=== PATIENT | male | born 1965 | race Caucasian/White ===

== ENCOUNTER 2016-08-22 11:28 | Inpatient (IN) | payer MEDICAID, OTHER ==
[~2016-08-22] VITALS: Ht 188 cm; Wt 151.6 kg
[~2016-08-22 11:28] MED LIST: ACHD5005 PO; ALBU8.5H2; ALBU8.5H4 IH; ALPR.5T PO; ALPR0.5T7; ALPR0.5T7 PO; ASP325TEC PO; ATOR10TA66; ATOR10TA66 PO; ATOR40TA PO; ATRV10T PO; CARI350T PO; CARV12.53 PO; CARV20CP; CARV20CP PO; CARV25TA PO; CARV40CP PO; CARV6.252; CEFU250T PO; CLIN300C3 PO; CYCL10TA9 PO; DIAZ10TA3; DIAZ10TA3 PO; DIGO125T PO; DIGO250T15; DIGO250T15 PO; FENO134C PO; FLT05NA16 NSEACH; FURO40TA4 PO; FURO80TA3 PO; GABA-488; GABA300C; GABA600T2 PO; GBPN300C PO; GUAI600T43 PO; HYDR-3156 PO; HYDR-3490; HYDR-3720 PO; HYDR-3923 PO; INSU100I10; INSU100I10 SQ; INSU100I13 SQ; INSU100I14 SQ; INSU100V6 SQ; LISI10TA; LISI10TA PO; LISI10TA2; LISI10TA2 PO; MED FOR ARTHRITIS; METF-380 PO; METF1000; MORP100T; MORP100T37 PO; MORP60CA18 PO; MORPHINE ER; MTF500T; MTL5T PO; MULT-963 PO; NAPR-243 PO; OXYC30TA76 PO; OXYC30TA80; OXYC30TA80 PO; PENI500T PO; PIRO20CA2 PO; RANI-10; RANI150T11 PO; RT-ALBUINH IH; SULF1TAB38 PO; TRIA16.5 NS; VITA-198 PO; WARF10TA4; WARF10TA44 PO; WRF10T PO; WRF5T PO; ZOLP10TA5 PO; [UNRECOGNIZED DRUG - OTHER]
[2016-08-22] MEDS ORDERED: LACTULOSE SYRUP 10GM/15ML (ENULOSE) 30ML UDC PO PRN (13:15)
[2016-08-22] MEDS ORDERED: VANCOMYCIN INJECTION 1,000 MG in NS (IVPB) 250 ML IV SCH (13:15)
[2016-08-22] MEDS ORDERED: ONDANSETRON 4 MG/2 ML (SDV) Z0FRAN IVP PRN (13:15)
[2016-08-22] MEDS ORDERED: ALPRAZolam 0.25 MG (XANAX) TAB PO PRN (13:15)
[2016-08-22 19:00] VITALS: BP 138/83
[2016-08-22 20:00] VITALS: BP 124/61
[2016-08-22] MEDS ORDERED: PIPERACILLIN SODIUM/TAZOBACTAM 4.5 GM in NS (IVPB) 100 ML IV NR (20:00)
[2016-08-22 20:10] LABS: BASOPHILS % (AUTO) 0 % (0-10); EOSINOPHILS # (AUTO) 0.1 10^3/uL (0.0-0.3); EOSINOPHILS % (AUTO) 1 % (0-10); LYMPHOCYTES # (AUTO) 1.4 X 10^3 (1.0-4.0); LYMPHOCYTES % (AUTO) 10 % (12-44); MEAN CORPUSCULAR HEMOGLOBIN 30 PG (25-34); MEAN CORPUSCULAR HGB CONC 35 G/DL (32-36); MEAN CORPUSCULAR VOLUME 86 FL (80-99); MEAN PLATELET VOLUME 9.1 FL (7.4-10.4); MONOCYTES # (AUTO) 1.1 X 10^3 (0.0-1.0); MONOCYTES % (AUTO) 8 % (0-12); NEUTROPHILS % (AUTO) 81 % (42-75); PLATELET COUNT 328 10^3/uL (130-400); RED BLOOD COUNT 4.23 10^6/uL (4.35-5.85); RED CELL DISTRIBUTION WIDTH 12.9 % (10.0-14.5); WHITE BLOOD COUNT 13.7 10^3/uL (4.3-11.0)
[2016-08-22 20:30] LABS: ALANINE AMINOTRANSFERASE 12 U/L (0-55); ALBUMIN 2.9 GM/DL (3.2-4.5); ANION GAP 9 MMOL/L (5-14); ASPARTATE AMINO TRANSFERASE 14 U/L (5-34); BILIRUBIN,TOTAL 0.5 MG/DL (0.1-1.0); BLOOD UREA NITROGEN 8 MG/DL (7-18); BUN/CREATININE RATIO 8; CALCIUM 8.7 MG/DL (8.5-10.1); CARBON DIOXIDE 23 MMOL/L (21-32); CHLORIDE 102 MMOL/L (98-107); CREATININE SERUM 0.97 MG/DL (0.60-1.30); GFR ESTIMATED > 60; GLUCOSE 177 MG/DL (70-105); POTASSIUM 3.7 MMOL/L (3.6-5.0); SODIUM 134 MMOL/L (135-145); TOTAL PROTEIN 7.2 GM/DL (6.4-8.2)
--- NOTE | 2016-08-22 20:31 | Diagnostic Imaging Report ---
INDICATION: Right foot and ankle swelling. COMPARISON: Right foot radiographs performed concurrently. TECHNIQUE: Three nonweightbearing views of the right ankle. FINDINGS: There are no foci of osseous erosions or cortical destruction about the ankle. No fracture. No osteochondral lesion of the talar dome. Mild degenerative changes in the midfoot. Small dorsal calcaneal spur. Nonaggressive soft tissue calcifications are present in the distal lower leg. IMPRESSION: No radiographic evidence of osteomyelitis about the ankle. Dictated by: Dictated on workstation # [id number]
--- NOTE | 2016-08-22 20:34 | Diagnostic Imaging Report ---
INDICATION: Foot swelling with abscess. COMPARISON: Ankle radiograph performed concurrently. TECHNIQUE: 3 nonweightbearing views of right foot. FINDINGS: There is extensive soft tissue swelling of the forefoot. There are numerous foci of soft tissue gas in the forefoot as well. No discrete osseous erosions or cortical destruction to confirm osteomyelitis by radiographs. No fracture. Mild degenerative changes within the interphalangeal joints. IMPRESSION: 1. Soft tissue swelling with multiple foci of soft tissue gas in the forefoot should relate to patient's reported abscess. 2. No radiographic confirmation of osteomyelitis. Please note that radiographs are insensitive for early osteomyelitis, and MRI of the foot with and without contrast would provide more sensitive evaluation, if deemed clinically indicated. Dictated by: Dictated on workstation # [id number]
[2016-08-22 20:36] LABS: TROPONIN I < 0.30 NG/ML (<0.30)
[2016-08-22] MEDS: NS IV 1000 ML 1,000 ML IV SCH (20:41)
[2016-08-22] MEDS: HYDROmorphone (DILAUDID) 2 MG/ML VIAL IVP PRN (20:41)
[2016-08-22 21:00] VITALS: BP 113/65
[2016-08-22] MEDS ORDERED: VANCOMYCIN 2000 MG/NS 500 ML IVPB IV SCH ×2 (21:00)
[2016-08-22] MEDS ORDERED: LACTATED RINGERS 1,000 ML IV PRN (21:06)
[2016-08-22] MEDS ORDERED: fentaNYL INJECTION 100 MCG/2 ML AMP ONE (21:19)
[2016-08-22] MEDS ORDERED: proPOfol 200 MG/20 ML (DIPRIVAN) VIAL IV ONE (21:19)
[2016-08-22] MEDS ORDERED: MIDAZOLAM 2 MG/2 ML (VERSED) VIAL ONE (21:19)
[2016-08-22] MEDS ORDERED: VANCOMYCIN 1000 MG/VIAL ONE (21:31)
[2016-08-22] MEDS ORDERED: NS IV 500 ML 500 ML ONE (21:31)
[2016-08-22] MEDS ORDERED: morphine INJ 10 MG/ML 1ML (SYR OR VIAL) ONE (21:48)
[2016-08-22] MEDS ORDERED: LIDOCAINE PF 2% 5 ML (XYLOCAINE) VIAL ONE (22:11)
[2016-08-22] MEDS ORDERED: LABETALOL HCL 20 MG/4 ML VIAL ONE (22:11)
[2016-08-22] MEDS ORDERED: SEVOFLURANE (ULTANE) 15 ML INHAL SOLN ONE ×3 (22:11→22:55)
[2016-08-22] MEDS ORDERED: ROCURONIUM 50 MG/5 ML (ZEMURON) VIAL IV ONE (22:11)
[2016-08-22] MEDS ORDERED: LACTATED RINGERS 1,000 ML IV ONE (22:11)
[2016-08-22 23:00] VITALS: BP 113/65
[2016-08-22] MEDS ORDERED: ONDANSETRON 4 MG/2 ML (SDV) Z0FRAN ONE (23:11)
[2016-08-22] MEDS: morphine INJ 10 MG/ML 1ML (SYR OR VIAL) IVP PRN ×2 (23:24→23:33)
[2016-08-23] VITALS (11 sets, daily range): BP systolic 117–164; BP diastolic 76–98
[2016-08-23] MEDS: HYDROmorphone (DILAUDID) 2 MG/ML VIAL IVP PRN ×3 (00:31→20:04)
[2016-08-23] MEDS: NS IV 1000 ML 1,000 ML IV SCH ×4 (00:31→18:38)
[2016-08-23] MEDS: oxyCODONE/APAP 10/325MG (PERCOCET 10) TABLET PO PRN ×2 (00:32→10:31)
[2016-08-23] MEDS ORDERED: RT-ALBUTEROL SULF 2.5 MG/3 ML PRE-MIX VIAL IH PRN (02:45)
[2016-08-23] MEDS: PIPERACILLIN SODIUM/TAZOBACTAM 4.5 GM in NS (IVPB) 100 ML IV SCH ×3 (04:04→17:46)
[2016-08-23 04:44] LABS: BASOPHILS % (AUTO) 0 % (0-10); EOSINOPHILS # (AUTO) 0.1 10^3/uL (0.0-0.3); EOSINOPHILS % (AUTO) 0 % (0-10); LYMPHOCYTES # (AUTO) 1.2 X 10^3 (1.0-4.0); LYMPHOCYTES % (AUTO) 7 % (12-44); MEAN CORPUSCULAR HEMOGLOBIN 30 PG (25-34); MEAN CORPUSCULAR HGB CONC 34 G/DL (32-36); MEAN CORPUSCULAR VOLUME 86 FL (80-99); MEAN PLATELET VOLUME 9.4 FL (7.4-10.4); MONOCYTES # (AUTO) 1.7 X 10^3 (0.0-1.0); MONOCYTES % (AUTO) 10 % (0-12); NEUTROPHILS # (AUTO) 13.8 X 10^3 (1.8-7.8); NEUTROPHILS % (AUTO) 83 % (42-75); PLATELET COUNT 343 10^3/uL (130-400); RED BLOOD COUNT 4.21 10^6/uL (4.35-5.85); RED CELL DISTRIBUTION WIDTH 12.8 % (10.0-14.5); WHITE BLOOD COUNT 16.7 10^3/uL (4.3-11.0)
[2016-08-23 05:08] LABS: CALCIUM 8.4 MG/DL (8.5-10.1); CREATININE SERUM 1.46 MG/DL (0.60-1.30); MAGNESIUM 1.8 MG/DL (1.8-2.4); PHOSPHORUS 3.8 MG/DL (2.3-4.7); POTASSIUM 4.2 MMOL/L (3.6-5.0)
[2016-08-23 05:26] LABS: BAND NEUTROPHILS 7 %; EOSINOPHILS % (MANUAL) 1 %; LYMPHOCYTES % (MANUAL) 12 %; NEUTROPHILS % (MANUAL) 71 %
[2016-08-23] MEDS ORDERED: POTASSIUM CL 10MEQ/50ML IVPB 50 ML IV SCH (06:00)
[2016-08-23] MEDS ORDERED: KCL 20 MEQ TAB (K-DUR) PO SCH (06:00)
[2016-08-23] MEDS ORDERED: MAGNESIUM 1 GM/100 ML IVPB 100 ML IV SCH (06:00)
--- NOTE | 2016-08-23 06:31 | Pulmonary Consultation ---
History of Present Illness History of Present Illness Date of Consultation 08/23/16 06:24 Time Seen by Provider: 06:25 Date of Admission Allergies and Home Medications Allergies Coded Allergies: cortisone (Verified Allergy, Unknown, HIVES, 11/11/14) shellfish derived (Verified Allergy, Unknown, 11/11/14) Uncoded Allergies: THYLAID (Allergy, Unknown, 11/11/14) Home Medications Clindamycin HCl 300 Mg Capsule, 300 MG PO Q8H, (Reported) 10 DAY THERAPY FILLED 08-13-16 Ibuprofen 800 Mg Tablet, 800 MG PO Q8H PRN for PAIN-MILD, (Reported) Oxycodone HCl/Acetaminophen 1 Each Tablet, 1 TAB PO Q6H PRN for PAIN-MODERATE, ( Reported) Rivaroxaban 15 Mg Tablet, 15 MG PO BID, (Reported) Past Wgncpyy-Kayjyb-Xwhega Hx Patient Social History Alcohol Use: Occasionally Uses Recreational Drug Use: Yes (ETOH 20 YRS AG0) Smoking Status: Unknown if Ever Smoked Former Smoker/When Quit: Feb 25, 2014 Recent Foreign Travel: No Contact w/Someone Who Travel: No Physical Abuse Screen: No Sexual Abuse: No Immunizations Up To Date Tetanus Booster (TDap): Less than 5yrs Date of Pneumonia Vaccine: Jun 13, 2007 Seasonal Allergies Seasonal Allergies: Yes Surgeries HX Surgeries: Yes (L KNEE) Surgeries: Adenoidectomy, Cardiac, Ear Surgery, Orthopedic, Tonsillectomy Respiratory Hx Respiratory Disorders: Yes Respiratory Disorders: COPD Cardiovascular Hx Cardiac Disorders: Yes (reported history of CHF) Cardiac Disorders: Deep Vein Thrombosis, High Cholesterol, Hypertension Neurological Hx Neurological Disorders: No (pt unresponsive) Reproductive System Hx Reproductive Disorders: No Sexually Transmitted Disease: No HIV/AIDS: No Genitourinary Hx Genitourinary Disorders: Yes (pt unresponsive) Genitourinary Disorders: Renal Failure Gastrointestinal Hx Gastrointestinal Disorders: No (pt unresponsive) Musculoskeletal Hx Musculoskeletal Disorders: Yes Musculoskeletal Disorders: Arthritis, Chronic Back Pain, Fractures Endocrine Hx Endocrine Disorders: Yes (pt unresponsive) Endocrine Disorders: Diabetes, Insulin dep HEENT HX ENT Disorders: No (pt unresponsive) Cancer Hx Cancer: No (pt unresponsive) Psychosocial Hx Psychiatric Problems: Yes Behavioral Health Disorders: Anxiety Integumentary HX Skin/Integumentary Disorder: No Blood Transfusions Hx Blood Disorders: No Adverse Reaction to a Blood Tr: No Family Medical History Significant Family History: No Pertinent Family Hx Review of Systems Time Seen by Provider: 08:28 Exam Exam Vital Signs Date Time Temp Pulse Resp B/P (MAP) Pulse Ox O2 Delivery O2 Flow Rate FiO2 08/23/16 06:00 94 10 117/85 96 Nasal Cannula 2.00 08/23/16 05:00 98 20 150/82 96 Nasal Cannula 2.00 08/23/16 04:00 91 Nasal Cannula 2.00 08/23/16 04:00 101 23 134/77 96 Nasal Cannula 2.00 08/23/16 03:00 101 18 154/81 96 Nasal Cannula 2.00 08/23/16 02:40 96 Nasal Cannula 2.00 08/23/16 02:00 102 19 135/76 97 Nasal Cannula 2.00 08/23/16 01:00 101 20 137/88 96 Nasal Cannula 2.00 08/23/16 01:00 106 08/23/16 00:30 96.6 Nasal Cannula 2.00 08/23/16 00:00 91 Nasal Cannula 2.00 08/23/16 00:00 98 9 134/90 91 Room Air 08/22/16 23:00 113/65 08/22/16 21:46 96 Room Air 08/22/16 21:00 100 9 113/65 95 Room Air 08/22/16 20:00 98 20 124/61 96 Room Air 08/22/16 19:00 138/83 I & O 08/23/16 07:00 Intake Total 3750 ml Output Total 0 ml Balance 3750 ml General Appearance: No Apparent Distress, WD/WN HEENT: PERRL/EOMI Neck: Full Range of Motion, Normal Inspection Respiratory: Chest Non Tender, Lungs Clear Cardiovascular: Regular Rate, Rhythm, No Edema, No Gallop Gastrointestinal: normal bowel sounds, non tender, soft Neurologic/Psychiatric: Alert, Oriented x3 Skin: Normal Color, Warm/Dry Results Lab Laboratory Tests 08/22/16 19:45 08/23/16 04:12 Assessment/Plan Assessment/Plan s-S/P trauma to R leg including foot and toe s/p Amputation of 3rd toe -ortho following -Acute renal failure -IVF -sepsis -Continue Abx with zosyn, vanco Pt is well will send to floor. 254 Clinical Quality Measures DVT/VTE Risk/Contraindication: Risk Factor Score Per Nursin RFS Level Per Nursing on Admit: 4+=Very High Contraindications-Pharm: Other *list below* Contraindications-Mechi: Other *list below* Other: operation planned today lower leg cellulitis MERCEDES RODRIGUEZ DO Aug 23, 2016 06:31
[2016-08-23] MEDS ORDERED: TROUGH ORDER-PHARMACY XX NR ×4 (08:00→23:00)
--- OUTSIDE RECORDS SUMMARY | 2016-08-23 09:10 | XMS REPORT | Continuity of Care Document ---
Author Author [facility] Organization [facility] Address Unknown Phone Unavailable Care Team Providers Care Potato Loader Name Role Phone Jonathan Carvalho PCP [phone] Source Comments Some departments are not documenting in the electronic medical record. If you do not see the information that you expected, contact Release of Information in the Health Information Management department at [phone] for further assistance in locating additional records.[facility] Active Allergies and Adverse Reactions Allergen Noted Date Severity Reactions Comments Adhesive Tape (Rosins) 02/16/2016 Medium RASH Cortisone 02/16/2016 Low SEE COMMENTS Burning sensation Lyrica 02/16/2016 Low SEE COMMENTS Causes more pain Mobic 02/16/2016 Low SEE COMMENTS Causes more pain Current Medications No known medications Active Problems Not on file Social History Tobacco Use Types Packs/Day Years Used Date Never Smoker Last Filed Vital Signs Vital Sign Reading Time Taken Blood Pressure 189/115 02/16/2016 1:16 PM HOIST MECHANIC Pulse 107 02/16/2016 1:16 PM HOIST MECHANIC Temperature 37.1 C (98.8 F) 02/16/2016 1:16 PM HOIST MECHANIC Respiratory Rate - - Height 1.93 m (6' 4") 02/16/2016 1:16 PM HOIST MECHANIC Weight 145.151 kg (320 lb) 02/16/2016 1:16 PM HOIST MECHANIC Body Mass Index 38.97 02/16/2016 1:16 PM HOIST MECHANIC Oxygen Saturation 95% 02/16/2016 1:16 PM HOIST MECHANIC Plan of Care Health Maintenance Due Date Last Done Comments Physical (Comprehensive) 1972 Exam Pertussis Vaccine 1976 Tetanus Vaccine 1982 Colorectal Cancer 12/29/2015 Screening Influenza Vaccine 10/26/2016 Results from Last 3 Months Not on file
--- OUTSIDE RECORDS SUMMARY | 2016-08-23 09:10 | XMS REPORT | Continuity of Care Document ---
Author Author [facility] Organization [facility] Address [facility] [address] [place] [id number] Phone Unavailable Support Name Relationship Address Phone OG SALEEM MD Caregiver [address] [place] [phone] Unavailable MICHELLE MTZ MD Caregiver [address] [address] Unavailable RIK CRONIN MD Caregiver [address] [place] [id number] MIGUEL KULKARNI Next Of Kin [address] [place] [address] Insurance Providers Payer Name Policy Number Subscriber Name Relationship Wc Other [id number] Nathanael Irving 18 Self / Same As Patient Advance Directives Directive Response Recorded Date/Time Do you have an Advanced Directive? No 10/02/08 10:25am Advance Directives No 08/21/16 11:55pm Living Will No 08/21/16 11:55pm Health Care Proxy No 08/21/16 11:55pm Power of Block And Case Maker for Health Care No 08/21/16 11:55pm Organ, Tissue, or Eye Donor No 08/21/16 11:55pm Do you have a signed organ donor card? No 10/02/08 10:25am Chief Complaint and Reason for Visit Chief Complaint DIABETIC FOOT CELLULITIS, HYPERGLYCEMIA Reason for Visit Hyperglycemia Hypokalemia Nausea and vomiting Problems Active Problems Medical Problem Onset Date Status DVT of popliteal vein Unknown Acute Diabetic foot infection Unknown Acute Hyperglycemia Unknown Acute Hypokalemia Unknown Acute Nausea and vomiting Unknown Acute Medications Current Home Medications Medication Dose Units Route Directions Days/Qty Instructions Start Date Metformin Hcl 1 000 1,000 Mg Oral Twice A Day 05/03/16 Gabapentin 300 Mg 300 Mg Oral Three Times A Day 05/03/16 Lisinopril (Zestril 10 Mg Tab*) 10 Mg 10 Mg Oral Daily 05/03/16 Ranitidine Hcl 150 Mg 150 Mg Oral Twice A Day 05/03/16 Warfarin Sodium 10 Mg 10 Mg Oral Daily 05/03/16 Digoxin (Digitek 250 Mcg Tab*) 250 Mcg 0.25 Mg Oral Daily 05/03/16 Insulin Aspart Prota 70%/Aspart 30% 10 Ml 40 Unit Subcutaneously Daily 05/03/16 Insulin Glargine,Hum.rec.anlog 300 Unit/1 Ml 30 Unit Sub-Q Daily 11/11 Ondansetron* 4 Mg/Tab 4 Mg Oral Three Times Daily As Needed 20 [Uppssabnb701 Mg] (Motrin*) 800 Mg Mg 08/16/16 [Clindamycin 300MG Capsules] 08/16/16 Rivaroxaban 1 Each 15 Mg Oral Twice A Day 08/22/16 Past Home Medications Medication Directions Ordered Status Cyclobenzaprine Hcl 10 Mg Tab, 10 Mg Oral Three Times A Day 10/02/08 Discontinued Acetaminophen/ Codeine #3 Tab* 1 Tab Tablet, 1 - 2 Tab Oral Every 4-6 Hours 10/02/08 Discontinued [Flexeril] , 10 Mg Oral Three Times Daily As Needed 10/02/08 Discontinued [Neurontin] , 300 Mg Oral Daily 10/02/08 Discontinued [[id number]] , 1 Tab Oral Every 6 Hours As Needed 10/02/08 Discontinued [Prinivil] , 10 Mg Oral Daily 10/02/08 Discontinued [Glucophage] , 500 Mg Oral Three Times A Day 10/02/08 Discontinued [Feldene] , 20 Mg Oral Twice A Day 10/02/08 Discontinued [Ranitidine] , 150 Mg Oral Twice A Day 10/02/08 Discontinued Social History Social History Problem Response Recorded Date/Time Smoking Status Never smoker 08/21/2016 11:55pm Tobacco Use Denies Use 05/03/2016 1:50pm Query Response Start Date Stop Date Smoking Status Never smoker Hospital Discharge Instructions Discharge Instructions Provider Instructions Make Appointment with: Other: PCP in [place] after the hospitalization Smoking Cessation If you are a smoker, the following is recommended: Stop all tobacco use; for help quitting, please call [phone]. Notify Physician If: Fever Greater 100.5 F, Pain Not Relieved by Med. Additional Instructions: You are being transferred to [facility] Plan of Care Discharge Date 08/22/16 6:12pm Disposition 70 XFER OTHER Prescriptions See Medication Section Care Plan and Goals See Discharge Instructions Section Functional Status Query Response Date Recorded Gordon Coma Scale Total 15 August 21, 2016 6:17pm Patient Behavior Cooperative August 21, 2016 8:18pm Allergies, Adverse Reactions, Alerts Allergen Type Severity Reaction Status Last Updated Iodine Allergy Unknown Active 08/21/16 Cortisone Allergy Unknown Active 08/21/16 Meloxicam Allergy Unknown Active 08/21/16 Pregabalin Allergy Unknown Active 08/21/16 SHELLFISH Allergy Unknown Active 08/21/16 Immunizations Name Given Type Hx Diphtheria, Pertussis, Tetanus Vaccination Up To Date Historical Hx Influenza Vaccination No Historical Hx Pneumococcal Vaccination No Historical Hx Tetanus, Diphtheria Vaccination Y 7 YEARS AGO Historical Vital Signs Acute Vital Signs Vital Response Date/Time Temperature (Fahrenheit) 99.0 degrees F (97.6 - 99.5) 08/22/2016 2:31pm Temperature Source Temporal Artery 08/22/2016 2:31pm Pulse Rate (adult) 97 bpm (60 - 90) 08/22/2016 2:31pm Respiratory Rate 16 bpm (12 - 24) 08/22/2016 2:31pm Blood Pressure 121/69 mm Hg 08/22/2016 2:31pm O2 Sat by Pulse Oximetry 96 % (90 - 100) 08/22/2016 2:31pm Oxygen Delivery Method 08/21/2016 10:53pm Pain Intensity 8 08/22/2016 8:30am Pain Location Body Site Modifier Lower 08/22/2016 5:18pm Pain Description 08/22/2016 5:18pm Height 6 ft 4 in Weight 294 lb Body Mass Index 35.0 kg/m^2 Results Pending Laboratory Results Test Name Collection Date/Time Procedures Procedure Status Date Provider(s) Computed tomography of right lower extremity without contrast Completed 08/16 LACY GARNER Venous Doppler Ext.rt. Completed 08/16/16 LACY GRANER Foot Rt.4 Views(3OR More) Completed 08/21/16 OG SALEEM MD Encounters Encounter Location Arrival/Admit Date Discharge/Depart Date Attending Provider Discharged Inpatient [facility] 08/21/16 11:10pm 08/22/16 6:12pm RIK CRONIN MD Departed Emergency [facility] 08/16/16 2:23pm 08/16/16 4:45pm AGUILA BUCK MD Registered [facility] 08/16/16 1:09pm LACY GARNER Recent Diagnosis Hyperglycemia Hypokalemia Nausea and vomiting
--- OUTSIDE RECORDS SUMMARY | 2016-08-23 09:11 | XMS REPORT ---
Author TAMI Foy [facility] [employer] Address Unknown Phone Unavailable Care Team Providers Care Graduate Studies Dean Name Role Phone TAMI AMATO CP Unavailable Allergies, Adverse Reactions, Alerts Substance Reaction Event Type Lyrica Info Not Available Drug Allergy Betadine Swabsticks Info Not Available Drug Allergy Problems Problem Type Condition ICD-9 Code Onset Dates Condition Status Problem Depressive disorder, not elsewhere classified 311 Active Problem Edema 782.3 Active Problem Insomnia 780.52 Active Problem Chronic pain 338.29 Active Problem Hypertension 401.9 Active Problem Diabetes 250.00 Active Problem CAD (coronary artery disease) 414.00 Active Problem Anxiety 300.00 Active Problem Hypercholesterolemia 272.0 Active Problem LVF (left ventricular failure) 428.1 Active Assessment Edema 782.3 Active Assessment Anxiety 300.00 Active Assessment Insomnia 780.52 Active Assessment Hypercholesterolemia 272.0 Active Assessment Hypertension 401.9 Active Assessment CAD (coronary artery disease) 414.00 Active Assessment Chronic pain 338.29 Active Assessment LVF (left ventricular failure) 428.1 Active Assessment Diabetes 250.00 Active Medications Medication Code System Code Instructions Start Date End Date Status Dosage NovoLog Flexpen [facility] [address]-44 100 UNIT/ML Subcutaneous 3 times a day 15-20 Piroxicam [facility] [address]-99 20 MG Orally 2 times a day 1 capsule with food Lisinopril [facility] [address]-98 10 MG Orally Once a day 1 tablet Atorvastatin Calcium [facility] [address]-49 10 MG Orally Once a day 1 tablet Lasix [facility] [address]-96 80 MG Orally Once a day Nov 09, 2014 1 tablet Warfarin Sodium [facility] [address]-14 10 MG Orally Once a day 1 tablet NovoLog Mix 70/30 Flexpen [facility] [address]-16 (70-30) 100 UNIT/ML Subcutaneous 3 times a day Nov 09, 2014 30 units Metformin HCl [facility] [address]-91 1000 MG Orally Twice a day 1 tablet with meals Combivent Respimat [facility] [address]-51 20-100 MCG/ACT Inhalation Four times a day 1 puff Ambien [facility] [address]-43 10 MG Orally Once a day Nov 09, 2014 1 tablet at bedtime as needed Lantus SoloStar [facility] [address]-81 100 UNIT/ML Subcutaneous Once a day at bedtime 60 units ProAir HFA [facility] [address]-60 108 (90 Base) MCG/ACT Inhalation 4 times a day prn 2 puffs as needed Lantus [facility] [address]-11 100 UNIT/ML Subcutaneous 2 times a day Nov 09, 2014 40 units Alprazolam [facility] [address]-60 0.5 MG Orally Three times a day 1 tablet Oxycodone HCl [facility] [address]-81 30 MG Orally 3 times a day Dec 09, 2014 1 tablet as needed Gabapentin [facility] [address]-85 600 MG Orally Three times a day 1 tablet Digoxin [facility] [address]-22 250 MCG Orally Once a day 1 tablet Ranitidine HCl [facility] [address]-32 150 MG Orally Twice a day 1 capsule Morphine Sulfate [facility] [address]-89 100 MG Orally 2 times a day Dec 09, 2014 one tablet Coreg CR [facility] [address]-96 40 MG Orally Once a day 1 capsule with food Procedures Procedure Coding System Code Date PROTHROMBIN TIME CPT-4 47259 Nov 09, 2014 COMPLETE CBC W/AUTO DIFF WBC CPT-4 95020 Nov 09, 2014 GLYCATED HEMOGLOBIN TEST CPT-4 11051 Nov 09, 2014 VENIPUNCT, ROUTINE* CPT-4 63708 Nov 09, 2014 Office Visit, New Pt., Level 5 CPT-4 52891 Nov 09, 2014 MICROALBUMIN, SEMIQUANT CPT-4 29927 Nov 09, 2014 LIPID PANEL CPT-4 96762 Nov 09, 2014 COMPREHEN METABOLIC PANEL CPT-4 76087 Nov 09, 2014 No Charge CPT-4 99450 Nov 09, 2014 ELECTROCARDIOGRAM, TRACING CPT-4 34786 Nov 09, 2014 Vital Signs Date/Time: Nov 09, 2014 Temperature 97.4 F Weight 366.9 lbs Height 71.0 in BMI 51.17 Index Blood Pressure Diastolic 80 mmHg Blood Pressure Systolic 122 mmHg Cardiac Monitoring Heart Rate 78 bpm Results No Known Results Summary Purpose eClinicalWorks Submission
--- OUTSIDE RECORDS SUMMARY | 2016-08-23 09:11 | XMS REPORT ---
Author Author TAMI AMATO Organization [employer] Address Unknown Phone Unavailable Care Team Providers Care Rd Mechanical Engineer Name Role Phone TAMI AMATO Unavailable Allergies No Known Allergies Problems Problem Type Condition ICD-9 Code Onset Dates Condition Status Problem Depressive disorder, not elsewhere classified 311 Active Problem Edema 782.3 Active Problem Insomnia 780.52 Active Problem Chronic pain 338.29 Active Problem Hypertension 401.9 Active Problem Diabetes 250.00 Active Problem CAD (coronary artery disease) 414.00 Active Problem Anxiety 300.00 Active Problem Hypercholesterolemia 272.0 Active Problem LVF (left ventricular failure) 428.1 Active Medications No Known Medications Results No Known Results Summary Purpose eClinicalWorks Submission
--- OUTSIDE RECORDS SUMMARY | 2016-08-23 09:12 | XMS REPORT | Continuity of Care Document ---
Author Author [facility] Organization [facility] Address [facility] [address] [place] [phone] Phone Unavailable Support Name Relationship Address Phone OG SALEEM MD Caregiver [address] [place] [address] Unavailable TEODORAJESSY Next Of Kin Unknown Insurance Providers Payer Name Policy Number Subscriber Name Relationship [employer] [facility] [id number] Nathanael Irving 18 Self / Same As Patient Advance Directives Directive Response Recorded Date/Time Do you have an Advanced Directive? No 10/02/08 10:25am Advance Directives No 11/03/15 10:05am Living Will No 11/03/15 10:05am Health Care Proxy No 05/03/16 1:13pm Power of Real Estate Rep for Health Care No 11/03/15 10:05am Organ, Tissue, or Eye Donor No 11/03/15 10:05am Do you have a signed organ donor card? No 10/02/08 10:25am Chief Complaint and Reason for Visit Chief Complaint NAUSEA VOMITING DIARRHEA Reason for Visit Nausea and vomiting work note Problems Active Problems Medical Problem Onset Date Status Nausea and vomiting Unknown Acute Medications Current [...] Oral Three Times Daily As Needed 20 Past Home Medications Medication Directions Ordered Status Cyclobenzaprine Hcl 10 Mg Tab, 10 Mg Oral Three Times A Day 10/02/08 Discontinued Acetaminophen/ Codeine #3 Tab* 1 Tab Tablet, 1 - 2 Tab Oral Every 4-6 Hours 10/02/08 Discontinued [Flexeril] , 10 Mg Oral Three Times Daily As Needed 10/02/08 Discontinued [Neurontin] , 300 Mg Oral Daily 10/02/08 Discontinued [[id number]] , 1 Tab Oral Every 6 Hours As Needed 10/02/08 Discontinued [Prinivil] , 10 Mg Oral Daily 10/02/08 Discontinued [Glucophage] , 500 Mg Oral Three Times A Day 10/02/08 Discontinued [Feldene] , 20 Mg Oral Twice A Day 10/02/08 Discontinued [Ranitidine] , 150 Mg Oral Twice A Day 10/02/08 Discontinued Social History Social History Problem Response Recorded Date/Time Tobacco Use Denies Use 05/03/2016 1:50pm Alcohol Use none 05/03/2016 1:50pm Drug Use none 05/03/2016 1:50pm Hospital Discharge Instructions No hospital discharge instructions. Plan of Care Discharge Date 05/03/16 1:51pm Disposition 01 HOME, SNF,ASSISTED LIVING Condition at Discharge Stable Instructions/Education Provided Acute Nausea and Vomiting (ED) Forms Provided WORK RELEASE Prescriptions See Medication Section Functional Status Query Response Date Recorded Patient Behavior Appropriate May 03, 2016 1:15pm Allergies, Adverse Reactions, Alerts Allergen Type Severity Reaction Status Last Updated Cortisone Allergy Unknown Active 05/03/16 Meloxicam Allergy Unknown Active 05/03/16 Pregabalin Allergy Unknown Active 05/03/16 Immunizations Name Given Type Hx Diphtheria, Pertussis, Tetanus Vaccination Unknown Historical Hx Influenza Vaccination No Historical Hx Pneumococcal Vaccination No Historical Hx Tetanus, Diphtheria Vaccination Y 7 YEARS AGO Historical Vital Signs Acute Vital Signs Vital Response Date/Time Temperature (Fahrenheit) 98.9 degrees F (97.6 - 99.5) 05/03/2016 1:51pm Temperature Source Temporal Artery 05/03/2016 1:51pm Pulse Rate (adult) 118 bpm (60 - 90) 05/03/2016 1:51pm Respiratory Rate 24 bpm (12 - 24) 05/03/2016 1:51pm Blood Pressure 157/99 mm Hg 05/03/2016 1:51pm O2 Sat by Pulse Oximetry 93 % (90 - 100) 05/03/2016 1:51pm Oxygen Delivery Method 05/03/2016 1:51pm Pain Intensity 8 04/05/2016 2:10pm Height 6 ft 4 in Weight 297 lb Body Mass Index 36.0 kg/m^2 Results Laboratory Results Test Name Result Units Flags Reference Collection Date/Time Result Date/ Time Comments White Blood Count 5.3 K/uL 4.8-10.8 03/26/2016 2:55pm 03/26/2016 6: 22pm Red Blood Count 4.96 M/uL 4.70-6.10 03/26/2016 2:55pm 03/26/2016 6: 22pm Hemoglobin 15.3 gm/dL 14.0-18.0 03/26/2016 2:55pm 03/26/2016 6:22pm Hematocrit 44.0 % 42.0-52.0 03/26/2016 2:55pm 03/26/2016 6:22pm Mean Corpuscular Volume 88.6 fL 80.0-96.1 03/26/2016 2:55pm 03/26/2016 6:22pm Mean Corpuscular Hemoglobin 30.8 pg 27.0-31.0 03/26/2016 2:55pm 2016 6:22pm Mean Corpuscular Hemoglobin Concent 34.7 g/dL 30.0-37.0 03/26/2016 2: 55pm 03/26/2016 6:22pm Red Cell Distribution Width 14.1 % 11.5-14.5 03/26/2016 2:2016 6:22pm Platelet Count 244 K/uL 130-400 03/26/2016 2:pm 03/26/2016 6:22pm Mean Platelet Volume 9.2 fL 7.4-10.4 03/26/2016 2:55pm 03/26/2016 6: 22pm Neutrophils (%) (Auto) 56.6 % 42.2-75.2 03/26/2016 2:55pm 03/26/2016 6: 22pm Lymphocytes (%) (Auto) 35.3 % 20.5-51.1 03/26/2016 2:5503/26/2016 6: 22pm Monocytes (%) (Auto) 6.0 % 1.7-9.3 03/26/2016 2:55pm 03/26/2016 6:22pm Eosinophils (%) (Auto) 1.6 % 0-3 03/26/2016 2:55pm 03/26/2016 6:22pm Basophils (%) (Auto) 0.5 % 0.0-1.0 03/26/2016 2:03/26/2016 6:22pm Neutrophils # (Auto) 3.0 K/uL 2.0-6.9 03/26/2016 2:pm 03/26/2016 6: 22pm Lymphocytes # (Auto) 1.9 K/uL 1.2-3.4 03/26/2016 2:pm 03/26/2016 6: 22pm Monocytes # (Auto) 0.3 K/uL 0.1-0.6 03/26/2016 2:pm 03/26/2016 6: 22pm Eosinophils # (Auto) 0.1 K/uL 0.0-0.7 03/26/2016 2:03/26/2016 6: 22pm Basophils # (Auto) 0.0 K/uL 0.0-0.2 03/26/2016 2:03/26/2016 6: 22pm Prostate Specific Antigen Screen 0.23 ng/ML 0-4.0 03/26/2016 2: 6:40pm Random Glucose 220 mg/dL H 70-110 03/26/2016 2:03/26/2016 6:40pm Blood Urea Nitrogen 8 mg/dL 7-18 03/26/2016 2:03/26/2016 6:40pm Creatinine 0.9 mg/dL 0.70-1.30 03/26/2016 2:03/26/2016 6:40pm Sodium Level 136 mEq/L 136-145 03/26/2016 2:03/26/2016 6:40pm Potassium Level 4.1 mEq/L 3.5-5.0 03/26/2016 2:03/26/2016 6:40pm Chloride Level 104 mEq/L 98-107 03/26/2016 2:03/26/2016 6:40pm Carbon Dioxide Level 24.2 mEq/L 21-32 03/26/2016 2:55pm 03/26/2016 6: 40pm Calcium Level 8.8 mg/dL 8.8-10.5 03/26/2016 2:55pm 03/26/2016 6:40pm Cholesterol Level 285 mg/dL H 120-200 03/26/2016 2:55pm 03/26/2016 6: 40pm Triglycerides Level 272 mg/dL H 30-200 03/26/2016 2:55pm 03/26/2016 6: 40pm HDL Cholesterol 50 mg/dL 35-60 03/26/2016 2:55pm 03/26/2016 6:40pm LDL Cholesterol 181 mg/dL H 0-130 03/26/2016 2:55pm 03/26/2016 6:40pm Total Protein 7.2 gm/dL 6.4-8.2 03/26/2016 2:55pm 03/26/2016 6:40pm Albumin 3.5 gm/dL 3.4-5.0 03/26/2016 2:55pm 03/26/2016 6:40pm Total Bilirubin 0.31 mg/dL 0.00-1.00 03/26/2016 2:55pm 03/26/2016 6: 40pm Aspartate Amino Transf (AST/SGOT) 14 U/L L 15-37 03/26/2016 2:55pm 03/26 6:40pm Alanine Aminotransferase (ALT/SGPT) 22 U/L 12-78 03/26/2016 2:55pm 6:40pm Total Alkaline Phosphatase 71 U/L 46-116 03/26/2016 2:55pm 03/26/2016 6 :40pm Thyroid Stimulating Hormone (TSH) 1.39 uIU/ml 0.36-3.74 03/26/2016 2: 55pm 03/26/2016 6:40pm Glomerular Filtration Rate Calc 94.9 mL/min 03/26/2016 2:55pm 2016 6:40pm Procedures No known history of procedures. Encounters Encounter Location Arrival/Admit Date Discharge/Depart Date Attending Provider Departed Emergency Room [place] 05/03/16 1:12pm 05/03/16 1:51pm OG SALEEM MD Discharged Recurring [place] 04/05/16 1:36pm 04/05/16 2:36pm BECKIE MEZA APRN Registered Referred [place] 03/26/16 4:30pm WENDY DUNN APRN Recent Diagnosis
--- OUTSIDE RECORDS SUMMARY | 2016-08-23 09:12 | XMS REPORT | Continuity of Care Document ---
Author Author [facility] Organization [facility] Address [facility] [address] [place] [address] Phone Unavailable Support Name Relationship Address Phone AGUILA BUCK MD Caregiver [address] [place] [address] Unavailable MIGUEL KULKARNI Next Of Kin [address] [place] [address] Insurance Providers Payer Name Policy Number Subscriber Name Relationship [place] Other [id number] Nathanael Irving 18 Self / Same As Patient Advance Directives Directive Response Recorded Date/Time Do you have an Advanced Directive? No 10/02/08 10:25am Advance Directives No 11/03/15 10:05am Living Will No 11/03/15 10:05am Health Care Proxy No 08/16/16 2:40pm Power of Quality Control Lab Technician for Health Care No 11/03/15 10:05am Organ, Tissue, or Eye Donor No 11/03/15 10:05am Do you have a signed organ donor card? No 10/02/08 10:25am Chief Complaint and Reason for Visit Chief Complaint DEEP VEIN THROMBOSIS Reason for Visit [id number] Problems Active Problems Medical Problem Onset Date Status DVT of popliteal vein Unknown Acute Nausea and vomiting Unknown Acute [...] Oral Three Times Daily As Needed 20 [[id number] Mg] (Motrin*) 800 Mg Mg 08/16/16 [Clindamycin 300MG Capsules] 08/16/16 Past Home Medications Medication Directions Ordered Status Cyclobenzaprine Hcl 10 Mg Tab, 10 Mg Oral Three Times A Day 10/02/08 Discontinued Acetaminophen/ Codeine #3 Tab* 1 Tab Tablet, 1 - 2 Tab Oral Every 4-6 Hours 10/02/08 Discontinued [Flexeril] , 10 Mg Oral Three Times Daily As Needed 10/02/08 Discontinued [Neurontin] , 300 Mg Oral Daily 10/02/08 Discontinued [[id number]] , 1 Tab Oral Every 6 Hours [...] Date/Time Tobacco Use Denies Use 05/03/2016 1:50pm Hospital Discharge Instructions No hospital discharge instructions. Plan of Care Discharge Date 08/16/16 4:45pm Disposition 01 HOME, RETIREMENT,ASSISTED LIVING Condition at Discharge Stable Instructions/Education Provided Rivaroxaban (By mouth) Deep Venous Thrombosis (ED) Prescriptions See Medication Section Referrals WENDY DUNN ELECTRICAL PROSPECTOR - 1 Week Additional Instructions/Education You have received samples of Xarelto ( rivaroxaban). Take one pill twice a day. You have been given 2 week supply of medications. It is important that you are seen by your workers comp doctor or Dr. Dunn to get refills within the next 2 weeks. call for appointment. Functional Status Query Response Date Recorded [place] Coma Scale Total 15 August 16, 2016 2:25pm Patient Behavior Appropriate August 16, 2016 2:25pm Allergies, Adverse Reactions, Alerts Allergen Type Severity Reaction Status Last Updated Cortisone Allergy Unknown Active 08/16/16 Meloxicam Allergy Unknown Active 08/16/16 Pregabalin Allergy Unknown Active 08/16/16 Immunizations Name Given Type Hx Diphtheria, Pertussis, Tetanus Vaccination Unknown Historical Hx Influenza Vaccination No Historical Hx Pneumococcal Vaccination No Historical Hx Tetanus, Diphtheria Vaccination Y 7 YEARS AGO Historical Vital Signs Acute Vital Signs Vital Response Date/Time Temperature (Fahrenheit) 98.1 degrees F (97.6 - 99.5) 08/16/2016 2:25pm Temperature Source Temporal Artery 08/16/2016 2:25pm Pulse Rate (adult) 101 bpm (60 - 90) 08/16/2016 4:45pm Respiratory Rate 15 bpm (12 - 24) 08/16/2016 4:45pm Blood Pressure 149/90 mm Hg 08/16/2016 4:45pm O2 Sat by Pulse Oximetry 99 % (90 - 100) 08/16/2016 4:45pm Oxygen Delivery Method 08/16/2016 4:45pm Pain Location Body Site Modifier Posterior 08/16/2016 4:45pm Height 6 ft 4 in Weight 294 lb Body Mass Index 35.0 kg/m^2 Results No known relevant diagnostic tests, laboratory data and/or discharge summary. Procedures Procedure Status Date Provider(s) Computed tomography of right lower extremity without contrast Completed 08/16 LACY GARNER Venous Doppler Ext.rt. Completed 08/16/16 LACY GARNER Encounters Encounter Location Arrival/Admit Date Discharge/Depart Date Attending Provider Departed Emergency Room [place] 08/16/16 2:23pm 08/16/16 4:45pm AGUILA BUCK MD Registered Clinic [place] 08/16/16 1:09pm LACY GARNER Recent Diagnosis
--- OUTSIDE RECORDS SUMMARY | 2016-08-23 09:12 | XMS REPORT ---
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 Problem LVF (left ventricular failure) I50.1 Active Problem CAD (coronary artery disease) I25.10 Active Problem HTN (hypertension) I10 Active Problem Hypercholesteremia E78.0 Active Problem Edema 782.3 Active Problem Anxiety 300.00 Active Problem Depressive disorder, not elsewhere classified 311 Active Problem Insomnia 780.52 Active Problem Hypercholesterolemia 272.0 Active Problem Hypertension 401.9 Active Problem CAD (coronary artery disease) 414.00 Active Problem Chronic pain 338.29 Active Problem LVF (left ventricular failure) 428.1 Active Problem Diabetes 250.00 Active Medications No Known Medications Results No Known Results Summary Purpose eClinicalWorks Submission
--- OUTSIDE RECORDS SUMMARY | 2016-08-23 09:12 | XMS REPORT ---
Author Author TAMI AMATO [facility] e[employer] Address Unknown Phone Unavailable Care Team Providers Care Lead Manufacturing Engineering Tech Name Role Phone TAMI AMATO CP Unavailable [...]
--- OUTSIDE RECORDS SUMMARY | 2016-08-23 09:12 | XMS REPORT | Continuity of Care Document ---
Demographics Preferred Language Unknown Marital Status Unknown Islam Affiliation Unknown Race Unknown Ethnic Group Unknown Author Author [facility] Address Unknown Phone Unavailable Allergies Active Description Code Type Severity Reaction Onset Reported/Identified Relationship to Patient Clinical Status Yes cortisone Drug Allergy 10/18/2008 Yes cortisone Drug Allergy N/A N/A 10/18/2008 Yes cortisone [id number] Drug Allergy Unknown HIVES 11/11/2014 Yes shellfish derived [id number] Drug Allergy Unknown N/A 11/11/2014 Yes THYLAID THYLAID Unknown N/A 11/11/2014 Medications Problems Date Dx Coded Attending Type Code Diagnosis Diagnosed By 10/18/2008 250.00 DIABETES MELLITUS TYPE II - UNCOMPLICATED, CONTROLLED 10/18/2008 401.1 ESSENTIAL HYPERTENSION BENIGN 10/18/2008 716.90 ARTHRITIS 10/18/2008 724.2 lower back pain 10/18/2008 250.00 DIABETES MELLITUS TYPE II - UNCOMPLICATED, CONTROLLED 10/18/2008 401.1 ESSENTIAL HYPERTENSION BENIGN 10/18/2008 716.90 ARTHRITIS 10/18/2008 724.2 lower back pain 10/18/2008 250.00 DIABETES MELLITUS TYPE II - UNCOMPLICATED, CONTROLLED 10/18/2008 401.1 ESSENTIAL HYPERTENSION BENIGN 10/18/2008 716.90 ARTHRITIS 10/18/2008 724.2 lower back pain 10/18/2008 250.00 DIABETES MELLITUS TYPE II - UNCOMPLICATED, CONTROLLED 10/18/2008 401.1 ESSENTIAL HYPERTENSION BENIGN 10/18/2008 716.90 ARTHRITIS 10/18/2008 724.2 lower back pain 11/04/2008 786.50 UNSPECIFIED CHEST PAIN 11/04/2008 786.50 UNSPECIFIED CHEST PAIN 11/04/2008 786.50 UNSPECIFIED CHEST PAIN 11/04/2008 786.50 UNSPECIFIED CHEST PAIN 08/20/2010 Ot 250.00 08/20/2010 Ot 305.1 08/20/2010 Ot 401.9 08/20/2010 Ot 786.50 08/20/2010 Ot V58.69 08/31/2010 Ot 786.50 01/23/2011 Ot 846.0 01/23/2011 Ot 847.0 01/23/2011 Ot 847.1 01/23/2011 Ot 923.00 01/23/2011 Ot 924.11 01/23/2011 Ot 959.09 01/23/2011 Ot E000.8 01/23/2011 Ot E812.1 05/05/2011 Ot 682.2 05/07/2011 Ot 682.2 05/07/2011 Ot V58.30 11/20/2011 311 DEPRESSIVE DISORDER NOS 11/20/2011 311 DEPRESSIVE DISORDER NOS 11/20/2011 311 DEPRESSIVE DISORDER NOS 11/20/2011 311 DEPRESSIVE DISORDER NOS 03/05/2012 Ot 305.1 03/05/2012 Ot 465.9 03/05/2012 Ot 786.2 06/12/2012 Ot 250.00 06/12/2012 Ot 272.1 06/12/2012 Ot 272.4 06/12/2012 Ot 276.9 06/12/2012 Ot 278.00 06/12/2012 Ot 300.00 06/12/2012 Ot 338.4 06/12/2012 Ot 401.9 06/12/2012 Ot 427.31 06/12/2012 Ot 428.0 06/12/2012 Ot 443.9 06/12/2012 Ot 496 06/12/2012 Ot 593.9 06/12/2012 Ot 724.5 06/12/2012 Ot 786.59 06/12/2012 Ot E944.4 06/12/2012 Ot V15.82 06/12/2012 Ot V58.67 06/12/2012 Ot V85.41 08/15/2012 FLAQUITA CHENG FACC, ALI FACP CCDS Ot 250.00 08/15/2012 FLAQUITA CHENG FACC, ALI FACP CCDS Ot 275.2 08/15/2012 FLAQUITA CHENG FACC, ALI FACP CCDS Ot 276.8 08/15/2012 FLAQUITA CHENG FACC, ALI FACP CCDS Ot 278.00 08/15/2012 FLAQUITA CHENG FACC, ALI FACP CCDS Ot 338.4 08/15/2012 FLAQUITA CHENG FACC, ALI FACP CCDS Ot 403.90 08/15/2012 FLAQUITA CHENG FACC, ALI FACP CCDS Ot 496 08/15/2012 FLAQUITA CHENG FACC, ALI FACP CCDS Ot 585.9 08/15/2012 FLAQUITA CHENG FACC, ALI FACP CCDS Ot 780.4 08/15/2012 FLAQUITA CHENG FAC, ALI FACP CCDS Ot 786.59 08/15/2012 FLAQUITA CHENG FACC, ALI FACP CCDS Ot V15.82 08/15/2012 FLAQUITA CHENG FAC, ALI FACP CCDS Ot V17.49 08/15/2012 FLAQUITA CHENG FAC, ALI FACP CCDS Ot V58.61 08/15/2012 FLAQUITA CHENG FAC, ALI FACP CCDS Ot V58.67 08/15/2012 FLAQUITA CHENG FAC, ALI FACP CCDS Ot V58.69 08/15/2012 FLAQUITA CHENG FAC, ALI FACP CCDS Ot V85.41 08/31/2012 WILFREDO DO, ZAY K Ot 250.00 08/31/2012 WILFREDO DO, ZAY K Ot 401.9 08/31/2012 WILFREDO DO, ZAY K Ot 784.0 08/31/2012 WILFREDO DO, ZAY K Ot V15.81 10/25/2012 WILFREDO DO, ZAY K Ot 300.00 10/25/2012 WILFREDO DO, ZAY K Ot 786.50 10/28/2012 JUAN CHENG, CHELO Hall Ot 250.00 10/28/2012 JUAN CHENG, CHELO Hall Ot 272.0 10/28/2012 JUAN CHENG, CHELO K Ot 300.00 10/28/2012 JUAN CHENG, CHELO K Ot 303.90 10/28/2012 JUAN CHENG, CHELO Hall Ot 305.1 10/28/2012 JUAN CHENG, CHELO Hall Ot 305.92 10/28/2012 JUAN CHENG, CHELO K Ot 338.29 10/28/2012 JUAN CHENG, CHELO K Ot 401.9 10/28/2012 JUAN CHENG, CHELO Hall Ot 427.31 10/28/2012 JUAN CHENG, CHELO Hall Ot 428.0 10/28/2012 JUAN CHENG, CHELO Hall Ot 443.9 10/28/2012 JUAN CHENG, CHELO Hall Ot 496 10/28/2012 JUAN CHENG, CHELO Hall Ot 586 10/28/2012 JUAN CHENG, CHELO Hall Ot 716.90 10/28/2012 JUAN CHENG, CHELO Hall Ot 724.5 10/28/2012 CHELO MARTINEZ MD Ot 968.0 10/28/2012 JUAN CHENG, CHELO Hall Ot E980.4 11/09/2012 WILFREDOZAY Bowie DO Ot 959.7 11/09/2012 WILFREDO DO, ZAY Hall Ot E000.8 11/09/2012 WILFREDOZAY Bowie DO Ot E849.0 11/09/2012 ZAY VILLALOBOS DO Ot E916 10/02/2013 RANDEE RAY DO Ot 892.0 10/02/2013 RANDEE RAY DO Ot E920.3 08/25/2014 JUDY AMES COSMETICIAN APPRENTICE Ot 703.0 08/25/2014 JUDY AMES COSMETICIAN APPRENTICE Ot 729.5 09/28/2014 ROLANDO CHENG, RIK T Ot 250.00 09/28/2014 ROLANDO CHENG, RIK T Ot 272.0 09/28/2014 ROLANDO CHENG, RIK T Ot 401.9 09/28/2014 ROLANDO CHENG, RIK T Ot 496 09/28/2014 ROLANDO CHENG, RIK T Ot 593.9 09/28/2014 ROLANDO CHENG, RIK T Ot 780.4 09/28/2014 ROLANDO CHENG, RIK T Ot 786.59 09/28/2014 ROLANDO CHENG, RIK T Ot V12.51 09/28/2014 ROLANDO CHENG, RIK T Ot V58.61 09/28/2014 ROLANDO CHENG, RIK T Ot V58.67 09/28/2014 ROLANDO CHENG, RIK T Ot V58.69 11/10/2014 HAMZAH BOWENS MD (DDU) Ot V68.01 11/10/2014 HAMZAH BOWENS MD (DDU) Ot V82.89 11/11/2014 JUDY AMES COSMETICIAN APPRENTICE Ot 250.00 DIAB ANUJ WO COMPL, TYPE II OR UNSPEC TY 11/11/2014 JUDY AMES COSMETICIAN APPRENTICE Ot 491.22 OBSTRUCTIVE CHRONIC BRONCHITIS WITH ACUT 11/11/2014 JUDY AMES COSMETICIAN APPRENTICE Ot 519.19 OTHER DISEASES OF TRACHEA AND BRONCHUS 11/11/2014 JUDY AMES COSMETICIAN APPRENTICE Ot 786.09 RESPIRATORY ABNORM NEC 11/11/2014 JUDY AMES APRN Ot V15.82 HISTORY OF TOBACCO USE 11/11/2014 JUDY AMES APRN Ot V58.67 LONG-TERM (CURRENT) USE OF INSULIN 11/11/2014 JUDY AMES APRN Ot V58.69 OTH MED,LT,CURRENT USE 12/29/2014 CONNIE CHENG, JEAN N Ot E11.9 12/29/2014 GIOVANNI ROSALES MDY N Ot E66.9 12/29/2014 CONNIE CHENG, JEAN N Ot E78.5 12/29/2014 CONNIE CHENG JEAN N Ot F17.220 12/29/2014 GIOVANNI ROSALES MDY N Ot F32.9 12/29/2014 GIOVANNI ROSALES MDY N Ot F41.9 12/29/2014 CONNIE CHENG JEAN N Ot I10 12/29/2014 CONNIE CHENG JEAN N Ot J44.9 12/29/2014 CONNIE CHENG JEAN N Ot K76.0 12/29/2014 CONNIE CHENG JEAN N Ot M51.36 12/29/2014 CONNIE CHENG JEAN N Ot R45.1 12/29/2014 GIOVANNI ROSALES MDY N Ot T42.4X2A 12/29/2014 GIOVANNI ROSALES MDY N Ot Z68.41 12/29/2014 GIOVANNI ROSALES MDY N Ot Z86.711 12/29/2014 CONNIE CHENG JEAN N Ot Z86.718 12/29/2014 CONNIE CHENG JEAN N Ot Z91.14 06/26/2015 JUDY AMES COSMETICIAN APPRENTICE Ot 250.00 DIAB ANUJ WO COMPL, TYPE II OR UNSPEC TY 06/26/2015 JUDY AMES COSMETICIAN APPRENTICE Ot 491.22 OBSTRUCTIVE CHRONIC BRONCHITIS WITH ACUT 06/26/2015 JUDY AMES APRN Ot 519.19 OTHER DISEASES OF TRACHEA AND BRONCHUS 06/26/2015 JUDY AMES COSMETICIAN APPRENTICE Ot 786.09 RESPIRATORY ABNORM NEC 06/26/2015 JUDY AMES APRN Ot V15.82 HISTORY OF TOBACCO USE 06/26/2015 JUDY AMES APRN Ot V58.67 LONG-TERM (CURRENT) USE OF INSULIN 06/26/2015 JUDY AMES COSMETICIAN APPRENTICE Ot V58.69 OTH MED,LT,CURRENT USE Procedures Code Description [place] [address] PSYTX PT&/FAMILY 30 MINUTES 07/11/2012 57514 PSYTX PT&/FAMILY 30 MINUTES 07/17/2012 Results Encounters ACCT No. Visit Date/Time Discharge Status Pt. Type Provider Facility Loc./Unit Complaint [id number] 12/20/2011 09:38:00 12/20/2011 23:59 :59 CLS Outpatient [id number] 12/20/2011 09:38:00 12/20/2011 23: 59:59 CLS Outpatient [id number] 07/17/2012 13:53:00 Document Registration [id number] 07/09/2012 07:53:00 Document Registration
--- OUTSIDE RECORDS SUMMARY | 2016-08-23 09:12 | XMS REPORT ---
Author TAMI Foy [facility] eClinicalWorks Address Unknown Phone Unavailable Care Team Providers Care Violin Teacher Name Role Phone TAMI AMATO CP Unavailable Allergies, Adverse Reactions, Alerts Substance Reaction Event Type Lyrica Info Not Available Drug Allergy Betadine Swabsticks Info Not Available Drug Allergy Problems Problem Type Condition Code Onset Dates Condition Status Assessment GERD (gastroesophageal reflux disease) K21.9 Active Assessment Insomnia G47.00 Active Assessment Edema R60.9 Active Assessment Anxiety F41.9 Active Assessment CAD (coronary artery disease) I25.10 Active Assessment LVF (left ventricular failure) I50.1 Active Problem Chronic pain 338.29 Active Assessment Hypercholesteremia E78.0 Active Problem Diabetes 250.00 Active Assessment HTN (hypertension) I10 Active Problem Insomnia G47.00 Active Problem Anxiety F41.9 Active Problem Edema R60.9 Active Problem Depression F32.9 Active Problem Chronic pain G89.29 Active Assessment Diabetes 1.5, 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 Assessment Depression F32.9 Active Problem Diabetes 1.5, 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 Assessment Chronic pain G89.29 Active Problem LVF (left ventricular failure) I50.1 Active Problem CAD (coronary artery disease) I25.10 Active Problem HTN (hypertension) I10 Active Problem Hypercholesteremia E78.0 Active Problem Edema 782.3 Active Problem Anxiety 300.00 Active Problem Depressive disorder, not elsewhere classified 311 Active Problem Insomnia 780.52 Active Problem Hypercholesterolemia 272.0 Active Problem Hypertension 401.9 Active Problem CAD (coronary artery disease) 414.00 Active Problem LVF (left ventricular failure) 428.1 Active Medications Medication Code System Code Instructions Start Date End Date Status Dosage Gabapentin [facility] [address]-82 600 MG Orally Three times a day 1 tablet Oxycodone HCl [facility] [address]-97 30 MG Orally 3 times a day Dec 09, 2014 1 tablet as needed Warfarin Sodium [facility] [address]-37 10 MG Orally Once a day 1 tablet Combivent Respimat [facility] [address]-89 20-100 MCG/ACT Inhalation Four times a day 1 puff Lasix [facility] [address]-26 80 MG Orally Once a day Nov 09, 2014 1 tablet Lantus [facility] [address]-72 100 UNIT/ML Subcutaneous 2 times a day Nov 09, 2014 50 units Piroxicam [facility] [address]-43 20 MG Orally 2 times a day 1 capsule with food ProAir HFA [facility] [address]-79 108 (90 Base) MCG/ACT Inhalation 4 times a day prn 2 puffs as needed HydrOXYzine HCl [facility] [address]-14 50 MG Orally every 6 hrs 1 tablet as needed Lisinopril [facility] [address]-33 10 MG Orally Once a day 1 tablet Digoxin [facility] [address]-39 250 MCG Orally Once a day 1 tablet Alprazolam [facility] [address]-60 0.5 MG Orally Three times a day 1 tablet Coreg CR [facility] [address]-17 40 MG Orally Once a day 1 capsule with food Atorvastatin Calcium [facility] [address]-68 10 MG Orally Once a day 1 tablet Morphine Sulfate [facility] [address]-08 100 MG Orally 2 times a day Dec 09, 2014 one tablet Metformin HCl [facility] [address]-06 1000 MG Orally Twice a day 1 tablet with meals NovoLog Mix 70/30 Flexpen [facility] [address]-98 (70-30) 100 UNIT/ML Subcutaneous 3 times a day Nov 09, 2014 40 units Ranitidine HCl [facility] [address]-25 150 MG Orally Twice a day 1 capsule Procedures Procedure Coding System Code Date Office Visit, Est Pt., Level 4 CPT-4 10219 Dec 09, 2014 PROTHROMBIN TIME CPT-4 42204 Dec 09, 2014 Vital Signs Date/Time: Dec 09, 2014 Temperature 97.8 F Weight 366.7 lbs Height 71.0 in BMI 51.14 Index Blood Pressure Diastolic 82 mmHg Blood Pressure Systolic 124 mmHg Cardiac Monitoring Heart Rate 78 bpm Results No Known Results Summary Purpose eClinicalWorks Submission
--- OUTSIDE RECORDS SUMMARY | 2016-08-23 09:13 | XMS REPORT ---
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 Problem Depressive disorder, not elsewhere classified 311 Active Problem Depression F32.9 Active Problem Major depressive disorder, recurrent episode, moderate F33.1 Active Problem Hypercholesteremia E78.0 Active Problem LVF (left ventricular failure) I50.1 Active Problem Chronic pain G89.29 Active Problem HTN (hypertension) I10 Active Problem Anxiety 300.00 Active Problem CAD (coronary artery disease) 414.00 Active Problem Insomnia 780.52 Active Problem Edema 782.3 Active Problem Hypertension 401.9 Active Problem Chronic pain 338.29 Active Problem LVF (left ventricular failure) 428.1 Active Problem Diabetes 250.00 Active Problem Hypercholesterolemia 272.0 Active Problem Insomnia G47.00 Active Medications No Known Medications Results No Known Results Summary Purpose eClinicalWorks Submission
--- OUTSIDE RECORDS SUMMARY | 2016-08-23 09:13 | XMS REPORT ---
Author Author TAMI AMATO [facility] eClinicalWorks Address Unknown Phone Unavailable Care Team Providers Care Portal Administrator Name Role Phone TAMI AMATO CP Unavailable [...] 428.1 Active Problem Diabetes 250.00 Active Medications Medication Code System Code Instructions Start Date End Date Status Dosage Ranitidine HCl [facility] [address]-11 150 MG Orally Twice a day Dec 15, 2014 1 capsule ProAir HFA [facility] [address]-40 108 (90 Base) MCG/ACT Inhalation 4times per day Dec 15, 2014 2 puffs as needed Results No Known Results Summary Purpose eClinicalWorks Submission
--- OUTSIDE RECORDS SUMMARY | 2016-08-23 09:13 | XMS REPORT ---
Author Author TAMI AMATO [facility] eClinicalWorks Address Unknown Phone Unavailable Care Team Providers Care Special Education Instructor Name Role Phone TAMI AMATO CP Unavailable Allergies No Known Allergies Problems Problem Type Condition Code Onset Dates Condition Status Problem Insomnia G47.00 Active Problem Major depressive disorder, recurrent episode, moderate F33.1 Active Problem Depression F32.9 Active Problem Type 2 diabetes mellitus with other specified complication E11.69 Active Problem Hypercholesteremia E78.0 Active Problem Anxiety F41.9 Active Problem Chronic pain G89.29 Active Problem HTN (hypertension) I10 Active Medications No Known Medications Results No Known Results Summary Purpose eClinicalWorks Submission
--- OUTSIDE RECORDS SUMMARY | 2016-08-23 09:13 | XMS REPORT ---
Author Author TAMI AMATO [facility] eClinicalWorks Address Unknown Phone Unavailable Care Team Providers Care It Architecture Analyst Name Role Phone TAMI AMATO Unavailable Allergies No Known Allergies Problems Problem Type Condition Code Onset Dates Condition Status Problem Depressive [...]
--- OUTSIDE RECORDS SUMMARY | 2016-08-23 09:13 | XMS REPORT | Continuity of Care Document ---
Author Author [facility] Organization [facility] Address [facility] [address] [place] [id number] Phone Unavailable Support Name Relationship Address Phone OG SALEEM MD Caregiver [address] [place] [address] Unavailable TEODORAJESSY Next Of Kin Unknown Insurance Providers Payer Name Policy Number Subscriber Name Relationship [employer] [facility] [id number] Nathanael Irving 18 Self / Same As Patient Advance Directives Directive Response Recorded Date/Time Do you have an Advanced Directive? No 10/02/08 10:25am Advance Directives No 11/03/15 10:05am Living Will No 11/03/15 10:05am Health Care Proxy No 05/03/16 1:13pm Power of Journalism Teacher for Health Care No 11/03/15 10:05am Organ, [...] , 300 Mg Oral Daily 10/02/08 Discontinued [[id number]] , 1 Tab Oral Every 6 Hours [...] Plan of Care Discharge Date 05/03/16 1:51pm Condition at Discharge Stable Instructions/Education Provided Acute [...] Mean Corpuscular Volume 88.6 fL 80.0-96.1 03/26/2016 2:pm 03/26/2016 6:22pm Mean Corpuscular Hemoglobin 30.8 pg 27.0-31.0 03/26/2016 2:55pm 2016 6:22pm Mean Corpuscular Hemoglobin Concent 34.7 g/dL 30.0-37.0 03/26/2016 2: 55pm 03/26/2016 6:22pm Red Cell Distribution Width 14.1 % 11.5-14.5 03/26/2016 2:2016 6:22pm Platelet Count 244 K/uL 130-400 03/26/2016 2:03/26/2016 6:22pm Mean Platelet Volume 9.2 fL 7.4-10.4 03/26/2016 2:55pm 03/26/2016 6: 22pm Neutrophils (%) (Auto) 56.6 % 42.2-75.2 03/26/2016 2:55pm 03/26/2016 6: 22pm Lymphocytes (%) (Auto) 35.3 % 20.5-51.1 03/26/2016 2:55pm 03/26/2016 6: 22pm Monocytes (%) (Auto) 6.0 % 1.7-9.3 03/26/2016 2:55pm 03/26/2016 6:22pm Eosinophils (%) (Auto) 1.6 % 0-3 03/26/2016 2:55pm 03/26/2016 6:22pm Basophils (%) (Auto) 0.5 % 0.0-1.0 03/26/2016 2:pm 03/26/2016 6:22pm Neutrophils # (Auto) 3.0 K/uL 2.0-6.9 03/26/2016 2:pm 03/26/2016 6: 22pm Lymphocytes # (Auto) 1.9 K/uL 1.2-3.4 03/26/2016 2:55pm 03/26/2016 6: 22pm Monocytes # (Auto) 0.3 K/uL 0.1-0.6 03/26/2016 2:pm 03/26/2016 6: 22pm Eosinophils # (Auto) 0.1 K/uL 0.0-0.7 03/26/2016 2:pm 03/26/2016 6: 22pm Basophils # (Auto) 0.0 K/uL 0.0-0.2 03/26/2016 2:pm 03/26/2016 6: 22pm Prostate Specific Antigen Screen 0.23 [...] Discharge/Depart Date Attending Provider Departed Emergency Room [facility] 05/03/16 1:12pm 05/03/16 1:51pm OG SALEEM MD Registered Recurring [facility] 04/05/16 1:36pm BECKIE MEZA APRN Registered Referred [facility] 03/26/16 4:30pm WENDY DUNN APRN Recent Diagnosis
--- OUTSIDE RECORDS SUMMARY | 2016-08-23 09:13 | XMS REPORT ---
Author TAMI Foy [facility] eClinicalWorks Address Unknown Phone Unavailable Care Team Providers Care Jigsawyer Name Role Phone TAMI AMATO Unavailable Allergies [...] Instructions Start Date End Date Status Dosage Lisinopril [facility] [address]-08 10 MG Orally Once a day 1 tablet Results No Known Results Summary Purpose eClinicalWorks Submission
--- OUTSIDE RECORDS SUMMARY | 2016-08-23 09:13 | XMS REPORT ---
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 [address]-11 0.5 MG Orally Three times a day 1 tablet Gabapentin [facility] [address]-60 600 MG Orally Three times a day 1 tablet Warfarin Sodium [facility] [address]-40 10 MG Orally Once a day 1 tablet ProAir HFA [facility] [address]-91 108 (90 Base) MCG/ACT Inhalation 4times per day Dec 15, 2014 2 puffs as needed NovoLog Mix 70/30 Flexpen [facility] [address]-71 (70-30) 100 UNIT/ML Subcutaneous 3 times a day Nov 09, 2014 40 units Combivent Respimat [facility] [address]-00 20-100 MCG/ACT Inhalation Four times a day 1 puff Digoxin [facility] [address]-23 250 MCG Orally Once a day 1 tablet Ranitidine HCl [facility] [address]-23 150 MG Orally Twice a day Dec 15, 2014 1 capsule Metformin HCl [facility] [address]-21 1000 MG Orally Twice a day 1 tablet with meals Piroxicam [facility] [address]-36 20 MG Orally 2 times a day 1 capsule with food Lasix [facility] [address]-69 80 MG Orally Once a day Nov 09, 2014 1 tablet Atorvastatin Calcium [facility] [address]-60 10 MG Orally Once a day 1 tablet Coreg CR [facility] [address]-17 40 MG Orally Once a day 1 capsule with food HydrOXYzine HCl [facility] [address]-23 50 MG Orally every 6 hrs 1 tablet as needed Lisinopril [facility] [address]-12 10 MG Orally Once a day 1 tablet Lantus [facility] [address]-74 100 UNIT/ML Subcutaneous 2 times a day Nov 09, 2014 50 units Procedures Procedure Coding System Code Date Psych diagnostic evaluation, established patient CPT-4 00926 Dec 23, 2014 Results No Known Results Summary Purpose eClinicalWorks Submission
--- OUTSIDE RECORDS SUMMARY | 2016-08-23 09:14 | XMS REPORT ---
Author TAMI Foy [facility] eClinicalWorks Address Unknown Phone Unavailable Care Team Providers Care County Attorney Name Role Phone TAMI AMATO CP Unavailable Allergies, Adverse Reactions, Alerts Substance Reaction Event Type Lyrica Info Not Available Drug Allergy Betadine Swabsticks Info Not Available Drug Allergy Problems Problem Type Condition Code Onset Dates Condition Status Assessment Chronic pain G89.29 Active Problem Insomnia G47.00 Active Assessment Depression F32.9 Active Problem Major depressive disorder, recurrent episode, moderate F33.1 Active Problem Depression F32.9 Active Problem Type 2 diabetes mellitus with other specified complication E11.69 Active Problem Hypercholesteremia E78.0 Active Problem Anxiety F41.9 Active Problem Chronic pain G89.29 Active Problem HTN (hypertension) I10 Active Assessment GERD (gastroesophageal reflux disease) K21.9 Active Assessment Insomnia G47.00 Active Assessment Anxiety F41.9 Active Assessment Type 2 diabetes mellitus with other specified complication E11.69 Active Assessment Hypercholesteremia E78.0 Active Assessment Major depressive disorder, recurrent episode, moderate F33.1 Active Assessment HTN (hypertension) I10 Active Medications Medication Code System Code Instructions Start Date End Date Status Dosage Omeprazole [facility] [address]-90 20 MG Orally 2 times a day Jan 10, 2015 1 capsule NovoLog [facility] [address]-02 40 Subcutaneous 3 times a day not defined Lantus [facility] [address]-82 100 UNIT/ML Subcutaneous 2 times a day Nov 09, 2014 50 units Ranitidine HCl [facility] [address]-78 150 MG Orally Twice a day Dec 15, 2014 1 capsule Lisinopril [facility] [address]-87 10 MG Orally Once a day 1 tablet ProAir HFA [facility] [address]-17 108 (90 Base) MCG/ACT Inhalation 4times per day Dec 15, 2014 2 puffs as needed Remeron [facility] [address]-97 30 MG Orally Once a day t hs Jan 10, 2015 1 tablet before bedtime in the evening Gabapentin [facility] [address]-27 600 MG Orally Three times a day 1 tablet Naprosyn [facility] [address]-19 500 MG Orally every 12 hrs Jan 10, 2015 1 tablet as needed NovoLog Flexpen [facility] [address]-56 100 UNIT/ML Subcutaneous 3 times a day 15-20 Metformin HCl [facility] [address]-80 1000 MG Orally Twice a day 1 tablet with meals Atorvastatin Calcium [facility] [address]-20 10 MG Orally Once a day 1 tablet Wellbutrin [facility] [address]-99 75 MG Orally Twice a day not defined Procedures Procedure Coding System Code Date Office Visit, Est Pt., Level 4 CPT-4 28545 Jan 10, 2015 DRUG SCREEN NON TLC DEVICES CPT-4 50924 Jan 10, 2015 Vital Signs Date/Time: Jan 10, 2015 Temperature 96.9 F Weight 357.6 lbs Height 71.0 in BMI 49.87 Index Blood Pressure Diastolic 84 mmHg Blood Pressure Systolic 122 mmHg Cardiac Monitoring Heart Rate 76 bpm Results Name Result Date Reference Range Unit Abnormality Flag URINE DRUG SCREEN (IN HOUSE) Summary Purpose eClinicalWorks Submission
--- NOTE | 2016-08-23 09:20 | Physical Therapy Evaluation ---
PT Evaluation-General Medical Diagnosis Admission Date Aug 22, 2016 at 19:35 Medical Diagnosis: sepsis Onset Date: Aug 22, 2016 Therapy Diagnosis Therapy Diagnosis: weakness; abn gait Height/Weight Height (Feet): 6 Height (Inches): 2.00 Weight (Pounds): 284 Weight (Ounces): 0.0 Precautions Precautions/Isolations: Fall Prevention, Standard Precautions Weight Bear Status Weight Bearing Restriction: Non Weight Bearing Location Restriction: RT FOOT Referral Physician: Umer Reason for Referral: Evaluation/Treatment Medical History Pertinent Medical History: COPD, DM, HTN, Renal Insufficiency Current History Admitted with sepsis and cellulitis and post 3rd toe amputation with a wound vac in place. Pt is CANDI RAMOS Reviewed History: Yes Social History Home: Single Level Current Living Status: Spouse Entry Into Home: Stairs With Railing Prior/Core FIM Prior Level of Function Functional O'Brien Measure 0=Not Assessed/NA 4=Minimal Assistance 1=Total Assistance 5=Supervision or Setup 2=Maximal Assistance 6=Modified O'Brien 3=Moderate Assistance 7=Complete O'Brien Bed Mobility: 7 Transfers (B,C,W/C) (FIM): 7 Gait: 6 (cane occas) Pt was working in [place] prior to this. Indep. Driving. PT Evaluation-Current Subjective Agrees to PT. Reports he is unsteady on his feet. Pain Numeric Pain Scale: 6 Location: Right Location Body Site: Foot Pain Description: Ache (throbbing with leg in dep position) Objective Patient Orientation: Person, Place, Time, Situation Problem Solving: Good ROM/Strength ROM Lower Extremities WFL Strenght Lower Extremities Grossly 4-/5 Integumentary/Posture Integumentary Refer to nursing notes. Bowel Incontinence: No Bladder Incontinence: No Posture normal and symmetrical Sensory Vision: Functional Hand Dominance: Right Sensation Right Lower Extremit: Intact Sensation Left Lower Extremity: Intact Transfers Functional O'Brien Measure 0=Not Assessed/NA 4=Minimal Assistance 1=Total Assistance 5=Supervision or Setup 2=Maximal Assistance 6=Modified O'Brien 3=Moderate Assistance 7=Complete O'Brien Transfers (B, C, W/C) (FIM): 4 Supine to/from Sit: 5 Sit to/from Stand: 4 bed t/f WC(FIM only if WC use): 4 Min asssit with FWW to hop a few steps and turn to sit in the chair. Pt was unsteady but no LOB and only needed steadying assist to maintain balance. Gait Mode of Locomotion: Walk Anticipated Mode of Locomotion: Walk Balance Sitting Static: Good Sitting Dynamic: Good Standing Static: Fair Standing Dynamic: Fair Assessment/Needs Rehab Potential: Good PT Svp [employer] Goals Penitentiary Goals PT Penitentiary Goals Time Frame: Aug 30, 2016 Transfers (B,C,W/C) (FIM): 7 Gait (FIM): 6 Gait distance (FIM): 3=150 ft Gait Assistive Device: FWW PT Plan Problem List Problem List: Activity Tolerance, Functional Strength, Safety, Balance, Gait, Transfer, Bed Mobility Treatment/Plan Treatment Plan: Continue Plan of Care Treatment Plan: Bed Mobility, Education, Functional Activity Annabel, Functional Strength, Gait, Safety, Therapeutic Exercise, Transfers Treatment Duration: Aug 30, 2016 Visits Per Week: 6 Pt/Family Agrees w/Plan: Yes Safety Risks/Education Patient Education: Transfer Techniques, Safety Issues Teaching Recipient: Patient Teaching Methods: Demonstration, Discussion Response to Teaching: Reinforcement Needed Time/GCodes Time In: 835 Time Out: 850 Total Billed Treatment Time: 15 Total Billed Treatment visit MAINE 15 EMMANUEL SCOTT PT Aug 23, 2016 09:20
--- NOTE | 2016-08-23 11:00 | History & Physical-Hospitalist ---
DEVIN REYES MEDICAL STUDENT 08/23/16 1100: HPI History of Present Illness: HPI/Chief Complaint CC: Cellulitis HPI: Patient is a 50 yo M that was transferred from [place] to [facility] ICU for an admitting diagnosis of cellulitis. Patient claimed that on August 01 heavy equipment fell on his right leg. He went to see a nurse practitioner to be treated. Patient claimed that the wound had gotten worse and finally ruptured on the 16 of August, called 911 and was taken to [place]. Once at [facility], Dr. Hemphill examined wound and performed amputation of right third toe with incision and drainage of hematoma. Patient has been recovering in ICU and was recently moved to Room 424. Patient claims to have mild pain today with no other complaints. Patient ambulates with a walker. Patient is eating well, has had a bowel movement and has no issues urinating. Source: patient, family Exam Limitations: no limitations Date Seen 08/23/16 Time Seen by Provider: 10:30 Attending Physician Marilee Osorio DO [place]CP [facility] Referring Physician Date of Admission Aug 22, 2016 at 19:35 Home Medications & Allergies Home Medications Reviewed patient Home Medication Reconciliation Form Allergies Allergies Coded Allergies cortisone (Verified Allergy, Unknown, HIVES, 11/11/14) shellfish derived (Verified Allergy, Unknown, 11/11/14) Uncoded Allergies THYLAID ( Allergy, Unknown, 11/11/14) Past Zreicfy-Chflyv-Czuyjm Hx Patient Social History Alcohol Use: Occasionally Uses Recreational Drug Use: Yes (ETOH 20 YRS AG0) Smoking Status: Unknown if Ever Smoked Former smoker/When Quit: Feb 25, 2014 Physical Abuse Screen: No Sexual Abuse: No Recent Foreign Travel: No Contact w/other who traveled: No Immunizations Up To Date Tetanus Booster (TDap): Less than 5yrs Date of Pneumonia Vaccine: Jun 13, 2007 Seasonal Allergies Seasonal Allergies: Yes Surgeries HX Surgeries: Yes (L KNEE) Surgeries: Adenoidectomy, Cardiac, Ear Surgery, Orthopedic, Tonsillectomy Respiratory Hx Respiratory Disorders: Yes Cardiovascular Hx Cardiovascular Disorders: Yes (reported history of CHF) Cardiac Disorders: Deep Vein Thrombosis, High Cholesterol, Hypertension Neurological Hx Neurological Disorders: No (pt unresponsive) Reproductive System Hx Reproductive Disorders: No Sexually Transmitted Disease: No HIV/AIDS: No Genitourinary Hx Genitourinary Disorders: Yes (pt unresponsive) Genitourinary Disorders: Renal Failure Gastrointestinal Hx Gastrointestinal Disorders: No (pt unresponsive) Musculoskeletal Hx Musculoskeletal Disorders: Yes Musculoskeletal Disorders: Arthritis, Chronic Back Pain, Fractures Endocrine Hx Endocrine Disorders: Yes (pt unresponsive) Endocrine Disorders: Diabetes, Insulin dep HEENT HX ENT Disorders: No (pt unresponsive) Cancer Hx Cancer: No (pt unresponsive) Psychosocial Hx Psychiatric Problems: Yes Behavioral Health Disorders: Anxiety Integumentary HX Skin/Integumentary Disorder: No Blood Transfusions Hx Blood Disorders: No Adverse Reaction to a Blood Tr: No Family Medical History Significant Family History: No Pertinent Family Hx Physical Exam Physical Exam Vital Signs Vital Sign - Last 12Hours 08/22/16 08/22/16 08/23/16 08/23/16 19:00 20:00 00:00 00:30 Temp 96.6 Pulse 98 Resp 20 B/P (MAP) 138/83 Pulse Ox 96 O2 Delivery Room Air O2 Flow Rate 2.00 Capillary Refill : Results Results/Procedures Lab Laboratory Tests 08/22/16 19:45 08/23/16 04:12 Clinical Quality Measures DVT/VTE Risk/Contraindication: Risk Factor Score Per Nursin RFS Level Per Nursing on Admit: 4+=Very High Contraindications-Pharm: Other *list below* Contraindications-Mechi: Other *list below* Other: operation planned today lower leg cellulitis DINH OSORIOCici ORNELAS 08/23/16 1139: HPI History of Present Illness: HPI/Chief Complaint Patient seen with medical student and the only complaint he has is the pain and he is aware that he might have to have a below the knee amputation and he will have surgery tomorrow per Dr. Hemphill. I reviewed the labs and home medications that we are trying to reconcile for accuracy and we'll maintain insulin per sliding scale in the meantime. Source: patient, family Exam Limitations: no limitations Time Seen by Provider: 11:00 Home Medications & Allergies Allergies Allergies Coded Allergies cortisone (Verified Allergy, Unknown, HIVES, 11/11/14) shellfish derived (Verified Allergy, Unknown, 11/11/14) Uncoded Allergies THYLAID ( Allergy, Unknown, 11/11/14) Past Usacfyb-Efuovi-Yklqkm Hx Patient Social History Marrital Status: Employed/Student: unemployed Smoking Status: Current Everyday Smoker Surgeries HX Surgeries: Yes Surgeries: Orthopedic Respiratory Hx Respiratory Disorders: Yes Respiratory Disorders: COPD Cardiovascular Hx Cardiovascular Disorders: Yes Cardiac Disorders: High Cholesterol, Hypertension Neurological Hx Neurological Disorders: Yes Neurological Disorders: Neuropathy Genitourinary Hx Genitourinary Disorders: Yes Genitourinary Disorders: Renal Failure Gastrointestinal Hx Gastrointestinal Disorders: Yes Gastrointestinal Disorders: Chronic Constipation Musculoskeletal Hx Musculoskeletal Disorders: Yes Musculoskeletal Disorders: Arthritis Endocrine Hx Endocrine Disorders: Yes Endocrine Disorders: Diabetes, Insulin dep HEENT HX ENT Disorders: No Cancer Hx Cancer: No Psychosocial Hx Psychiatric Problems: Yes Behavioral Health Disorders: Depression Integumentary HX Skin/Integumentary Disorder: Yes Review of Systems Date Seen by Provider: Aug 23, 2016 Time Seen by Provider: 11:00 Constitutional: chills, dizziness, fever, weakness EENTM: no symptoms reported Respiratory: no symptoms reported Cardiovascular: no symptoms reported Gastrointestinal: no symptoms reported Genitourinary: no symptoms reported Musculoskeletal: joint pain Skin: no symptoms reported Psychiatric/Neurological: No Symptoms Reported All Other Systems Reviewed Negative Unless Noted: Yes Physical Exam Physical Exam Vital Signs Vital Sign - Last 12Hours 08/22/16 08/22/16 08/23/16 08/23/16 19:00 20:00 00:00 00:30 Temp 96.6 Pulse 98 Resp 20 B/P (MAP) 138/83 Pulse Ox 96 O2 Delivery Room Air O2 Flow Rate 2.00 General Appearance: No Apparent Distress, WD/WN, Chronically ill, Obese Eyes: Bilateral Eye Normal Inspection, Bilateral Eye PERRL HEENT: PERRL/EOMI, Normal ENT Inspection, Pharynx Normal Neck: Full Range of Motion, Normal Inspection, Non Tender, Supple, Carotid Bruit Respiratory: Chest Non Tender, Lungs Clear, Normal Breath Sounds, No Accessory Muscle Use, No Respiratory Distress Cardiovascular: Regular Rate, Rhythm, No Edema, No Gallop, No JVD, No Murmur, Normal Peripheral Pulses Gastrointestinal: Normal Bowel Sounds, No Organomegaly, No Pulsatile Mass, Non Tender, Soft Back: Normal Inspection, No CVA Tenderness, No Vertebral Tenderness Extremity: Normal Capillary Refill, Normal Inspection (right foot in dressing) , Normal Range of Motion, Non Tender, No Calf Tenderness, No Pedal Edema Neurologic/Psychiatric: Alert, Oriented x3, No Motor/Sensory Deficits, Normal Mood/Affect Skin: Normal Color, Warm/Dry Lymphatic: No Adenopathy Results Results/Procedures Lab Laboratory Tests 08/22/16 19:45 08/23/16 04:12 Assessment/Plan Admission Diagnosis Assessment: Sepsis due to right foot gangrene and cellulitis with abscess formation status post debridement per Dr. Hemphill yesterday POD # 1 Diabetes mellitus out of control insulin-dependent hemoglobin A1c of 11.2 at [facility] Hypertension Hyperlipidemia Smoker CHF GERD Depression Arthritis Anxiety Insomnia CAD Assessment and Plan Plan: Reconcile home meds once accuracy obtained Sliding-scale insulin regimen the meantime Pain control Bowel regimen to prevent narcotic bowel Needs another surgery tomorrow Ambulate May need [id number] amputation DEVIN REYES MEDICAL STUDENT Aug 23, 2016 11:00 MARILEE OSORIO DO Aug 23, 2016 11:39
--- NOTE | 2016-08-23 11:30 | Diagnostic Imaging Report ---
PROCEDURE: MRI right lower extremity without contrast. TECHNIQUE: A multiplanar/multisequence noncontrast enhanced MRI of the right lower extremity was accomplished. INDICATION: Foot infection, status post amputation of the third toe. The patient is diabetic. FINDINGS: There is amputation of the third toe along the metatarsal/phalangeal joint level. There is circumferential subcutaneous and deep soft tissue edema around the midfoot level. This is probably related to post operative changes and pre-existing edema or infection. The osseous structures in the other toes and metatarsal bones demonstrate no significant edema, focal lesion, fracture, or evidence of osteomyelitis. The visualized tendons at the dorsal and plantar aspect and the visualized portions of the midfoot and forefoot appear unremarkable. There is a nonspecific mild effusion at the first MTP joint and minimal subchondral edema along the dorsal aspect of this joint at the base of the proximal phalanx of the great toe, suggestive of mild degenerative change. IMPRESSION: There is significant soft tissue swelling and edema in the midfoot and remaining toes as well as in the subcutaneous and deep soft tissues which could be related to soft tissue infection or other cause of edema. There is no significant bone marrow edema seen to suggest osteomyelitis. No fluid collection to suggest an abscess. Dictated by: Dictated on workstation # [id number]
[2016-08-23] MEDS: inSUlin ASPART (NovoLOG) 1 UNIT/0.01 ML (CHARGE PER UNIT) SC SCH ×3 (11:31→21:09)
[2016-08-23] MEDS ORDERED: RIVA15TA PO (11:34)
[2016-08-23] MEDS ORDERED: IBUP-1780 PO (11:34)
[2016-08-23] MEDS ORDERED: CLIN300C11 PO (11:34)
[2016-08-23] MEDS ORDERED: OXYC-471 PO (11:42)
--- NOTE | 2016-08-23 11:53 | Consultation ---
History of Present Illness History of Present Illness Patient Consulted On(rosetta/time) 08/23/16 11:45 Date Seen by Provider: Aug 22, 2016 Time Seen by Provider: 20:30 Reason for Visit: Gangrene Right Foot History of Present Illness Pt has a history of an injury to his right leg/foot 3 weeks ago at work in [place]. He states that he dropped a box on his leg the slid down the front of his guerrier and caused swelling and pain. He has then since developed severe swelling to his foot and leg. He was admitted to [facility] on 08/21/16. He was diagnosed with an abscess to his right foot and a DVT to his RLE. He has chills and sweats at this time. He denies chest pain denies SOB. He has been transferred to [facility] and is planned for emergent I&D. Allergies and Home Medications Allergies Coded Allergies: cortisone (Verified Allergy, Unknown, HIVES, 11/11/14) shellfish derived (Verified Allergy, Unknown, 11/11/14) Uncoded Allergies: THYLAID (Allergy, Unknown, 11/11/14) Home Medications Clindamycin HCl 300 Mg Capsule, 300 MG PO Q8H, (Reported) 10 DAY THERAPY FILLED 08-13-16 Ibuprofen 800 Mg Tablet, 800 MG PO Q8H PRN for PAIN-MILD, (Reported) Oxycodone HCl/Acetaminophen 1 Each Tablet, 1 TAB PO Q6H PRN for PAIN-MODERATE, ( Reported) Rivaroxaban 15 Mg Tablet, 15 MG PO BID, (Reported) Past Nqoygbc-Ptejmb-Iybywr Hx Patient Social History Alcohol Use: Occasionally Uses Recreational Drug Use: Yes (ETOH 20 YRS AG0) Smoking Status: Current Everyday Smoker Former Smoker/When Quit: Feb 25, 2014 Recent Foreign Travel: No Contact w/Someone Who Travel: No Physical Abuse Screen: No Sexual Abuse: No Immunizations Up To Date Tetanus Booster (TDap): Less than 5yrs Date of Pneumonia Vaccine: Jun 13, 2007 Seasonal Allergies Seasonal Allergies: Yes Surgeries HX Surgeries: Yes Surgeries: Orthopedic Respiratory Hx Respiratory Disorders: Yes Respiratory Disorders: COPD Cardiovascular Hx Cardiac Disorders: Yes Cardiac Disorders: High Cholesterol, Hypertension Neurological Hx Neurological Disorders: Yes Neurological Disorders: Neuropathy Reproductive System Hx Reproductive Disorders: No Sexually Transmitted Disease: No HIV/AIDS: No Genitourinary Hx Genitourinary Disorders: Yes Genitourinary Disorders: Renal Failure Gastrointestinal Hx Gastrointestinal Disorders: Yes Gastrointestinal Disorders: Chronic Constipation Musculoskeletal Hx Musculoskeletal Disorders: Yes Musculoskeletal Disorders: Arthritis Endocrine Hx Endocrine Disorders: Yes Endocrine Disorders: Diabetes, Insulin dep HEENT HX ENT Disorders: No Cancer Hx Cancer: No Psychosocial Hx Psychiatric Problems: Yes Behavioral Health Disorders: Depression Integumentary HX Skin/Integumentary Disorder: Yes Blood Transfusions Hx Blood Disorders: No Adverse Reaction to a Blood Tr: No Family Medical History Significant Family History: No Pertinent Family Hx Review of Systems-General Constitutional: chills, diaphoresis, weakness Respiratory: No no symptoms reported, No see HPI, No cough, No dyspnea on exertion, No hemoptysis, No orthopnea, No phlegm, No short of breath, No stridor , No wheezing, No other Cardiovascular: No no symptoms reported, No see HPI, No chest pain, No edema, No Hx of Intervention, No palpitations, No syncope, No vascular heart diseas, No other Physical Exam-General Problems Physical Exam Vital Signs Vital Sign - Last 12Hours 08/22/16 08/22/16 08/23/16 08/23/16 19:00 20:00 00:00 00:30 Temp 96.6 Pulse 98 Resp 20 B/P (MAP) 138/83 Pulse Ox 96 O2 Delivery Room Air O2 Flow Rate 2.00 Capillary Refill : Extremities: other (Right Leg- +swelling, + tenderness to the anterior tibia, + calf pain, Fluctuant hematoma to the anterior tibia no erythema to the tibia, RIGHT FOOT- +purulence and malodor to the foot fluctuance to the forefoot over the 3rd toe extending to the midfoot, cynotic 3rd toe with epidermolysis, extensive forefoot gangrene) Assessment/Plan Assessment/Plan Admission Diagnosis/Plan Gas Gangrene Right Foot Hematoma Right Leg DVT RLE -Plan for emergent OR. For I&D right leg hematoma and right foot abscess -Cont Anticoags for DVT -NWB RLE -I have had a very extensive discussion with the patient and his family that he will likely need multiple surgeries and require and amputation at the TMA or BKA level depending on how he responds to the treatment. Clinical Quality Measures DVT/VTE Risk/Contraindication: Risk Factor Score Per Nursin RFS Level Per Nursing on Admit: 4+=Very High Contraindications-Pharm: Other *list below* Contraindications-Mechi: Other *list below* Other: operation planned today lower leg cellulitis JOCELIN RHODES DPM Aug 23, 2016 11:53
--- NOTE | 2016-08-23 11:54 | Diagnostic Imaging Report ---
INDICATION: Dyspnea. TECHNIQUE: Single view chest at 4:55 AM. CORRELATION STUDY: 12/28/2014. FINDINGS: Overall fairly limited and suboptimal depth of inspiration. Given this, there does appear to be some atelectasis or perhaps a small patchy infiltrate at the right lung base. The remaining lung alba are clear. The heart size and mediastinum are stable. The stomach is significantly distended with gas. IMPRESSION: Suboptimal depth of inspiration with crowding at the lung bases. Superimposed atelectasis or infiltrate at the right lung base is present. Dictated by: Dictated on workstation # [id number]
--- NOTE | 2016-08-23 11:57 | Progress Note-Post Operative ---
Post-Operative Progess Note Surgeon (s)/Traffic Personnel Supervisor (s) Surgeon JOCELIN RHODES DPM Traffic Personnel Supervisor: None Pre-Operative Diagnosis 1. Gas Gangrene Right Foot. 2. Hematoma Right Leg Post-Operative Diagnosis same Procedure & Operative Findings Date of Procedure 08/22/16 Procedure Performed/Findings 1. I&D Right Foot with Amputation of the 3rd toe and Wound VAC Application 2. I&D Hematoma RIght Leg Anesthesia Type GA Estimated Blood Loss Estimated blood loss (mL): 50cc Specimens/Packing Specimens Removed 3rd toe Packing: Wound VAC JOCELIN RHODES DPM Aug 23, 2016 11:57
[2016-08-23] MEDS ORDERED: oxyCODONE/APAP 10/325MG (PERCOCET 10) TABLET PO PRN (12:00)
--- NOTE | 2016-08-23 12:02 | Podiatry Progress Note ---
Standard Progress Note Progress Notes/Assess & Plan Date Seen by Provider: Aug 23, 2016 Time Seen by Provider: 07:00 Progress/Assessment & Plan POD #1 I&D Right foot with Amputation and Wound VAC application, I&D Right Leg Pt states he is feeling much better. Pt states pain is controlled with current meds. RLE-Wound VAC intact, minimal drainage, vascular status intact to remaining digits, + calf swelling and ecchymosis Final Diagnosis Gas Gangrene Right foot , Hematoma Right Leg, DVT -Okay to restart anticoags per hospitalist -Plan for repeat washout tomorrow with wound VAC application -Continue IV abx -Awaiting surgical cultures -JOCELIN GLYNN DPM Aug 23, 2016 12:02
[2016-08-23 12:13] LABS: BILIRUBIN,URINE NEGATIVE (NEGATIVE); KETONES,URINE 1+ (NEGATIVE); LEUKOCYTE ESTERASE ,URINE 1+ (NEGATIVE); NITRITE,URINE NEGATIVE (NEGATIVE); PH,URINE 5 (5-9); PROTEIN,URINE 2+ (NEGATIVE); UROBILINOGEN,URINE NORMAL (NORMAL)
[2016-08-23] MEDS: VANCOMYCIN 1,750 MG/NS 500 ML IVPB IV SCH ×2 (12:19)
--- NOTE | 2016-08-23 14:09 | Anesthesia-General Post-Op ---
General Patient Condition Mental Status/LOC: Same as Preop Cardiovascular: Satisfactory Nausea/Vomiting: Absent Respiratory: Satisfactory Pain: Controlled Complications: Absent Post Op Complications Complications None Follow Up Care/Instructions Patient Instructions None needed. Anesthesia/Patient Condition Patient Condition Patient is doing well, no complaints, stable vital signs, no apparent adverse anesthesia problems. No complications reported per nursing. ANNA TRACY CRNA Aug 23, 2016 14:09
[2016-08-23] MEDS: oxyCODONE/APAP 5/325MG (PERCOCET 5) TABLET PO PRN ×2 (17:44→23:56)
[2016-08-23] MEDS ORDERED: RIVAROXABAN 15 MG TABLET (XARELTO) PO SCH (21:00)
[2016-08-24] MEDS: VANCOMYCIN 1,750 MG/NS 500 ML IVPB IV SCH ×2 (02:02)
[2016-08-24] MEDS: NS IV 1000 ML 1,000 ML IV SCH ×3 (02:03→17:10)
[2016-08-24] MEDS: PIPERACILLIN SODIUM/TAZOBACTAM 4.5 GM in NS (IVPB) 100 ML IV SCH ×3 (02:03→17:10)
[2016-08-24 05:35] LABS: BASOPHILS % (AUTO) 0 % (0-10); EOSINOPHILS # (AUTO) 0.1 10^3/uL (0.0-0.3); EOSINOPHILS % (AUTO) 1 % (0-10); LYMPHOCYTES # (AUTO) 1.2 X 10^3 (1.0-4.0); LYMPHOCYTES % (AUTO) 11 % (12-44); MEAN CORPUSCULAR HEMOGLOBIN 30 PG (25-34); MEAN CORPUSCULAR HGB CONC 34 G/DL (32-36); MEAN CORPUSCULAR VOLUME 86 FL (80-99); MEAN PLATELET VOLUME 9.3 FL (7.4-10.4); MONOCYTES # (AUTO) 1.1 X 10^3 (0.0-1.0); MONOCYTES % (AUTO) 10 % (0-12); NEUTROPHILS # (AUTO) 8.8 X 10^3 (1.8-7.8); NEUTROPHILS % (AUTO) 78 % (42-75); PLATELET COUNT 304 10^3/uL (130-400); RED BLOOD COUNT 3.59 10^6/uL (4.35-5.85); RED CELL DISTRIBUTION WIDTH 12.5 % (10.0-14.5); WHITE BLOOD COUNT 11.2 10^3/uL (4.3-11.0)
[2016-08-24 05:52] LABS: ALBUMIN 2.4 GM/DL (3.2-4.5); BILIRUBIN,TOTAL 0.4 MG/DL (0.1-1.0); CALCIUM 8.2 MG/DL (8.5-10.1); CREATININE SERUM 4.03 MG/DL (0.60-1.30); POTASSIUM 4.5 MMOL/L (3.6-5.0); TOTAL PROTEIN 6.3 GM/DL (6.4-8.2)
[2016-08-24] MEDS: inSUlin ASPART (NovoLOG) 1 UNIT/0.01 ML (CHARGE PER UNIT) SC SCH ×4 (06:09→21:02)
[2016-08-24 07:51] VITALS: BP 137/87
[2016-08-24] MEDS: HYDROmorphone (DILAUDID) 2 MG/ML VIAL IVP PRN ×3 (07:59→19:58)
[2016-08-24] MEDS ORDERED: TROUGH ORDER-PHARMACY XX NR ×2 (08:00→11:00)
--- NOTE | 2016-08-24 09:46 | Physical Therapy Progress Note ---
Therapy Progress Note Pt declined to participate with PT. "Not today! I just got a bath and I'm tired. " Pt to go for wound vac change/surgery at 1300 this date. PT with follow as appropriate. SARBJIT LAW DPT Aug 24, 2016 09:46
--- NOTE | 2016-08-24 10:47 | Progress Note-Hospitalist ---
Progress Note HPI/CC on Admission Patient seen with medical student and the only complaint he has is the pain and he is aware that he might have to have a below the knee amputation and he will have surgery tomorrow per Dr. Hemphill. I reviewed the labs and home medications that we are trying to reconcile for accuracy and we'll maintain insulin per sliding scale in the meantime. Progress Notes/Assess & Plan Date Seen 08/24/16 Time Seen by Provider: 10:00 Admission Dx/Process Assessment: Sepsis due to right foot gangrene and cellulitis with abscess formation status post debridement per Dr. Hemphill yesterday POD # 1 Diabetes mellitus out of control insulin-dependent hemoglobin A1c of 11.2 at [facility] Hypertension Hyperlipidemia Smoker CHF GERD Depression Arthritis Anxiety Insomnia CAD Diagonsis/Assessment & Plan Patient doing well overall denies any pain and having good urinary output with normal saline at 125 mL an hour Creatinine did increase to 4.0 but that is from diabetic nephropathy and vancomycin so vancomycin has been discontinued and will monitor closely and I did update Dr. Lindsay who is on-call for this weekend He is ready for surgery today at 1 o'clock Chart Review: Creat elevated 4 due to abx so DC Vanc, maintain Zosyn Reviewed wound Cx Medical Student Review: Pt surgery is set for 1300 Pt has not eaten since midnight Pt states that he has had no BMs and has been urinating a small amount Patient Interview: Labs were discussed with pt. Pt's Creat is elevated so I discussed that his meds were adjusted. I expect that this level will drop Pt confirms urinating Physical exam stable. Lungs sound perfect. Pt would like to eat and was joking about how long it will take until he does I informed him that Dr. Lindsay will be taking over care this evening No fever, vital signs stable, pleasant, improved Regular rate and rhythm, clear to all station bilaterally No edema Right foot with dressing intact Laboratory Tests 08/24/16 05:15 Assessment: Sepsis due to right foot gangrene and cellulitis with abscess formation status post debridement per Dr. Hemphill POD # 2 and repeat today at 1300 ARF due to DM Nephropathy and Vanc administration w/h/o CRI mild at 1.5 at [facility] Diabetes mellitus out of control insulin-dependent hemoglobin A1c of 11.2 at [facility] Hypertension Hyperlipidemia Smoker CHF GERD Depression Arthritis Anxiety Insomnia CAD Plan: Reconciled home meds Sliding-scale insulin regimen the meantime needs long acting after surgery Pain control Bowel regimen to prevent narcotic bowel Needs another surgery today Ambulate May need [id number] amputation Advance diet after surgery Scribed by Manuela Beavers under the direct supervision of Dr. Osorio. TRACI OSORIO DO Aug 24, 2016 10:47
[2016-08-24] MEDS ORDERED: MIDAZOLAM 2 MG/2 ML (VERSED) VIAL ONE (11:56)
[2016-08-24] MEDS ORDERED: DEXAMETHASONE PF 10 MG/ML (DECADRON) VIAL ONE (11:56)
[2016-08-24] MEDS ORDERED: ONDANSETRON 4 MG/2 ML (SDV) Z0FRAN ONE (11:56)
[2016-08-24] MEDS ORDERED: SEVOFLURANE (ULTANE) 15 ML INHAL SOLN ONE ×4 (11:56→14:46)
[2016-08-24] MEDS ORDERED: ROCURONIUM 50 MG/5 ML (ZEMURON) VIAL IV ONE (11:56)
[2016-08-24] MEDS ORDERED: proPOfol 200 MG/20 ML (DIPRIVAN) VIAL IV ONE (11:56)
[2016-08-24] MEDS ORDERED: LACTATED RINGERS 1,000 ML IV ONE (11:56)
[2016-08-24] MEDS ORDERED: fentaNYL INJECTION 100 MCG/2 ML AMP ONE (11:56)
[2016-08-24] MEDS ORDERED: BUPIVACAINE 0.5% 30 ML (SENSORCAINE) VIAL ONE (13:21)
[2016-08-24] MEDS: LACTATED RINGERS 1,000 ML IV SCH (13:30)
[2016-08-24] MEDS ORDERED: NEOSTIGMINE (BLOXIVERZ ) 1 MG/1ML 10 ML VIAL ONE (14:41)
[2016-08-24] MEDS ORDERED: GLYCOPYRROLATE 0.2 MG/ML (ROBINUL) 2 ML VIAL ONE (14:41)
[2016-08-24] MEDS ORDERED: morphine INJ 10 MG/ML 1ML (SYR OR VIAL) ONE (15:01)
--- NOTE | 2016-08-24 15:04 | Progress Note-Post Operative ---
Post-Operative Progess Note Surgeon (s)/Configurator (s) Surgeon JOCELIN RHODES DPM Configurator: None Pre-Operative Diagnosis Necrotic Wound Right Foot Post-Operative Diagnosis same Procedure & Operative Findings Date of Procedure 08/24/16 Procedure Performed/Findings Debridement of wound right foot with amputation of digits 2, 4, and 5 Anesthesia Type GA Estimated Blood Loss Estimated blood loss (mL): 50cc Specimens/Packing Specimens Removed 2nd 4th and 5th toes Packing: Wound VAC JOCELIN RHODES DPM Aug 24, 2016 15:04
[2016-08-24] MEDS ORDERED: MEPERIDINE (DEMEROL) INJ 50 MG/ML IVP PRN (15:15)
[2016-08-24] MEDS ORDERED: ONDANSETRON 4 MG/2 ML (SDV) Z0FRAN IVP PRN (15:15)
[2016-08-24] MEDS ORDERED: morphine INJ 10 MG/ML 1ML (SYR OR VIAL) IVP PRN (15:15)
[2016-08-24] MEDS ORDERED: HYDROmorphone (DILAUDID) 2 MG/ML VIAL IVP PRN (15:15)
[2016-08-24 16:00] VITALS: BP 147/88
[2016-08-24] MEDS: oxyCODONE/APAP 5/325MG (PERCOCET 5) TABLET PO PRN ×2 (17:09→21:47)
[2016-08-24 23:50] VITALS: BP 149/89
[2016-08-25] MEDS: HYDROmorphone (DILAUDID) 2 MG/ML VIAL IVP PRN ×3 (00:16→15:33)
[2016-08-25] MEDS: NS IV 1000 ML 1,000 ML IV SCH ×3 (00:17→16:16)
[2016-08-25] MEDS: LACTATED RINGERS 1,000 ML IV SCH ×2 (00:49→10:16)
[2016-08-25] MEDS: PIPERACILLIN SODIUM/TAZOBACTAM 4.5 GM in NS (IVPB) 100 ML IV SCH ×2 (01:02→10:44)
[2016-08-25 04:00] VITALS: BP 145/88
[2016-08-25] MEDS: oxyCODONE/APAP 5/325MG (PERCOCET 5) TABLET PO PRN ×3 (04:16→15:34)
[2016-08-25] MEDS: inSUlin ASPART (NovoLOG) 1 UNIT/0.01 ML (CHARGE PER UNIT) SC SCH ×3 (06:11→16:16)
[2016-08-25 07:27] VITALS: BP 155/98
[2016-08-25] MEDS ORDERED: ENOXAPARIN 300 MG/3 ML (LOVENOX) MULTI-DOSE VIAL SQ SCH (09:00)
[2016-08-25] MEDS ORDERED: TROUGH ORDER-PHARMACY XX NR (09:00)
--- NOTE | 2016-08-25 09:59 | Progress Note (SOAP) ---
Objective Exam Last Set of Vital Signs Vital Signs Date Time Temp Pulse Resp B/P (MAP) Pulse Ox O2 Delivery O2 Flow Rate FiO2 08/25/16 07:30 Nasal Cannula 1.00 08/25/16 07:27 98.4 88 20 155/98 98 Capillary Refill : I&O Intake and Output 08/25/16 00:00 Intake Total 3940 ml Output Total 1000 ml Balance 2940 ml Intake Oral 640 ml IV Total 3300 ml Output Urine Total 1000 ml Results/Procedures Lab Laboratory Tests 08/24/16 10:44: Glucometer 264H 08/24/16 12:30: Glucometer 246H 08/24/16 16:07: Glucometer 235H 08/24/16 20:49: Glucometer 294H 08/25/16 05:12: Glucometer 282H Microbiology 08/22/16 Blood Culture - Preliminary, Resulted No growth 08/23/16 Urine Culture - Preliminary, Resulted Yeast Species 08/22/16 Gram Stain - Final, Resulted 08/22/16 Anaerobic Culture, Resulted Pending 08/22/16 Surgical Culture - Preliminary, Resulted Enterobacter Aerogenes Escherichia Coli Enterococcus Faecalis Clinical Quality Measures DVT/VTE Risk/Contraindication: Risk Factor Score Per Nursin RFS Level Per Nursing on Admit: 4+=Very High Contraindications-Pharm: Other *list below* Contraindications-Mechi: Other *list below* Other: operation planned today lower leg cellulitis AFSHAN BLACK MD Aug 25, 2016 09:58
--- NOTE | 2016-08-25 10:23 | Physical Therapy Progress Note ---
Therapy Progress Note Attempted to see patient and he was sleeping. Patient refused therapy today. BATOOL DIAMOND PT Aug 25, 2016 10:23
[2016-08-25 10:51] LABS: MEAN PLATELET VOLUME 9.8 FL (7.4-10.4); RED BLOOD COUNT 3.29 10^6/uL (4.35-5.85); RED CELL DISTRIBUTION WIDTH 13.3 % (10.0-14.5); WHITE BLOOD COUNT 8.9 10^3/uL (4.3-11.0)
[2016-08-25 11:25] LABS: CALCIUM 7.8 MG/DL (8.5-10.1); CREATININE SERUM 6.14 MG/DL (0.60-1.30); POTASSIUM 4.4 MMOL/L (3.6-5.0)
[2016-08-25 11:43] VITALS: BP 151/73
--- NOTE | 2016-08-25 12:43 | Discharge Summary ---
Diagnosis/Chief Complaint Date of Admission Aug 22, 2016 at 19:35 Date of Discharge AUGUST 25 2016 Admission Diagnosis Admission Diagnosis Sepsis due to right foot gangrene and cellulitis with abscess formation status post debridement per Dr. Hemphill POD # 2 and repeat today at 1300 ARF due to DM Nephropathy and Vanc administration w/h/o CRI mild at 1.5 at [facility] Diabetes mellitus out of control insulin-dependent hemoglobin A1c of 11.2 at [facility] Hypertension Hyperlipidemia Smoker CHF GERD Depression Arthritis Anxiety Insomnia CAD Discharge Diagnosis Sepsis due to right foot gangrene and cellulitis with abscess formation status post debridement per Dr. Hemphill POD # 2 and repeat today at 1300 ARF due to DM Nephropathy and Vanc administration w/h/o CRI mild at 1.5 at [facility] Diabetes mellitus out of control insulin-dependent hemoglobin A1c of 11.2 at [facility] Hypertension Hyperlipidemia Smoker CHF GERD Depression Arthritis Anxiety Insomnia CAD Chief Complaint/HPI Chief Complaint/HPI 50yo male presented to hospital with necrosis of toes on right foot after sustaining a work-related injury Discharge Summary-Simple/Stand Consultations Discharge Physical Examination Allergies: Coded Allergies: cortisone (Verified Allergy, Unknown, HIVES, 11/11/14) shellfish derived (Verified Allergy, Unknown, 11/11/14) Uncoded Allergies: THYLAID (Allergy, Unknown, 11/11/14) Vitals & I&Os Vital Sign - Last 12Hours Date Time Temp Pulse Resp B/P (MAP) Pulse Ox O2 Delivery O2 Flow Rate FiO2 08/25/16 11:43 97.6 87 20 151/73 94 Room Air 08/25/16 07:30 1.00 Intake and Output 08/25/16 00:00 Intake Total 2840 ml Output Total 1000 ml Balance 1840 ml General Appearance: Alert, Oriented X3, Cooperative, No Acute Distress Respiratory: Clear to Auscultation, Normal Air Movement Cardiovascular: Regular Rate, Normal S1, Normal S2, No Murmurs, Gallops, Rubs Abdominal: Normal Bowel Sounds, Soft, No Tenderness Extremities: No Clubbing, No Cyanosis, No Edema, Other (dressing clean dry and intact) Hospital Course Sepsis due to right foot gangrene and cellulitis with abscess formation status post debridement per Dr. Hemphill -Sepsis had improved at time of transfer to [facility] ARF due to DM Nephropathy and Vanc administration w/h/o CRI mild at 1.5 at [facility] -Patient's creatinine had increased to 6 on jorge luis day of transfer. I made the decision to transfer due to decreasing creatinine clearance. He will likely need inpatient dialysis. He was accepted to [facility] hospitalist service. Diabetes mellitus out of control insulin-dependent hemoglobin A1c of 11.2 at [facility] -Long history of diabetes. I have seen him in clinic, and he is quite reluctant to take charge of his health with respect to this. will continue to try to manage as an outpatient. undoubtedly contributing to poor wound healing at present. Hypertension Hyperlipidemia Smoker CHF GERD Depression Arthritis Anxiety Insomnia CAD Discharge Instructions to patient/family Please see electonic discharge instructions given to patient. Discharge Medications Reviewed and agree with Discharge Medication list on patient's Discharge Instruction sheet Clinical Quality Measures DVT/VTE Risk/Contraindication: Risk Factor Score Per Nursin RFS Level Per Nursing on Admit: 4+=Very High Contraindications-Pharm: Other *list below* Contraindications-Mechi: Other *list below* Other: operation planned today lower leg cellulitis Copy Copies To 1: AFSHAN BLACK MD, JULIE A MD Aug 25, 2016 12:42
--- NOTE | 2016-08-25 13:00 | Progress Note-Standard ---
Standard Progress Note Progress Notes/Assess & Plan Time Seen by Provider: 13:00 Progress/Assessment & Plan Doing ok Being transferred to [facility] for Nephrology Will defer to them. Discussed with Patient. FABI READ MD Aug 25, 2016 13:00
--- NOTE | 2016-08-25 13:18 | Anesthesia-General Post-Op ---
General Patient Condition Mental Status/LOC: Same as Preop Cardiovascular: Satisfactory Nausea/Vomiting: Absent Respiratory: Satisfactory Pain: Controlled Complications: Absent Post Op Complications Complications None Follow Up Care/Instructions Patient Instructions None needed. Anesthesia/Patient Condition Patient Condition Patient is doing well, no complaints, stable vital signs, no apparent adverse anesthesia problems. No complications reported per nursing. DARCY NIÑO CRNA Aug 25, 2016 13:18
[2016-08-25 15:25] VITALS: BP 155/95
[2016-08-25 18:00] VITALS: BP 155/95
--- NOTE | 2016-10-01 09:53 | OPERATIVE REPORT ---
DATE OF SERVICE: 08/22/2016 PREOPERATIVE DIAGNOSIS: 1. Gas gangrene right foot. 2. Necrotic 3rd toe right foot. 3. Hematoma right leg. POSTOPERATIVE DIAGNOSIS: 1. Gas gangrene right foot. 2. Necrotic 3rd toe right foot. 3. Hematoma right leg. PROCEDURE PERFORMED: 1. Incision and drainage of abscess, right foot. 2. Amputation, right 3rd toe. 3. I and D of hematoma, right leg. 4. Wound VAC application, right foot. ANESTHESIA: General. HEMOSTASIS: Mostly controlled. BLOOD LOSS: 100 mL. MATERIALS USED: KCI wound VAC materials. INTRAOPERATIVE INJECTABLES: None. COMPLICATIONS: None. INDICATIONS FOR PROCEDURE: The patient has an extensive history that is noted in the chart of dropping a piece of equipment on his right leg. He was admitted at [facility] and had an abscess to his right foot and gas gangrene there. He then demanded to be transferred to another hospital. He was received at [facility] and is requiring emergent surgery. He has been made aware of the risks and benefits of surgery as well as the alternatives to undergoing it and signed consent prior to be taken back to the OR. DESCRIPTION OF PROCEDURE: Under mild sedation, the patient was brought into the OR and placed on the operating table in supine position. Following administration of general anesthesia, the right lower extremity was scrubbed, prepped and draped in the aseptic manner. Appropriate timeout was performed. The right lower extremity was identified, surgical site. Incision was made to the dorsal aspect of the foot where it was noted there was gas gangrene. There was a large abscess and extensive malodorous pus that poured out approximately 20 mL of purulence. The incision was then encompassed around the third toe and the third toe was disarticulated at the metatarsophalangeal joint. The toe was passed from the surgical field. The plantar aspect of the foot was then filleted down to the mid level of the foot. There was gas that was tracking into the plantar vault and up the arch of the foot. This was expressed in its entirety. The wound was then flushed with copious amounts of sterile saline under pulse lavage and all necrotic tissue was resected and passed from the surgical field. The metatarsal head appeared slightly necrotic and this will be resected on a further surgical date. It was very likely that the patient will need transmetatarsal amputation at this time or even possible BKA due to the extensive infection to the right foot. Once the right foot was debrided of all necrotic tissue, a KCI wound VAC was applied as described by the technique guide and set to 125 mmHg. Next, all operating room staff changed their gloves and attention was then directed to the hematoma to the right leg at the mid distance of the tibia. There was a hematoma noted in the anterior compartment. An approximately 3 cm incision was made over the area of the hematoma and sharp and blunt dissection was used to dissect down to the level of the hematoma and there was a large hematoma in the subcutaneous tissues with approximately 20 mL of sanguineous, gelatinous fluid that was expressed from the area of the hematoma. There was no purulence seen within the hematoma and the wound was flushed with copious amounts of sterile saline under pulse lavage. The skin was then reapproximated and closed with 3-0 nylon. The foot was then dressed with dry sterile dressing consisting of 4 x 4's, Webril, and an XIN wrap. Cultures were also taken of the right foot purulence prior to dressing with the wound VAC. At the end of the procedure, the patient was then transferred from OR to recovery with vital signs stable and neurovascular status intact to the right lower extremity. The patient's family was made aware of the extensive damage and extensive infection of the right foot and there was a high concern of the patient losing his foot and/or leg, especially with his severe history of diabetes that is extremely uncontrolled and significant neuropathy. Job ID: [id number] DocumentID: [id number] Dictated Date: 09/27/2016 17:30:24 Veterans' Counselor Date: 09/28/2016 00:01:26 Dictated By: JOCELIN RHODES DPM
--- NOTE | 2016-10-01 09:54 | OPERATIVE REPORT ---
DATE OF SERVICE: SURGEON: Federico Rhodes DPM DIRECTOR OF MEDICAL REVIEW: None. PREOPERATIVE DIAGNOSIS: 1. Necrotic wound, right foot. 2. Gangrene of toes 2, 4 and 5, right foot. POSTOPERATIVE DIAGNOSIS: 1. Necrotic wound, right foot. 2. Gangrene of toes 2, 4 and 5, right foot. PROCEDURE PERFORMED: 1. Debridement of necrotic wound, right foot. 2. Amputation of toes 2, 4 and 5, right foot. ANESTHESIA: General. HEMOSTASIS: Locally controlled. BLOOD LOSS: 100 mL. MATERIALS USED: KCI wound VAC. INTRAOPERATIVE INJECTABLES: None. COMPLICATIONS: None. INDICATIONS FOR PROCEDURE: The patient is a 50-year-old male with an extensive history of a right foot infection from a work injury where he dropped a large piece of equipment on his leg, developed a hematoma to his leg and then subsequent infection to his foot. He underwent I and D with amputation of the 3rd toe 2 days prior and at this time is requiring further debridement and washout of the area of abscess. DESCRIPTION OF PROCEDURE: Under mild sedation, the patient was brought to the OR and placed on the operating table in supine position. Upon administration of general administration of general anesthesia, the right lower extremity was scrubbed, prepped and draped in the aseptic manner. A proper timeout was performed and the right lower extremity was identified as the surgical site. There was an extensive wound to the dorsal aspect of the foot at the area of the midfoot and extending down into the plantar arch in the plantar vault of the foot. There was extensive necrotic tissue. There was also more purulence that was noted to the area of the plantar foot. An incision was taken approximately 3 cm further proximal into the arch of the foot to express all purulence. It was also noted there was purulence tracking into the plantar aspect of the 4th and 5th toes and also into the plantar aspect of the 2nd toe. At this time, it was deemed necessary to amputate digits 2, 4 and 5 due to extensive necrosis and gangrene of the digits. These toes were all amputated and disarticulated at the metatarsophalangeal joint. They were passed from the surgical field. All necrotic tendinous tissue and soft tissue was resected and passed from the surgical field. The wound was again flushed with copious amounts of sterile saline using pulse lavage. Once all purulent and necrotic tissue was resected, a KCI wound VAC was then applied to the foot and the foot was dressed with a dry sterile dressing consisting of 4 x 4s, Webril and Santana wrap. We will plan for a repeat washout on 08/26 and possible transmetatarsal amputation at that time if the soft tissues allow and there is no sign of infection at that time. Job ID: [id number] DocumentID: [id number] Dictated Date: 09/27/2016 17:37:06 Marine Cargo Surveyor Date: 09/28/2016 09:18:28 Dictated By: FEDERICO RHODES DPM
== END 2016-08-25 18:15 | disposition short-term general hospital (02) | DRG 853 ==
LOC: ICU 19:35 → 4TH 08-23 10:44
PROVIDERS: ADMIT Internal Medicine; ATTEND Internal Medicine
PROC: 0J9Q3ZZ Drainage of Right Foot Subcutaneous Tissue and Fascia, Percutaneous Approach (ICD-10-PCS; 2016-08-22)
PROC: 0J9N0ZZ Drainage of Right Lower Leg Subcutaneous Tissue and Fascia, Open Approach (ICD-10-PCS; 2016-08-22)
PROC: 0Y6T0Z0 Detachment at Right 3rd Toe, Complete, Open Approach (ICD-10-PCS; principal; 2016-08-22 19:00)
PROC: 0Y6R0Z0 Detachment at Right 2nd Toe, Complete, Open Approach (ICD-10-PCS; 2016-08-24)
PROC: 0Y6V0Z0 Detachment at Right 4th Toe, Complete, Open Approach (ICD-10-PCS; 2016-08-24)
PROC: 0Y6X0Z0 Detachment at Right 5th Toe, Complete, Open Approach (ICD-10-PCS; 2016-08-24)
PROC: 0JBQ0ZZ Excision of Right Foot Subcutaneous Tissue and Fascia, Open Approach (ICD-10-PCS; 2016-08-24)
DX: A41.9 Sepsis, unspecified organism (principal); A48.0 Gas gangrene; L03.115 Cellulitis of right lower limb; N17.9 Acute kidney failure, unspecified; I82.4Z1 Acute embolism and thrombosis of unspecified deep veins of right distal lower extremity; E11.65 Type 2 diabetes mellitus with hyperglycemia; J44.9 Chronic obstructive pulmonary disease, unspecified; I11.0 Hypertensive heart disease with heart failure; E78.00 Pure hypercholesterolemia, unspecified; I50.9 Heart failure, unspecified; F41.9 Anxiety disorder, unspecified; S80.11XA Contusion of right lower leg, initial encounter; E11.21 Type 2 diabetes mellitus with diabetic nephropathy; K21.9 Gastro-esophageal reflux disease without esophagitis; F32.9 Major depressive disorder, single episode, unspecified; G47.00 Insomnia, unspecified; I25.10 Atherosclerotic heart disease of native coronary artery without angina pectoris; W20.8XXA Other cause of strike by thrown, projected or falling object, initial encounter; Y99.0 Civilian activity done for income or pay; Z79.4 Long term (current) use of insulin
CPT/HCPCS: 36415; 36569; 71010; 73610; 73630; 76937; 80048; 80053; 80202; 81000; 82962; 83605; 83735; 83880; 84100; 84484; 85007; 85025; 85027; 87040; 87070; 87075; 87077; 87088; 87106; 87186; 87205; 88305; 88311; 94760

== ENCOUNTER → 2016-10-10 | Outpatient (CLI) | payer OTHER ==
[~2016-10-10] MED LIST changes: +CLIN300C11 PO; +IBUP-1780 PO; +OXYC-471 PO; +RIVA15TA PO
[2016-10-10 11:09] LABS: ALBUMIN 3.8 GM/DL (3.2-4.5); ANION GAP 11 MMOL/L (5-14); BLOOD UREA NITROGEN 9 MG/DL (7-18); BUN/CREATININE RATIO 8; CALCIUM 9.2 MG/DL (8.5-10.1); CARBON DIOXIDE 21 MMOL/L (21-32); CHLORIDE 107 MMOL/L (98-107); CREATININE SERUM 1.16 MG/DL (0.60-1.30); GFR ESTIMATED > 60; GLUCOSE 194 MG/DL (70-105); PHOSPHORUS 3.8 MG/DL (2.3-4.7); POTASSIUM 3.5 MMOL/L (3.6-5.0); SODIUM 139 MMOL/L (135-145)
== END ==
LOC: LAB 10:41
PROVIDERS: ATTEND Internal Medicine Nephrology
DX: N17.0 Acute kidney failure with tubular necrosis (principal)
CPT/HCPCS: 36415; 80069

== ENCOUNTER → 2016-10-12 | Outpatient (CLI) | payer MEDICAID, OTHER ==
--- NOTE | 2016-10-12 17:46 | Diagnostic Imaging Report ---
INDICATION: Foot injury. FINDINGS: Three views of the right foot show amputation of the second through fifth toes. There is no acute fracture or dislocation. There is no osteolytic change to suggest osteomyelitis. IMPRESSION: Postop changes from amputation of the second through fifth toes. Dictated by: Dictated on workstation # [id number]
== END ==
LOC: RAD 11:40
PROVIDERS: ATTEND Surgery
DX: Z89.421 Acquired absence of other right toe(s) (principal); L97.413 Non-pressure chronic ulcer of right heel and midfoot with necrosis of muscle; I70.234 Atherosclerosis of native arteries of right leg with ulceration of heel and midfoot; E10.42 Type 1 diabetes mellitus with diabetic polyneuropathy; E10.621 Type 1 diabetes mellitus with foot ulcer
CPT/HCPCS: 36415; 73630; 83036

== ENCOUNTER → 2016-10-12 | Outpatient (CLI) | payer OTHER | LOC: WOUNDCARE 09:45 | PROVIDERS: ATTEND Surgery | DX: E10.621 Type 1 diabetes mellitus with foot ulcer (principal); E10.42 Type 1 diabetes mellitus with diabetic polyneuropathy; L97.413 Non-pressure chronic ulcer of right heel and midfoot with necrosis of muscle; I70.234 Atherosclerosis of native arteries of right leg with ulceration of heel and midfoot | CPT/HCPCS: 11043; 11046; 87070; 87075; 87077; 87186; 87205 ==

== ENCOUNTER → 2016-10-19 | Outpatient (CLI) | payer OTHER | LOC: WOUNDCARE 10:54 | PROVIDERS: ATTEND Surgery | DX: E10.621 Type 1 diabetes mellitus with foot ulcer (principal); E10.42 Type 1 diabetes mellitus with diabetic polyneuropathy; L97.413 Non-pressure chronic ulcer of right heel and midfoot with necrosis of muscle | CPT/HCPCS: 11042; 11045 ==

== ENCOUNTER 2016-11-02 11:34 | Outpatient (RCR) | payer MEDICAID, OTHER ==
[2016-10-19 12:23] LABS: PROTHROMBIN TIME PATIENT 13.7 SEC (12.2-14.7)
[2016-11-02 11:58] LABS: PROTHROMBIN TIME PATIENT 13.7 SEC (12.2-14.7)
== END 2016-11-24 | disposition home or self-care (01) ==
LOC: LAB 11:34
PROVIDERS: ATTEND Surgery
DX: E10.621 Type 1 diabetes mellitus with foot ulcer (principal); E10.42 Type 1 diabetes mellitus with diabetic polyneuropathy; L97.413 Non-pressure chronic ulcer of right heel and midfoot with necrosis of muscle; I70.234 Atherosclerosis of native arteries of right leg with ulceration of heel and midfoot
CPT/HCPCS: 36415; 85610

== ENCOUNTER → 2016-11-02 | Outpatient (CLI) | payer MEDICAID, OTHER | LOC: WOUNDCARE 10:54 | PROVIDERS: ATTEND Surgery | DX: E10.621 Type 1 diabetes mellitus with foot ulcer (principal); E10.42 Type 1 diabetes mellitus with diabetic polyneuropathy; L97.513 Non-pressure chronic ulcer of other part of right foot with necrosis of muscle | CPT/HCPCS: 11042; 11045 ==

== ENCOUNTER → 2016-11-09 | Outpatient (CLI) | payer OTHER | LOC: WOUNDCARE 11:07 | PROVIDERS: ATTEND Surgery | DX: E10.621 Type 1 diabetes mellitus with foot ulcer (principal); E10.42 Type 1 diabetes mellitus with diabetic polyneuropathy; L97.513 Non-pressure chronic ulcer of other part of right foot with necrosis of muscle | CPT/HCPCS: 11042; 11045 ==

== ENCOUNTER → 2016-11-23 | Outpatient (CLI) | payer SELFPAY | LOC: WOUNDCARE 11:04 | PROVIDERS: ATTEND Surgery | DX: E10.621 Type 1 diabetes mellitus with foot ulcer (principal); E10.42 Type 1 diabetes mellitus with diabetic polyneuropathy; L97.413 Non-pressure chronic ulcer of right heel and midfoot with necrosis of muscle | CPT/HCPCS: 11042; 87070; 87075; 87205 ==

== ENCOUNTER → 2016-11-30 | Outpatient (CLI) | payer MEDICAID | LOC: WOUNDCARE 11:05 | PROVIDERS: ATTEND Surgery | DX: E10.621 Type 1 diabetes mellitus with foot ulcer (principal); E10.42 Type 1 diabetes mellitus with diabetic polyneuropathy; L97.413 Non-pressure chronic ulcer of right heel and midfoot with necrosis of muscle | CPT/HCPCS: 11042 ==

== ENCOUNTER → 2016-12-14 | Outpatient (CLI) | payer MEDICAID | LOC: WOUNDCARE 13:53 | PROVIDERS: ATTEND Surgery | DX: E10.621 Type 1 diabetes mellitus with foot ulcer (principal); E10.42 Type 1 diabetes mellitus with diabetic polyneuropathy; L97.413 Non-pressure chronic ulcer of right heel and midfoot with necrosis of muscle | CPT/HCPCS: 11042 ==

== ENCOUNTER → 2016-12-21 | Outpatient (CLI) | payer MEDICAID | LOC: WOUNDCARE 10:47 | PROVIDERS: ATTEND Surgery | DX: E10.621 Type 1 diabetes mellitus with foot ulcer (principal); E10.42 Type 1 diabetes mellitus with diabetic polyneuropathy; L97.413 Non-pressure chronic ulcer of right heel and midfoot with necrosis of muscle | CPT/HCPCS: 11042 ==

== ENCOUNTER → 2017-01-04 | Outpatient (CLI) | payer MEDICAID | LOC: WOUNDCARE 10:50 | PROVIDERS: ATTEND Surgery | DX: E10.42 Type 1 diabetes mellitus with diabetic polyneuropathy (principal); E10.621 Type 1 diabetes mellitus with foot ulcer; M86.471 Chronic osteomyelitis with draining sinus, right ankle and foot; L97.414 Non-pressure chronic ulcer of right heel and midfoot with necrosis of bone | CPT/HCPCS: 11044; 87070; 87075; 87077; 87186; 87205 ==

== ENCOUNTER → 2017-01-11 | Outpatient (CLI) | payer MEDICAID | LOC: WOUNDCARE 10:41 | PROVIDERS: ATTEND Surgery | DX: L97.414 Non-pressure chronic ulcer of right heel and midfoot with necrosis of bone (principal); M86.471 Chronic osteomyelitis with draining sinus, right ankle and foot; E10.621 Type 1 diabetes mellitus with foot ulcer; E10.42 Type 1 diabetes mellitus with diabetic polyneuropathy | CPT/HCPCS: 11044 ==

== ENCOUNTER → 2017-01-15 | Outpatient (CLI) | payer MEDICAID | LOC: WOUNDCARE 13:15 | PROVIDERS: ATTEND Surgery | DX: L97.414 Non-pressure chronic ulcer of right heel and midfoot with necrosis of bone (principal); M86.471 Chronic osteomyelitis with draining sinus, right ankle and foot; E10.621 Type 1 diabetes mellitus with foot ulcer; E10.42 Type 1 diabetes mellitus with diabetic polyneuropathy | CPT/HCPCS: 11042 ==

== ENCOUNTER → 2017-02-01 | Outpatient (CLI) | payer MEDICAID ==
[2017-02-01 12:11] LABS: BASOPHILS % (AUTO) 0 % (0-10); EOSINOPHILS # (AUTO) 0.1 10^3/uL (0.0-0.3); EOSINOPHILS % (AUTO) 2 % (0-10); LYMPHOCYTES # (AUTO) 1.5 X 10^3 (1.0-4.0); LYMPHOCYTES % (AUTO) 26 % (12-44); MEAN CORPUSCULAR HEMOGLOBIN 29 PG (25-34); MEAN CORPUSCULAR HGB CONC 34 G/DL (32-36); MEAN CORPUSCULAR VOLUME 85 FL (80-99); MEAN PLATELET VOLUME 9.2 FL (7.4-10.4); MONOCYTES # (AUTO) 0.5 X 10^3 (0.0-1.0); MONOCYTES % (AUTO) 9 % (0-12); NEUTROPHILS # (AUTO) 3.5 X 10^3 (1.8-7.8); NEUTROPHILS % (AUTO) 63 % (42-75); PLATELET COUNT 287 10^3/uL (130-400); RED CELL DISTRIBUTION WIDTH 14.1 % (10.0-14.5); WHITE BLOOD COUNT 5.5 10^3/uL (4.3-11.0)
[2017-02-01 12:13] LABS: BILIRUBIN,URINE NEGATIVE (NEGATIVE); KETONES,URINE NEGATIVE (NEGATIVE); LEUKOCYTE ESTERASE ,URINE NEGATIVE (NEGATIVE); NITRITE,URINE NEGATIVE (NEGATIVE); PH,URINE 6 (5-9); PROTEIN,URINE NEGATIVE (NEGATIVE); UROBILINOGEN,URINE NORMAL (NORMAL)
[2017-02-01 12:31] LABS: ALBUMIN 3.8 GM/DL (3.2-4.5); ANION GAP 10 MMOL/L (5-14); BLOOD UREA NITROGEN 12 MG/DL (7-18); BUN/CREATININE RATIO 12; CARBON DIOXIDE 24 MMOL/L (21-32); CHLORIDE 107 MMOL/L (98-107); GFR ESTIMATED > 60; GLUCOSE 160 MG/DL (70-105); PHOSPHORUS 4.2 MG/DL (2.3-4.7); SODIUM 141 MMOL/L (135-145)
[2017-02-01 12:31] LABS: PROTEIN/CREATININE RATIO 0.07
== END ==
LOC: LAB 11:51
PROVIDERS: ATTEND Internal Medicine Nephrology
DX: N17.0 Acute kidney failure with tubular necrosis (principal); I10 Essential (primary) hypertension
CPT/HCPCS: 36415; 80069; 81000; 82570; 84156; 85025

== ENCOUNTER → 2017-02-01 | Outpatient (CLI) | payer MEDICAID ==
[2017-02-01 12:11] LABS: BASOPHILS % (AUTO) 1 % (0-10); EOSINOPHILS # (AUTO) 0.1 10^3/uL (0.0-0.3); EOSINOPHILS % (AUTO) 2 % (0-10); LYMPHOCYTES # (AUTO) 1.4 X 10^3 (1.0-4.0); LYMPHOCYTES % (AUTO) 26 % (12-44); MEAN CORPUSCULAR HEMOGLOBIN 29 PG (25-34); MEAN CORPUSCULAR HGB CONC 34 G/DL (32-36); MEAN CORPUSCULAR VOLUME 85 FL (80-99); MEAN PLATELET VOLUME 9.3 FL (7.4-10.4); MONOCYTES # (AUTO) 0.6 X 10^3 (0.0-1.0); MONOCYTES % (AUTO) 10 % (0-12); NEUTROPHILS # (AUTO) 3.4 X 10^3 (1.8-7.8); NEUTROPHILS % (AUTO) 61 % (42-75); PLATELET COUNT 287 10^3/uL (130-400); RED BLOOD COUNT 4.57 10^6/uL (4.35-5.85); RED CELL DISTRIBUTION WIDTH 14.1 % (10.0-14.5); WHITE BLOOD COUNT 5.5 10^3/uL (4.3-11.0)
[2017-02-01 12:39] LABS: ALANINE AMINOTRANSFERASE 13 U/L (0-55); ALBUMIN 3.9 GM/DL (3.2-4.5); ANION GAP 10 MMOL/L (5-14); ASPARTATE AMINO TRANSFERASE 12 U/L (5-34); BILIRUBIN,TOTAL 0.3 MG/DL (0.1-1.0); BLOOD UREA NITROGEN 12 MG/DL (7-18); BUN/CREATININE RATIO 12; CALCIUM 8.8 MG/DL (8.5-10.1); CARBON DIOXIDE 25 MMOL/L (21-32); CHLORIDE 106 MMOL/L (98-107); CREATININE SERUM 1.02 MG/DL (0.60-1.30); GFR ESTIMATED > 60; GLUCOSE 159 MG/DL (70-105); POTASSIUM 4.1 MMOL/L (3.6-5.0); SODIUM 141 MMOL/L (135-145); TOTAL PROTEIN 7.1 GM/DL (6.4-8.2)
== END ==
LOC: WOUNDCARE 11:06
PROVIDERS: ATTEND Surgery
DX: E10.621 Type 1 diabetes mellitus with foot ulcer (principal); L97.512 Non-pressure chronic ulcer of other part of right foot with fat layer exposed; M86.471 Chronic osteomyelitis with draining sinus, right ankle and foot; E10.42 Type 1 diabetes mellitus with diabetic polyneuropathy
CPT/HCPCS: 11042; 36415; 80053; 83036; 84134; 85025; 87070; 87075; 87077; 87186; 87205

== ENCOUNTER → 2017-02-08 | Outpatient (CLI) | payer MEDICAID | LOC: WOUNDCARE 10:43 | PROVIDERS: ATTEND Surgery | DX: L97.512 Non-pressure chronic ulcer of other part of right foot with fat layer exposed (principal); M86.471 Chronic osteomyelitis with draining sinus, right ankle and foot; E10.621 Type 1 diabetes mellitus with foot ulcer; E10.42 Type 1 diabetes mellitus with diabetic polyneuropathy | CPT/HCPCS: 11042 ==

== ENCOUNTER → 2017-02-15 | Outpatient (CLI) | payer MEDICAID | LOC: WOUNDCARE 10:36 | PROVIDERS: ATTEND Surgery | DX: L97.512 Non-pressure chronic ulcer of other part of right foot with fat layer exposed (principal); E10.621 Type 1 diabetes mellitus with foot ulcer; E10.42 Type 1 diabetes mellitus with diabetic polyneuropathy | CPT/HCPCS: 11042 ==

== ENCOUNTER → 2017-02-21 | Outpatient (CLI) | payer MEDICAID | LOC: WOUNDCARE 13:27 | PROVIDERS: ATTEND Surgery | DX: E10.621 Type 1 diabetes mellitus with foot ulcer (principal); E10.42 Type 1 diabetes mellitus with diabetic polyneuropathy; L97.512 Non-pressure chronic ulcer of other part of right foot with fat layer exposed | CPT/HCPCS: 11042 ==

== ENCOUNTER 2017-02-22 10:53 | Outpatient (RCR) | payer MEDICAID | END 2017-05-23 | disposition home or self-care (01) | LOC: LAB 10:53 | PROVIDERS: ATTEND Family Medicine | DX: E11.9 Type 2 diabetes mellitus without complications (principal) ==

== ENCOUNTER → 2017-02-22 | Outpatient (CLI) | payer MEDICAID ==
[2017-02-22 11:25] LABS: BASOPHILS % (AUTO) 1 % (0-10); EOSINOPHILS # (AUTO) 0.1 10^3/uL (0.0-0.3); EOSINOPHILS % (AUTO) 2 % (0-10); HEMATOCRIT 40 % (40-54); HEMOGLOBIN 13.9 G/DL (13.3-17.7); LYMPHOCYTES # (AUTO) 1.9 X 10^3 (1.0-4.0); LYMPHOCYTES % (AUTO) 32 % (12-44); MEAN CORPUSCULAR HEMOGLOBIN 29 PG (25-34); MEAN CORPUSCULAR HGB CONC 35 G/DL (32-36); MEAN CORPUSCULAR VOLUME 84 FL (80-99); MEAN PLATELET VOLUME 9.6 FL (7.4-10.4); MONOCYTES # (AUTO) 0.6 X 10^3 (0.0-1.0); MONOCYTES % (AUTO) 10 % (0-12); NEUTROPHILS # (AUTO) 3.4 X 10^3 (1.8-7.8); NEUTROPHILS % (AUTO) 56 % (42-75); PLATELET COUNT 263 10^3/uL (130-400); RED BLOOD COUNT 4.78 10^6/uL (4.35-5.85); RED CELL DISTRIBUTION WIDTH 14.3 % (10.0-14.5)
[2017-02-22 11:30] LABS: BILIRUBIN,URINE NEGATIVE (NEGATIVE); CLARITY,URINE SLIGHTLY CLOUDY; COLOR,URINE YELLOW; GLUCOSE, URINE (UA) NEGATIVE (NEGATIVE); KETONES,URINE NEGATIVE (NEGATIVE); LEUKOCYTE ESTERASE ,URINE NEGATIVE (NEGATIVE); NITRITE,URINE NEGATIVE (NEGATIVE); PH,URINE 6 (5-9); PROTEIN,URINE NEGATIVE (NEGATIVE); UROBILINOGEN,URINE NORMAL (NORMAL)
[2017-02-22 11:45] LABS: ALANINE AMINOTRANSFERASE 14 U/L (0-55); ALBUMIN 3.9 GM/DL (3.2-4.5); ALKALINE PHOSPHATASE 87 U/L (40-136); BILIRUBIN,TOTAL 0.6 MG/DL (0.1-1.0); BUN/CREATININE RATIO 11; CALCIUM 9.1 MG/DL (8.5-10.1); CARBON DIOXIDE 24 MMOL/L (21-32); CHLORIDE 104 MMOL/L (98-107); CREATININE SERUM 1.18 MG/DL (0.60-1.30); GFR ESTIMATED > 60; GLUCOSE 217 MG/DL (70-105); POTASSIUM 4.2 MMOL/L (3.6-5.0); SODIUM 138 MMOL/L (135-145); TOTAL PROTEIN 7.5 GM/DL (6.4-8.2)
[2017-02-22 11:50] LABS: BACTERIA,URINE NEGATIVE /HPF
== END ==
LOC: LAB 10:51
PROVIDERS: ATTEND Family Medicine
DX: E11.9 Type 2 diabetes mellitus without complications (principal)
CPT/HCPCS: 36415; 80053; 81000; 85025

== ENCOUNTER → 2017-03-01 | Outpatient (CLI) | payer SELFPAY | LOC: WOUNDCARE 09:16 | PROVIDERS: ATTEND Surgery | DX: E10.621 Type 1 diabetes mellitus with foot ulcer (principal); E10.42 Type 1 diabetes mellitus with diabetic polyneuropathy; L97.512 Non-pressure chronic ulcer of other part of right foot with fat layer exposed | CPT/HCPCS: 11042; 87070; 87075; 87077; 87186; 87205 ==

== ENCOUNTER → 2017-03-08 | Outpatient (CLI) | payer SELFPAY | LOC: WOUNDCARE 09:22 | PROVIDERS: ATTEND Surgery | DX: E10.621 Type 1 diabetes mellitus with foot ulcer (principal); E10.42 Type 1 diabetes mellitus with diabetic polyneuropathy; L97.512 Non-pressure chronic ulcer of other part of right foot with fat layer exposed | CPT/HCPCS: 11042 ==

== ENCOUNTER → 2017-03-22 | Outpatient (CLI) | payer SELFPAY | LOC: WOUNDCARE 10:02 | PROVIDERS: ATTEND Surgery | DX: E10.621 Type 1 diabetes mellitus with foot ulcer (principal); E10.42 Type 1 diabetes mellitus with diabetic polyneuropathy; L97.512 Non-pressure chronic ulcer of other part of right foot with fat layer exposed | CPT/HCPCS: 11042 ==

== ENCOUNTER → 2017-03-29 | Outpatient (CLI) | payer SELFPAY | LOC: WOUNDCARE 09:54 | PROVIDERS: ATTEND Surgery | DX: L97.512 Non-pressure chronic ulcer of other part of right foot with fat layer exposed (principal); E10.621 Type 1 diabetes mellitus with foot ulcer; E10.42 Type 1 diabetes mellitus with diabetic polyneuropathy | CPT/HCPCS: 11042 ==

== ENCOUNTER → 2017-04-05 | Outpatient (CLI) | payer SELFPAY | LOC: WOUNDCARE 09:37 | PROVIDERS: ATTEND Surgery | DX: E10.621 Type 1 diabetes mellitus with foot ulcer (principal); L97.512 Non-pressure chronic ulcer of other part of right foot with fat layer exposed; E10.42 Type 1 diabetes mellitus with diabetic polyneuropathy | CPT/HCPCS: 11042; 87070; 87075; 87077; 87186; 87205 ==

== ENCOUNTER → 2017-04-12 | Outpatient (CLI) | payer SELFPAY | LOC: WOUNDCARE 09:55 | PROVIDERS: ATTEND Surgery | DX: L97.512 Non-pressure chronic ulcer of other part of right foot with fat layer exposed (principal); E10.621 Type 1 diabetes mellitus with foot ulcer; E10.42 Type 1 diabetes mellitus with diabetic polyneuropathy | CPT/HCPCS: 11042 ==

== ENCOUNTER → 2017-04-19 | Outpatient (CLI) | payer SELFPAY | LOC: WOUNDCARE 09:40 | PROVIDERS: ATTEND Surgery | DX: E10.42 Type 1 diabetes mellitus with diabetic polyneuropathy (principal); L97.512 Non-pressure chronic ulcer of other part of right foot with fat layer exposed; E10.621 Type 1 diabetes mellitus with foot ulcer | CPT/HCPCS: 11042 ==

== ENCOUNTER → 2017-04-26 | Outpatient (CLI) | payer SELFPAY | LOC: WOUNDCARE 09:55 | PROVIDERS: ATTEND Surgery | DX: E10.42 Type 1 diabetes mellitus with diabetic polyneuropathy (principal); L97.512 Non-pressure chronic ulcer of other part of right foot with fat layer exposed; E10.621 Type 1 diabetes mellitus with foot ulcer ==

== ENCOUNTER → 2017-05-01 | Outpatient (CLI) | payer SELFPAY | LOC: WOUNDCARE 10:41 | PROVIDERS: ATTEND Surgery | DX: E10.621 Type 1 diabetes mellitus with foot ulcer (principal); E10.42 Type 1 diabetes mellitus with diabetic polyneuropathy; L97.512 Non-pressure chronic ulcer of other part of right foot with fat layer exposed | CPT/HCPCS: 99212 ==

== ENCOUNTER 2017-05-28 17:24 | Emergency (ER) | payer MEDICAID, OTHER ==
[~2017-05-28] VITALS: Ht 200.7 cm; Wt 140.6 kg
--- OUTSIDE RECORDS SUMMARY | 2017-05-28 17:28 | XMS REPORT | Clinical Summary ---
Author Author [facility] Organization [facility] Address Unknown Phone Unavailable Care Team Providers Care Assurance Associate Name Role Phone Jonathan Carvalho DO PCP Source Comments Some departments are not documenting in the electronic medical record. If you do not see the information that you expected, contact Release of Information in the Health Information Management department at [phone] for further assistance in locating additional records.[facility] Allergies Active Allergy Reactions Severity Noted Date Comments Adhesive Tape (Rosins) RASH Medium 02/16/2016 Cortisone SEE COMMENTS Low 02/16/2016 Burning sensation Pregabalin SEE COMMENTS Low 02/16/2016 Causes more pain Meloxicam SEE COMMENTS Low 02/16/2016 Causes more pain Current Medications No known medications Active Problems Not on file Social History Tobacco Use Types Packs/Day Years Used Date Never Smoker Sex Assigned at Date Recorded Not on file Last Filed Vital Signs Vital Sign Reading Time Taken Blood Pressure 189/115 02/16/2016 1:16 PM [employer] Pulse 107 02/16/2016 1:16 PM [employer] Temperature 37.1 C (98.8 F) 02/16/2016 1:16 PM [employer] Respiratory Rate - - Oxygen Saturation 95% 02/16/2016 1:16 PM [employer] Inhaled Oxygen - - Concentration Weight 145.2 kg (320 lb) 02/16/2016 1:16 PM [employer] Height 193 cm (6' 4") 02/16/2016 1:16 PM [employer] Body Mass Index 38.95 02/16/2016 1:16 PM [employer] Plan of Treatment Health Maintenance Due Date Last Done Comments PHYSICAL (COMPREHENSIVE) 1972 EXAM PERTUSSIS VACCINE 1976 HIV SCREENING 1980 TETANUS VACCINE 1982 COLORECTAL CANCER 12/29/2015 SCREENING INFLUENZA VACCINE 11/25/2017 Results Not on filefrom Last 3 Months
--- OUTSIDE RECORDS SUMMARY | 2017-05-28 17:29 | XMS REPORT ---
Author Author JIMENA HERNÁNDEZ Organization [facility] Address [address] [place] [address] Care Team Providers Care Tilting Head Band Sawyer Name Role Phone JIMENA HERNÁNDEZ Unavailable PROBLEMS Type Condition ICD9-CM Code RWB83-MM Code Onset Dates Condition Status SNOMED Code Problem Anxiety F41.9 Active 89308282 Problem Chronic pain G89.29 Active 51093464 Problem Insomnia G47.00 Active 266373653 Problem Hypercholesteremia E78.0 Active 70313382 Problem CAD (coronary artery disease) I25.10 Active 76511373 Problem Essential hypertension I10 Active 98250175 Problem Type 2 diabetes mellitus with other specified complication E11.69 Active 139641052 Problem Major depressive disorder, recurrent episode, moderate F33.1 Active 196067769 Problem Type 2 diabetes mellitus with hyperglycemia E11.65 Active 908685713 Problem penitentiary current use of insulin Z79.4 Active 831721627 ALLERGIES Substance Reaction Event Type Date Status Mobic joint stiffness Drug Allergy Feb, Active Lyrica joint stiffness Drug Allergy Feb, Active Betadine hives Drug Allergy Feb, Active SOCIAL HISTORY No smoking Hx information available PLAN OF CARE Activity Details Follow Up 4 Weeks Reason:DM 2 VITAL SIGNS Height 71.0 in 2016-03-22 Weight 300 lbs 2016-03-22 Temperature 97.8 degrees Fahrenheit 2016-03-22 Heart Rate 104 bpm 2016-03-22 Respiratory Rate 18 2016-03-22 BMI 41.84 kg/m2 2016-03-22 Blood pressure systolic 148 mmHg 2016-03-22 Blood pressure diastolic 88 mmHg 2016-03-22 MEDICATIONS Medication Instructions Dosage Frequency Start Date End Date Duration Status Metformin HCl 1000 MG Orally Twice a day 1 tablet with meals 12h Feb, 90 days Active Lisinopril 10 MG Orally Once a day 1 tablet 24h Feb, 90 days Active Toujeo SoloStar 300 UNIT/ML Subcutaneous Once a day 27 units 24h Feb, 30 days Active NovoLog Flexpen 100 UNIT/ML Subcutaneous TID 14 units with meals 8h Feb 30 days Active RESULTS Name Result Date Reference Range A1C (IN HOUSE) 2016-03-22 A1C IN HOUSE >14.0 4.3 - 5.6 % Previous A1c >14.0 Lot [id number] Exp date 11/2017 PROCEDURES Procedure Date Ordered Related Diagnosis Body Site Office Visit, Est Pt., Level 4 Mar 22, 2016 GLYCATED HEMOGLOBIN TEST Mar 22, 2016 IMMUNIZATIONS No Known Immunizations
--- OUTSIDE RECORDS SUMMARY | 2017-05-28 17:29 | XMS REPORT ---
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 Active 443320225 Problem Type 2 diabetes mellitus with other specified complication E11.69 Active 633662616 Problem Hypercholesteremia E78.0 Active 58517327 Problem Anxiety F41.9 Active 10378266 Problem Insomnia G47.00 Active 363517525 Problem Chronic pain G89.29 Active 90357276 Problem History of pulmonary embolus (PE) Z86.711 Active 414656635 Problem Stage 2 chronic kidney disease N18.2 Active 911855609 Problem Essential hypertension I10 Active 80518397 Problem Type 2 diabetes mellitus with hyperglycemia E11.65 Active 671714058 Problem Chronic pain disorder G89.4 Active 699434074 Problem CAD (coronary artery disease) I25.10 Active 21580346 ALLERGIES No Information ENCOUNTERS Encounter Location Date Diagnosis [place] [id number] [place] [address] 06654- 5966 15 Apr, 2017 [place] [address] [place] [address] 08472- 1917 14 Apr, 2017 BMI 40.0-44.9, adult Z68.41 ; Type 2 diabetes mellitus with hyperglycemia E11.65 ; long-term current use of insulin Z79.4 ; Stage 2 chronic kidney disease N18.2 and History of pulmonary embolus (PE) Z86.711 [place] [address] [address] 07 Apr, 2017 [place] [address] [place] [id number] [place] [address] 08948- 6838 Apr, Type 2 diabetes mellitus with hyperglycemia E11.65 [facility] [id number] [place] [address] 81353- 5094 Feb, Type 2 diabetes mellitus with hyperglycemia E11.65 [facility] [id number] [place] [address] 57868- 0019 Jan, [facility] [id number] [place] [address] 22412- 8580 Dec, Type 2 diabetes mellitus with hyperglycemia E11.65 [facility] [id number] [place] [address] 92746- 4683 Nov, [place] [id number] [place] [address] 71132- 5850 Nov, Body aches R52 ; Influenza A J10.1 and Chronic pain disorder G89.4 [place] [id number] [place] [address] 14491- 8062 Nov, [place] [id number] [place] [address] 93059- 2682 Nov, [place] [id number] [place] [address] 21553- 4724 Oct, [place] [id number] [place] [address] 52545- 3409 Sep, [facility] [id number] [place] [address] 72764- 0444 Sep, 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 ; CAD (coronary artery disease) I25.10 and Type 2 diabetes mellitus with hyperglycemia E11.65 [facility] [id number] [place] [address] 78930- 9354 Sep, [place] [address] [id number] [place] [address] 82846- 4270 Sep, [facility] [id number] [place] [address] 86648- 9802 Sep, [facility] [id number] [address] 3025 Aug, [facility] [address] [address] 1256 Jul, [facility] [address] [address]- 8856 Jul, [facility] [address] [address]- 0876 Jul, Hematoma T14.8 [facility] [id number] [id number] Feb, Type 2 diabetes mellitus with hyperglycemia E11.65 ; 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 and Essential hypertension I10 [facility] [id number] [id number] Feb, [facility] [address] [address]- 5952 June, [facility] [address] [address]- 4938 June, [facility] [address] [address]- 0969 June, [facility] [id number] [address]- 1838 June, Acute frontal sinusitis, recurrence not specified J01.10 ; Type 2 diabetes mellitus with hyperglycemia E11.65 and long-term current use of insulin Z79.4 [facility] [id number] [address]- 3011 Dec, [facility] [address] [address]- 4032 Dec, Depression F32.9 ; Chronic pain G89.29 ; HTN (hypertension) I10 ; Hypercholesteremia E78.0 ; Anxiety F41.9 ; Insomnia G47.00 ; Major depressive disorder, recurrent episode, moderate F33.1 ; Type 2 diabetes mellitus with other specified complication E11.69 and GERD (gastroesophageal reflux disease) K21.9 [facility] [address] [place] [address] 79549- 8629 Dec, [facility] [id number] [place] [address] 43763- 0945 Nov, Major depressive disorder, recurrent episode, moderate F33.1 [facility] [id number] [place] [address] 83989- 8091 Nov, [facility] [id number] [place] [address] 18454- 5179 Nov, [facility] [id number] [place] [address] 16510- 2294 Nov, [place] [address] [address] [id number] [place] [address] 58615- 3977 Nov, [place] [address] [place] [address] [id number] [place] [address] 38999- 3014 Nov, Diabetes 1.5, managed as type 1 E13.9 ; Depression F32.9 ; Chronic pain G89.29 ; HTN (hypertension) I10 ; Hypercholesteremia E78.0 ; LVF ( left ventricular failure) I50.1 ; CAD (coronary artery disease) I25.10 ; Anxiety F41.9 ; Edema R60.9 ; Insomnia G47.00 and GERD (gastroesophageal reflux disease) K21.9 [place] [address] [place] [address] 94207- 8156 Nov, [facility] [id number] [place] [address] 57082- 3583 Oct, [place] [id number] [place] [address] 53501- 3500 Oct, [place] [id number] [place] [address] 70460- 5936 Oct, Diabetes 250.00 ; Chronic pain 338.29 ; Hypertension 401.9 ; Hypercholesterolemia 272.0 ; LVF (left ventricular failure) 428.1 ; CAD ( coronary artery disease) 414.00 ; Anxiety 300.00 ; Edema 782.3 and Insomnia 780.52 [facility] [id number] [place] [address] 60809- 8516 Jul, [facility] [address] [address]- 1656 June, [facility] [id number] [place] [address] 34375- 3294 June, [facility] [id number] [place] [address] 78161- 0862 Mar, [facility] [id number] [place] [address] 77980- 4336 Jan, [facility] [id number] [place] [address] 24658- 3253 Jan, [facility] [id number] [place] [address] 20428- 6433 Nov, [facility] [id number] [place] [address] 14231- 9041 Nov, [facility] [address] [place] [address] 26042- 4707 Oct, [facility] [address] [address]- 2628 Oct, IMMUNIZATIONS No Known Immunizations SOCIAL HISTORY Never Assessed REASON FOR VISIT work release PLAN OF CARE VITAL SIGNS MEDICATIONS Unknown Medications RESULTS No Results PROCEDURES No Known procedures INSTRUCTIONS MEDICATIONS ADMINISTERED No Known Medications MEDICAL (GENERAL) HISTORY Type Description Date Medical History COPD Medical History Arthritis Medical History Hypertension Medical History Cartilage in ankles, knees is gone Medical History Spur in lower spine Medical History fibromyalgia Medical History type 2 diabetes Medical History peripheral neuropathy Medical History pulmonary embolism Medical History congestive heart failure Medical History Gangrene - right toes removed after a work accident in 2017 complicated by gangrene Medical History Acute kidney failure - required dialysis after vanc toxicity in 2017 Surgical History laprosopy on left knee Surgical History tonsillectomy Surgical History tubes in ears Surgical History 4 toes on right foot amputated 08/2016 Hospitalization History surgeries Hospitalization History Pnuemonia for 10 days Hospitalization History Gangrene in toes on right foot due to work injury 2016
--- OUTSIDE RECORDS SUMMARY | 2017-05-28 17:30 | XMS REPORT ---
Author Author JIMENA HERNÁNDEZ Organization [facility] Address [address] [place] [address] Care Team Providers Care Risk Management Internship Name Role Phone JIMENA HERNÁNDEZ Unavailable PROBLEMS Type Condition ICD9-CM Code ISJ50-AC Code Onset Dates Condition Status SNOMED Code Problem Anxiety F41.9 Active 55112042 Problem Chronic pain G89.29 Active 50170437 Problem Insomnia G47.00 Active 383986863 Problem Hypercholesteremia E78.0 Active 63895841 Problem CAD (coronary artery disease) I25.10 Active 28656958 Problem Essential hypertension I10 Active 56272543 Problem Type 2 diabetes mellitus with other specified complication E11.69 Active 269084923 Problem Major depressive disorder, recurrent episode, moderate F33.1 Active 806597733 Problem Type 2 diabetes mellitus with hyperglycemia E11.65 Active 321231951 Problem 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
--- OUTSIDE RECORDS SUMMARY | 2017-05-28 17:31 | XMS REPORT ---
Author Author AFSHAN BLACK Organization [facility] Address [address] [place] [address] Care Team Providers Care Manager Of Clinical Name Role Phone AFSHAN BLACK Unavailable PROBLEMS Type Condition ICD9-CM Code HVS83-BI Code Onset Dates Condition Status SNOMED Code Problem Major depressive disorder, recurrent episode, moderate F33.1 Active 886875829 Problem senior living current use of insulin Z79.4 Active 159708473 Problem Type 2 diabetes mellitus with other specified complication E11.69 Active 946592643 Problem Hypercholesteremia E78.0 Active 78253710 Problem Anxiety F41.9 Active 48286028 Problem Insomnia G47.00 Active 259202734 Problem Chronic pain G89.29 Active 91880595 Problem History of pulmonary embolus (PE) Z86.711 Active 520742362 Problem Stage 2 chronic kidney disease N18.2 Active 612148797 Problem Essential hypertension I10 Active 51967569 Problem Type 2 diabetes mellitus with hyperglycemia E11.65 Active 475457366 Problem Chronic pain disorder G89.4 Active 398504350 Problem CAD (coronary artery disease) I25.10 Active 03679773 ALLERGIES No Information ENCOUNTERS Encounter Location Date Diagnosis [place] [address] [id number] [address] 15 Apr, 2017 [facility] [id number] [place] [address] 11852- 2532 14 Apr, 2017 BMI 40.0-44.9, adult Z68.41 ; Type 2 diabetes mellitus with hyperglycemia E11.65 ; 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.4 ; Stage 2 chronic kidney disease N18.2 and History of pulmonary embolus (PE) Z86.711 [place] [address] [id number] [address]- 7264 07 Apr, 2017 [place] [address] [place] [id number] [place] [address] 55771- 1698 Apr, Type 2 diabetes mellitus with hyperglycemia E11.65 [facility] [id number] [place] [address] 95611- 2377 Feb, Type 2 diabetes mellitus with hyperglycemia E11.65 [facility] [address] [id number] [place] [address] 16204- 4619 Jan, [facility] [address] 65249- 2241 Dec, Type 2 diabetes mellitus with hyperglycemia E11.65 [facility] [address] [place] [id number] [place] [address] 82887- 5295 Nov, [facility] [address] [place] [id number] [place] [address] 95184- 2111 Nov, Body aches R52 ; Influenza A J10.1 and Chronic pain disorder G89.4 [place] [address] [place] [id number] [place] [address] 70940- 9275 Nov, [facility] [address] [place] [id number] [place] [address] 65522- 9866 Nov, [facility] [address] [place] [id number] [place] [address] 23185- 2681 Oct, [facility] [id number] [place] [address] 03267- 7385 Sep, [facility] [address] [id number] [place] [address] 02324- 1405 Sep, 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.4 ; CAD (coronary artery disease) I25.10 and Type 2 diabetes mellitus with hyperglycemia E11.65 [facility] [address] [id number] [place] [address] 15080- 8409 Sep, [facility] [id number] [place] [address] 72543- 4120 Sep, [facility] [id number] [place] [address] 74026- 4516 Sep, [facility] [id number] [address]- 6596 Aug, [facility] [address] [address]- 7546 Jul, [facility] [address] [address]- 8626 Jul, [facility] [address] [address]- 2160 Jul, Hematoma T14.8 [facility] [id number] [place] [address] [id number] Feb, Type 2 diabetes mellitus with hyperglycemia E11.65 ; 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.4 and Essential hypertension I10 [facility] [id number] [id number] Feb, [facility] [address] [address]- 1326 June, [facility] [address] [address]- 7212 June, [facility] [address] 0676 June, [facility] [id number] [address]- 0206 June, Acute frontal sinusitis, recurrence not specified J01.10 ; Type 2 diabetes mellitus with hyperglycemia E11.65 and senior living current use of insulin Z79.4 [facility] [id number] [address]- 9158 Dec, [facility] [address] [address]- 6096 Dec, Depression F32.9 ; Chronic pain G89.29 ; HTN (hypertension) I10 ; Hypercholesteremia E78.0 ; Anxiety F41.9 ; Insomnia G47.00 ; Major depressive disorder, recurrent episode, moderate F33.1 ; Type 2 diabetes mellitus with other specified complication E11.69 and GERD (gastroesophageal reflux disease) K21.9 [facility] [id number] [place] [address] 32037- 9745 Dec, [facility] [id number] [place] [address] 07435- 4227 Nov, Major depressive disorder, recurrent episode, moderate F33.1 [facility] [address] 79947- 2837 Nov, [facility] [address] 27703- 5933 Nov, [place] [address] 89875- 7952 Nov, [place] [address] 86567- 4062 Nov, [place] [address] 21461- 6913 Nov, Diabetes 1.5, managed as type 1 E13.9 ; Depression F32.9 ; Chronic pain G89.29 ; HTN (hypertension) I10 ; Hypercholesteremia E78.0 ; LVF ( left ventricular failure) I50.1 ; CAD (coronary artery disease) I25.10 ; Anxiety F41.9 ; Edema R60.9 ; Insomnia G47.00 and GERD (gastroesophageal reflux disease) K21.9 [place] [id number] [place] [address] 55558- 6451 Nov, [facility] [id number] [place] [address] 37168- 9001 Oct, [place] [id number] [place] [address] 97382- 6104 Oct, [facility] [id number] [place] [address] 23728- 9813 Oct, Diabetes 250.00 ; Chronic pain 338.29 ; Hypertension 401.9 ; Hypercholesterolemia 272.0 ; LVF (left ventricular failure) 428.1 ; CAD ( coronary artery disease) 414.00 ; Anxiety 300.00 ; Edema 782.3 and Insomnia 780.52 [facility] [id number] [place] [address] 22265- 3046 Jul, [facility] [id number] [place] [address] 30534- 0029 June, [facility] [id number] [place] [address] 003077- 2787 June, [facility] [id number] [place] [address] 279123- 3223 Mar, [facility] [id number] [place] [address] 92940- 9501 Jan, [facility] [id number] [place] [address] 082807- 3458 Jan, [facility] [id number] [place] [address] 604956- 9362 Nov, [facility] [id number] [place] [address] 03896- 4604 Nov, [facility] [id number] [place] [address] 694841- 5692 Oct, [facility] [id number] [place] [address] 23528- 6663 Oct, IMMUNIZATIONS No Known Immunizations SOCIAL HISTORY Never Assessed REASON FOR VISIT Other PLAN OF CARE VITAL SIGNS MEDICATIONS Unknown [...]
--- OUTSIDE RECORDS SUMMARY | 2017-05-28 17:34 | XMS REPORT | Continuity of Care Document ---
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 BRAYAN SINGH MD Ot E10.621 TYPE 1 DIABETES MELLITUS WITH FOOT ULCER 11/30/2016 BRAYAN SINGH MD Ot L97.513 NON-PRS CHRONIC ULCER OTH PRT RIGHT FOOT 11/30/2016 BRAYAN SINGH MD Ot E10.42 TYPE 1 DIABETES MELLITUS WITH DIABETIC P 11/30/2016 BRAYAN SINGH MD Ot E10.621 TYPE 1 DIABETES MELLITUS WITH FOOT ULCER 11/30/2016 BRAYAN SINGH MD Ot L97.413 NON-PRS CHR ULCER OF RIGHT HEEL AND MIDF 11/30/2016 BRAYAN SINGH MD Ot E10.42 TYPE 1 DIABETES MELLITUS WITH DIABETIC P 11/30/2016 BRAYAN SINGH MD, Ot E10.621 TYPE 1 DIABETES MELLITUS WITH FOOT ULCER 11/30/2016 BRAYAN SINGH MD, Ot 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 11/30/2016 BRAYAN SINGH MD, Ot L97.413 NON-PRS CHR ULCER OF RIGHT HEEL AND MIDF 11/30/2016 BRAYAN SINGH MD Ot E10.42 TYPE 1 DIABETES MELLITUS WITH DIABETIC P 11/30/2016 BRAYAN SINGH MD, Ot E10.621 TYPE 1 DIABETES MELLITUS WITH FOOT ULCER 11/30/2016 BRAYAN SINGH MD, Ot 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 11/30/2016 BRAYAN SINGH MD, Ot L97.413 NON-PRS CHR ULCER OF RIGHT HEEL AND MIDF 11/30/2016 JONAS CHENG, [facility] Trini Ot N17.0 ACUTE KIDNEY FAILURE WITH TUBULAR NECROS 11/30/2016 BRAYAN SINGH MD, Ot E10.42 TYPE 1 DIABETES MELLITUS WITH DIABETIC P 11/30/2016 BRAYAN SINGH MD, Ot E10.621 TYPE 1 DIABETES MELLITUS WITH FOOT ULCER 11/30/2016 BRAYAN SINGH MD, Ot 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 11/30/2016 BRAYAN SINGH MD, Ot L97.413 NON-PRS CHR ULCER OF RIGHT HEEL AND MIDF 11/30/2016 BRAYAN SINGH MD Ot 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) 11/30/2016 BRAYAN SINGH MD Ot E10.42 TYPE 1 DIABETES MELLITUS WITH DIABETIC P 11/30/2016 BRAYAN SINGH MD Ot E10.621 TYPE 1 DIABETES MELLITUS WITH FOOT ULCER 11/30/2016 BRAYAN SINGH MD, Ot L97.413 NON-PRS CHR ULCER OF RIGHT HEEL AND MIDF 11/30/2016 BRAYAN SINGH MD Ot E10.42 TYPE 1 DIABETES MELLITUS WITH DIABETIC P 11/30/2016 BRAYAN SINGH MD Ot E10.621 TYPE 1 DIABETES MELLITUS WITH FOOT ULCER 11/30/2016 BRAYAN SINGH MD, Ot L97.513 NON-PRS CHRONIC ULCER OTH PRT RIGHT FOOT 11/30/2016 BRAYAN SINGH MD Ot E10.42 TYPE 1 DIABETES MELLITUS WITH DIABETIC P 11/30/2016 BRAYAN SINGH MD, Ot E10.621 TYPE 1 DIABETES MELLITUS WITH FOOT ULCER 11/30/2016 BRAYAN SINGH MD Ot L97.513 NON-PRS CHRONIC ULCER OTH PRT RIGHT FOOT 11/30/2016 BRAYAN SINGH MD Ot E10.42 TYPE 1 DIABETES MELLITUS WITH DIABETIC P 11/30/2016 BRAYAN SINGH MD Ot E10.621 TYPE 1 DIABETES MELLITUS WITH FOOT ULCER 11/30/2016 BRAYAN SINGH MD, Ot L97.413 NON-PRS CHR ULCER OF RIGHT HEEL AND MIDF 12/01/2016 BRAYAN SINGH MD Ot E10.42 TYPE 1 DIABETES MELLITUS WITH DIABETIC P 12/01/2016 BRAYAN SINGH MD Ot E10.621 TYPE 1 DIABETES MELLITUS WITH FOOT ULCER 12/01/2016 BRAYAN SINGH MD, Ot L97.413 NON-PRS CHR ULCER OF RIGHT HEEL AND MIDF 12/01/2016 BRAYAN SINGH MD, Ot E10.42 TYPE 1 DIABETES MELLITUS WITH DIABETIC P 12/01/2016 BRAYAN SINGH MD, Ot E10.621 TYPE 1 DIABETES MELLITUS WITH FOOT ULCER 12/01/2016 BRAYAN SINGH MD, Ot L97.513 NON-PRS CHRONIC ULCER OTH PRT RIGHT FOOT 12/01/2016 BRAYAN SINGH MD Ot E10.42 TYPE 1 DIABETES MELLITUS WITH DIABETIC P 12/01/2016 BRAYAN SINGH MD, Ot E10.621 TYPE 1 DIABETES MELLITUS WITH FOOT ULCER 12/01/2016 BRAYAN SINGH MD Ot 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 12/01/2016 BRAYAN SINGH MD Ot L97.413 NON-PRS CHR ULCER OF RIGHT HEEL AND MIDF 12/14/2016 BRAYAN SINGH MD Ot E10.42 TYPE 1 DIABETES MELLITUS WITH DIABETIC P 12/14/2016 BRAYAN SINGH MD Ot E10.621 TYPE 1 DIABETES MELLITUS WITH FOOT ULCER 12/14/2016 BRAYAN SINGH MD Ot L97.413 NON-PRS CHR ULCER OF RIGHT HEEL AND MIDF 12/17/2016 BRAYAN SINGH MD Ot E10.42 TYPE 1 DIABETES MELLITUS WITH DIABETIC P 12/17/2016 BRAYAN SINGH MD Ot E10.621 TYPE 1 DIABETES MELLITUS WITH FOOT ULCER 12/17/2016 BRAYAN SINGH MD Ot 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 12/17/2016 BRAYAN SINGH MD Ot L97.413 NON-PRS CHR ULCER OF RIGHT HEEL AND MIDF 12/17/2016 JONAS CHENG, MEGHNA R Ot N17.0 ACUTE KIDNEY FAILURE WITH TUBULAR NECROS 12/17/2016 BRAYAN SINGH MD Ot E10.42 TYPE 1 DIABETES MELLITUS WITH DIABETIC P 12/17/2016 BRAYAN SINGH MD Ot E10.621 TYPE 1 DIABETES MELLITUS WITH FOOT ULCER 12/17/2016 BRAYAN SINGH MD Ot 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 12/17/2016 BRAYAN SINGH MD Ot L97.413 NON-PRS CHR ULCER OF RIGHT HEEL AND MIDF 12/17/2016 BRAYAN SINGH MD Ot 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) 12/17/2016 BRAYAN SINGH MD Ot E10.42 TYPE 1 DIABETES MELLITUS WITH DIABETIC P 12/17/2016 BRAYAN SINGH MD Ot E10.621 TYPE 1 DIABETES MELLITUS WITH FOOT ULCER 12/17/2016 BRAYAN SINGH MD, Ot L97.413 NON-PRS CHR ULCER OF RIGHT HEEL AND MIDF 12/17/2016 BRAYAN SINGH MD Ot E10.42 TYPE 1 DIABETES MELLITUS WITH DIABETIC P 12/17/2016 BRAYAN SINGH MD Ot E10.621 TYPE 1 DIABETES MELLITUS WITH FOOT ULCER 12/17/2016 BRAYAN SINGH MD Ot L97.513 NON-PRS CHRONIC ULCER OTH PRT RIGHT FOOT 12/17/2016 BRAYAN SINGH MD Ot E10.42 TYPE 1 DIABETES MELLITUS WITH DIABETIC P 12/17/2016 BRAYAN SINGH MD Ot E10.621 TYPE 1 DIABETES MELLITUS WITH FOOT ULCER 12/17/2016 BRAYAN SINGH MD Ot L97.513 NON-PRS CHRONIC ULCER OTH PRT RIGHT FOOT 12/17/2016 BRAYAN SINGH MD Ot E10.42 TYPE 1 DIABETES MELLITUS WITH DIABETIC P 12/17/2016 BRAYAN SINGH MD Ot E10.621 TYPE 1 DIABETES MELLITUS WITH FOOT ULCER 12/17/2016 BRAYAN SINGH MD Ot L97.413 NON-PRS CHR ULCER OF RIGHT HEEL AND MIDF 01/03/2017 BRAYAN SINGH MD Ot E10.42 TYPE 1 DIABETES MELLITUS WITH DIABETIC P 01/03/2017 BRAYAN SINGH MD Ot E10.621 TYPE 1 DIABETES MELLITUS WITH FOOT ULCER 01/03/2017 BRAYAN SINGH MD Ot L97.413 NON-PRS CHR ULCER OF RIGHT HEEL AND MIDF 01/04/2017 HAMZAH BOWENS MD (U) Ot V68.01 DISABILITY EXAMINATION 01/04/2017 HAMZAH BOWENS MD (U) Ot V82.89 SCREEN FOR OTH SPECIF CONDITIONS 01/04/2017 ARIANNA STEPHENS MD (DDU) Ot V68.01 DISABILITY EXAMINATION 01/04/2017 ARIANNA STEPHENS MD (U) Ot V82.89 SCREEN FOR OTH SPECIF CONDITIONS 01/04/2017 BRAYAN SINGH MD Ot E10.42 TYPE 1 DIABETES MELLITUS WITH DIABETIC P 01/04/2017 BRAYAN SINGH MD, Ot E10.621 TYPE 1 DIABETES MELLITUS WITH FOOT ULCER 01/04/2017 BRAYAN SINGH MD Ot 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 01/04/2017 BRAYAN SINGH MD Ot L97.413 NON-PRS CHR ULCER OF RIGHT HEEL AND MIDF 01/04/2017 JONAS CHENG, [facility] R Ot N17.0 ACUTE KIDNEY FAILURE WITH TUBULAR NECROS 01/04/2017 BRAYAN SINGH MD Ot E10.42 TYPE 1 DIABETES MELLITUS WITH DIABETIC P 01/04/2017 BRAYAN SINGH MD, Ot E10.621 TYPE 1 DIABETES MELLITUS WITH FOOT ULCER 01/04/2017 BRAYAN SINGH MD Ot 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 01/04/2017 BRAYAN SINGH MD Ot L97.413 NON-PRS CHR ULCER OF RIGHT HEEL AND MIDF 01/04/2017 BRAYAN SINGH MD Ot 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) 01/04/2017 BRAYAN SINGH MD Ot E10.42 TYPE 1 DIABETES MELLITUS WITH DIABETIC P 01/04/2017 BRAYAN SINGH MD Ot E10.621 TYPE 1 DIABETES MELLITUS WITH FOOT ULCER 01/04/2017 BRAYAN SINGH MD Ot L97.413 NON-PRS CHR ULCER OF RIGHT HEEL AND MIDF 01/04/2017 BRAYAN SINGH MD Ot E10.42 TYPE 1 DIABETES MELLITUS WITH DIABETIC P 01/04/2017 BRAYAN SINGH MD Ot E10.621 TYPE 1 DIABETES MELLITUS WITH FOOT ULCER 01/04/2017 BRAYAN SINGH MD Ot L97.513 NON-PRS CHRONIC ULCER OTH PRT RIGHT FOOT 01/04/2017 BRAYAN SINGH MD Ot E10.42 TYPE 1 DIABETES MELLITUS WITH DIABETIC P 01/04/2017 BRAYAN SINGH MD Ot E10.621 TYPE 1 DIABETES MELLITUS WITH FOOT ULCER 01/04/2017 BRAYAN SINGH MD Ot L97.513 NON-PRS CHRONIC ULCER OTH PRT RIGHT FOOT 01/04/2017 BRAYAN SINGH MD Ot E10.42 TYPE 1 DIABETES MELLITUS WITH DIABETIC P 01/04/2017 BRAYAN SINGH MD Ot E10.621 TYPE 1 DIABETES MELLITUS WITH FOOT ULCER 01/04/2017 BRAYAN SINGH MD Ot L97.413 NON-PRS CHR ULCER OF RIGHT HEEL AND MIDF 01/04/2017 BRAYAN SINGH MD Ot E10.42 TYPE 1 DIABETES MELLITUS WITH DIABETIC P 01/04/2017 BRAYAN SINGH MD Ot E10.621 TYPE 1 DIABETES MELLITUS WITH FOOT ULCER 01/04/2017 BRAYAN SINGH MD Ot 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 01/04/2017 BRAYAN SINGH MD Ot L97.413 NON-PRS CHR ULCER OF RIGHT HEEL AND MIDF 01/04/2017 BRAYAN SINGH MD Ot E10.42 TYPE 1 DIABETES MELLITUS WITH DIABETIC P 01/04/2017 BRAYAN SINGH MD Ot E10.621 TYPE 1 DIABETES MELLITUS WITH FOOT ULCER 01/04/2017 BRAYAN SINGH MD Ot L97.413 NON-PRS CHR ULCER OF RIGHT HEEL AND MIDF 01/04/2017 BRAYAN SINGH MD Ot E10.42 TYPE 1 DIABETES MELLITUS WITH DIABETIC P 01/04/2017 BRAYAN SINGH MD Ot E10.621 TYPE 1 DIABETES MELLITUS WITH FOOT ULCER 01/04/2017 BRAYAN SINGH MD Ot L97.413 NON-PRS CHR ULCER OF RIGHT HEEL AND MIDF 01/04/2017 BRAYAN SINGH MD Ot E10.42 TYPE 1 DIABETES MELLITUS WITH DIABETIC P 01/04/2017 BRAYAN SINGH MD Ot E10.621 TYPE 1 DIABETES MELLITUS WITH FOOT ULCER 01/04/2017 BRAYAN SINGH MD Ot L97.413 NON-PRS CHR ULCER OF RIGHT HEEL AND MIDF 01/04/2017 BRAYAN SINGH MD Ot E10.42 TYPE 1 DIABETES MELLITUS WITH DIABETIC P 01/04/2017 BRAYAN SINGH MD Ot E10.621 TYPE 1 DIABETES MELLITUS WITH FOOT ULCER 01/04/2017 BRAYAN SINGH MD, Ot L97.413 NON-PRS CHR ULCER OF RIGHT HEEL AND MIDF 01/04/2017 BRAYAN SINGH MD Ot E10.42 TYPE 1 DIABETES MELLITUS WITH DIABETIC P 01/04/2017 BRAYAN SINGH MD Ot E10.621 TYPE 1 DIABETES MELLITUS WITH FOOT ULCER 01/04/2017 BRAYAN SINGH MD, Ot L97.413 NON-PRS CHR ULCER OF RIGHT HEEL AND MIDF 01/07/2017 BRAYAN SINGH MD, Ot M86.471 CHRONIC OSTEOMYELITIS W DRAINING SINUS, 01/08/2017 BRAYAN SINGH MD Ot E10.42 TYPE 1 DIABETES MELLITUS WITH DIABETIC P 01/08/2017 BRAYAN SINGH MD Ot E10.621 TYPE 1 DIABETES MELLITUS WITH FOOT ULCER 01/08/2017 BRAYAN SINGH MD Ot L97.414 NON-PRS CHR ULCER OF RIGHT HEEL AND MIDF 01/08/2017 BRAYAN SINGH MD, Ot M86.471 CHRONIC OSTEOMYELITIS W DRAINING SINUS, 01/10/2017 BRAYAN SINGH MD Ot E10.42 TYPE 1 DIABETES MELLITUS WITH DIABETIC P 01/10/2017 BRAYAN SINGH MD Ot E10.621 TYPE 1 DIABETES MELLITUS WITH FOOT ULCER 01/10/2017 BRAYAN SINGH MD Ot L97.413 NON-PRS CHR ULCER OF RIGHT HEEL AND MIDF 01/15/2017 BRAYAN SINGH MD, Ot E10.42 TYPE 1 DIABETES MELLITUS WITH DIABETIC P 01/15/2017 BRAYAN SINGH MD Ot E10.621 TYPE 1 DIABETES MELLITUS WITH FOOT ULCER 01/15/2017 BRAYAN SINGH MD Ot L97.414 NON-PRS CHR ULCER OF RIGHT HEEL AND MIDF 01/15/2017 BRAYAN SINGH MD Ot M86.471 CHRONIC OSTEOMYELITIS W DRAINING SINUS, 01/21/2017 BRAYAN SINGH MD Ot E10.42 TYPE 1 DIABETES MELLITUS WITH DIABETIC P 01/21/2017 BRAYAN SINGH MD Ot E10.621 TYPE 1 DIABETES MELLITUS WITH FOOT ULCER 01/21/2017 BRAYAN SINGH MD Ot L97.414 NON-PRS CHR ULCER OF RIGHT HEEL AND MIDF 01/21/2017 BRAYAN SINGH MD, Ot M86.471 CHRONIC OSTEOMYELITIS W DRAINING SINUS, 01/22/2017 BRAYAN SINGH MD Ot E10.42 TYPE 1 DIABETES MELLITUS WITH DIABETIC P 01/22/2017 BRAYAN SINGH MD, Ot E10.621 TYPE 1 DIABETES MELLITUS WITH FOOT ULCER 01/22/2017 BRAYAN SINGH MD, Ot L97.414 NON-PRS CHR ULCER OF RIGHT HEEL AND MIDF 01/22/2017 BRAYAN SINGH MD, Ot M86.471 CHRONIC OSTEOMYELITIS W DRAINING SINUS, 01/22/2017 BRAYAN SINGH MD, Ot M86.471 CHRONIC OSTEOMYELITIS W DRAINING SINUS, 01/25/2017 BRAYAN SINGH MD, Ot E10.42 TYPE 1 DIABETES MELLITUS WITH DIABETIC P 01/25/2017 BRAYAN SINGH MD, Ot E10.621 TYPE 1 DIABETES MELLITUS WITH FOOT ULCER 01/25/2017 BRAYAN SINGH MD, Ot L97.414 NON-PRS CHR ULCER OF RIGHT HEEL AND MIDF 01/25/2017 BRAYAN SINGH MD, Ot M86.471 CHRONIC OSTEOMYELITIS W DRAINING SINUS, 01/31/2017 BRAYAN SINGH MD Ot E10.42 TYPE 1 DIABETES MELLITUS WITH DIABETIC P 01/31/2017 BRAYAN SINGH MD, Ot E10.621 TYPE 1 DIABETES MELLITUS WITH FOOT ULCER 01/31/2017 BRAYAN SINGH MD, Ot L97.414 NON-PRS CHR ULCER OF RIGHT HEEL AND MIDF 01/31/2017 BRAYAN SINGH MD, Ot M86.471 CHRONIC OSTEOMYELITIS W DRAINING SINUS, 02/07/2017 MEGHNA MCDANIEL MD R Ot I10 ESSENTIAL (PRIMARY) HYPERTENSION 02/07/2017 MEGHNA MCDANIEL MD R Ot N17.0 ACUTE KIDNEY FAILURE WITH TUBULAR NECROS 02/19/2017 MEGHNA MCDANIEL MD R Ot I10 ESSENTIAL (PRIMARY) HYPERTENSION 02/19/2017 MEGHNA MCDANIEL MD R Ot N17.0 ACUTE KIDNEY FAILURE WITH TUBULAR NECROS 02/22/2017 BRAYAN SINGH MD, Ot E10.42 TYPE 1 DIABETES MELLITUS WITH DIABETIC P 02/22/2017 BRAYAN SINGH MD, Ot E10.621 TYPE 1 DIABETES MELLITUS WITH FOOT ULCER 02/22/2017 BRAYAN SINGH MD, Ot L97.512 NON-PRS CHRONIC ULCER OTH PRT RIGHT FOOT 02/22/2017 BRAYAN SINGH MD, Ot M86.471 CHRONIC OSTEOMYELITIS W DRAINING SINUS, 02/26/2017 BRAYAN SINGH MD Ot E10.42 TYPE 1 DIABETES MELLITUS WITH DIABETIC P 02/26/2017 BRAYAN SINGH MD Ot E10.621 TYPE 1 DIABETES MELLITUS WITH FOOT ULCER 02/26/2017 BRAYAN SINGH MD Ot L97.512 NON-PRS CHRONIC ULCER OTH PRT RIGHT FOOT 02/26/2017 BRAYAN SINGH MD Ot M86.471 CHRONIC OSTEOMYELITIS W DRAINING SINUS, 02/26/2017 MARTHA ORNELAS RENÉE A Ot E11.9 TYPE 2 DIABETES MELLITUS WITHOUT COMPLIC 02/27/2017 BRAYAN SINGH MD Ot E10.42 TYPE 1 DIABETES MELLITUS WITH DIABETIC P 02/27/2017 BRAYAN SINGH MD Ot E10.621 TYPE 1 DIABETES MELLITUS WITH FOOT ULCER 02/27/2017 BRAYAN SINGH MD Ot L97.512 NON-PRS CHRONIC ULCER OTH PRT RIGHT FOOT 02/27/2017 MARTHA ORNELAS, RENÉE A Ot E11.9 TYPE 2 DIABETES MELLITUS WITHOUT COMPLIC 03/04/2017 BRAYAN SINGH MD Ot E10.42 TYPE 1 DIABETES MELLITUS WITH DIABETIC P 03/04/2017 BRAYAN SINGH MD Ot E10.621 TYPE 1 DIABETES MELLITUS WITH FOOT ULCER 03/04/2017 BRAYAN SINGH MD Ot L97.512 NON-PRS CHRONIC ULCER OTH PRT RIGHT FOOT 03/12/2017 BRAYAN SINGH MD Ot E10.42 TYPE 1 DIABETES MELLITUS WITH DIABETIC P 03/12/2017 BRAYAN SINGH MD Ot E10.621 TYPE 1 DIABETES MELLITUS WITH FOOT ULCER 03/12/2017 BRAYAN SINGH MD Ot L97.512 NON-PRS CHRONIC ULCER OTH PRT RIGHT FOOT 03/12/2017 RENÉE THOMAS DO A Ot E11.9 TYPE 2 DIABETES MELLITUS WITHOUT COMPLIC 03/25/2017 BRAYAN SINGH MD Ot E10.42 TYPE 1 DIABETES MELLITUS WITH DIABETIC P 03/25/2017 BRAYAN SNIGH MD Ot E10.621 TYPE 1 DIABETES MELLITUS WITH FOOT ULCER 03/25/2017 BRAYAN SINGH MD Ot L97.512 NON-PRS CHRONIC ULCER OTH PRT RIGHT FOOT 04/01/2017 BRAYAN SINGH MD Ot E10.42 TYPE 1 DIABETES MELLITUS WITH DIABETIC P 04/01/2017 BRAYAN SINGH MD Ot E10.621 TYPE 1 DIABETES MELLITUS WITH FOOT ULCER 04/01/2017 BRAYAN SINGH MD Ot L97.512 NON-PRS CHRONIC ULCER OTH PRT RIGHT FOOT 04/15/2017 BRAYAN SINGH MD Ot E10.42 TYPE 1 DIABETES MELLITUS WITH DIABETIC P 04/15/2017 BRAYAN SINGH MD Ot E10.621 TYPE 1 DIABETES MELLITUS WITH FOOT ULCER 04/15/2017 BRAYAN SINGH MD Ot L97.512 NON-PRS CHRONIC ULCER OTH PRT RIGHT FOOT 04/23/2017 BRAYAN SINGH MD Ot E10.42 TYPE 1 DIABETES MELLITUS WITH DIABETIC P 04/23/2017 BRAYAN SINGH MD Ot E10.621 TYPE 1 DIABETES MELLITUS WITH FOOT ULCER 04/23/2017 BRAYAN SINGH MD Ot L97.512 NON-PRS CHRONIC ULCER OTH PRT RIGHT FOOT 04/29/2017 BRAYAN SINGH MD Ot E10.42 TYPE 1 DIABETES MELLITUS WITH DIABETIC P 04/29/2017 BRAYAN SNIGH MD Ot E10.621 TYPE 1 DIABETES MELLITUS WITH FOOT ULCER 04/29/2017 BRAYAN SINGH MD Ot L97.512 NON-PRS CHRONIC ULCER OTH PRT RIGHT FOOT 05/02/2017 BRAYAN SINGH MD Ot E10.42 TYPE 1 DIABETES MELLITUS WITH DIABETIC P 05/02/2017 BRAYAN SINGH MD Ot E10.621 TYPE 1 DIABETES MELLITUS WITH FOOT ULCER 05/02/2017 BRAYAN SINGH MD Ot L97.512 NON-PRS CHRONIC ULCER OTH PRT RIGHT FOOT Procedures Code Description [place] [address] PSYTX PT&/FAMILY 30 MINUTES 07/11/2012 07854 PSYTX PT&/FAMILY 30 MINUTES 07/17/2012 [id number] DRAINAGE OF R LOW LEG SUBCU/FASCIA, OPEN 08/22/2016 [id number] DRAINAGE OF R FOOT SUBCU/ FASCIA, PERC AP 08/22/2016 [id number] DETACHMENT AT RIGHT 3RD TOE, COMPLETE, O 08/22/2016 [id number] EXCISION OF R FOOT SUBCU/ FASCIA, OPEN AP 08/24/2016 [id number] DETACHMENT AT RIGHT 2ND TOE, COMPLETE, O 08/24/2016 [id number] DETACHMENT AT RIGHT 4TH TOE, COMPLETE, O 08/24/2016 [id number] DETACHMENT AT RIGHT 5TH TOE, COMPLETE, O 08/24/2016 Results Test Result Range Complete blood count (CBC) with automated white blood cell (WBC) differential - 08/22/16 19:45 Blood leukocytes automated count (number/volume) 13.7 10*3/uL 4.3-11.0 Blood erythrocytes automated count (number/volume) 4.23 10*6/uL 4.35-5.85 Venous blood hemoglobin measurement (mass/volume) 12.6 g/dL 13.3-17.7 Blood hematocrit (volume fraction) 36 % 40-54 Automated erythrocyte mean corpuscular volume 86 [foz_us] 80-99 Automated erythrocyte mean corpuscular hemoglobin (mass per erythrocyte) 30 pg 25-34 Automated erythrocyte mean corpuscular hemoglobin concentration measurement ( mass/volume) 35 g/dL 32-36 Automated erythrocyte distribution width ratio 12.9 % 10.0-14.5 Automated blood platelet count (count/volume) 328 10*3/uL 130-400 Automated blood platelet mean volume measurement 9.1 [foz_us] 7.4-10.4 Automated blood neutrophils/100 leukocytes 81 % 42-75 Automated blood lymphocytes/100 leukocytes 10 % 12-44 Blood monocytes/100 leukocytes 8 % 0-12 Automated blood eosinophils/100 leukocytes 1 % 0-10 Automated blood basophils/100 leukocytes 0 % 0-10 Blood neutrophils automated count (number/volume) 11.0 10*3 1.8-7.8 Blood lymphocytes automated count (number/volume) 1.4 10*3 1.0-4.0 Blood monocytes automated count (number/volume) 1.1 10*3 0.0-1.0 Automated eosinophil count 0.1 10*3/uL 0.0-0.3 Automated blood basophil count (count/volume) 0.0 10*3/uL 0.0-0.1 Comprehensive metabolic panel - 08/22/16 19:45 Serum or plasma sodium measurement (moles/volume) 134 mmol/L 135-145 Serum or plasma potassium measurement (moles/volume) 3.7 mmol/L 3.6-5.0 Serum or plasma chloride measurement (moles/volume) 102 mmol/L 98-107 Carbon dioxide 23 mmol/L 21-32 Serum or plasma anion gap determination (moles/volume) 9 mmol/L 5-14 Serum or plasma urea nitrogen measurement (mass/volume) 8 mg/dL 7-18 Serum or plasma creatinine measurement (mass/volume) 0.97 mg/dL 0.60-1.30 Serum or plasma urea nitrogen/creatinine mass ratio 8 NRG Serum or plasma creatinine measurement with calculation of estimated glomerular filtration rate > NRG Serum or plasma glucose measurement (mass/volume) 177 mg/dL 70-105 Serum or plasma calcium measurement (mass/volume) 8.7 mg/dL 8.5-10.1 Serum or plasma total bilirubin measurement (mass/volume) 0.5 mg/dL 0.1-1.0 Serum or plasma alkaline phosphatase measurement (enzymatic activity/volume) 71 U/L 40-136 Serum or plasma aspartate aminotransferase measurement (enzymatic activity/ volume) 14 U/L 5-34 Serum or plasma alanine aminotransferase measurement (enzymatic activity/volume ) 12 U/L 0-55 Serum or plasma protein measurement (mass/volume) 7.2 g/dL 6.4-8.2 Serum or plasma albumin measurement (mass/volume) 2.9 g/dL 3.2-4.5 Serum or plasma lithium measurement (moles/volume) - 08/22/16 19:45 BNP level 35.0 pg/mL <100.0 Serum or plasma troponin i.cardiac measurement (mass/volume) - 08/22/16 19:45 Serum or plasma troponin i.cardiac measurement (mass/volume) < ng/ mL <0.30 Bacterial blood culture - 08/22/16 19:45 Bacterial blood culture NG NRG Blood lactic acid measurement (moles/volume) - 08/22/16 19:50 Blood lactic acid measurement (moles/volume) 0.96 mmol/L 0.50-2.00 Bacterial blood culture - 08/22/16 19:50 Bacterial blood culture NG NRG Bacteria identification in isolate by anaerobe culture - 08/22/16 22:03 Bacteria identification in isolate by anaerobe culture NOANA NRG Gram stain microscopy - 08/22/16 22:03 GRAM STAIN RESULT FEW GRAM POSITIVE COCCI NRG Bacteria identification in wound by culture - 08/22/16 22:03 Bacteria identification in wound by culture [id number] NR FREE TEXT EXTERNAL SENSITIVITY REPORTED 08/25/16 06:45 NRG QUANTITY OF GROWTH Moderate Growth NRG Bacterial susceptibility panel - 08/22/16 22:03 Gentamicin susceptibility test by minimum inhibitory concentration < = NRG Trimethoprim/sulfamethoxazole susceptibility test by minimum inhibitoryconcentration <= NRG Tobramycin susceptibility test by minimum inhibitory concentration < = NRG Cefazolin susceptibility test by minimum inhibitory concentration > = NRG Piperacillin/tazobactam susceptibility test by minimum inhibitory concentration <= NRG Ciprofloxacin susceptibility test by minimum inhibitory concentration <= NRG Meropenem susceptibility test by minimum inhibitory concentration < = NRG Aztreonam susceptibility test by minimum inhibitory concentration < = NRG Bacterial susceptibility panel - 08/22/16 22:03 Gentamicin susceptibility test by minimum inhibitory concentration < = NRG Trimethoprim/sulfamethoxazole susceptibility test by minimum inhibitoryconcentration <= NRG Ampicillin susceptibility test by minimum inhibitory concentration < = NRG Tobramycin susceptibility test by minimum inhibitory concentration < = NRG Cefazolin susceptibility test by minimum inhibitory concentration < = NRG Ceftriaxone susceptibility test by minimum inhibitory concentration <= NRG Ampicillin/sulbactam susceptibility test by minimum inhibitory concentration <= NRG Piperacillin/tazobactam susceptibility test by minimum inhibitory concentration <= NRG Ciprofloxacin susceptibility test by minimum inhibitory concentration <= NRG Meropenem susceptibility test by minimum inhibitory concentration < = NRG Aztreonam susceptibility test by minimum inhibitory concentration < = NRG Extended spectrum beta lactamase (ESBL) producing bacteria susceptibility test by minimum inhibitory concentration - [facility] Bacterial susceptibility panel - 08/22/16 22:03 Gentamicin susceptibility test by minimum inhibitory concentration S NRG Erythromycin susceptibility test by minimum inhibitory concentration 2 NRG Vancomycin susceptibility test by minimum inhibitory concentration 1 NRG Ampicillin susceptibility test by minimum inhibitory concentration < = NRG Complete blood count (CBC) with automated white blood cell (WBC) differential - 08/23/16 04:12 Blood leukocytes automated count (number/volume) 16.7 10*3/uL 4.3-11.0 Blood erythrocytes automated count (number/volume) 4.21 10*6/uL 4.35-5.85 Venous blood hemoglobin measurement (mass/volume) 12.4 g/dL 13.3-17.7 Blood hematocrit (volume fraction) 36 % 40-54 Automated erythrocyte mean corpuscular volume 86 [foz_us] 80-99 Automated erythrocyte mean corpuscular hemoglobin (mass per erythrocyte) 30 pg 25-34 Automated erythrocyte mean corpuscular hemoglobin concentration measurement ( mass/volume) 34 g/dL 32-36 Automated erythrocyte distribution width ratio 12.8 % 10.0-14.5 Automated blood platelet count (count/volume) 343 10*3/uL 130-400 Automated blood platelet mean volume measurement 9.4 [foz_us] 7.4-10.4 Automated blood neutrophils/100 leukocytes 83 % 42-75 Automated blood lymphocytes/100 leukocytes 7 % 12-44 Blood monocytes/100 leukocytes 10 % 0-12 Automated blood eosinophils/100 leukocytes 0 % 0-10 Automated blood basophils/100 leukocytes 0 % 0-10 Blood neutrophils automated count (number/volume) 13.8 10*3 1.8-7.8 Blood lymphocytes automated count (number/volume) 1.2 10*3 1.0-4.0 Blood monocytes automated count (number/volume) 1.7 10*3 0.0-1.0 Automated eosinophil count 0.1 10*3/uL 0.0-0.3 Automated blood basophil count (count/volume) 0.0 10*3/uL 0.0-0.1 Whole blood basic metabolic panel - 08/23/16 04:12 Serum or plasma sodium measurement (moles/volume) 131 mmol/L 135-145 Serum or plasma potassium measurement (moles/volume) 4.2 mmol/L 3.6-5.0 Serum or plasma chloride measurement (moles/volume) 100 mmol/L 98-107 Carbon dioxide 18 mmol/L 21-32 Serum or plasma anion gap determination (moles/volume) 13 mmol/L 5-14 Serum or plasma urea nitrogen measurement (mass/volume) 12 mg/dL 7-18 Serum or plasma creatinine measurement (mass/volume) 1.46 mg/dL 0.60-1.30 Serum or plasma urea nitrogen/creatinine mass ratio 8 NRG Serum or plasma creatinine measurement with calculation of estimated glomerular filtration rate 51 NRG Serum or plasma glucose measurement (mass/volume) 286 mg/dL 70-105 Serum or plasma calcium measurement (mass/volume) 8.4 mg/dL 8.5-10.1 Serum or plasma phosphate measurement (mass/volume) - 08/23/16 04:12 Serum or plasma phosphate measurement (mass/volume) 3.8 mg/dL 2.3-4.7 Magnesium - 08/23/16 04:12 Magnesium 1.8 mg/dL 1.8-2.4 Blood manual differential performed detection - 08/23/16 04:12 Blood monocytes/100 leukocytes 9 % NRG Manual blood segmented neutrophils/100 leukocytes 71 % NRG Blood band neutrophils/100 leukocytes 7 % NRG Manual blood lymphocytes/100 leukocytes 12 % NRG Manual eosinophils/100 leukocytes in nose 1 % NRG Blood erythrocyte morphology finding identification NORMAL NRG Vancomycin trough - 08/23/16 08:27 Vancomycin trough 18.6 ug/mL 10.0-20.0 Capillary blood glucose measurement by glucometer (mass/volume) - 08/23/16 11: 11 Capillary blood glucose measurement by glucometer (mass/volume) 399 mg/dL 70-110 Complete urinalysis with reflex to culture - 08/23/16 11:30 Urine color determination YELLOW NRG Urine clarity determination SLIGHTLY CLOUDY NRG Urine pH measurement by test strip 5 5-9 Specific gravity of urine by test strip 1.015 1.016- 1.022 Urine protein assay by test strip, semi-quantitative 2+ NEGATIVE Urine glucose detection by automated test strip 3+ NEGATIVE Erythrocytes detection in urine sediment by light microscopy NEGATIVE NEGATIVE Urine ketones detection by automated test strip 1+ NEGATIVE Urine nitrite detection by test strip NEGATIVE NEGATIVE Urine total bilirubin detection by test strip NEGATIVE NEGATIVE Urine urobilinogen measurement by automated test strip (mass/volume) NORMAL NORMAL Urine leukocyte esterase detection by dipstick 1+ NEGATIVE Automated urine sediment erythrocyte count by microscopy (number/high power field) NONE NRG Automated urine sediment leukocyte count by microscopy (number/high power field ) [HPF] NRG Bacteria detection in urine sediment by light microscopy FEW NRG Squamous epithelial cells detection in urine sediment by light microscopy 2-5 NRG Crystals detection in urine sediment by light microscopy NONE NRG Casts detection in urine sediment by light microscopy NONE NRG Mucus detection in urine sediment by light microscopy NEGATIVE NRG Complete urinalysis with reflex to culture YES NRG Bacterial urine culture - 08/23/16 11:30 Bacterial urine culture [id number] NRG COLONY COUNT <10,000 NRG Capillary blood glucose measurement by glucometer (mass/volume) - 08/23/16 16: 03 Capillary blood glucose measurement by glucometer (mass/volume) 454 mg/dL 70-110 Capillary blood glucose measurement by glucometer (mass/volume) - 08/23/16 20: 54 Capillary blood glucose measurement by glucometer (mass/volume) 372 mg/dL 70-110 Vancomycin trough - 08/23/16 23:55 Vancomycin trough 31.8 ug/mL 10.0-20.0 Complete blood count (CBC) with automated white blood cell (WBC) differential - 08/24/16 05:15 Blood leukocytes automated count (number/volume) 11.2 10*3/uL 4.3-11.0 Blood erythrocytes automated count (number/volume) 3.59 10*6/uL 4.35-5.85 Venous blood hemoglobin measurement (mass/volume) 10.6 g/dL 13.3-17.7 Blood hematocrit (volume fraction) 31 % 40-54 Automated erythrocyte mean corpuscular volume 86 [foz_us] 80-99 Automated erythrocyte mean corpuscular hemoglobin (mass per erythrocyte) 30 pg 25-34 Automated erythrocyte mean corpuscular hemoglobin concentration measurement ( mass/volume) 34 g/dL 32-36 Automated erythrocyte distribution width ratio 12.5 % 10.0-14.5 Automated blood platelet count (count/volume) 304 10*3/uL 130-400 Automated blood platelet mean volume measurement 9.3 [foz_us] 7.4-10.4 Automated blood neutrophils/100 leukocytes 78 % 42-75 Automated blood lymphocytes/100 leukocytes 11 % 12-44 Blood monocytes/100 leukocytes 10 % 0-12 Automated blood eosinophils/100 leukocytes 1 % 0-10 Automated blood basophils/100 leukocytes 0 % 0-10 Blood neutrophils automated count (number/volume) 8.8 10*3 1.8-7.8 Blood lymphocytes automated count (number/volume) 1.2 10*3 1.0-4.0 Blood monocytes automated count (number/volume) 1.1 10*3 0.0-1.0 Automated eosinophil count 0.1 10*3/uL 0.0-0.3 Automated blood basophil count (count/volume) 0.0 10*3/uL 0.0-0.1 Comprehensive metabolic panel - 08/24/16 05:15 Serum or plasma sodium measurement (moles/volume) 129 mmol/L 135-145 Serum or plasma potassium measurement (moles/volume) 4.5 mmol/L 3.6-5.0 Serum or plasma chloride measurement (moles/volume) 99 mmol/L 98-107 Carbon dioxide 21 mmol/L 21-32 Serum or plasma anion gap determination (moles/volume) 9 mmol/L 5-14 Serum or plasma urea nitrogen measurement (mass/volume) 24 mg/dL 7-18 Serum or plasma creatinine measurement (mass/volume) 4.03 mg/dL 0.60-1.30 Serum or plasma urea nitrogen/creatinine mass ratio 6 NRG Serum or plasma creatinine measurement with calculation of estimated glomerular filtration rate 16 NRG Serum or plasma glucose measurement (mass/volume) 269 mg/dL 70-105 Serum or plasma calcium measurement (mass/volume) 8.2 mg/dL 8.5-10.1 Serum or plasma total bilirubin measurement (mass/volume) 0.4 mg/dL 0.1-1.0 Serum or plasma alkaline phosphatase measurement (enzymatic activity/volume) 71 U/L 40-136 Serum or plasma aspartate aminotransferase measurement (enzymatic activity/ volume) 19 U/L 5-34 Serum or plasma alanine aminotransferase measurement (enzymatic activity/volume ) 14 U/L 0-55 Serum or plasma protein measurement (mass/volume) 6.3 g/dL 6.4-8.2 Serum or plasma albumin measurement (mass/volume) 2.4 g/dL 3.2-4.5 Capillary blood glucose measurement by glucometer (mass/volume) - 08/24/16 10: 44 Capillary blood glucose measurement by glucometer (mass/volume) 264 mg/dL 70-110 Capillary blood glucose measurement by glucometer (mass/volume) - 08/24/16 12: 30 Capillary blood glucose measurement by glucometer (mass/volume) 246 mg/dL 70-110 Capillary blood glucose measurement by glucometer (mass/volume) - 08/24/16 16: 07 Capillary blood glucose measurement by glucometer (mass/volume) 235 mg/dL 70-110 Capillary blood glucose measurement by glucometer (mass/volume) - 08/24/16 20: 49 Capillary blood glucose measurement by glucometer (mass/volume) 294 mg/dL 70-110 Capillary blood glucose measurement by glucometer (mass/volume) - 08/25/16 05: 12 Capillary blood glucose measurement by glucometer (mass/volume) 282 mg/dL 70-110 Automated blood complete blood count (hemogram) panel - 08/25/16 10:35 Blood leukocytes automated count (number/volume) 8.9 10*3/uL 4.3-11.0 Blood erythrocytes automated count (number/volume) 3.29 10*6/uL 4.35-5.85 Venous blood hemoglobin measurement (mass/volume) 9.9 g/dL 13.3-17.7 Blood hematocrit (volume fraction) 29 % 40-54 Automated erythrocyte mean corpuscular volume 87 [foz_us] 80-99 Automated erythrocyte mean corpuscular hemoglobin (mass per erythrocyte) 30 pg 25-34 Automated erythrocyte mean corpuscular hemoglobin concentration measurement ( mass/volume) 35 g/dL 32-36 Automated erythrocyte distribution width ratio 13.3 % 10.0-14.5 Automated blood platelet count (count/volume) 360 10*3/uL 130-400 Automated blood platelet mean volume measurement 9.8 [foz_us] 7.4-10.4 Capillary blood glucose measurement by glucometer (mass/volume) - 08/25/16 10: 59 Capillary blood glucose measurement by glucometer (mass/volume) 245 mg/dL 70-110 Whole blood basic metabolic panel - 08/25/16 11:03 Serum or plasma sodium measurement (moles/volume) 130 mmol/L 135-145 Serum or plasma potassium measurement (moles/volume) 4.4 mmol/L 3.6-5.0 Serum or plasma chloride measurement (moles/volume) 101 mmol/L 98-107 Carbon dioxide 16 mmol/L 21-32 Serum or plasma anion gap determination (moles/volume) 13 mmol/L 5-14 Serum or plasma urea nitrogen measurement (mass/volume) 29 mg/dL 7-18 Serum or plasma creatinine measurement (mass/volume) 6.14 mg/dL 0.60-1.30 Serum or plasma urea nitrogen/creatinine mass ratio 5 NRG Serum or plasma creatinine measurement with calculation of estimated glomerular filtration rate 10 NRG Serum or plasma glucose measurement (mass/volume) 208 mg/dL 70-105 Serum or plasma calcium measurement (mass/volume) 7.8 mg/dL 8.5-10.1 Capillary blood glucose measurement by glucometer (mass/volume) - 08/25/16 16: 13 Capillary blood glucose measurement by glucometer (mass/volume) 321 mg/dL 70-110 Serum or plasma renal function panel (Na, K, Cl, CO2, BUN, Cr, glucose,Ca, phos , alb) - 10/10/16 10:50 Serum or plasma sodium measurement (moles/volume) 139 mmol/L 135-145 Serum or plasma potassium measurement (moles/volume) 3.5 mmol/L 3.6-5.0 Serum or plasma chloride measurement (moles/volume) 107 mmol/L 98-107 Carbon dioxide 21 mmol/L 21-32 Serum or plasma anion gap determination (moles/volume) 11 mmol/L 5-14 Serum or plasma urea nitrogen measurement (mass/volume) 9 mg/dL 7-18 Serum or plasma creatinine measurement (mass/volume) 1.16 mg/dL 0.60-1.30 Serum or plasma urea nitrogen/creatinine mass ratio 8 NRG Serum or plasma creatinine measurement with calculation of estimated glomerular filtration rate > NRG Serum or plasma glucose measurement (mass/volume) 194 mg/dL 70-105 Serum or plasma calcium measurement (mass/volume) 9.2 mg/dL 8.5-10.1 Serum or plasma albumin measurement (mass/volume) 3.8 g/dL 3.2-4.5 Serum or plasma phosphate measurement (mass/volume) 3.8 mg/dL 2.3-4.7 Bacteria identification in isolate by anaerobe culture - 10/12/16 11:00 QUANTITY OF GROWTH . NRG Bacteria identification in isolate by anaerobe culture SEE [facility] Gram stain microscopy - 10/12/16 11:00 GRAM STAIN RESULT FEW WBC'S, NO BACTERIA OBSERVED NRG Bacteria identification in wound by culture - 10/12/16 11:00 Bacteria identification in wound by culture [id number] NR FREE TEXT EXTERNAL [place]ITIVITY [place]ED [place] 0738, 8-17 NRG QUANTITY OF GROWTH Scant Growth NR FREE TEXT ENTRY 3 LAB FOR SENSITIVITY. NRG Bacterial susceptibility panel - 10/12/16 11:00 Oxacillin susceptibility test by minimum inhibitory concentration > = NRG Gentamicin susceptibility test by minimum inhibitory concentration < = NRG Clindamycin susceptibility test by minimum inhibitory concentration >= NRG Erythromycin susceptibility test by minimum inhibitory concentration >= NRG Trimethoprim/sulfamethoxazole susceptibility test by minimum inhibitoryconcentration 80 NRG Vancomycin susceptibility test by minimum inhibitory concentration 2 NRG Levofloxacin susceptibility test by minimum inhibitory concentration >= NRG Rifampin susceptibility test by minimum inhibitory concentration <= NRG Tetracycline susceptibility test by minimum inhibitory concentration 2 NRG Ciprofloxacin susceptibility test by minimum inhibitory concentration R NRG Hemoglobin A1c - 10/12/16 12:03 Hemoglobin A1c 8.4 % 4.5-6.2 PT panel in platelet poor plasma by coagulation assay - 10/19/16 12:10 Prothrombin time (PT) in platelet poor plasma by coagulation assay 13.7 s 12.2-14.7 INR in platelet poor plasma or blood by coagulation assay 1.0 0.8-1.4 PT panel in platelet poor plasma by coagulation assay - 11/02/16 11:42 Prothrombin time (PT) in platelet poor plasma by coagulation assay 13.7 s 12.2-14.7 INR in platelet poor plasma or blood by coagulation assay 1.0 0.8-1.4 Bacteria identification in isolate by anaerobe culture - 11/23/16 11:46 Bacteria identification in isolate by anaerobe culture NG NRG Gram stain microscopy - 11/23/16 11:46 GRAM STAIN RESULT NO BACTERIA OBSERVED NRG Bacteria identification in wound by culture - 11/23/16 11:46 Bacteria identification in wound by culture NG NRG Bacteria identification in isolate by anaerobe culture - 01/04/17 11:30 Bacteria identification in isolate by anaerobe culture NOANA NRG Gram stain microscopy - 01/04/17 11:30 GRAM STAIN RESULT FEW GRAM POSITIVE COCCI NRG Bacteria identification in wound by culture - 01/04/17 11:30 Bacteria identification in wound by culture [id number] NR FREE TEXT EXTERNAL [place] SENSITIVITY REPORTED 01/14/17 NRG QUANTITY OF GROWTH Moderate Growth NRG MRSA AGAR Screening test for MRSA is NEGATIVE (Final to follow) NR FREE TEXT ENTRY 2 (MAY BE MORE RESISTANT THAN USUAL) NR Bacterial susceptibility panel - 01/04/17 11:30 Oxacillin susceptibility test by minimum inhibitory concentration 0.5 NRG Gentamicin susceptibility test by minimum inhibitory concentration < = NRG Clindamycin susceptibility test by minimum inhibitory concentration <= NRG Erythromycin susceptibility test by minimum inhibitory concentration <= NRG Trimethoprim/sulfamethoxazole susceptibility test by minimum inhibitoryconcentration <= NRG Vancomycin susceptibility test by minimum inhibitory concentration 1 NRG Levofloxacin susceptibility test by minimum inhibitory concentration <= NRG Rifampin susceptibility test by minimum inhibitory concentration <= NRG Tetracycline susceptibility test by minimum inhibitory concentration <= NRG Bacterial susceptibility panel - 01/04/17 11:30 Gentamicin susceptibility test by minimum inhibitory concentration < = NRG Trimethoprim/sulfamethoxazole susceptibility test by minimum inhibitoryconcentration <= NRG Tobramycin susceptibility test by minimum inhibitory concentration < = NRG Cefazolin susceptibility test by minimum inhibitory concentration > = NRG Ceftriaxone susceptibility test by minimum inhibitory concentration >= NRG Piperacillin/tazobactam susceptibility test by minimum inhibitory concentration >= NRG Ciprofloxacin susceptibility test by minimum inhibitory concentration 1 NRG Meropenem susceptibility test by minimum inhibitory concentration < = NRG Aztreonam susceptibility test by minimum inhibitory concentration > = NRG Cefepime susceptibility test by minimum inhibitory concentration <= NRG Bacterial susceptibility panel - 01/04/17 11:30 Gentamicin susceptibility test by minimum inhibitory concentration < = NRG Trimethoprim/sulfamethoxazole susceptibility test by minimum inhibitoryconcentration <= NRG Ampicillin susceptibility test by minimum inhibitory concentration < = NRG Tobramycin susceptibility test by minimum inhibitory concentration < = NRG Cefazolin susceptibility test by minimum inhibitory concentration < = NRG Ceftriaxone susceptibility test by minimum inhibitory concentration <= NRG Ampicillin/sulbactam susceptibility test by minimum inhibitory concentration <= NRG Piperacillin/tazobactam susceptibility test by minimum inhibitory concentration <= NRG Ciprofloxacin susceptibility test by minimum inhibitory concentration <= NRG Meropenem susceptibility test by minimum inhibitory concentration < = NRG Aztreonam susceptibility test by minimum inhibitory concentration < = NRG Bacteria identification in isolate by anaerobe culture - 02/01/17 11:35 Bacteria identification in isolate by anaerobe culture NOANA NRG Gram stain microscopy - 02/01/17 11:35 GRAM STAIN RESULT NO WBC'S OR BACTERIA OBSERVED NRG Bacteria identification in wound by culture - 02/01/17 11:35 Bacteria identification in wound by culture [id number] NRG FREE TEXT EXTERNAL SENT TO REF.LAB FOR SENSITIVITY 02-04 NRG QUANTITY OF GROWTH Scant Growth NRG FREE TEXT ENTRY 2 LINEZOLID RESULT REPORTED 02/05 12:05 NRG Bacterial susceptibility panel - 02/01/17 11:35 Oxacillin susceptibility test by minimum inhibitory concentration > = NRG Gentamicin susceptibility test by minimum inhibitory concentration 8 NRG Clindamycin susceptibility test by minimum inhibitory concentration <= NRG Erythromycin susceptibility test by minimum inhibitory concentration >= NRG Trimethoprim/sulfamethoxazole susceptibility test by minimum inhibitoryconcentration >= NRG Vancomycin susceptibility test by minimum inhibitory concentration 1 NRG Levofloxacin susceptibility test by minimum inhibitory concentration <= NRG Rifampin susceptibility test by minimum inhibitory concentration <= NRG Tetracycline susceptibility test by minimum inhibitory concentration >= NRG Linezolid susceptibility test by minimum inhibitory concentration 1 NRG Complete blood count (CBC) with automated white blood cell (WBC) differential - 02/01/17 12:06 Blood leukocytes automated count (number/volume) 5.5 10*3/uL 4.3-11.0 Blood erythrocytes automated count (number/volume) 4.57 10*6/uL 4.35-5.85 Venous blood hemoglobin measurement (mass/volume) 13.2 g/dL 13.3-17.7 Blood hematocrit (volume fraction) 39 % 40-54 Automated erythrocyte mean corpuscular volume 85 [foz_us] 80-99 Automated erythrocyte mean corpuscular hemoglobin (mass per erythrocyte) 29 pg 25-34 Automated erythrocyte mean corpuscular hemoglobin concentration measurement ( mass/volume) 34 g/dL 32-36 Automated erythrocyte distribution width ratio 14.1 % 10.0-14.5 Automated blood platelet count (count/volume) 287 10*3/uL 130-400 Automated blood platelet mean volume measurement 9.3 [foz_us] 7.4-10.4 Automated blood neutrophils/100 leukocytes 61 % 42-75 Automated blood lymphocytes/100 leukocytes 26 % 12-44 Blood monocytes/100 leukocytes 10 % 0-12 Automated blood eosinophils/100 leukocytes 2 % 0-10 Automated blood basophils/100 leukocytes 1 % 0-10 Blood neutrophils automated count (number/volume) 3.4 10*3 1.8-7.8 Blood lymphocytes automated count (number/volume) 1.4 10*3 1.0-4.0 Blood monocytes automated count (number/volume) 0.6 10*3 0.0-1.0 Automated eosinophil count 0.1 10*3/uL 0.0-0.3 Automated blood basophil count (count/volume) 0.0 10*3/uL 0.0-0.1 Comprehensive metabolic panel - 02/01/17 12:06 Serum or plasma sodium measurement (moles/volume) 141 mmol/L 135-145 Serum or plasma potassium measurement (moles/volume) 4.1 mmol/L 3.6-5.0 Serum or plasma chloride measurement (moles/volume) 106 mmol/L 98-107 Carbon dioxide 25 mmol/L 21-32 Serum or plasma anion gap determination (moles/volume) 10 mmol/L 5-14 Serum or plasma urea nitrogen measurement (mass/volume) 12 mg/dL 7-18 Serum or plasma creatinine measurement (mass/volume) 1.02 mg/dL 0.60-1.30 Serum or plasma urea nitrogen/creatinine mass ratio 12 NRG Serum or plasma creatinine measurement with calculation of estimated glomerular filtration rate > NRG Serum or plasma glucose measurement (mass/volume) 159 mg/dL 70-105 Serum or plasma calcium measurement (mass/volume) 8.8 mg/dL 8.5-10.1 Serum or plasma total bilirubin measurement (mass/volume) 0.3 mg/dL 0.1-1.0 Serum or plasma alkaline phosphatase measurement (enzymatic activity/volume) 93 U/L 40-136 Serum or plasma aspartate aminotransferase measurement (enzymatic activity/ volume) 12 U/L 5-34 Serum or plasma alanine aminotransferase measurement (enzymatic activity/volume ) 13 U/L 0-55 Serum or plasma protein measurement (mass/volume) 7.1 g/dL 6.4-8.2 Serum or plasma albumin measurement (mass/volume) 3.9 g/dL 3.2-4.5 Serum or plasma lithium measurement (moles/volume) - 02/01/17 12:06 Serum or plasma prealbumin measurement (mass/volume) 25.8 mg/dL 18.0-35.7 Hemoglobin A1c - 02/01/17 12:06 Hemoglobin A1c 8.2 % 4.5-6.2 Complete blood count (CBC) with automated white blood cell (WBC) differential - 02/22/17 11:10 Blood leukocytes automated count (number/volume) 6.0 10*3/uL 4.3-11.0 Blood erythrocytes automated count (number/volume) 4.78 10*6/uL 4.35-5.85 Venous blood hemoglobin measurement (mass/volume) 13.9 g/dL 13.3-17.7 Blood hematocrit (volume fraction) 40 % 40-54 Automated erythrocyte mean corpuscular volume 84 [foz_us] 80-99 Automated erythrocyte mean corpuscular hemoglobin (mass per erythrocyte) 29 pg 25-34 Automated erythrocyte mean corpuscular hemoglobin concentration measurement ( mass/volume) 35 g/dL 32-36 Automated erythrocyte distribution width ratio 14.3 % 10.0-14.5 Automated blood platelet count (count/volume) 263 10*3/uL 130-400 Automated blood platelet mean volume measurement 9.6 [foz_us] 7.4-10.4 Automated blood neutrophils/100 leukocytes 56 % 42-75 Automated blood lymphocytes/100 leukocytes 32 % 12-44 Blood monocytes/100 leukocytes 10 % 0-12 Automated blood eosinophils/100 leukocytes 2 % 0-10 Automated blood basophils/100 leukocytes 1 % 0-10 Blood neutrophils automated count (number/volume) 3.4 10*3 1.8-7.8 Blood lymphocytes automated count (number/volume) 1.9 10*3 1.0-4.0 Blood monocytes automated count (number/volume) 0.6 10*3 0.0-1.0 Automated eosinophil count 0.1 10*3/uL 0.0-0.3 Automated blood basophil count (count/volume) 0.0 10*3/uL 0.0-0.1 Comprehensive metabolic panel - 02/22/17 11:10 Serum or plasma sodium measurement (moles/volume) 138 mmol/L 135-145 Serum or plasma potassium measurement (moles/volume) 4.2 mmol/L 3.6-5.0 Serum or plasma chloride measurement (moles/volume) 104 mmol/L 98-107 Carbon dioxide 24 mmol/L 21-32 Serum or plasma anion gap determination (moles/volume) 10 mmol/L 5-14 Serum or plasma urea nitrogen measurement (mass/volume) 13 mg/dL 7-18 Serum or plasma creatinine measurement (mass/volume) 1.18 mg/dL 0.60-1.30 Serum or plasma urea nitrogen/creatinine mass ratio 11 NRG Serum or plasma creatinine measurement with calculation of estimated glomerular filtration rate > NRG Serum or plasma glucose measurement (mass/volume) 217 mg/dL 70-105 Serum or plasma calcium measurement (mass/volume) 9.1 mg/dL 8.5-10.1 Serum or plasma total bilirubin measurement (mass/volume) 0.6 mg/dL 0.1-1.0 Serum or plasma alkaline phosphatase measurement (enzymatic activity/volume) 87 U/L 40-136 Serum or plasma aspartate aminotransferase measurement (enzymatic activity/ volume) 13 U/L 5-34 Serum or plasma alanine aminotransferase measurement (enzymatic activity/volume ) 14 U/L 0-55 Serum or plasma protein measurement (mass/volume) 7.5 g/dL 6.4-8.2 Serum or plasma albumin measurement (mass/volume) 3.9 g/dL 3.2-4.5 Complete urinalysis with reflex to culture - 02/22/17 11:10 Urine color determination YELLOW NRG Urine clarity determination SLIGHTLY CLOUDY NRG Urine pH measurement by test strip 6 5-9 Specific gravity of urine by test strip 1.010 1.016- 1.022 Urine protein assay by test strip, semi-quantitative NEGATIVE NEGATIVE Urine glucose detection by automated test strip NEGATIVE NEGATIVE Erythrocytes detection in urine sediment by light microscopy 2+ NEGATIVE Urine ketones detection by automated test strip NEGATIVE NEGATIVE Urine nitrite detection by test strip NEGATIVE NEGATIVE Urine total bilirubin detection by test strip NEGATIVE NEGATIVE Urine urobilinogen measurement by automated test strip (mass/volume) NORMAL NORMAL Urine leukocyte esterase detection by dipstick NEGATIVE NEGATIVE Automated urine sediment erythrocyte count by microscopy (number/high power field) [HPF] NRG Automated urine sediment leukocyte count by microscopy (number/high power field ) NONE NRG Bacteria detection in urine sediment by light microscopy NEGATIVE NRG Squamous epithelial cells detection in urine sediment by light microscopy NONE NRG Crystals detection in urine sediment by light microscopy NONE NRG Casts detection in urine sediment by light microscopy NONE NRG Mucus detection in urine sediment by light microscopy NEGATIVE NRG Complete urinalysis with reflex to culture NO NRG Bacteria identification in isolate by anaerobe culture - 03/01/17 09:36 Bacteria identification in isolate by anaerobe culture NOANA NRG Gram stain microscopy - 03/01/17 09:36 Gram stain microscopy Few coryneform gram positive rods NRG Bacteria identification in wound by culture - 03/01/17 09:36 Bacteria identification in wound by culture [id number] NRG FREE TEXT EXTERNAL SENT TO REF.LAB FOR SENSITIVIY 03-03-17 NRG QUANTITY OF GROWTH Moderate Growth NRG FREE TEXT ENTRY 2 SEE COMMENT FOR REPORT FROM REF.LAB NRG Bacterial susceptibility panel - 03/01/17 09:36 Oxacillin susceptibility test by minimum inhibitory concentration > = NRG Gentamicin susceptibility test by minimum inhibitory concentration < = NRG Clindamycin susceptibility test by minimum inhibitory concentration >= NRG Erythromycin susceptibility test by minimum inhibitory concentration >= NRG Trimethoprim/sulfamethoxazole susceptibility test by minimum inhibitoryconcentration R NRG Vancomycin susceptibility test by minimum inhibitory concentration 1 NRG Levofloxacin susceptibility test by minimum inhibitory concentration >= NRG Rifampin susceptibility test by minimum inhibitory concentration <= NRG Tetracycline susceptibility test by minimum inhibitory concentration 2 NRG Ciprofloxacin susceptibility test by minimum inhibitory concentration R NRG Linezolid susceptibility test by minimum inhibitory concentration 2 NRG Bacteria identification in isolate by anaerobe culture - 04/05/17 10:08 Bacteria identification in isolate by anaerobe culture NOANA NRG Gram stain microscopy - 04/05/17 10:08 GRAM STAIN RESULT NO BACTERIA OBSERVED NRG Bacteria identification in wound by culture - 04/05/17 10:08 Bacteria identification in wound by culture [id number] NRG FREE TEXT EXTERNAL SENT TO REFERENCE LAB 04/08/17 FOR NRG QUANTITY OF GROWTH Scant Growth NRG FREE TEXT ENTRY 2 SENSITIVITY TESTING. NRG Bacterial susceptibility panel - 04/05/17 10:08 Oxacillin susceptibility test by minimum inhibitory concentration > = NRG Gentamicin susceptibility test by minimum inhibitory concentration < = NRG Clindamycin susceptibility test by minimum inhibitory concentration >= NRG Erythromycin susceptibility test by minimum inhibitory concentration >= NRG Trimethoprim/sulfamethoxazole susceptibility test by minimum inhibitoryconcentration R NRG Vancomycin susceptibility test by minimum inhibitory concentration 1 NRG Levofloxacin susceptibility test by minimum inhibitory concentration >= NRG Rifampin susceptibility test by minimum inhibitory concentration <= NRG Tetracycline susceptibility test by minimum inhibitory concentration 2 NRG Ciprofloxacin susceptibility test by minimum inhibitory concentration R NRG Linezolid susceptibility test by minimum inhibitory concentration 2 NRG Encounters ACCT No. Visit Date/Time Discharge Status Pt. Type Provider Facility Loc./Unit Complaint [id number] 12/20/2011 09:38:00 12/20/2011 23:59:59 CLS Outpatient [id number] 12/20/2011 09:38:00 12/20/2011 23:59:59 CLS Outpatient [id number] 07/17/2012 13:53:00 Document Registration [id number] 07/09/2012 07:53:00 Document Registration [id number] 10/25/2014 11:17:06 10/25/2014 11:17:06 DIS Outpatient [id number] 05/08/2017 10:00:00 05/08/2017 23:59:59 CLS Outpatient NADINE CHENG, AFSHAN GIORDANO [facility] 11/11/2014 15:52:44 ACT Document Registration [id number] 02/17/2017 12:26:09 02/17/2017 12:26:09 Outpatient [facility] [id number] 05/01/2017 10:41:00 05/01/2017 23:59:59 CLS Outpatient BRAYAN SINGH MD Via [facility] [id number] 04/26/2017 09:55:00 04/26/2017 23:59:59 CLS Outpatient BRAYAN SINGH MD Via [facility] [id number] 04/19/2017 09:40:00 04/19/2017 23:59:59 CLS Outpatient BRAYAN SINGH MD Via [facility] [id number] 04/12/2017 09:55:00 04/12/2017 23:59:59 CLS Outpatient BRAYAN SINGH MD [facility] [id number] 04/05/2017 09:37:00 04/05/2017 23:59:59 CLS Outpatient BRAYNA SINGH MD [facility] [id number] 03/29/2017 09:54:00 03/29/2017 23:59:59 CLS Outpatient BRAYAN SINGH MD [facility] [id number] 03/22/2017 10:02:00 03/22/2017 23:59:59 CLS Outpatient BRAYAN SINGH MD [facility] [id number] 03/08/2017 09:22:00 03/08/2017 23:59:59 CLS Outpatient BRAYAN SINGH MD [facility] [id number] 03/01/2017 09:16:00 03/01/2017 23:59:59 CLS Outpatient BRAYAN SINGH MD Via [facility] [id number] 02/26/2017 14:57:00 02/26/2017 23:59:59 CLS Preadmit BRAYAN SINGH MD Via [facility] [id number] 02/22/2017 10:53:00 02/22/2017 23:59:59 CLS Outpatient RENÉE THOMAS DO Via [facility] LAB DIABETIC [id number] 02/22/2017 10:51:00 02/22/2017 23:59:59 CLS Outpatient RENÉE THOMAS DO Via [facility] LAB DIABETIC [id number] 02/21/2017 13:27:00 02/21/2017 23:59:59 CLS Outpatient BRAYAN SINGH MD Via [facility] [id number] 02/15/2017 10:36:00 02/15/2017 23:59:59 CLS Outpatient BRAYAN SINGH MD [facility] [id number] 02/08/2017 10:43:00 02/08/2017 23:59:59 CLS Outpatient BRAYAN SINGH MD [facility] [id number] 02/01/2017 11:51:00 02/01/2017 23:59:59 CLS Outpatient MEGHNA MCDANIEL MD Via [facility] LAB N17.0 [id number] 02/01/2017 11:06:00 02/01/2017 23:59:59 CLS Outpatient BRAYAN SINGH MD Via [facility] [id number] 01/15/2017 13:15:00 01/15/2017 23:59:59 CLS Outpatient BRAYAN SINGH MD Via [facility] [id number] 01/11/2017 10:41:00 01/11/2017 23:59:59 CLS Outpatient BRAYAN SINGH MD [facility] [id number] 01/04/2017 12:18:00 01/04/2017 23:59:59 CLS Outpatient BRAYAN SINGH MD Via [facility] RAD L97.414, M86.474, E10.621 , E10.42 [id number] 01/04/2017 10:50:00 01/04/2017 23:59:59 CLS Outpatient BRAYAN SINGH MD [facility] [id number] 2016 10:52:00 2016 23:59:59 CLS Outpatient BRAYAN SINGH MD Via [facility] [id number] 12/21/2016 10:47:00 12/21/2016 23:59:59 CLS Outpatient BRAYAN SINGH MD [facility] [id number] 12/14/2016 13:53:00 12/14/2016 23:59:59 CLS Outpatient BRAYAN SINGH MD [facility] [id number] 11/30/2016 11:05:00 11/30/2016 23:59:59 CLS Outpatient BRAYAN SINGH MD [facility] [id number] 11/25/2016 02:30:00 11/25/2016 23:59:59 CLS Preadmit BRAYAN SINGH MD Via [facility] LAB E10.621,E10.42,L97.413, I70.234 [id number] 11/02/2016 11:34:00 11/24/2016 00:01:00 DIS Outpatient BRAYAN SINGH MD Via [facility] LAB E10.621,E10.42,L97.413, I70.234 [id number] 11/23/2016 11:04:00 11/23/2016 23:59:59 CLS Outpatient BRAYAN SINGH MD [facility] [id number] 11/09/2016 11:07:00 11/09/2016 23:59:59 CLS Outpatient BRAYAN SINGH MD [facility] [id number] 11/02/2016 10:54:00 11/02/2016 23:59:59 CLS Outpatient BRAYAN SINGH MD [facility] [id number] 10/19/2016 10:54:00 10/19/2016 23:59:59 CLS Outpatient BRAYAN SINGH MD [facility] [id number] 10/12/2016 11:40:00 10/12/2016 23:59:59 CLS Outpatient BRAYAN SINGH MD Via [facility] RAD L97.413 E10.621 [id number] 10/12/2016 09:45:00 10/12/2016 23:59:59 CLS Outpatient BRAYAN SINGH MD [facility] [id number] 10/10/2016 10:41:00 10/10/2016 23:59:59 CLS Outpatient MEGHNA MCDANIEL MD Via [facility] LAB N17.0 [id number] 08/22/2016 19:35:00 08/25/2016 18:15:00 DIS Inpatient TRACI OSORIO DO Via [facility] 4TH SEPSIS [id number] 2014 15:13:00 12/29/2014 18:30:00 DIS Inpatient JEAN ROSALES MD Via [facility] ICU BENZODIAZEPINE OD, SI [id number] 11/11/2014 15:52:00 11/11/2014 18:11:00 DIS Emergency JUDY AMES APRN Via [facility] ER DIFFICULTY BREATHING, VOMITING [id number] 11/10/2014 15:03:00 11/10/2014 23:59:59 CLS Outpatient ARIANNA STEPHENS MD (DDU) Via [facility] RT COPD [id number] 10/15/2014 11:48:00 10/15/2014 23:59:59 CLS Outpatient HAMZAH BOWENS MD (DDU) Via [facility] RAD DDU [id number] 09/28/2014 21:01:00 09/28/2014 22:32:00 DIS Emergency ROLANDO CHENG, RIK Urban Via [facility] ER BLOOD SUGARS ELEVATED , DIZZY [id number] 08/25/2014 22:32:00 08/25/2014 22:56:00 DIS Emergency JUDY AMES APRN Via [facility] ER TOE PAIN [id number] 10/02/2013 02:38:00 10/02/2013 02:59:00 DIS Emergency RANDEE RAY DO Via [facility] ER LAC ON TOE [id number] 11/09/2012 18:02:00 11/09/2012 20:48:00 DIS Emergency ZAY VILLALOBOS DO Via [facility] ER R FOOT INJ [id number] 10/28/2012 01:30:00 10/28/2012 18:25:00 DIS Inpatient CHELO MARTINEZ MD Via [facility] ICU ACUTE ALCOHOL INTOXICATION,DRUG OVERDOSE [id number] 10/25/2012 18:00:00 10/25/2012 19:25:00 DIS Emergency ZAY VILLALOBOS DO Via [facility] ER CHEST PAINS [id number] 08/30/2012 22:29:00 08/31/2012 00:41:00 DIS Emergency ZAY VILLALOBOS DO Via [facility] ER H/A [id number] 08/15/2012 03:30:00 08/15/2012 17:15:00 DIS Outpatient FLAQUITA CHENG FACC, PERRI CALLEJAS CCDS Via [facility] CATH CHEST PAIN [id number] 07/15/2012 17:56:00 07/15/2012 23:59:59 CLS Outpatient [id number] 08/25/2014 22:32:00 Document Registration [id number] 08/25/2014 22:32:00 Document Registration [id number] 08/25/2014 22:32:00 Document Registration [id number] 03/04/2012 22:53:00 Document Registration [id number] 05/07/2011 09:07:00 Document Registration [id number] 05/05/2011 09:06:00 Document Registration [id number] 08/31/2010 07:43:00 Document Registration [id number] 08/20/2010 19:56:00 Document Registration
[2017-05-28] MEDS ORDERED: INSU100I29 (18:01)
--- NOTE | 2017-05-28 18:10 | ED Upper Extremity ---
General Chief Complaint: Upper Extremity Stated Complaint: R SHOULDER INJ Nursing Triage Note: pt presents to ed with r shoudler pain after fall 2-3 days ago. pt denies any other injury. Nursing Sepsis Screen: No Definite Risk Source: patient, old records Exam Limitations: no limitations History of Present Illness Date Seen by Provider: May 28, 2017 Time Seen by Provider: 18:00 Initial Comments The patient presents to the ER by private conveyance with a chief complaint that about 4 days ago Saturday he had a fall in his backyard landing on his right shoulder. He's never dislocated or fractured his shoulder or clavicle before. He is afraid he might of torn rotator cuff muscle because is very painful to move his arm and he cannot abducted away from his side. 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 He is followed by [facility] for [facility]. Because of that he is told he cannot take NSAIDs cause of his poor kidney function and he had a bad liver injury and was warned not to take Tylenol either. For the last 4 days she's been just using heating pads of the pain is been quite significant. He is not having any nausea or fevers/chills. No shortness of breath or chest pain. Allergies and Home Medications Allergies Coded Allergies: cortisone (Verified Allergy, Unknown, HIVES, 11/11/14) meloxicam (Verified Allergy, Unknown, 05/28/17) pregabalin (Verified Allergy, Unknown, 05/28/17) shellfish derived (Verified Allergy, Unknown, 11/11/14) Uncoded Allergies: THYLAID (Allergy, Unknown, 11/11/14) Home Medications Clindamycin HCl 300 Mg Capsule, 300 MG PO Q8H, (Reported) 10 DAY THERAPY FILLED 08-13-16 Ibuprofen 800 Mg Tablet, 800 MG PO Q8H PRN for PAIN-MILD, (Reported) Oxycodone HCl/Acetaminophen 1 Each Tablet, 1 TAB PO Q6H PRN for PAIN-MODERATE, ( Reported) Rivaroxaban 15 Mg Tablet, 15 MG PO BID, (Reported) Patient Home Medication List Home Medication List Reviewed: Yes Constitutional: No chills, No diaphoresis EENTM: no symptoms reported Respiratory: No cough, No short of breath Cardiovascular: No chest pain, No palpitations Gastrointestinal: No abdominal pain, No constipation Genitourinary: No decreased output, No dysuria, No frequency Musculoskeletal: see HPI, No back pain, joint pain Skin: No lumps, No rash Past Opwlukx-Bmclfj-Kobhlo Hx Patient Social History Alcohol Use: Past History Alcohol Beverage of Choice: Other (Quit drinking 20 years ago) Recreational Drug Use: No Smoking Status: Former Smoker Type Used: Cigarettes Former Smoker, Quit: Jun 14, 1986 Recent Foreign Travel: No Contact w/Someone Who Travel: No Recent Infectious Disease Expo: No Physical Abuse: No Sexual Abuse: No Mistreated: No Fear: No Immunizations Up To Date Tetanus Booster (TDap): Less than 5yrs Date of Pneumonia Vaccine: Jun 13, 2007 Seasonal Allergies Seasonal Allergies: Yes Surgeries History of Surgeries: Yes (L KNEE-orthoscopic, r three toe amputations.) Surgeries: Amputation, Dialysis, Orthopedic, Tonsillectomy Respiratory History of Respiratory Disorde: Yes Respiratory Disorders: COPD Currently Using CPAP: No Cardiovascular History of Cardiac Disorders: Yes (reported history of CHF) Cardiac Disorders: High Cholesterol, Hypertension Neurological History of Neurological Disord: Yes Neurological Disorders: Neuropathy Reproductive System Hx Reproductive Disorders: No Sexually Transmitted Disease: No HIV/AIDS: No Genitourinary Genitourinary Disorders: Renal Failure Gastrointestinal History of Gastrointestinal Di: Yes (pt unresponsive) Gastrointestinal Disorders: Chronic Constipation Musculoskeletal History of Musculoskeletal Dis: Yes Musculoskeletal Disorders: Arthritis Endocrine History of Endocrine Disorders: Yes Endocrine Disorders: Diabetes, Insulin dep Cancer History of Cancer: No Psychosocial History of Psychiatric Problem: Yes Behavioral Health Disorders: Depression Suicide Risk Score: 0 Integumentary History of Skin or Integumenta: Yes Blood Transfusions History of Blood Disorders: No Adverse Reaction to a Blood Tr: No Family Medical History Significant Family History: No Pertinent Family Hx Physical Exam Vital Signs Vital Signs - First Documented 05/28/17 17:49 Temp 98.1 Pulse 109 Resp 20 B/P (MAP) 160/110 (127) Pulse Ox 97 Capillary Refill : Less Than 3 Seconds General Appearance: WD/WN, no apparent distress HEENT: PERRL/EOMI, pharynx normal Neck: non-tender, full range of motion, normal inspection Cardiovascular: normal peripheral pulses, regular rate, rhythm Respiratory: chest non-tender, lungs clear, normal breath sounds, no respiratory distress, no accessory muscle use Back: normal inspection, no vertebral tenderness Shoulder: No ecchymosis, limited ROM, pain (Right shoulder, scapula and clavicle are all tender. Trapezius muscle is in spasm. No ecchymoses) Elbow/Forearm: normal inspection, non-tender, no evidence of injury, normal ROM , Bilateral Wrist: Yes normal inspection, Yes non-tender, Yes no evidence of injury, Yes normal ROM Progress/Results/Core Measures Results/Orders My Orders Orders - ALEX GARCIA Shoulder, Right, 3 Views (05/28/17 18:04) Fentanyl Injection (Sublimaze Injection (05/28/17 18:15) Medications Given in ED Current Medications Medications Dose Ordered Sig/Haven Route Start Time Stop Time Status Last Admin Dose Admin Fentanyl Citrate 50 mcg ONCE ONCE IM 05/28/17 18:15 05/28/17 18:16 DC 05/28/17 18:31 50 MCG Vital Signs/I&O Vital Sign - Last 12Hours 05/28/17 17:49 Temp 98.1 Pulse 109 Resp 20 B/P (MAP) 160/110 (127) Pulse Ox 97 Blood Pressure Mean: 127 Progress Note : Time: 18:10 Progress Note We'll start with some pain medicine and then get some x-rays before restarting some more range of motion maneuver to see if there is any soft tissue ligamentous or other injury. Diagnostic Imaging Diagonstic Imaging: Xray Plain Films/CT/US/NM/MRI: other (Right shoulder 3 views) Comments VIA [facility]. [place], [place] NAME: DEANDRE MINAYA [facility] REC#: [id number] PT STATUS: REG ER : 1965 PHYSICIAN: ALEX GARCIA MD ADMIT DATE: 05/28/17/ER Draft Date of Exam:05/28/17 SHOULDER, RIGHT, 3 VIEWS EXAM: SHOULDER, RIGHT, 3 VIEWS INDICATION: Fall. Right shoulder pain. COMPARISON: None. FINDINGS: No malalignment. Small osseous fragment along the inferior glenoid rim. Mild degenerative changes in the right acromioclavicular joint. The visualized soft tissue shadows are unremarkable. IMPRESSION: Tiny osseous fragment along the inferior margin of the glenoid rim is likely degenerative. However, a bony Bankart injury cannot be entirely excluded. This could be better evaluated with MRI. Dictated on workstation # [id number] Dict: 05/28/171833 Trans: 05/28/171837 CATHI [id number] Interpreted by: YIFAN PRICE MD Electronically signed by: Reviewed: Reviewed by Me Departure Impression Impression: Primary Impression: Fall Qualified Codes: W19.XXXA - Unspecified fall, initial encounter Additional Impression: Shoulder pain, right Qualified Codes: M25.511 - Pain in right shoulder Disposition: HOME, SELF-CARE Condition: Improved Departure-Patient Inst. Decision time for Depature: 19:08 Referrals: NO,LOCAL PHYSICIAN (PCP) Primary Care Physician Patient Instructions: How to Use a Shoulder Sling Add. Discharge Instructions: Use heating pads for your shoulder as well as wear the sling for the next 1-2 weeks. Take your arm out of the sling every 6 hours and move it 10 times through full range of motion. You can use topical creams such as icy hot or Biofreeze over your shoulder. In addition to that if you're pain becomes so severe that you cannot stand it then you may use 1-2 tablets of the hydrocodone every 6 hours as needed. If you have muscle spasms in your shoulder then you can take one tablet of Flexeril every 8 hours. Hydrocodone will cause constipation and drowsiness and Flexeril will cause drowsiness; do not mix these with alcohol. Tomorrow morning call [facility] at [phone] and requests an appointment within the next 1-2 weeks for follow-up of your right shoulder. All discharge instructions reviewed with patient and/or family. Voiced understanding. Scripts Cyclobenzaprine HCl (Cyclobenzaprine HCl) 10 Mg Tablet 10 MG PO Q8H Y for SPASMS, #20 TAB 0 Refills Prov: ALEX GARCIA 05/28/17 Hydrocodone Bit/Acetaminophen (Hydrocodone/Acetaminophen 5/325mg Tablet) 1 Tab Tab 1-2 EACH PO Q6H Y for BREAKTHROUGH PAIN, #15 TAB 0 Refills Prov: ALEX GARCIA 05/28/17 ALEX GARCIA May 28, 2017 18:10
[2017-05-28] MEDS ORDERED: fentaNYL INJECTION 100 MCG/2 ML AMP IM ONE (18:15)
--- NOTE | 2017-05-28 18:39 | Diagnostic Imaging Report ---
EXAM: SHOULDER, RIGHT, 3 VIEWS INDICATION: Fall. Right shoulder pain. COMPARISON: None. FINDINGS: No malalignment. Small osseous fragment along the inferior glenoid rim. Mild degenerative changes in the right acromioclavicular joint. The visualized soft tissue shadows are unremarkable. IMPRESSION: Tiny osseous fragment along the inferior margin of the glenoid rim is likely degenerative. However, a bony Bankart injury cannot be entirely excluded. This could be better evaluated with MRI. Dictated by: Dictated on workstation # [id number]
[2017-05-28] MEDS ORDERED: CYCL10TA9 PO (19:11)
[2017-05-28] MEDS ORDERED: ACHD5005 PO (19:11)
[2017-05-28 19:17] VITALS: BP 160/100
== END 2017-05-28 19:17 | disposition home or self-care (01) ==
LOC: EDUNIT# 17:24 → ER 17:25
DX: M25.511 Pain in right shoulder (principal); F32.9 Major depressive disorder, single episode, unspecified; E11.40 Type 2 diabetes mellitus with diabetic neuropathy, unspecified; I11.0 Hypertensive heart disease with heart failure; I50.9 Heart failure, unspecified; E78.00 Pure hypercholesterolemia, unspecified; J44.9 Chronic obstructive pulmonary disease, unspecified; K59.09 Other constipation; Z87.891 Personal history of nicotine dependence; Z89.421 Acquired absence of other right toe(s); Z88.6 Allergy status to analgesic agent; Z88.8 Allergy status to other drugs, medicaments and biological substances; W18.30XA Fall on same level, unspecified, initial encounter; Y92.007 Garden or yard of unspecified non-institutional (private) residence as the place of occurrence of the external cause
CPT/HCPCS: 73030; 96372

== ENCOUNTER → 2017-05-31 | Outpatient (CLI) | payer MEDICAID ==
[~2017-05-31] MED LIST changes: +INSU100I29
[2017-05-31 08:06] LABS: HEMOGLOBIN 13.9 G/DL (13.3-17.7); MEAN PLATELET VOLUME 9.8 FL (7.4-10.4); RED BLOOD COUNT 4.63 10^6/uL (4.35-5.85); RED CELL DISTRIBUTION WIDTH 13.8 % (10.0-14.5); WHITE BLOOD COUNT 5.8 10^3/uL (4.3-11.0)
[2017-05-31 08:24] LABS: ALANINE AMINOTRANSFERASE 16 U/L (0-55); ALBUMIN 3.9 GM/DL (3.2-4.5); ALKALINE PHOSPHATASE 96 U/L (40-136); BILIRUBIN,TOTAL 0.3 MG/DL (0.1-1.0); BUN/CREATININE RATIO 8; CALCIUM 9.1 MG/DL (8.5-10.1); CARBON DIOXIDE 25 MMOL/L (21-32); CHLORIDE 106 MMOL/L (98-107); CHOLESTEROL 262 MG/DL (< 200); CREATININE SERUM 1.09 MG/DL (0.60-1.30); GFR ESTIMATED > 60; GLUCOSE 299 MG/DL (70-105); HDL CHOLESTEROL 47 MG/DL (40-60); SODIUM 137 MMOL/L (135-145); TRIGLYCERIDES 334 MG/DL (<150); VLDL CHOLESTEROL 67 MG/DL (5-40)
== END ==
LOC: LAB 07:49
PROVIDERS: ATTEND Family Medicine
DX: E11.9 Type 2 diabetes mellitus without complications (principal)
CPT/HCPCS: 36415; 80053; 80061; 83036; 85027

== ENCOUNTER → 2017-10-14 | Outpatient (CLI) | payer MEDICAID ==
[2017-10-14 13:41] LABS: HEMOGLOBIN 14.3 G/DL (13.3-17.7); RED BLOOD COUNT 4.72 10^6/uL (4.35-5.85); RED CELL DISTRIBUTION WIDTH 13.7 % (10.0-14.5); WHITE BLOOD COUNT 5.1 10^3/uL (4.3-11.0)
[2017-10-14 14:04] LABS: BUN/CREATININE RATIO 8; CALCIUM 9.1 MG/DL (8.5-10.1); CARBON DIOXIDE 23 MMOL/L (21-32); CHLORIDE 103 MMOL/L (98-107); CREATININE SERUM 1.15 MG/DL (0.60-1.30); GFR ESTIMATED > 60; GLUCOSE 307 MG/DL (70-105); SODIUM 134 MMOL/L (135-145)
--- NOTE | 2017-10-14 16:09 | Diagnostic Imaging Report ---
INDICATION: Status post amputation of second through fifth toes one year ago. Patient has continued infection. TIME OF EXAMINATION: 02:02 p.m. FINDINGS: Post surgical changes of amputation of second through fifth toes are noted. Distal portions of the metatarsals are intact. No definite bony destructive changes are seen. Overlying soft tissues are unremarkable. No soft tissue gas is identified. Vascular calcifications are present. The first metatarsal and great toe are unremarkable. Midfoot and hindfoot are unremarkable. IMPRESSION: Postsurgical changes. No complicating features are detected. Dictated by: Dictated on workstation # [id number]
== END ==
LOC: LAB 13:20
PROVIDERS: ATTEND Preventive Medicine Undersea and Hyperbaric Medicine
DX: E11.51 Type 2 diabetes mellitus with diabetic peripheral angiopathy without gangrene (principal); Z89.421 Acquired absence of other right toe(s)
CPT/HCPCS: 36415; 73630; 80048; 83036; 85027; 85652; 86141

== ENCOUNTER 2018-03-05 18:13 | Emergency (ER) | payer MEDICAID ==
[~2018-03-05] VITALS: Ht 200.7 cm; Wt 113.4 kg
--- OUTSIDE RECORDS SUMMARY | 2018-03-05 18:18 | XMS REPORT | Clinical Summary ---
Author Author [facility] Organization [facility] Address Unknown Phone Unavailable Care Team Providers Care Rebar Bender Name Role Phone Jonathan Carvalho DO PCP Source Comments Some departments are not documenting in the electronic medical record. If you do not see the information that you expected, contact Release of Information in the Health Information Management department at [phone] for further assistance in locating additional records.[facility] Allergies Comments Active Allergy Reactions Severity Noted Date Adhesive Tape (Rosins) RASH Medium 02/16/2016 Burning sensation Cortisone SEE COMMENTS Low 02/16/2016 Causes more pain Pregabalin SEE COMMENTS Low 02/16/2016 Causes more pain Meloxicam SEE COMMENTS Low 02/16/2016 Medications No known medications Active Problems Not on file Social History Date Tobacco Use Types Packs/Day Years Used Never Smoker Sex Assigned at Date Recorded Not on file Industry Job Start Date Occupation Not on file Not on file Not on file Travel End Travel History Travel Start No recent travel history available. Last Filed Vital Signs Time Taken Vital Sign Reading 02/16/2016 1:16 PM MEDICAL PARASITOLOGIST Blood Pressure 189/115 02/16/2016 1:16 PM MEDICAL PARASITOLOGIST Pulse 107 02/16/2016 1:16 PM MEDICAL PARASITOLOGIST Temperature 37.1 C (98.8 F) - Respiratory Rate - 02/16/2016 1:16 PM MEDICAL PARASITOLOGIST Oxygen Saturation 95% - Inhaled Oxygen - Concentration 02/16/2016 1:16 PM MEDICAL PARASITOLOGIST Weight 145.2 kg (320 lb) 02/16/2016 1:16 PM MEDICAL PARASITOLOGIST Height 193 cm (6' 4") 02/16/2016 1:16 PM MEDICAL PARASITOLOGIST Body Mass Index 38.95 Plan of Treatment Health Maintenance Due Date Last Done Comments PHYSICAL (COMPREHENSIVE) 1972 EXAM HIV SCREENING 1980 DTAP/TDAP VACCINES (1 - 12/29/1983 Tdap) COLORECTAL CANCER 12/29/2015 SCREENING SHINGLES RECOMBINANT 12/29/2015 VACCINE (1 of 2) INFLUENZA VACCINE 09/25/2017 Results Not on filefrom Last 3 Months Advance Directives Patient has advance care planning documents on file. For more information, please contact: [facility] [address] [place] [address]
--- OUTSIDE RECORDS SUMMARY | 2018-03-05 18:19 | XMS REPORT ---
Author Author AFSHAN BLACK Organization [facility] Address [address] [place] [address] Care Team Providers Care It Senior Analyst Name Role Phone AFSHAN BLACK Unavailable PROBLEMS Type Condition ICD9-CM Code [id number] Code Onset Dates Condition Status SNOMED Code Problem Major depressive disorder, recurrent episode, moderate F33.1 Active 645262651 Problem group home current use of insulin Z79.4 Active 581233897 Problem Type 2 diabetes mellitus with other specified complication E11.69 Active 712637816 Problem Hypercholesteremia E78.0 Active 32513341 Problem Anxiety F41.9 Active 87410856 Problem Insomnia G47.00 Active 838125089 Problem Chronic pain G89.29 Active 85843074 Problem History of pulmonary embolus (PE) Z86.711 Active 658742394 Problem Stage 2 chronic kidney disease N18.2 Active 876578061 Problem Essential hypertension I10 Active 54450570 Problem Type 2 diabetes mellitus with hyperglycemia E11.65 Active 339659154 Problem Chronic pain disorder G89.4 Active 627791547 Problem CAD (coronary artery disease) I25.10 Active 49778045 ALLERGIES No Information ENCOUNTERS Encounter Location Date Diagnosis [place] [address] [place] [address] [id number] [place] [address] 99498- 1647 Apr, Type 2 diabetes mellitus with hyperglycemia E11.65 [facility] [id number] [address] Apr, [place] [address] [place] [id number] [place] [address] 06190- 7935 Apr, [place] [id number] [place] [address] 13551- 7708 14 Apr, 2017 BMI 40.0-44.9, adult Z68.41 ; Type 2 diabetes mellitus with hyperglycemia E11.65 ; group home current use of insulin Z79.4 ; Stage 2 chronic kidney disease N18.2 and History of pulmonary embolus (PE) Z86.711 [place] [id number] [place] [address] 30652- 3330 Apr, [place] [id number] [place] [address] 11452- 8077 Apr, Type 2 diabetes mellitus with hyperglycemia E11.65 [place] [id number] [place] [address] 96565- 5222 Feb, Type 2 diabetes mellitus with hyperglycemia E11.65 [place] [address] [place] [id number] [place] [address] 26174- 5993 Jan, [place] [address] [place] [id number] [place] [address] 16127- 0779 Dec, Type 2 diabetes mellitus with hyperglycemia E11.65 [place] [address] [id number] [place] [address] 27136- 4511 Nov, [place] [address] [id number] [place] [address] 61848- 5760 Nov, Body aches R52 ; Influenza A J10.1 and Chronic pain disorder G89.4 [place] [id number] [place] [address] 61944- 7097 Nov, [place] [address] [place] [id number] [place] [address] 69261- 0827 Nov, [place] [address] [place] [id number] [place] [address] 45944- 8278 Oct, [place] [address] [place] [id number] [place] [address] 40975- 1216 Sep, [place] [address] [id number] [place] [address] 54906- 1595 Sep, 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 [address] [address]36 Sep, [facility] [id number], [place] [address] 5228 Aug, [facility] [address], [place] [address] 0270 Jul, [facility] [address], [place] [address] 3209 Jul, [facility] [address] [address] Jul, Hematoma T14.8 [facility] [id number] [id number] Feb, Type 2 diabetes mellitus with hyperglycemia E11.65 ; group home current use of insulin Z79.4 and Essential hypertension I10 [facility] [id number] [id number] Feb, [facility] [address] [address] 7[address] June, [facility] [id number], [place] [address] 2109 June, [facility] [address], [place] [address]- 4600 June, [facility] [id number], [place] [address]- 7717 June, Acute frontal sinusitis, recurrence not specified J01.10 ; Type 2 diabetes mellitus with hyperglycemia E11.65 and group home current use of insulin Z79.4 [facility] [id number], [place] [address]- 4459 Dec, [facility] [place] [id number] [place] [address] 54364- 9847 Dec, Depression F32.9 ; Chronic pain G89.29 ; HTN (hypertension) I10 ; Hypercholesteremia E78.0 ; Anxiety F41.9 ; Insomnia G47.00 ; Major depressive disorder, recurrent episode, moderate F33.1 ; Type 2 diabetes mellitus with other specified complication E11.69 and GERD (gastroesophageal reflux disease) K21.9 [place] [id number] [place] [address] 67655- 9288 Dec, [place] [id number] [place] [address] 01885- 1940 Nov, Major depressive disorder, recurrent episode, moderate F33.1 [place] [id number] [place] [address] 51608- 1609 Nov, [address] 57007- 6435 Nov, [address] 33953- 3240 Nov, [address] 01518- 0341 Nov, [place] [id number] [place] [address] 15573- 3994 Nov, Diabetes 1.5, managed as type 1 E13.9 ; Depression F32.9 ; Chronic pain G89.29 ; HTN (hypertension) I10 ; Hypercholesteremia E78.0 ; LVF ( left ventricular failure) I50.1 ; CAD (coronary artery disease) I25.10 ; Anxiety F41.9 ; Edema R60.9 ; Insomnia G47.00 and GERD (gastroesophageal reflux disease) K21.9 [place] [id number] [place] [address] 93543- 0677 Nov, [place] [id number] [place] [address] 10014- 5100 Oct, [address] [place] [address] 10597- 3816 Oct, [facility] [id number] [place] [address] 44520- 4805 Oct, Diabetes 250.00 ; Chronic pain 338.29 ; Hypertension 401.9 ; Hypercholesterolemia 272.0 ; LVF (left ventricular failure) 428.1 ; CAD ( coronary artery disease) 414.00 ; Anxiety 300.00 ; Edema 782.3 and Insomnia 780.52 [facility] [address] [place] [id number] [place] [address] 05135- 2281 Jul, [facility] [address] [place] [id number] [place] [address] 26938- 5666 June, [facility] [address] [id number] [place] [address] 66265- 1736 June, [facility] [address] [id number] [place] [address] 66178- 4296 Mar, [facility] [id number] [place] [address] 83296- 1620 Jan, [facility] [id number] [place] [address] 17867- 6041 Jan, [facility] [id number] [place] [address] 46748- 4016 Nov, [facility] [id number] [place] [address] 75928- 5865 Nov, [facility] [id number] [place] [address] 57313- 5677 Oct, [facility] [id number] [place] [address] 37917- 5666 Oct, IMMUNIZATIONS No Known Immunizations SOCIAL HISTORY Never Assessed REASON FOR VISIT PALS rx - Eliquis PLAN OF CARE VITAL SIGNS MEDICATIONS Medication Instructions Dosage Frequency Start Date End Date Duration Status Eliquis 5 mg Orally 2 times a day 1 tablet 12h 21 Oct, 2016 90 days Active RESULTS No Results PROCEDURES No Known procedures [...] toes removed after a work accident in 2016 complicated by gangrene Medical History Acute kidney [...]
--- OUTSIDE RECORDS SUMMARY | 2018-03-05 18:19 | XMS REPORT ---
Author Author AFSHAN BLACK Organization [facility] Address [address] [place] [address] Care Team Providers Care Electrical Wiring Lineman Name Role Phone AFSHAN BLACK Unavailable PROBLEMS Type Condition ICD9-CM Code EMV86-XH Code Onset Dates Condition Status SNOMED Code Problem Major depressive disorder, recurrent episode, moderate F33.1 Active 782238582 Problem senior living current use of insulin Z79.4 Active 213108825 Problem Type 2 diabetes mellitus with other specified complication E11.69 Active 705432439 Problem Hypercholesteremia E78.0 Active 79990062 Problem Anxiety F41.9 Active 89730192 Problem Insomnia G47.00 Active 128146995 Problem Chronic pain G89.29 Active 37836818 Problem History of pulmonary embolus (PE) Z86.711 Active 242545974 Problem Stage 2 chronic kidney disease N18.2 Active 154037242 Problem Essential hypertension I10 Active 57521912 Problem Type 2 diabetes mellitus with hyperglycemia E11.65 Active 575890830 Problem Chronic pain disorder G89.4 Active 421371424 Problem CAD (coronary artery disease) I25.10 Active 17739140 ALLERGIES No Information ENCOUNTERS Encounter Location Date Diagnosis [place] [address] [place] [address] [id number] [place] [address] 26611- 8414 Apr, Type 2 diabetes mellitus with hyperglycemia E11.65 [facility] [id number] [address]- 3154 Apr, [place] [address] [id number] [place] [address] 49016- 5779 Apr, [place] [address] [place] [address] 11759- 7968 14 Apr, 2017 BMI 40.0-44.9, adult Z68.41 ; Type 2 diabetes mellitus with hyperglycemia E11.65 ; senior living current use of insulin Z79.4 ; Stage 2 chronic kidney disease N18.2 and History of pulmonary embolus (PE) Z86.711 [place] [address] [id number] [place] [address] 92059- 8027 Apr, [place] [address] [place] [id number] [place] [address] 26608- 0414 Apr, Type 2 diabetes mellitus with hyperglycemia E11.65 [place] [address] [id number] [place] [address] 87200- 1722 Feb, Type 2 diabetes mellitus with hyperglycemia E11.65 [place] [address] [id number] [place] [address] 10834- 7128 Jan, [place] [address] [place] [id number] [place] [address] 96868- 4563 Dec, Type 2 diabetes mellitus with hyperglycemia E11.65 [place] [address] [id number] [place] [address] 48048- 0471 Nov, [place] [address] [id number] [place] [address] 57478- 6179 Nov, Body aches R52 ; Influenza A J10.1 and Chronic pain disorder G89.4 [place] [address] [id number] [place] [address] 45077- 1160 Nov, [place] [address] [id number] [place] [address] 08377- 8371 Nov, [place] [address] [id number] [place] [address] 25147- 8935 Oct, [place] [address] [id number] [place] [address] 53841- 4879 Sep, [place] [address] [id number] [place] [address] 99006- 5187 Sep, 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 ; CAD (coronary artery disease) I25.10 and Type 2 diabetes mellitus with hyperglycemia E11.65 [place] [address] [address]- 4493 Sep, [facility] [id number] [address]- 6963 Sep, [facility] [id number] 6607 Sep, [facility] [id number] [address]- 5471 Aug, [facility] [address] [address]- 9645 Jul, [facility] [address] [address]- 4041 Jul, [facility] [address] 9884 Jul, Hematoma T14.8 [facility] [id number] [id number] Feb, Type 2 diabetes mellitus with hyperglycemia E11.65 ; senior living current use of insulin Z79.4 and Essential hypertension I10 [facility] [id number] [address] Feb, [facility] [address] 7063 June, [facility] [id number] [address]- 0592 June, [facility] [address] [address]- 8537 June, [facility] [id number] [address]- 4107 June, Acute frontal sinusitis, recurrence not specified J01.10 ; Type 2 diabetes mellitus with hyperglycemia E11.65 and senior living current use of insulin Z79.4 [facility] [id number] [address]- 3981 Dec, [facility] [place] [id number] [place] [address] 88288- 1593 Dec, Depression F32.9 ; Chronic pain G89.29 ; HTN (hypertension) I10 ; Hypercholesteremia E78.0 ; Anxiety F41.9 ; Insomnia G47.00 ; Major depressive disorder, recurrent episode, moderate F33.1 ; Type 2 diabetes mellitus with other specified complication E11.69 and GERD (gastroesophageal reflux disease) K21.9 [place] [id number] [place] [address] 82555- 3578 Dec, [place] [id number] [place] [address] 02390- 8663 Nov, Major depressive disorder, recurrent episode, moderate F33.1 [place] [id number] [place] [address] 50071- 6528 Nov, [address] 61574- 5317 Nov, [address] 49136- 4864 Nov, [address] 86975- 2610 Nov, [place] [id number] [place] [address] 91953- 8384 Nov, Diabetes 1.5, managed as type 1 E13.9 ; Depression F32.9 ; Chronic pain G89.29 ; HTN (hypertension) I10 ; Hypercholesteremia E78.0 ; LVF ( left ventricular failure) I50.1 ; CAD (coronary artery disease) I25.10 ; Anxiety F41.9 ; Edema R60.9 ; Insomnia G47.00 and GERD (gastroesophageal reflux disease) K21.9 [place] [id number] [place] [address] 46399- 3060 Nov, [place] [id number] [place] [address] 56703- 5308 Oct, [address] [address]- 2546 Oct, [facility] [id number] [place] [address] 20997- 5476 Oct, Diabetes 250.00 ; Chronic pain 338.29 ; Hypertension 401.9 ; Hypercholesterolemia 272.0 ; LVF (left ventricular failure) 428.1 ; CAD ( coronary artery disease) 414.00 ; Anxiety 300.00 ; Edema 782.3 and Insomnia 780.52 [facility] [id number] [place] [address] 52226- 1356 Jul, [facility] [id number] [place] [address] 40084- 5616 June, [facility] [id number] [place] [address] 11012- 4526 June, [facility] [id number] [place] [address] 96876- 9346 Mar, [facility] [id number] [place] [address] 60907- 1106 Jan, [facility] [id number] [place] [address] 79256- 6786 Jan, [facility] [id number] [address]- 6046 Nov, [facility] [address] [id number] [place] [address] 47562- 0696 Nov, [facility] [address] [address]- 2546 Oct, [facility] [id number] [place] [address] 01558- 6476 Oct, IMMUNIZATIONS No Known Immunizations SOCIAL HISTORY Never Assessed REASON FOR VISIT DM ed scheduled/insulin titration PLAN OF CARE VITAL SIGNS MEDICATIONS Medication Instructions Dosage Frequency Start Date End Date Duration Status Levemir FlexTouch 100 UNIT/ML Subcutaneous 2 times a day 35u 12h Active Humalog KwikPen 100 UNIT/ML Subcutaneous 3 times a day before meals 15 units Apr, Active RESULTS No Results PROCEDURES No Known [...]
--- OUTSIDE RECORDS SUMMARY | 2018-03-05 18:19 | XMS REPORT ---
Author Author Colton Hummel [facility] Address [address] [facility] [address] [place], [place] [id number] Care Team Providers Care Hebrew Teacher Name Role Phone Colton Hummel PCP Allergies and Adverse Reactions Name Reaction Notes Duncan Stacy Plan of Treatment Not available. Medications Not available. Problem List Not available. Vital Signs Not available. Social History Not available. History of Procedures Not available. Results Summary Not available. History Of Immunizations Not available. History of Past Illness Not available. Payers Insurance Name Company Name Plan Name Plan Number Policy Number Policy Group Number Start Date [facility] Plan of [id number] N/A History of Encounters Visit Date Visit Type Provider 12/26/2017 Office visit Colton Hummel DO
--- OUTSIDE RECORDS SUMMARY | 2018-03-05 18:19 | XMS REPORT ---
Author Author AFSHAN BLACK [facility] Address [address] [place] [address] Care Team Providers Care Police Booking Officer Name Role Phone AFSHAN BLACK Unavailable PROBLEMS ALLERGIES No Information ENCOUNTERS IMMUNIZATIONS No Known Immunizations SOCIAL HISTORY No smoking Hx information available REASON FOR VISIT PLAN OF CARE VITAL SIGNS MEDICATIONS Unknown Medications RESULTS No Results PROCEDURES No Known procedures INSTRUCTIONS MEDICATIONS ADMINISTERED No Known Medications MEDICAL (GENERAL) HISTORY
--- OUTSIDE RECORDS SUMMARY | 2018-03-05 18:19 | XMS REPORT ---
Author Author AFSHAN BLACK Organization [facility] Address [address] [place] [address] Care Team Providers Care Lead Auditor Name Role Phone AFSHAN BLACK Unavailable PROBLEMS Type Condition ICD9-CM Code [id number] Code Onset Dates Condition Status SNOMED Code Problem Major depressive disorder, recurrent episode, moderate F33.1 Active 417569998 Problem custodial current use of insulin Z79.4 Active 134223818 Problem Type 2 diabetes mellitus with other specified complication E11.69 Active 179184237 Problem Hypercholesteremia E78.0 Active 66555022 Problem Anxiety F41.9 Active 09512795 Problem Insomnia G47.00 Active 241478042 Problem Chronic pain G89.29 Active 77911234 Problem History of pulmonary embolus (PE) Z86.711 Active 595189910 Problem Stage 2 chronic kidney disease N18.2 Active 418863051 Problem Essential hypertension I10 Active 53301068 Problem Type 2 diabetes mellitus with hyperglycemia E11.65 Active 799324161 Problem Chronic pain disorder G89.4 Active 767307928 Problem CAD (coronary artery disease) I25.10 Active 21603110 ALLERGIES Substance Reaction Event Type Date Status Mobic joint stiffness Drug Allergy Apr, Active Lyrica joint stiffness Drug Allergy Apr, Active Betadine hives Drug Allergy Apr, Active ENCOUNTERS Encounter Location Date Diagnosis [facility] [id number] [address] Apr, Type 2 diabetes mellitus with hyperglycemia E11.65 [facility] [id number] [address] Apr, [facility] [address] [address] Apr, [facility] [id number] [address] Apr, BMI 40.0-44.9, adult Z68.41 ; Type 2 diabetes mellitus with hyperglycemia E11.65 ; custodial current use of insulin Z79.4 ; Stage 2 chronic kidney disease N18.2 and History of pulmonary embolus (PE) Z86.711 [place] [id number] [place] [address] 40302- 3085 Apr, [place] [id number] [place] [address] 17938- 2042 Apr, Type 2 diabetes mellitus with hyperglycemia E11.65 [place] [id number] [place] [address] 207027- 8824 Feb, Type 2 diabetes mellitus with hyperglycemia E11.65 [place] [id number] [place] [address] 65355- 7323 Jan, [place] [address] [address]- [address] Dec, Type 2 diabetes mellitus with hyperglycemia E11.65 [place] [id number] [place] [address] 36642- 7966 Nov, [place] [id number] [place] [address] 06658- 3368 Nov, Body aches R52 ; Influenza A J10.1 and Chronic pain disorder G89.4 [place] [id number] [place] [address] 99817- 3656 Nov, [place] [id number] [place] [address] 20822- 0109 Nov, [place] [id number] [place] [address] 28718- 6981 Oct, [place] [id number] [place] [address] 42167- 7609 Sep, [place] [id number] [place] [address] 34588- 8653 Sep, custodial current use of insulin Z79.4 ; CAD (coronary artery disease) I25.10 and Type 2 diabetes mellitus with hyperglycemia E11.65 [facility] [address] [facility] [id number] [place] [address] Sep, [facility] [address] [facility] [id number] [place] [address]- 7476 Sep, [facility] [address] [facility] [id number] [place] [address]- 4038 Sep, [facility] [address] [facility] [id number] [place] [address] 1221 Aug, [facility] [address] [facility] [id number] [place] [address]- 9381 Jul, [facility] [id number] [address]- 3[address] Jul, [facility] [id number] [address] 6922 Jul, Hematoma T14.8 [facility] [address] [id number] [place] [id number] Feb, Type 2 diabetes mellitus with hyperglycemia E11.65 ; custodial current use of insulin Z79.4 and Essential hypertension I10 [facility] [address] [id number] [place] [id number] Feb, [facility] [address] [facility] [id number] [address] 75[address] June, [facility] [address] [facility] [id number] [place] [address] 5246 June, [facility] [address] [facility] [id number] [place] [address] 1466 June, [facility] [address] [facility] [id number] [place] [address] June, Acute frontal sinusitis, recurrence not specified J01.10 ; Type 2 diabetes mellitus with hyperglycemia E11.65 and long term current use of insulin Z79.4 [place] [id number] [place] [address] 81503- 5139 Dec, [place] [id number] [place] [address] 46353- 9263 Dec, Depression F32.9 ; Chronic pain G89.29 ; HTN (hypertension) I10 ; Hypercholesteremia E78.0 ; Anxiety F41.9 ; Insomnia G47.00 ; Major depressive disorder, recurrent episode, moderate F33.1 ; Type 2 diabetes mellitus with other specified complication E11.69 and GERD (gastroesophageal reflux disease) K21.9 [place] [id number] [place] [address] 27748- 2153 Dec, [place] [id number] [place] [address] 08836- 1932 Nov, Major depressive disorder, recurrent episode, moderate F33.[address] [address]- 3[address] Nov, [place] [id number] [place] [address] 19868- 0435 Nov, [address] [address]- 3669 Nov, [place] [id number] [place] [address] 86946- 8960 Nov, [id number] [place] [address] 00417- 4886 Nov, Diabetes 1.5, managed as type 1 E13.9 ; Depression F32.9 ; Chronic pain G89.29 ; HTN (hypertension) I10 ; Hypercholesteremia E78.0 ; LVF ( left ventricular failure) I50.1 ; CAD (coronary artery disease) I25.10 ; Anxiety F41.9 ; Edema R60.9 ; Insomnia G47.00 and GERD (gastroesophageal reflux disease) K21.9 [place] [id number] [place] [address] 34558- 4586 Nov, [place] [address] [address] [address] Oct, [facility] [id number] [place] [address] 241937- 0863 Oct, [facility] [id number] [address] Oct, Diabetes 250.00 ; Chronic pain 338.29 ; Hypertension 401.9 ; Hypercholesterolemia 272.0 ; LVF (left ventricular failure) 428.1 ; CAD ( coronary artery disease) 414.00 ; Anxiety 300.00 ; Edema 782.3 and Insomnia 780.52 [facility] [id number] [place] [address] 84673- 6801 Jul, [facility] [id number] [place] [address] 77903- 7480 June, [facility] [id number] [place] [address] 36753- 7739 June, [facility] [id number] [place] [address] 61822- 5300 Mar, [facility] [id number] [place] [address] 70754- 0994 Jan, [facility] [id number] [address]- 0342 Jan, [facility] [id number] [place] [address] 58739- 1063 Nov, [facility] [address] [address]- 30[address] Nov, [facility] [id number] [place] [address] 16745- 1933 Oct, [facility] [address] [address] 22[address] Oct, IMMUNIZATIONS No Known Immunizations SOCIAL HISTORY Never Assessed REASON FOR VISIT Diabetes - PERRY Villavicencio PLAN OF CARE Activity Details Follow Up pt will call if he does not change providers Reason: VITAL SIGNS Height 71.0 in 2017-05-08 Weight 316.8 lbs 2017-05-08 Temperature 98.2 degrees Fahrenheit 2017-05-08 Heart Rate 90 bpm 2017-05-08 Respiratory Rate 20 2017-05-08 BMI 44.18 kg/m2 2017-05-08 Blood pressure systolic 142 mmHg 2017-05-08 Blood pressure diastolic 88 mmHg 2017-05-08 MEDICATIONS Medication Instructions Dosage Frequency Start Date End Date Duration Status Isosorbide Mononitrate ER 60 mg Orally Once a day 1 tablet in the morning 24h Sep, Active Amlodipine Besylate 10 mg Orally Once a day 1 tablet 24h Sep, 30 days Active Levemir FlexTouch 100 UNIT/ML Subcutaneous 2 times a day 20u 12h 30 Active Gabapentin 100 mg Orally Once a day 3 capsule 24h Sep, 30 days Active Carvedilol 6.25 MG Orally Once a day 1 tablet 24h Sep, Active BD Pen Needle Ultrafine 29G X 12.7MM as directed Dec, 90 days Active Eliquis 5 mg Orally 2 times a day 1 tablet 12h 21 Oct, 2016 Active Humalog KwikPen 100 UNIT/ML Subcutaneous 3 times a day inject 3-4 units 8h Apr, 90 days Active Terazosin HCl 2 MG Orally Once a day 1 capsule 24h Sep, Active Lisinopril 10 MG Orally Once a day 1 tablet 24h 26 Feb, 2016 90 days Not-Taking Glucocard Expression Test - In Vitro 3 times a day as directed 8h Sep, 30 days Active RESULTS Name Result Date Reference Range A1C (IN HOUSE) 2017-05-08 A1C IN HOUSE 10.4 4.3 - 5.6 % Previous A1c 8.5 Lot [id number] Exp date 12/2018 PROCEDURES Procedure Date Ordered Result Body Site GLYCATED HEMOGLOBIN TEST May 08, 2017 INSTRUCTIONS MEDICATIONS ADMINISTERED No Known Medications MEDICAL [...]
--- OUTSIDE RECORDS SUMMARY | 2018-03-05 18:19 | XMS REPORT ---
Author Author AFSHAN BLACK Organization [facility] Address [address] [place] [address] Care Team Providers Care Rn Wellness Name Role Phone AFSHAN BLACK Unavailable PROBLEMS Type Condition ICD9-CM Code [id number] Code Onset Dates Condition Status SNOMED Code Problem Major depressive disorder, recurrent episode, moderate F33.1 Active 086145729 Problem custodial current use of insulin Z79.4 Active 228194692 Problem Type 2 diabetes mellitus with other specified complication E11.69 Active 630098029 Problem Hypercholesteremia E78.0 Active 93382625 Problem Anxiety F41.9 Active 65527779 Problem Insomnia G47.00 Active 796353780 Problem Chronic pain G89.29 Active 01013261 Problem History of pulmonary embolus (PE) Z86.711 Active 354506911 Problem Stage 2 chronic kidney disease N18.2 Active 560915368 Problem Essential hypertension I10 Active 20504568 Problem Type 2 diabetes mellitus with hyperglycemia E11.65 Active 291654514 Problem Chronic pain disorder G89.4 Active 758491205 Problem CAD (coronary artery disease) I25.10 Active 92968438 ALLERGIES No Information ENCOUNTERS Encounter Location Date Diagnosis [address] [id number] [place] [address]2622- 8831 Apr, Type 2 diabetes mellitus with hyperglycemia E11.65 [facility] [id number], [place] [address]- 0320 Apr, [id number] [place] [address] 41794- 1108 Apr, [place] [id number] [place] [address] 64393- 6612 14 Apr, 2017 BMI 40.0-44.9, adult Z68.41 ; Type 2 diabetes mellitus with hyperglycemia E11.65 ; custodial current use of insulin Z79.4 ; Stage 2 chronic kidney disease N18.2 and History of pulmonary embolus (PE) Z86.711 [address] [place] [id number] [place] [address] 85997- 0722 Apr, [place] [id number] [place] [address] 53253- 3674 Apr, Type 2 diabetes mellitus with hyperglycemia E11.65 [place] [id number] [place] [address] 42687- 4477 Feb, Type 2 diabetes mellitus with hyperglycemia E11.65 [place] [id number] [place] [address] 07730- 6952 Jan, [place] [id number] [place] [address] 38537- 5943 Dec, Type 2 diabetes mellitus with hyperglycemia E11.65 [place] [id number] [place] [address] 24430- 7188 Nov, [place] [id number] [place] [address] 35843- 5807 Nov, Body aches R52 ; Influenza A J10.1 and Chronic pain disorder G89.4 [place] [id number] [place] [address] 94922- 5056 Nov, [place] [id number] [place] [address] 67189- 4894 Nov, [place] [id number] [place] [address] 18135- 5162 Oct, [place] [id number] [place] [address] 51084- 0812 Sep, [place] [id number] [place] [address] 49665- 8883 Sep, 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 ; CAD (coronary artery disease) I25.10 and Type 2 diabetes mellitus with hyperglycemia E11.65 [place] [address], [place] [address]- 9261 Sep, [facility] [id number], [place] [address]- 3822 Sep, [facility] [address] [address] 1204 Sep, [facility] [id number], [place] [address]- 9402 Aug, [facility] [address], [place] [address]- 9909 Jul, [facility] [address], [place] [address]- 5754 Jul, [facility] [address] [address] Jul, Hematoma T14.8 [facility] [id number] [id number] Feb, Type 2 diabetes mellitus with hyperglycemia E11.65 ; custodial current use of insulin Z79.4 and Essential hypertension I10 [facility] [id number] [id number] Feb, [facility] [address] [address] 49[address] June, [facility] [id number], [place] [address]- 4877 June, [facility] [address], [place] [address]- 3008 June, [facility] [id number], [place] [address]- 2733 June, Acute frontal sinusitis, recurrence not specified J01.10 ; Type 2 diabetes mellitus with hyperglycemia E11.65 and custodial current use of insulin Z79.4 [facility] [id number], [place] [address]- 1339 Dec, [facility] [place] [id number] [place] [address] 13260- 0962 Dec, Depression F32.9 ; Chronic pain G89.29 ; HTN (hypertension) I10 ; Hypercholesteremia E78.0 ; Anxiety F41.9 ; Insomnia G47.00 ; Major depressive disorder, recurrent episode, moderate F33.1 ; Type 2 diabetes mellitus with other specified complication E11.69 and GERD (gastroesophageal reflux disease) K21.9 [place] [id number] [place] [address] 49131- 1656 Dec, [id number] [place] [address] 52314- 2614 Nov, Major depressive disorder, recurrent episode, moderate F33.1 [address] [id number] [place] [address] 94230- 0909 Nov, [address] 55681- [address]761 Nov, [address] 47555- 5871 Nov, [address] 32431- 6016 Nov, [id number] [place] [address] 79679- 2151 Nov, Diabetes 1.5, managed as type 1 E13.9 ; Depression F32.9 ; Chronic pain G89.29 ; HTN (hypertension) I10 ; Hypercholesteremia E78.0 ; LVF ( left ventricular failure) I50.1 ; CAD (coronary artery disease) I25.10 ; Anxiety F41.9 ; Edema R60.9 ; Insomnia G47.00 and GERD (gastroesophageal reflux disease) K21.9 [id number] [place] [address] 26259- 6221 Nov, [id number] [place] [address] 99527- 4057 Oct, [address], [place] [address]- 9066 Oct, [facility] [id number] [place] [address] 97589- 1676 Oct, Diabetes 250.00 ; Chronic pain 338.29 ; Hypertension 401.9 ; Hypercholesterolemia 272.0 ; LVF (left ventricular failure) 428.1 ; CAD ( coronary artery disease) 414.00 ; Anxiety 300.00 ; Edema 782.3 and Insomnia 780.52 [facility] [id number] [place] [address] 51593- 9029 Jul, [facility] [id number] [place] [address] 63209- 8356 June, [facility] [id number] [place] [address] 46597- 2036 June, [facility] [id number] [place] [address] 15138- 4976 Mar, [facility] [id number] [place] [address] 58576- 2706 Jan, [facility] [id number] [place] [address] 23086- 2276 Jan, [facility] [id number], [place] [address]- 1576 Nov, [facility] [id number] [place] [address] 77486- 6556 Nov, [facility] [address], [place] [address]- 3726 Oct, [facility] [id number] [place] [address] 37931- 0627 Oct, IMMUNIZATIONS No Known Immunizations SOCIAL HISTORY Never Assessed REASON FOR VISIT Unable to afford Eliquis PLAN OF CARE VITAL SIGNS MEDICATIONS Medication Instructions Dosage Frequency Start Date End Date Duration Status Eliquis 5 mg Orally 2 times a day 1 tablet 12h 21 Oct, 2016 30 days Active RESULTS No Results PROCEDURES No [...]
--- OUTSIDE RECORDS SUMMARY | 2018-03-05 18:20 | XMS REPORT ---
Author Author AFSHAN BLACK Organization [facility] Address [address] [place] [address] Care Team Providers Care Peoplesoft Functional Analyst Name Role Phone AFSHAN BLACK Unavailable PROBLEMS Type Condition ICD9-CM Code BEC51-PW Code Onset Dates Condition Status SNOMED Code Problem Major depressive disorder, recurrent episode, moderate F33.1 Active 855275408 Problem senior care current use of insulin Z79.4 Active 289519765 Problem Type 2 diabetes mellitus with other specified complication E11.69 Active 882732544 Problem Hypercholesteremia E78.0 Active 31354338 Problem Anxiety F41.9 Active 11315329 Problem Insomnia G47.00 Active 569711935 Problem Chronic pain G89.29 Active 52376523 Problem History of pulmonary embolus (PE) Z86.711 Active 328120961 Problem Stage 2 chronic kidney disease N18.2 Active 656827714 Problem Essential hypertension I10 Active 72434816 Problem Type 2 diabetes mellitus with hyperglycemia E11.65 Active 904558439 Problem Chronic pain disorder G89.4 Active 001834678 Problem CAD (coronary artery disease) I25.10 Active 02744582 ALLERGIES No Information ENCOUNTERS Encounter Location Date Diagnosis [place] [id number] [address] [id number] [place] [address] 10976- 7258 Apr, Type 2 diabetes mellitus with hyperglycemia E11.65 [facility] [id number] [address] 2385 Apr, [place] [address] [id number] [place] [address] 93437- 3704 Apr, [place] [address] [place] [address] 85613- 2960 14 Apr, 2017 BMI 40.0-44.9, adult Z68.41 ; Type 2 diabetes mellitus with hyperglycemia E11.65 ; senior care current use of insulin Z79.4 ; Stage 2 chronic kidney disease N18.2 and History of pulmonary embolus (PE) Z86.711 [place] [id number] [place] [address] 39005- 7848 Apr, [place] [id number] [place] [address] 81268- 1782 Apr, Type 2 diabetes mellitus with hyperglycemia E11.65 [place] [id number] [place] [address] 27834- 5293 Feb, Type 2 diabetes mellitus with hyperglycemia E11.65 [place] [id number] [place] [address] 48036- 3112 Jan, [place] [address] [id number] [place] [address] 76715- 8150 Dec, Type 2 diabetes mellitus with hyperglycemia E11.65 [place] [id number] [place] [address] 54398- 1527 Nov, [place] [id number] [place] [address] 92294- 6980 Nov, Body aches R52 ; Influenza A J10.1 and Chronic pain disorder G89.4 [place] [id number] [place] [address] 33478- 2046 Nov, [place] [id number] [place] [address] 51701- 4713 Nov, [place] [address] [id number] [place] [address] 19437- 9213 Oct, [place] [address] [id number] [place] [address] 48870- 8469 Sep, [place] [address] [id number] [place] [address] 98658- 2243 Sep, 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 ; CAD (coronary artery disease) I25.10 and Type 2 diabetes mellitus with hyperglycemia E11.65 [place] [address] [address] 1435 Sep, [facility] [id number] [address] 1365 Sep, [facility] [address] [address] 2846 Sep, [facility] [id number] [address] 0158 Aug, [facility] [address], [place] [address] 7631 Jul, [facility] [address] [address]- 9647 Jul, [facility] [address] [address] 6741 Jul, Hematoma T14.8 [facility] [id number] [id number] Feb, Type 2 diabetes mellitus with hyperglycemia E11.65 ; senior care current use of insulin Z79.4 and Essential hypertension I10 [facility] [id number] [id number] Feb, [facility] [address] [address] June, [facility] [id number] [address] 3788 June, [facility] [address], [place] [address] 7309 June, [facility] [id number] [address]- 6889 June, Acute frontal sinusitis, recurrence not specified J01.10 ; Type 2 diabetes mellitus with hyperglycemia E11.65 and senior care current use of insulin Z79.4 [facility] [id number] [address]- 7563 Dec, [facility] [place] [id number] [place] [address] 70553- 3153 Dec, Depression F32.9 ; Chronic pain G89.29 ; HTN (hypertension) I10 ; Hypercholesteremia E78.0 ; Anxiety F41.9 ; Insomnia G47.00 ; Major depressive disorder, recurrent episode, moderate F33.1 ; Type 2 diabetes mellitus with other specified complication E11.69 and GERD (gastroesophageal reflux disease) K21.9 [place] [id number] [place] [address] 46369- 3044 Dec, [place] [id number] [place] [address] 50017- 5382 Nov, Major depressive disorder, recurrent episode, moderate F33.1 [place] [id number] [place] [address] 10368- 4648 Nov, [address] 74080- 2800 Nov, [address] 74735- 4382 Nov, [address] 65671- 2156 Nov, [place] [id number] [place] [address] 89418- 7661 Nov, Diabetes 1.5, managed as type 1 E13.9 ; Depression F32.9 ; Chronic pain G89.29 ; HTN (hypertension) I10 ; Hypercholesteremia E78.0 ; LVF ( left ventricular failure) I50.1 ; CAD (coronary artery disease) I25.10 ; Anxiety F41.9 ; Edema R60.9 ; Insomnia G47.00 and GERD (gastroesophageal reflux disease) K21.9 [place] [id number] [place] [address] 14089- 7255 Nov, [place] [id number] [place] [address] 38832- 8620 Oct, [address] [place] [address] 48788- 8929 Oct, [facility] [id number] [place] [address] 88764- 5692 Oct, Diabetes 250.00 ; Chronic pain 338.29 ; Hypertension 401.9 ; Hypercholesterolemia 272.0 ; LVF (left ventricular failure) 428.1 ; CAD ( coronary artery disease) 414.00 ; Anxiety 300.00 ; Edema 782.3 and Insomnia 780.52 [facility] [id number] [place] [address] 19701506- 6228 Jul, [facility] [id number] [place] [address] 05379- 3483 June, [facility] [id number] [place] [address] 57043- 2873 June, [facility] [id number] [place] [address] 74698- 6715 Mar, [facility] [id number] [place] [address] [id number]- 3731 Jan, [facility] [id number] [place] [address] 14690- 2244 Jan, [facility] [id number] [place] [address] 56770- 1686 Nov, [facility] [id number] [place] [address] 24116- 3608 Nov, [facility] [id number] [place] [address] 00955139- 1345 Oct, [facility] [id number] [place] [address] 79565- 0574 Oct, IMMUNIZATIONS No Known Immunizations SOCIAL HISTORY Never Assessed REASON FOR VISIT Referral request PLAN OF CARE VITAL SIGNS MEDICATIONS Unknown [...]
--- OUTSIDE RECORDS SUMMARY | 2018-03-05 18:20 | XMS REPORT ---
Author Author AFSHAN BLACK Organization [facility] Address [address] 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 Active 452242754 Problem Type 2 diabetes mellitus with other specified complication E11.69 Active 863339498 Problem Hypercholesteremia E78.0 Active 37919225 Problem Anxiety F41.9 Active 28687669 Problem Insomnia G47.00 Active 061855161 Problem Chronic pain G89.29 Active 91958970 Problem History of pulmonary embolus (PE) Z86.711 Active 196118289 Problem Stage 2 chronic kidney disease N18.2 Active 829401587 Problem Essential hypertension I10 Active 88219928 Problem Type 2 diabetes mellitus with hyperglycemia E11.65 Active 135367899 Problem Chronic pain disorder G89.4 Active 778616606 Problem CAD (coronary artery disease) I25.10 Active 36628070 ALLERGIES No Information ENCOUNTERS Encounter Location Date Diagnosis [place] [id number] [place] [id number] [place] [address] 65780- 2744 Apr, Type 2 diabetes mellitus with hyperglycemia E11.65 [facility] [id number] [address]- 2824 Apr, [place] [address] [address] [id number] [place] [address] 93114- 3904 Apr, [place] [address] [place] [address] 36681- 3886 14 Apr, 2017 BMI 40.0-44.9, adult Z68.41 ; Type 2 diabetes mellitus with hyperglycemia E11.65 ; jail current use of insulin Z79.4 ; Stage 2 chronic kidney disease N18.2 and History of pulmonary embolus (PE) Z86.711 [place] [id number] [place] [address] 41172- 3605 Apr, [place] [address] [address] [id number] [place] [address] 76187- 0918 Apr, Type 2 diabetes mellitus with hyperglycemia E11.65 [place] [address] [id number] [place] [address] 70595- 6755 Feb, Type 2 diabetes mellitus with hyperglycemia E11.65 [place] [address] [id number] [place] [address] 98203- 1095 Jan, [place] [address] [address] [id number] [place] [address] 13389- 3158 Dec, Type 2 diabetes mellitus with hyperglycemia E11.65 [place] [address] [id number] [place] [address] 49278- 7237 Nov, [place] [address] [place] [address] [id number] [place] [address] 61714- 4982 Nov, Body aches R52 ; Influenza A J10.1 and Chronic pain disorder G89.4 [place] [address] [id number] [place] [address] 60961- 2685 Nov, [place] [address] [address] [id number] [place] [address] 30369- 1490 Nov, [place] [address] [address] [id number] [place] [address] 93154- 7130 Oct, [place] [address] [address] [id number] [place] [address] 46130- 9384 Sep, [place] [address] [id number] [place] [address] 40054- 2163 Sep, 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 Z79.4 ; CAD (coronary artery disease) I25.10 and Type 2 diabetes mellitus with hyperglycemia E11.65 [place] [address], [place] [address]- 7227 Sep, [facility] [id number], [place] [address]- 3970 Sep, [facility] [id number] 3229 Sep, [facility] [address] [id number], [place] [address]- 8565 Aug, [facility] [address], [place] [address]- 3185 Jul, [facility] [address], [place] [address]- 3793 Jul, [facility] [address] 2164 Jul, Hematoma T14.8 [facility] [id number] [place] [id number] Feb, Type 2 diabetes mellitus with hyperglycemia E11.65 ; jail current use of insulin Z79.4 and Essential hypertension I10 [facility] [id number] [place] [id number] Feb, [facility] [address] 7609 June, [facility] [address] [id number], [place] [address]- 5265 June, [facility] [address], [place] [address]- 8285 June, [facility] [address] [place] [id number], [place] [address]- 4288 June, Acute frontal sinusitis, recurrence not specified J01.10 ; Type 2 diabetes mellitus with hyperglycemia E11.65 and jail current use of insulin Z79.4 [facility] [id number], [place] [address]- 2940 Dec, [facility] [place] [id number] [place] [address] 21110- 5754 Dec, Depression F32.9 ; Chronic pain G89.29 ; HTN (hypertension) I10 ; Hypercholesteremia E78.0 ; Anxiety F41.9 ; Insomnia G47.00 ; Major depressive disorder, recurrent episode, moderate F33.1 ; Type 2 diabetes mellitus with other specified complication E11.69 and GERD (gastroesophageal reflux disease) K21.9 [place] [id number] [place] [address] 82018- 8300 Dec, [place] [id number] [place] [address] 42883- 9286 Nov, Major depressive disorder, recurrent episode, moderate F33.1 [place] [id number] [place] [address] 87351- 7699 Nov, [address] 45603- 8992 Nov, [address] 58530- 6906 Nov, [address] 33529- 1797 Nov, [place] [id number] [place] [address] 77064- 5111 Nov, Diabetes 1.5, managed as type 1 E13.9 ; Depression F32.9 ; Chronic pain G89.29 ; HTN (hypertension) I10 ; Hypercholesteremia E78.0 ; LVF ( left ventricular failure) I50.1 ; CAD (coronary artery disease) I25.10 ; Anxiety F41.9 ; Edema R60.9 ; Insomnia G47.00 and GERD (gastroesophageal reflux disease) K21.9 [place] [id number] [place] [address] 95444- 8217 Nov, [place] [id number] [place] [address] 79051- 5458 Oct, [address] [place] [address] 29795- 3149 Oct, [facility] [id number] [place] [address] 63695- 9099 Oct, Diabetes 250.00 ; Chronic pain 338.29 ; Hypertension 401.9 ; Hypercholesterolemia 272.0 ; LVF (left ventricular failure) 428.1 ; CAD ( coronary artery disease) 414.00 ; Anxiety 300.00 ; Edema 782.3 and Insomnia 780.52 [facility] [id number] [place] [address] 26483- 0724 Jul, [facility] [address] [id number] [place] [address] 01506- 0128 June, [facility] [address] [id number] [place] [address] 09729- 2305 June, [facility] [address] [id number] [place] [address] 92841- 2287 Mar, [facility] [id number] [place] [address] 24615233- 4121 Jan, [facility] [address] [id number] [place] [address] 823394- 7899 Jan, [facility] [id number] [place] [address] 14737- 4806 Nov, [facility] [address] [id number] [place] [address] 867900- 8161 Nov, [facility] [id number] [place] [address] [id number]- 1141 Oct, [facility] [id number] [place] [address] 29784- 7628 Oct, IMMUNIZATIONS No Known Immunizations SOCIAL HISTORY Never Assessed REASON FOR VISIT Wound Care Update PLAN OF CARE VITAL SIGNS MEDICATIONS Unknown [...]
--- OUTSIDE RECORDS SUMMARY | 2018-03-05 18:20 | XMS REPORT ---
Author Author AFSHAN BLACK Organization [facility] Address [address] [place] [address] Care Team Providers Care Awake Overnight Monitor Name Role Phone AFSHAN BLACK Unavailable PROBLEMS Type Condition ICD9-CM Code JOU13-UC Code Onset Dates Condition Status SNOMED Code Problem Major depressive disorder, recurrent episode, moderate F33.1 Active 018579718 Problem FDC current use of insulin Z79.4 Active 800478387 Problem Type 2 diabetes mellitus with other specified complication E11.69 Active 825346547 Problem Hypercholesteremia E78.0 Active 59928687 Problem Anxiety F41.9 Active 22316219 Problem Insomnia G47.00 Active 534487510 Problem Chronic pain G89.29 Active 65337309 Problem History of pulmonary embolus (PE) Z86.711 Active 784372831 Problem Stage 2 chronic kidney disease N18.2 Active 510640354 Problem Essential hypertension I10 Active 91016943 Problem Type 2 diabetes mellitus with hyperglycemia E11.65 Active 720656390 Problem Chronic pain disorder G89.4 Active 087311456 Problem CAD (coronary artery disease) I25.10 Active 69037356 ALLERGIES No Information ENCOUNTERS Encounter Location Date Diagnosis [place] [id number] [place] [address] 81716- 6735 Apr, Type 2 diabetes mellitus with hyperglycemia E11.65 [facility] [id number] [address] 4[address] Apr, [place] [id number] [place] [address] 51104- 5496 Apr, [place] [id number] [place] [address] 95491- 1766 14 Apr, 2017 BMI 40.0-44.9, adult Z68.41 ; Type 2 diabetes mellitus with hyperglycemia E11.65 ; FDC current use of insulin Z79.4 ; Stage 2 chronic kidney disease N18.2 and History of pulmonary embolus (PE) Z86.711 [place] [id number] [place] [address] 49694- 0326 Apr, [place] [id number] [place] [address] 37756- 4804 Apr, Type 2 diabetes mellitus with hyperglycemia E11.65 [place] [id number] [place] [address] 93266- 9745 Feb, Type 2 diabetes mellitus with hyperglycemia E11.65 [place] [id number] [place] [address] 17690- 1609 Jan, [place] [id number] [place] [address] 83133- 3158 Dec, Type 2 diabetes mellitus with hyperglycemia E11.65 [place] [id number] [place] [address] 73304- 6071 Nov, [place] [id number] [place] [address] 70293- 7296 Nov, Body aches R52 ; Influenza A J10.1 and Chronic pain disorder G89.4 [place] [id number] [place] [address] 39327- 4708 Nov, [place] [id number] [place] [address] 94737- 8951 Nov, [place] [id number] [place] [address] 26697- 9247 Oct, [place] [id number] [place] [address] 51479- 6051 Sep, [place] [id number] [place] [address] 86800- 4724 Sep, 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 ; CAD (coronary artery disease) I25.10 and Type 2 diabetes mellitus with hyperglycemia E11.65 [place] [address], [place] [address] 3073 Sep, [facility] [id number], [place] [address] 0585 Sep, [facility] [address] [place] [address] Sep, [facility] [id number] [address] 7949 Aug, [facility] [address], [place] [address] 7750 Jul, [facility] [address], [place] [address] 1414 Jul, [facility] [address] 6999 Jul, Hematoma T14.8 [facility] [id number] [id number] Feb, Type 2 diabetes mellitus with hyperglycemia E11.65 ; FDC current use of insulin Z79.4 and Essential hypertension I10 [facility] [id number] [id number] Feb, [facility] [address] 0[address] June, [facility] [id number], [place] [address]- 2302 June, [facility] [address], [place] [address]- 6305 June, [facility] [id number] [address]- 0165 June, Acute frontal sinusitis, recurrence not specified J01.10 ; Type 2 diabetes mellitus with hyperglycemia E11.65 and FDC current use of insulin Z79.4 [facility] [id number], [place] [address]- 4186 Dec, [facility] [place] [id number] [place] [address] 63472- 9513 Dec, Depression F32.9 ; Chronic pain G89.29 ; HTN (hypertension) I10 ; Hypercholesteremia E78.0 ; Anxiety F41.9 ; Insomnia G47.00 ; Major depressive disorder, recurrent episode, moderate F33.1 ; Type 2 diabetes mellitus with other specified complication E11.69 and GERD (gastroesophageal reflux disease) K21.9 [place] [id number] [place] [address] 36572- 4967 Dec, [place] [id number] [place] [address] 01482- 6031 Nov, Major depressive disorder, recurrent episode, moderate F33.1 [place] [id number] [place] [address] 50117- 5282 Nov, [address] 98743- 1819 Nov, [address] 74930- 9259 Nov, [address] 51620- 8672 Nov, [place] [id number] [place] [address] 03061- 3240 Nov, Diabetes 1.5, managed as type 1 E13.9 ; Depression F32.9 ; Chronic pain G89.29 ; HTN (hypertension) I10 ; Hypercholesteremia E78.0 ; LVF ( left ventricular failure) I50.1 ; CAD (coronary artery disease) I25.10 ; Anxiety F41.9 ; Edema R60.9 ; Insomnia G47.00 and GERD (gastroesophageal reflux disease) K21.9 [place] [id number] [place] [address] 96709- 3475 Nov, [place] [id number] [place] [address] 08411- 6192 Oct, [address], [place] [address]- 2546 Oct, [facility] [id number] [place] [address] 22557- 6016 Oct, Diabetes 250.00 ; Chronic pain 338.29 ; Hypertension 401.9 ; Hypercholesterolemia 272.0 ; LVF (left ventricular failure) 428.1 ; CAD ( coronary artery disease) 414.00 ; Anxiety 300.00 ; Edema 782.3 and Insomnia 780.52 [facility] [id number] [place] [address] 59528- 1056 Jul, [facility] [id number] [place] [address] 79140- 7436 June, [facility] [id number] [place] [address] 91762- 2546 June, [facility] [id number] [place] [address] 97836- 7946 Mar, [facility] [id number] [place] [address] 36330- 2546 Jan, [facility] [id number] [place] [address] 14230- 8126 Jan, [facility] [address], [place] [address]- 6426 Nov, [facility] [id number] [place] [address] 84351- 2546 Nov, [facility] [address], [place] [address]- 2546 Oct, [facility] [id number] [place] [address] 33534- 2546 Oct, IMMUNIZATIONS No Known Immunizations SOCIAL HISTORY Never Assessed REASON FOR VISIT Medication refill request PLAN OF CARE VITAL SIGNS MEDICATIONS Medication Instructions Dosage Frequency Start Date End Date Duration Status Levemir FlexTouch 100 UNIT/ML Subcutaneous 2 times a day 20u 12h Aug, Active Isosorbide Mononitrate ER 60 mg Orally Once a day 1 tablet in the morning 24h Sep, Active Amlodipine Besylate 10 mg Orally Once a day 1 tablet 24h Sep, Active Gabapentin 300 MG Orally Once a day 1 capsule 24h Sep, Active Warfarin Sodium 3 MG Orally Once a day 1 tablet 24h Sep, Active Terazosin HCl 2 MG Orally Once a day 1 capsule 24h Sep, Active Carvedilol 6.25 MG Orally Once a day 1 tablet 24h Sep, Active RESULTS No Results PROCEDURES No Known [...]
--- OUTSIDE RECORDS SUMMARY | 2018-03-05 18:20 | XMS REPORT ---
Author Author AFSHAN BLACK Organization [facility] Address [address] [place] [address] Care Team Providers Care Lap Welder Name Role Phone AFSHAN BLACK Unavailable PROBLEMS Type Condition ICD9-CM Code QMM91-IV Code Onset Dates Condition Status SNOMED Code Problem Major depressive disorder, recurrent episode, moderate F33.1 Active 909752872 Problem prison current use of insulin Z79.4 Active 476495370 Problem Type 2 diabetes mellitus with other specified complication E11.69 Active 259658147 Problem Hypercholesteremia E78.0 Active 74991757 Problem Anxiety F41.9 Active 21954182 Problem Insomnia G47.00 Active 792716544 Problem Chronic pain G89.29 Active 52663361 Problem History of pulmonary embolus (PE) Z86.711 Active 812117525 Problem Stage 2 chronic kidney disease N18.2 Active 961282977 Problem Essential hypertension I10 Active 25799008 Problem Type 2 diabetes mellitus with hyperglycemia E11.65 Active 322297363 Problem Chronic pain disorder G89.4 Active 938899698 Problem CAD (coronary artery disease) I25.10 Active 75465243 ALLERGIES Substance Reaction Event Type Date Status Mobic joint stiffness Drug Allergy Sep, Active Lyrica joint stiffness Drug Allergy Sep, Active Betadine hives Drug Allergy Sep, Active ENCOUNTERS Encounter Location Date Diagnosis [facility] [id number] [address] 4387 Apr, Type 2 diabetes mellitus with hyperglycemia E11.65 [facility] [id number] [address]- 7454 Apr, [facility] [id number], [place] [address]- 2095 Apr, [facility] [id number], [place] [address]- 8511 Apr, BMI 40.0-44.9, adult Z68.41 ; Type 2 diabetes mellitus with hyperglycemia E11.65 ; prison current use of insulin Z79.4 ; Stage 2 chronic kidney disease N18.2 and History of pulmonary embolus (PE) Z86.711 [place] [address] [place] [id number] [place] [address] 07360- 6454 Apr, [place] [address] [place] [address] [id number] [place] [address] 26189- 2935 Apr, Type 2 diabetes mellitus with hyperglycemia E11.65 [place] [id number] [place] [address] 680572- 7100 Feb, Type 2 diabetes mellitus with hyperglycemia E11.65 [place] [id number] [place] [address] 95197- 6309 Jan, [place] [address] 14036- 3013 Dec, Type 2 diabetes mellitus with hyperglycemia E11.65 [place] [id number] [place] [address] 99990- 5021 Nov, [place] [id number] [place] [address] 31105- 4307 Nov, Body aches R52 ; Influenza A J10.1 and Chronic pain disorder G89.4 [place] [id number] [place] [address] 36013- 5800 Nov, [place] [id number] [place] [address] 55211- 7507 Nov, [place] [address] [id number] [place] [address] 95871- 6665 Oct, [place] [address] [id number] [place] [address] 01539- 6292 Sep, [place] [id number] [place] [address] 82150- 5741 Sep, prison current use of insulin Z79.4 ; CAD (coronary artery disease) I25.10 and Type 2 diabetes mellitus with hyperglycemia E11.65 [facility] [address] [facility] [id number] [place] [address]- 5566 Sep, [facility] [address] [facility] [address] [facility] [id number] [place] [address]- 9816 Sep, [facility] [address] [facility] [facility] [id number] [place] [address]- 7295 Sep, [facility] [address] [facility] [facility] [id number] [place] [address]- 2689 Aug, [facility] [address] [facility] [facility] [id number] [place] [address]- 7143 Jul, [facility] [id number] [address]- 0420 Jul, [facility] [id number] [address]- 0406 Jul, Hematoma T14.8 [facility] [address] [id number] [place] [id number] Feb, Type 2 diabetes mellitus with hyperglycemia E11.65 ; prison current use of insulin Z79.4 and Essential hypertension I10 [facility] [address] [id number] [place] [id number] Feb, [facility] [address] [facility] [address] [facility] [id number] [address]- 5505 June, [facility] [address] [facility] [address] [facility] [id number] [address]- 1866 June, [facility] [address] [facility] [facility] [id number] [address]- 2926 June, [facility] [address] [facility] [address] [facility] [id number] [address]- 3727 June, Acute frontal sinusitis, recurrence not specified J01.10 ; Type 2 diabetes mellitus with hyperglycemia E11.65 and 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 [place] [id number] [place] [address] 27153- 5031 Dec, [place] [id number] [place] [address] 16765- 5780 Dec, Depression F32.9 ; Chronic pain G89.29 ; HTN (hypertension) I10 ; Hypercholesteremia E78.0 ; Anxiety F41.9 ; Insomnia G47.00 ; Major depressive disorder, recurrent episode, moderate F33.1 ; Type 2 diabetes mellitus with other specified complication E11.69 and GERD (gastroesophageal reflux disease) K21.9 [place] [address] [id number] [place] [address] 59490- 8551 Dec, [place] [address] [id number] [place] [address] 29539- 3900 Nov, Major depressive disorder, recurrent episode, moderate F33.[address] 36965- 6015 Nov, [place] [id number] [place] [address] 24186- 8187 Nov, [address] 97146- 1560 Nov, [place] [id number] [place] [address] 58882- 6227 Nov, [place] [id number] [place] [address] 07139- 7970 Nov, Diabetes 1.5, managed as type 1 E13.9 ; Depression F32.9 ; Chronic pain G89.29 ; HTN (hypertension) I10 ; Hypercholesteremia E78.0 ; LVF ( left ventricular failure) I50.1 ; CAD (coronary artery disease) I25.10 ; Anxiety F41.9 ; Edema R60.9 ; Insomnia G47.00 and GERD (gastroesophageal reflux disease) K21.9 [place] [address] [id number] [place] [address] 04070- 2942 Nov, [place] [address], [place] [address]- 8181 Oct, [facility] [id number] [place] [address] 89061- 5884 Oct, [facility] [id number] [place] [address] 38783- 5812 Oct, Diabetes 250.00 ; Chronic pain 338.29 ; Hypertension 401.9 ; Hypercholesterolemia 272.0 ; LVF (left ventricular failure) 428.1 ; CAD ( coronary artery disease) 414.00 ; Anxiety 300.00 ; Edema 782.3 and Insomnia 780.52 [facility] [id number] [place] [address] 43853- 1198 Jul, [facility] [id number] [place] [address] 48061- 7703 June, [facility] [id number] [place] [address] 27382- 6830 June, [facility] [id number] [place] [address] 41632- 1993 Mar, [facility] [id number] [place] [address] 13095- 6489 Jan, [facility] [id number] [place] [address] 68742- 3294 Jan, [facility] [id number] [place] [address] 70702- 3256 Nov, [facility] [address], [place] [address]- 4895 Nov, [facility] [id number] [place] [address] 50525- 9146 Oct, [facility] [id number], [place] [address]- 0143 Oct, IMMUNIZATIONS No Known Immunizations SOCIAL HISTORY Never Assessed REASON FOR VISIT Transition of Care--tcuppettRN, Right foot wound concerns, -Needing medications refilled, -Needing clearance for surgery for toe amputation, -Has been out of all meds except insulin. PLAN OF CARE Activity Details Follow Up after surgery Reason:DMT2/INR check VITAL SIGNS Height 71.0 in 2016-10-16 Weight 286.3 lbs 2016-10-16 Temperature 98.6 degrees Fahrenheit 2016-10-16 Heart Rate 88 bpm 2016-10-16 Respiratory Rate 20 2016-10-16 BMI 39.93 kg/m2 2016-10-16 Blood pressure systolic 122 mmHg 2016-10-16 Blood pressure diastolic 80 mmHg 2016-10-16 MEDICATIONS Medication Instructions Dosage Frequency Start Date End Date Duration Status Gabapentin 300 MG Orally Once a day 1 capsule 24h Sep, Active Humalog KwikPen 100 UNIT/ML Subcutaneous 3 times a day 3-4 unites 8h Aug Active Isosorbide Mononitrate ER 60 mg Orally Once a day 1 tablet in the morning 24h Sep, Active Amlodipine Besylate 10 mg Orally Once a day 1 tablet 24h Sep, Active Levemir FlexTouch 100 UNIT/ML Subcutaneous 2 times a day 20u 12h Aug, Active Warfarin Sodium 3 MG Orally Once a day 1 tablet 24h Sep, Active Glucocard Expression Test - In Vitro 3 times a day as directed 8h Sep, 30 days Active Carvedilol 6.25 MG Orally Once a day 1 tablet 24h Sep, Active Terazosin HCl 2 MG Orally Once a day 1 capsule 24h Sep, Active RESULTS Name Result Date Reference Range A1C (IN HOUSE) 2016-10-16 A1C IN HOUSE 8.5 4.3 - 5.6 % Previous A1c >14.0 Lot [id number] Exp date 06/2018 INR (IN HOUSE) 2016-10-16 INR 1.1 1.10 - 3.30 PREVIOUS INR CURRENT COUMADIN DOSE not taking has been out NEW COUMADIN DOSE Lot # [id number] Exp date 02/2017 PROCEDURES Procedure Date Ordered Result Body Site PROTHROMBIN TIME Oct 16, 2016 GLYCATED HEMOGLOBIN TEST Oct 16, 2016 INSTRUCTIONS MEDICATIONS ADMINISTERED No Known Medications MEDICAL [...]
--- OUTSIDE RECORDS SUMMARY | 2018-03-05 18:20 | XMS REPORT ---
Author Author AFSHAN BLACK Organization [facility] Address [address] [place] [address] Care Team Providers Care Handle Finisher Name Role Phone AFSHAN BLACK Unavailable PROBLEMS Type Condition ICD9-CM Code OLD98-OK Code Onset Dates Condition Status SNOMED Code Problem Major depressive disorder, recurrent episode, moderate F33.1 Active 059112031 Problem jail current use of insulin Z79.4 Active 077936011 Problem Type 2 diabetes mellitus with other specified complication E11.69 Active 295633149 Problem Hypercholesteremia E78.0 Active 08030923 Problem Anxiety F41.9 Active 52373546 Problem Insomnia G47.00 Active 574408780 Problem Chronic pain G89.29 Active 07930068 Problem History of pulmonary embolus (PE) Z86.711 Active 959036581 Problem Stage 2 chronic kidney disease N18.2 Active 990939698 Problem Essential hypertension I10 Active 22797502 Problem Type 2 diabetes mellitus with hyperglycemia E11.65 Active 673883006 Problem Chronic pain disorder G89.4 Active 754132475 Problem CAD (coronary artery disease) I25.10 Active 47999579 ALLERGIES No Information ENCOUNTERS Encounter Location Date Diagnosis [place] [id number] [place] [address] 48989- 8107 Apr, Type 2 diabetes mellitus with hyperglycemia E11.65 [facility] [id number] [address] 1468 Apr, [place] [id number] [place] [address] 19761- 0569 Apr, [place] [id number] [place] [address] 76212- 4942 14 Apr, 2017 BMI 40.0-44.9, adult Z68.41 ; Type 2 diabetes mellitus with hyperglycemia E11.65 ; jail current use of insulin Z79.4 ; Stage 2 chronic kidney disease N18.2 and History of pulmonary embolus (PE) Z86.711 [place] [id number] [place] [address] 58931- 2130 Apr, [place] [id number] [place] [address] 71022- 5695 Apr, Type 2 diabetes mellitus with hyperglycemia E11.65 [place] [id number] [place] [address] 52642- 8651 Feb, Type 2 diabetes mellitus with hyperglycemia E11.65 [place] [id number] [place] [address] 27073- 8981 Jan, [place] [id number] [place] [address] 98791- 6844 Dec, Type 2 diabetes mellitus with hyperglycemia E11.65 [place] [id number] [place] [address] 56676- 7785 Nov, [place] [id number] [place] [address] 93838- 8603 Nov, Body aches R52 ; Influenza A J10.1 and Chronic pain disorder G89.4 [place] [id number] [place] [address] 51509- 6991 Nov, [place] [id number] [place] [address] 27894- 3343 Nov, [place] [id number] [place] [address] 44268- 9549 Oct, [place] [id number] [place] [address] 30752- 2534 Sep, [place] [id number] [place] [address] 16234- 9671 Sep, 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 ; CAD (coronary artery disease) I25.10 and Type 2 diabetes mellitus with hyperglycemia E11.65 [place] [address] [address] 1722 Sep, [facility] [id number] [address] 8596 Sep, [facility] [address] [address] 3227 Sep, [facility] [id number] [address] 8501 Aug, [facility] [address] [address]- 1202 Jul, [facility] [address] [address]- 1818 Jul, [facility] [address] [address] 1854 Jul, Hematoma T14.8 [facility] [id number] [place] [id number] Feb, Type 2 diabetes mellitus with hyperglycemia E11.65 ; jail current use of insulin Z79.4 and Essential hypertension I10 [facility] [id number] [place] [id number] Feb, [facility] [address] [address] 9972 June, [facility] [id number] [address]- 9226 June, [facility] [address] [address]- 3786 June, [facility] [id number] [address] 2450 June, Acute frontal sinusitis, recurrence not specified J01.10 ; Type 2 diabetes mellitus with hyperglycemia E11.65 and jail current use of insulin Z79.4 [facility] [id number] [address]- 8890 Dec, [facility] [place] [id number] [place] [address] 34045- 1669 Dec, Depression F32.9 ; Chronic pain G89.29 ; HTN (hypertension) I10 ; Hypercholesteremia E78.0 ; Anxiety F41.9 ; Insomnia G47.00 ; Major depressive disorder, recurrent episode, moderate F33.1 ; Type 2 diabetes mellitus with other specified complication E11.69 and GERD (gastroesophageal reflux disease) K21.9 [place] [id number] [place] [address] 25957- 6938 Dec, [place] [id number] [place] [address] 05963- 9300 Nov, Major depressive disorder, recurrent episode, moderate F33.1 [place] [id number] [place] [address] 32793- 0188 Nov, [address] 40557- 7997 Nov, [address] 05492- 4074 Nov, [address] 48380- 1921 Nov, [place] [id number] [place] [address] 70506- 6325 Nov, Diabetes 1.5, managed as type 1 E13.9 ; Depression F32.9 ; Chronic pain G89.29 ; HTN (hypertension) I10 ; Hypercholesteremia E78.0 ; LVF ( left ventricular failure) I50.1 ; CAD (coronary artery disease) I25.10 ; Anxiety F41.9 ; Edema R60.9 ; Insomnia G47.00 and GERD (gastroesophageal reflux disease) K21.9 [place] [id number] [place] [address] 54198- 6762 Nov, [place] [id number] [place] [address] 19107- 1597 Oct, [address] [address]- 2546 Oct, [facility] [id number] [place] [address] 89403- 3706 Oct, Diabetes 250.00 ; Chronic pain 338.29 ; Hypertension 401.9 ; Hypercholesterolemia 272.0 ; LVF (left ventricular failure) 428.1 ; CAD ( coronary artery disease) 414.00 ; Anxiety 300.00 ; Edema 782.3 and Insomnia 780.52 [facility] [id number] [address]- 8796 Jul, [facility] [id number] [place] [address] 38770- 2146 June, [facility] [id number] [place] [address] 40285- 2716 June, [facility] [id number] [place] [address] 85085- 8566 Mar, [facility] [id number] [place] [address] 36030- 6036 Jan, [facility] [id number] [place] [address] 63181- 2316 Jan, [facility] [address] [address]- 6086 Nov, [facility] [id number] [place] [address] 32204- 3126 Nov, [facility] [address] [address]- 2546 Oct, [facility] [address] [address]- 9526 Oct, IMMUNIZATIONS No Known Immunizations SOCIAL HISTORY Never Assessed REASON FOR VISIT Medication assistance PLAN OF CARE VITAL SIGNS MEDICATIONS Medication Instructions Dosage Frequency Start Date End Date Duration Status Walker - as directed Aug, Active Levemir FlexTouch 100 UNIT/ML as directed Aug, Active Humalog KwikPen 100 UNIT/ML as directed Aug, Active RESULTS No Results PROCEDURES No Known [...]
--- OUTSIDE RECORDS SUMMARY | 2018-03-05 18:21 | XMS REPORT ---
Author Author AFSHAN BLACK Organization [facility] Address [address] [place] [address] Care Team Providers Care Video Poker Floorman Name Role Phone AFSHAN BLACK Unavailable PROBLEMS Type Condition ICD9-CM Code SII75-WA Code Onset Dates Condition Status SNOMED Code Problem Major depressive disorder, recurrent episode, moderate F33.1 Active 248084812 Problem [facility] current use of insulin Z79.4 Active 760160091 Problem Type 2 diabetes mellitus with other specified complication E11.69 Active 203001708 Problem Hypercholesteremia E78.0 Active 89906438 Problem Anxiety F41.9 Active 68208526 Problem Insomnia G47.00 Active 005681568 Problem Chronic pain G89.29 Active 43954461 Problem History of pulmonary embolus (PE) Z86.711 Active 508922221 Problem Stage 2 chronic kidney disease N18.2 Active 169805851 Problem Essential hypertension I10 Active 71393471 Problem Type 2 diabetes mellitus with hyperglycemia E11.65 Active 024697946 Problem Chronic pain disorder G89.4 Active 124670063 Problem CAD (coronary artery disease) I25.10 Active 43411529 ALLERGIES No Information ENCOUNTERS Encounter Location Date Diagnosis [place] [id number] [place] [address] 14096- 9618 Apr, Type 2 diabetes mellitus with hyperglycemia E11.65 [facility] [id number] [address]- 7900 Apr, [place] [id number] [place] [address] 95998- 8862 Apr, [place] [id number] [place] [address] 99804- 0133 14 Apr, 2017 BMI 40.0-44.9, adult Z68.41 ; Type 2 diabetes mellitus with hyperglycemia E11.65 ; [facility] current use of insulin Z79.4 ; Stage 2 chronic kidney disease N18.2 and History of pulmonary embolus (PE) Z86.711 [place] [id number] [place] [address] 21053- 4021 Apr, [place] [id number] [place] [address] 45585- 9443 Apr, Type 2 diabetes mellitus with hyperglycemia E11.65 [place] [id number] [place] [address] 88034- 2537 Feb, Type 2 diabetes mellitus with hyperglycemia E11.65 [place] [id number] [place] [address] 40218- 4827 Jan, [place] [id number] [place] [address] 18549- 1893 Dec, Type 2 diabetes mellitus with hyperglycemia E11.65 [place] [id number] [place] [address] 72200- 9080 Nov, [place] [id number] [place] [address] 47915- 8679 Nov, Body aches R52 ; Influenza A J10.1 and Chronic pain disorder G89.4 [place] [id number] [place] [address] 42419- 1310 Nov, [place] [id number] [place] [address] 85522- 1930 Nov, [place] [id number] [place] [address] 15247- 8562 Oct, [place] [id number] [place] [address] 15325- 7785 Sep, [place] [id number] [place] [address] 79004- 1416 Sep, 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 ; CAD (coronary artery disease) I25.10 and Type 2 diabetes mellitus with hyperglycemia E11.65 [place] [address], [place] [address]- 3852 Sep, [facility] [id number], [place] [address]- 0355 Sep, [facility] [id number] 5198 Sep, [facility] [id number] [address]- 1193 Aug, [facility] [address], [place] [address]- 2417 Jul, [facility] [address], [place] [address]- 9205 Jul, [facility] [address] [address] 3267 Jul, Hematoma T14.8 [facility] [id number] [id number] Feb, Type 2 diabetes mellitus with hyperglycemia E11.65 ; [facility] current use of insulin Z79.4 and Essential hypertension I10 [facility] [id number] [id number] Feb, [facility] [address] 1540 June, [facility] [id number], [place] [address]- 8258 June, [facility] [address], [place] [address]- 0593 June, [facility] [id number], [place] [address]- 6282 June, Acute frontal sinusitis, recurrence not specified J01.10 ; Type 2 diabetes mellitus with hyperglycemia E11.65 and [facility] current use of insulin Z79.4 [facility] [id number], [place] [address]- 8601 Dec, [facility] [place] [id number] [place] [address] 18100- 7647 Dec, Depression F32.9 ; Chronic pain G89.29 ; HTN (hypertension) I10 ; Hypercholesteremia E78.0 ; Anxiety F41.9 ; Insomnia G47.00 ; Major depressive disorder, recurrent episode, moderate F33.1 ; Type 2 diabetes mellitus with other specified complication E11.69 and GERD (gastroesophageal reflux disease) K21.9 [place] [id number] [place] [address] 12980- 7850 Dec, [place] [id number] [place] [address] 14361- 4844 Nov, Major depressive disorder, recurrent episode, moderate F33.1 [place] [id number] [place] [address] 26759- 0842 Nov, [address] 33728- 3676 Nov, [address] 80499- 4867 Nov, [address] 17064- 6665 Nov, [place] [id number] [place] [address] 42363- 4783 Nov, Diabetes 1.5, managed as type 1 E13.9 ; Depression F32.9 ; Chronic pain G89.29 ; HTN (hypertension) I10 ; Hypercholesteremia E78.0 ; LVF ( left ventricular failure) I50.1 ; CAD (coronary artery disease) I25.10 ; Anxiety F41.9 ; Edema R60.9 ; Insomnia G47.00 and GERD (gastroesophageal reflux disease) K21.9 [place] [id number] [place] [address] 95138- 2620 Nov, [place] [id number] [place] [address] 31422- 3939 Oct, [address] [place] [address] 69796- 9196 Oct, [facility] [id number] [place] [address] 00253- 6757 Oct, Diabetes 250.00 ; Chronic pain 338.29 ; Hypertension 401.9 ; Hypercholesterolemia 272.0 ; LVF (left ventricular failure) 428.1 ; CAD ( coronary artery disease) 414.00 ; Anxiety 300.00 ; Edema 782.3 and Insomnia 780.52 [facility] [id number] [place] [address] 884315- 9835 Jul, [facility] [id number] [place] [address] 07956- 7989 June, [facility] [id number] [place] [address] 93656- 4586 June, [facility] [id number] [place] [address] 89291- 4890 Mar, [facility] [id number] [place] [address] 452669- 2664 Jan, [facility] [id number] [place] [address] 67279- 3448 Jan, [facility] [id number] [place] [address] 179107- 0762 Nov, [facility] [id number] [place] [address] 68745- 8637 Nov, [facility] [id number] [place] [address] [id number]- 2368 Oct, [facility] [id number] [place] [address] 50051- 4234 Oct, IMMUNIZATIONS No Known Immunizations SOCIAL HISTORY Never Assessed REASON FOR VISIT PLAN OF CARE VITAL [...]
--- OUTSIDE RECORDS SUMMARY | 2018-03-05 18:21 | XMS REPORT ---
Author Author AFSHAN BLACK Organization [facility] Address [address] [place] [address] Care Team Providers Care Boat Master Name Role Phone AFSHAN BLACK Unavailable PROBLEMS Type Condition ICD9-CM Code [id number] Code Onset Dates Condition Status SNOMED Code Problem Major depressive disorder, recurrent episode, moderate F33.1 Active 663186229 Problem skilled nursing current use of insulin Z79.4 Active 441163527 Problem Type 2 diabetes mellitus with other specified complication E11.69 Active 333483225 Problem Hypercholesteremia E78.0 Active 55740261 Problem Anxiety F41.9 Active 87687099 Problem Insomnia G47.00 Active 884294403 Problem Chronic pain G89.29 Active 62396044 Problem History of pulmonary embolus (PE) Z86.711 Active 141210697 Problem Stage 2 chronic kidney disease N18.2 Active 707237214 Problem Essential hypertension I10 Active 58976997 Problem Type 2 diabetes mellitus with hyperglycemia E11.65 Active 651763516 Problem Chronic pain disorder G89.4 Active 770074297 Problem CAD (coronary artery disease) I25.10 Active 85963554 ALLERGIES No Information ENCOUNTERS Encounter Location Date Diagnosis [place] [id number] [place] [address] 17455- 9264 Apr, Type 2 diabetes mellitus with hyperglycemia E11.65 [facility] [id number] [address] 4[address] Apr, [place] [id number] [place] [address] 88469- 3723 Apr, [place] [address] [place] [address] 44287- 2481 14 Apr, 2017 BMI 40.0-44.9, adult Z68.41 ; Type 2 diabetes mellitus with hyperglycemia E11.65 ; skilled nursing current use of insulin Z79.4 ; Stage 2 chronic kidney disease N18.2 and History of pulmonary embolus (PE) Z86.711 [place] [id number] [place] [address] 28029- 8628 Apr, [place] [id number] [place] [address] 28253- 3754 Apr, Type 2 diabetes mellitus with hyperglycemia E11.65 [place] [id number] [place] [address] 03889- 1472 Feb, Type 2 diabetes mellitus with hyperglycemia E11.65 [place] [id number] [place] [address] 06861- 4856 Jan, [place] [id number] [place] [address] 37931- 9592 Dec, Type 2 diabetes mellitus with hyperglycemia E11.65 [place] [id number] [place] [address] 98013- 2290 Nov, [place] [id number] [place] [address] 81789- 9929 Nov, Body aches R52 ; Influenza A J10.1 and Chronic pain disorder G89.4 [place] [id number] [place] [address] 89850- 1487 Nov, [place] [id number] [place] [address] 65160- 2836 Nov, [place] [id number] [place] [address] 96197- 5579 Oct, [place] [id number] [place] [address] 26387- 9216 Sep, [place] [id number] [place] [address] 83786- 3552 Sep, 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 ; CAD (coronary artery disease) I25.10 and Type 2 diabetes mellitus with hyperglycemia E11.65 [place] [address] [address] 4825 Sep, [facility] [id number], [place] [address] 4980 Sep, [facility] [address] [address] 289[address] Sep, [facility] [id number] [address] 0226 Aug, [facility] [address], [place] [address] 4252 Jul, [facility] [address], [place] [address] 3874 Jul, [facility] [address] 10[address] Jul, Hematoma T14.8 [facility] [id number] [id number] Feb, Type 2 diabetes mellitus with hyperglycemia E11.65 ; skilled nursing current use of insulin Z79.4 and Essential hypertension I10 [facility] [id number] [id number] Feb, [facility] [address] [address] June, [facility] [id number] [address]- 0926 June, [facility] [address], [place] [address] 3602 June, [facility] [id number], [place] [address]- 8255 June, Acute frontal sinusitis, recurrence not specified J01.10 ; Type 2 diabetes mellitus with hyperglycemia E11.65 and skilled nursing current use of insulin Z79.4 [facility] [id number], [place] [address] 4954 Dec, [facility] [place] [address] [id number] [place] [address] 64946- 8974 Dec, Depression F32.9 ; Chronic pain G89.29 ; HTN (hypertension) I10 ; Hypercholesteremia E78.0 ; Anxiety F41.9 ; Insomnia G47.00 ; Major depressive disorder, recurrent episode, moderate F33.1 ; Type 2 diabetes mellitus with other specified complication E11.69 and GERD (gastroesophageal reflux disease) K21.9 [place] [id number] [place] [address] 73584- 5054 Dec, [place] [id number] [place] [address] 41103- 1756 Nov, Major depressive disorder, recurrent episode, moderate F33.1 [place] [id number] [place] [address] 72929- 5933 Nov, [address] 48789- 5718 Nov, [address] 36319- 5183 Nov, [address] 46489- 8246 Nov, [place] [id number] [place] [address] 92420- 0139 Nov, Diabetes 1.5, managed as type 1 E13.9 ; Depression F32.9 ; Chronic pain G89.29 ; HTN (hypertension) I10 ; Hypercholesteremia E78.0 ; LVF ( left ventricular failure) I50.1 ; CAD (coronary artery disease) I25.10 ; Anxiety F41.9 ; Edema R60.9 ; Insomnia G47.00 and GERD (gastroesophageal reflux disease) K21.9 [place] [id number] [place] [address] 58675- 2725 Nov, [place] [address] [place] [address] 93919- 6111 Oct, [address] [address]- 2546 Oct, [facility] [id number] [place] [address] 42215- 5996 Oct, Diabetes 250.00 ; Chronic pain 338.29 ; Hypertension 401.9 ; Hypercholesterolemia 272.0 ; LVF (left ventricular failure) 428.1 ; CAD ( coronary artery disease) 414.00 ; Anxiety 300.00 ; Edema 782.3 and Insomnia 780.52 [facility] [id number] [place] [address] 92803- 3816 Jul, [facility] [id number] [place] [address] 45983- 2996 June, [facility] [id number] [place] [address] 52753- 2546 June, [facility] [id number] [place] [address] 95684- 5806 Mar, [facility] [id number] [place] [address] 37075- 3696 Jan, [facility] [id number] [place] [address] 45849- 7096 Jan, [facility] [id number], [place] [address]- 6476 Nov, [facility] [id number] [place] [address] 13927- 3406 Nov, [facility] [address], [place] [address]- 2546 Oct, [facility] [id number] [place] [address] 57327- 0766 Oct, IMMUNIZATIONS No Known Immunizations SOCIAL HISTORY Never Assessed REASON FOR VISIT Refill request PLAN OF CARE VITAL SIGNS MEDICATIONS Medication Instructions Dosage Frequency Start Date End Date Duration Status Terazosin HCl 2 MG Orally Once a day 1 capsule 24h Sep, Active Carvedilol 6.25 MG Orally Once a day 1 tablet 24h Sep, Active Isosorbide Mononitrate ER 60 mg Orally Once a day 1 tablet in the morning 24h Sep, Active Levemir FlexTouch 100 UNIT/ML Subcutaneous 2 times a day 20u 12h Aug, Active Eliquis 5 mg Orally 2 times a day 1 tablet 12h Oct, Active Gabapentin 100 MG Orally Once a day 3 capsule 24h Sep, Active Amlodipine Besylate 10 mg Orally Once a day 1 tablet 24h Sep, Active Humalog KwikPen 100 UNIT/ML Subcutaneous 3 times a day 3-4 units 8h Aug Active RESULTS No Results PROCEDURES No Known [...] - required 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
--- OUTSIDE RECORDS SUMMARY | 2018-03-05 18:21 | XMS REPORT ---
Author Author AFSHAN BLACK Organization [facility] Address [address] 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 Name Role Phone AFSHAN BLACK Unavailable PROBLEMS Type Condition ICD9-CM Code [id number] Code Onset Dates Condition Status SNOMED Code Problem Major depressive disorder, recurrent episode, moderate F33.1 Active 614082579 Problem [facility] current use of insulin Z79.4 Active 646242579 Problem Type 2 diabetes mellitus with other specified complication E11.69 Active 839777538 Problem Hypercholesteremia E78.0 Active 49396026 Problem Anxiety F41.9 Active 59351767 Problem Insomnia G47.00 Active 461892608 Problem Chronic pain G89.29 Active 27371060 Problem History of pulmonary embolus (PE) Z86.711 Active 117876901 Problem Stage 2 chronic kidney disease N18.2 Active 253451184 Problem Essential hypertension I10 Active 61467807 Problem Type 2 diabetes mellitus with hyperglycemia E11.65 Active 609009331 Problem Chronic pain disorder G89.4 Active 096925355 Problem CAD (coronary artery disease) I25.10 Active 37014056 ALLERGIES No Information ENCOUNTERS Encounter Location Date Diagnosis [place] [id number] [place] [address] 36126- 1307 Apr, Type 2 diabetes mellitus with hyperglycemia E11.65 [facility] [id number] [address]- 9669 Apr, [place] [id number] [place] [address] 44375- 0219 Apr, [place] [address] [place] [address] 29385- 1465 14 Apr, 2017 BMI 40.0-44.9, adult Z68.41 ; Type 2 diabetes mellitus with hyperglycemia E11.65 ; [facility] current use of insulin Z79.4 ; Stage 2 chronic kidney disease N18.2 and History of pulmonary embolus (PE) Z86.711 [place] [id number] [place] [address] 56502- 6307 Apr, [place] [id number] [place] [address] 09658- 9213 Apr, Type 2 diabetes mellitus with hyperglycemia E11.65 [place] [id number] [place] [address] 82549- 9762 Feb, Type 2 diabetes mellitus with hyperglycemia E11.65 [place] [id number] [place] [address] 16944- 5825 Jan, [place] [id number] [place] [address] 75333- 5443 Dec, Type 2 diabetes mellitus with hyperglycemia E11.65 [place] [id number] [place] [address] 22558- 5751 Nov, [place] [id number] [place] [address] 72142- 4438 Nov, Body aches R52 ; Influenza A J10.1 and Chronic pain disorder G89.4 [place] [id number] [place] [address] 25139- 7936 Nov, [place] [id number] [place] [address] 58997- 6761 Nov, [place] [id number] [place] [address] 39133- 1364 Oct, [place] [id number] [place] [address] 54268- 8970 Sep, [place] [id number] [place] [address] 58168- 7778 Sep, 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 ; CAD (coronary artery disease) I25.10 and Type 2 diabetes mellitus with hyperglycemia E11.65 [place] [address], [place] [address]- 8546 Sep, [facility] [id number], [place] [address]- 2744 Sep, [facility] [address] 7594 Sep, [facility] [id number], [place] [address]- 0769 Aug, [facility] [address], [place] [address]- 2541 Jul, [facility] [address], [place] [address]- 3056 Jul, [facility] [address] 0461 Jul, Hematoma T14.8 [facility] [id number] [id number] Feb, Type 2 diabetes mellitus with hyperglycemia E11.65 ; [facility] current use of insulin Z79.4 and Essential hypertension I10 [facility] [id number] [address] Feb, [facility] [address] 2922 June, [facility] [id number], [place] [address]- 7846 June, [facility] [address], [place] [address]- 2529 June, [facility] [id number] [address]- 2259 June, Acute frontal sinusitis, recurrence not specified J01.10 ; Type 2 diabetes mellitus with hyperglycemia E11.65 and [facility] current use of insulin Z79.4 [facility] [id number], [place] [address]- 3517 Dec, [facility] [place] [address] [id number] [place] [address] 74493- 1320 Dec, Depression F32.9 ; Chronic pain G89.29 ; HTN (hypertension) I10 ; Hypercholesteremia E78.0 ; Anxiety F41.9 ; Insomnia G47.00 ; Major depressive disorder, recurrent episode, moderate F33.1 ; Type 2 diabetes mellitus with other specified complication E11.69 and GERD (gastroesophageal reflux disease) K21.9 [place] [address] [place] [address] 75025- 5319 Dec, [place] [address] [place] [address] 11717- 9502 Nov, Major depressive disorder, recurrent episode, moderate F33.1 [place] [address] [place] [address] 98110- 4004 Nov, [address] 75040- [address]763 Nov, [address] 75053- 0724 Nov, [address] 18093- 7178 Nov, [place] [id number] [place] [address] 45622- 8668 Nov, Diabetes 1.5, managed as type 1 E13.9 ; Depression F32.9 ; Chronic pain G89.29 ; HTN (hypertension) I10 ; Hypercholesteremia E78.0 ; LVF ( left ventricular failure) I50.1 ; CAD (coronary artery disease) I25.10 ; Anxiety F41.9 ; Edema R60.9 ; Insomnia G47.00 and GERD (gastroesophageal reflux disease) K21.9 [place] [address] [place] [address] 48376- 0247 Nov, [place] [address] [place] [address] 77590- 4189 Oct, [address] [place] [address] 67493- 3076 Oct, [facility] [id number] [place] [address] 38783- 9019 Oct, Diabetes 250.00 ; Chronic pain 338.29 ; Hypertension 401.9 ; Hypercholesterolemia 272.0 ; LVF (left ventricular failure) 428.1 ; CAD ( coronary artery disease) 414.00 ; Anxiety 300.00 ; Edema 782.3 and Insomnia 780.52 [facility] [id number] [place] [address] 20497- 0035 Jul, [facility] [id number] [place] [address] 98492- 5906 June, [facility] [id number] [place] [address] 16614- 7426 June, [facility] [id number] [place] [address] 05835- 8373 Mar, [facility] [id number] [place] [address] 06280- 8490 Jan, [facility] [id number] [place] [address] 32472- 6854 Jan, [facility] [id number] [place] [address] 03556- 4268 Nov, [facility] [id number] [place] [address] 71228- 7934 Nov, [facility] [id number] [place] [address] 42496- 9515 Oct, [facility] [id number] [place] [address] 51957- 2239 Oct, IMMUNIZATIONS No Known Immunizations SOCIAL HISTORY Never Assessed REASON FOR VISIT MTM (Medication Therapy Management) PLAN OF CARE VITAL SIGNS MEDICATIONS Unknown [...]
--- OUTSIDE RECORDS SUMMARY | 2018-03-05 18:27 | XMS REPORT | Continuity of Care Document ---
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 E10.42 TYPE 1 DIABETES MELLITUS WITH DIABETIC P 05/29/2017 BRAYAN SINGH MD, Ot E10.621 TYPE 1 DIABETES MELLITUS WITH FOOT ULCER 05/29/2017 BRAYAN SINGH MD, Ot L97.414 NON-PRS CHR ULCER OF RIGHT HEEL AND MIDF 05/29/2017 BRAYAN SINGH MD, Ot M86.471 CHRONIC OSTEOMYELITIS W DRAINING SINUS, 05/29/2017 BRAYAN SINGH MD Ot E10.42 TYPE 1 DIABETES MELLITUS WITH DIABETIC P 05/29/2017 BRAYAN SINGH MD Ot E10.621 TYPE 1 DIABETES MELLITUS WITH FOOT ULCER 05/29/2017 BRAYAN SINGH MD Ot L97.512 NON-PRS CHRONIC ULCER OTH PRT RIGHT FOOT 05/29/2017 BRAYAN SINGH MD, Ot M86.471 CHRONIC OSTEOMYELITIS W DRAINING SINUS, 05/29/2017 JONAS CHENG, MEGHNA R Ot I10 ESSENTIAL (PRIMARY) HYPERTENSION 05/29/2017 JONAS CHENG, MEGHNA R Ot N17.0 ACUTE KIDNEY FAILURE WITH TUBULAR NECROS 05/29/2017 BRAYAN SINGH MD Ot E10.42 TYPE 1 DIABETES MELLITUS WITH DIABETIC P 05/29/2017 BRAYAN SINGH MD Ot E10.621 TYPE 1 DIABETES MELLITUS WITH FOOT ULCER 05/29/2017 BRAYAN SINGH MD Ot L97.512 NON-PRS CHRONIC ULCER OTH PRT RIGHT FOOT 05/29/2017 BRAYAN SINGH MD, Ot M86.471 CHRONIC OSTEOMYELITIS W DRAINING SINUS, 05/29/2017 BRAYAN SINGH MD Ot E10.42 TYPE 1 DIABETES MELLITUS WITH DIABETIC P 05/29/2017 BRAYAN SINGH MD Ot E10.621 TYPE 1 DIABETES MELLITUS WITH FOOT ULCER 05/29/2017 FRANCISCO MD, BRAYAN G Ot L97.512 NON-PRS CHRONIC ULCER OTH PRT RIGHT FOOT 05/29/2017 BRAYAN SINGH MD Ot E10.42 TYPE 1 DIABETES MELLITUS WITH DIABETIC P 05/29/2017 BRAYAN SINGH MD Ot E10.621 TYPE 1 DIABETES MELLITUS WITH FOOT ULCER 05/29/2017 BRAYAN SINGH MD Ot L97.512 NON-PRS CHRONIC ULCER OTH PRT RIGHT FOOT 05/29/2017 MARTHA ORNELAS, RENÉE A Ot E11.9 TYPE 2 DIABETES MELLITUS WITHOUT COMPLIC 05/29/2017 BRAYAN SINGH MD Ot E10.42 TYPE 1 DIABETES MELLITUS WITH DIABETIC P 05/29/2017 BRAYAN SINGH MD Ot E10.621 TYPE 1 DIABETES MELLITUS WITH FOOT ULCER 05/29/2017 BRAYAN SINGH MD Ot L97.512 NON-PRS CHRONIC ULCER OTH PRT RIGHT FOOT 05/29/2017 BRAYAN SINGH MD Ot E10.42 TYPE 1 DIABETES MELLITUS WITH DIABETIC P 05/29/2017 BRAYAN SINGH MD Ot E10.621 TYPE 1 DIABETES MELLITUS WITH FOOT ULCER 05/29/2017 BRAYAN SINGH MD Ot L97.512 NON-PRS CHRONIC ULCER OTH PRT RIGHT FOOT 05/29/2017 BRAYAN SINGH MD Ot E10.42 TYPE 1 DIABETES MELLITUS WITH DIABETIC P 05/29/2017 BRAYAN SINGH MD Ot E10.621 TYPE 1 DIABETES MELLITUS WITH FOOT ULCER 05/29/2017 BRAYAN SINGH MD Ot L97.512 NON-PRS CHRONIC ULCER OTH PRT RIGHT FOOT 05/29/2017 BRAYAN SINGH MD Ot E10.42 TYPE 1 DIABETES MELLITUS WITH DIABETIC P 05/29/2017 BRAYAN SINGH MD Ot E10.621 TYPE 1 DIABETES MELLITUS WITH FOOT ULCER 05/29/2017 BRAYAN SINHG MD Ot L97.512 NON-PRS CHRONIC ULCER OTH PRT RIGHT FOOT 05/29/2017 BRAYAN SINGH MD Ot E10.42 TYPE 1 DIABETES MELLITUS WITH DIABETIC P 05/29/2017 BRAYAN SINGH MD Ot E10.621 TYPE 1 DIABETES MELLITUS WITH FOOT ULCER 05/29/2017 BRAYAN SINGH MD Ot L97.512 NON-PRS CHRONIC ULCER OTH PRT RIGHT FOOT 05/29/2017 BRAYAN SINGH MD Ot E10.42 TYPE 1 DIABETES MELLITUS WITH DIABETIC P 05/29/2017 BRAYAN SINGH MD Ot E10.621 TYPE 1 DIABETES MELLITUS WITH FOOT ULCER 05/29/2017 BRAYAN SINGH MD Ot L97.512 NON-PRS CHRONIC ULCER OTH PRT RIGHT FOOT 05/29/2017 BRAYAN SINGH MD Ot E10.42 TYPE 1 DIABETES MELLITUS WITH DIABETIC P 05/29/2017 BRAYAN SINGH MD Ot E10.621 TYPE 1 DIABETES MELLITUS WITH FOOT ULCER 05/29/2017 BRAYAN SINGH MD Ot L97.512 NON-PRS CHRONIC ULCER OTH PRT RIGHT FOOT 05/29/2017 BRAYAN SINGH MD Ot E10.42 TYPE 1 DIABETES MELLITUS WITH DIABETIC P 05/29/2017 BRAYAN SINGH MD Ot E10.621 TYPE 1 DIABETES MELLITUS WITH FOOT ULCER 05/29/2017 BRAYAN SINGH MD Ot L97.512 NON-PRS CHRONIC ULCER OTH PRT RIGHT FOOT 05/29/2017 BRAYAN SINGH MD Ot E10.42 TYPE 1 DIABETES MELLITUS WITH DIABETIC P 05/29/2017 BRAYAN SINGH MD Ot E10.621 TYPE 1 DIABETES MELLITUS WITH FOOT ULCER 05/29/2017 BRAYAN SINGH MD Ot L97.512 NON-PRS CHRONIC ULCER OTH PRT RIGHT FOOT 05/29/2017 RENÉE THOMAS DO Ot E11.9 TYPE 2 DIABETES MELLITUS WITHOUT COMPLIC 05/30/2017 ALEX GARCIA MD Ot E11.40 TYPE 2 DIABETES MELLITUS WITH DIABETIC N 05/30/2017 ALEX GARCIA MD Ot E78.00 PURE HYPERCHOLESTEROLEMIA, UNSPECIFIED 05/30/2017 ALEX GARCIA MD Ot F32.9 MAJOR DEPRESSIVE DISORDER, SINGLE EPISOD 05/30/2017 ALEX GARCIA MD Ot I11.0 HYPERTENSIVE HEART DISEASE WITH HEART FA 05/30/2017 ALEX GARCIA MD Ot I50.9 HEART FAILURE, UNSPECIFIED 05/30/2017 ALEX GARCIA MD Ot J44.9 CHRONIC OBSTRUCTIVE PULMONARY DISEASE, U 05/30/2017 ALEX GARCIA MD Ot K59.09 OTHER CONSTIPATION 05/30/2017 ALEX GARCIA MD Ot M25.511 PAIN IN RIGHT SHOULDER 05/30/2017 ALEX GARCIA MD Ot W18.30XA FALL ON SAME LEVEL, UNSPECIFIED, INITIAL 05/30/2017 ALEX GARCIA MD Ot Y92.007 GARDEN OR YARD OF UNSP NON-INSTITUT RESI 05/30/2017 ALEX GARCIA MD Ot Z87.891 PERSONAL HISTORY OF NICOTINE DEPENDENCE 05/30/2017 ALEX GARCIA MD, Ot Z88.6 ALLERGY STATUS TO ANALGESIC AGENT STATUS 05/30/2017 ALEX GARCIA MD Ot Z88.8 ALLERGY STATUS TO OTH DRUG/MEDS/BIOL SUB 05/30/2017 ALEX GARCIA MD, Ot 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) 06/04/2017 RENÉE THOMAS DO Ot E11.9 TYPE 2 DIABETES MELLITUS WITHOUT COMPLIC 06/06/2017 RENÉE THOMAS DO Ot E11.9 TYPE 2 DIABETES MELLITUS WITHOUT COMPLIC 06/13/2017 BRAYAN SINGH MD Ot E10.42 TYPE 1 DIABETES MELLITUS WITH DIABETIC P 06/13/2017 BRAYAN SINGH MD Ot E10.621 TYPE 1 DIABETES MELLITUS WITH FOOT ULCER 06/13/2017 BRAYAN SINGH MD Ot L97.512 NON-PRS CHRONIC ULCER OTH PRT RIGHT FOOT 06/13/2017 BRAYAN SINGH MD Ot E10.42 TYPE 1 DIABETES MELLITUS WITH DIABETIC P 06/13/2017 BRAYAN SINGH MD Ot E10.621 TYPE 1 DIABETES MELLITUS WITH FOOT ULCER 06/13/2017 BRAYAN SINGH MD Ot L97.512 NON-PRS CHRONIC ULCER OTH PRT RIGHT FOOT 06/13/2017 BRAYAN SINGH MD Ot E10.42 TYPE 1 DIABETES MELLITUS WITH DIABETIC P 06/13/2017 BRAYAN SINGH MD Ot E10.621 TYPE 1 DIABETES MELLITUS WITH FOOT ULCER 06/13/2017 BRAYAN SINGH MD Ot L97.512 NON-PRS CHRONIC ULCER OTH PRT RIGHT FOOT 06/13/2017 BRAYAN SINGH MD Ot E10.42 TYPE 1 DIABETES MELLITUS WITH DIABETIC P 06/13/2017 BRAYAN SINGH MD Ot E10.621 TYPE 1 DIABETES MELLITUS WITH FOOT ULCER 06/13/2017 BRAYAN SINGH MD Ot L97.512 NON-PRS CHRONIC ULCER OTH PRT RIGHT FOOT 06/13/2017 BRAYAN SINGH MD Ot E10.42 TYPE 1 DIABETES MELLITUS WITH DIABETIC P 06/13/2017 BRAYAN SINGH MD Ot E10.621 TYPE 1 DIABETES MELLITUS WITH FOOT ULCER 06/13/2017 BRAYAN SINGH MD Ot L97.512 NON-PRS CHRONIC ULCER OTH PRT RIGHT FOOT 06/13/2017 BRAYAN SINGH MD Ot E10.42 TYPE 1 DIABETES MELLITUS WITH DIABETIC P 06/13/2017 BRAYAN SINGH MD Ot E10.621 TYPE 1 DIABETES MELLITUS WITH FOOT ULCER 06/13/2017 BRAYAN SINGH MD Ot L97.512 NON-PRS CHRONIC ULCER OTH PRT RIGHT FOOT 06/13/2017 BRAYAN SINGH MD Ot E10.42 TYPE 1 DIABETES MELLITUS WITH DIABETIC P 06/13/2017 BRAYAN SINGH MD Ot E10.621 TYPE 1 DIABETES MELLITUS WITH FOOT ULCER 06/13/2017 BRAYAN SINGH MD Ot L97.512 NON-PRS CHRONIC ULCER OTH PRT RIGHT FOOT 06/14/2017 BRAYAN SINGH MD Ot E10.42 TYPE 1 DIABETES MELLITUS WITH DIABETIC P 06/14/2017 BRAYAN SINGH MD Ot E10.621 TYPE 1 DIABETES MELLITUS WITH FOOT ULCER 06/14/2017 BRAYAN SINGH MD Ot L97.512 NON-PRS CHRONIC ULCER OTH PRT RIGHT FOOT 06/14/2017 RENÉE THOMAS DO Ot E11.9 TYPE 2 DIABETES MELLITUS WITHOUT COMPLIC 06/27/2017 BRAYAN SINGH MD Ot E10.42 TYPE 1 DIABETES MELLITUS WITH DIABETIC P 06/27/2017 BRAYAN SINGH MD Ot E10.621 TYPE 1 DIABETES MELLITUS WITH FOOT ULCER 06/27/2017 BRAYAN SINGH MD Ot L97.512 NON-PRS CHRONIC ULCER OTH PRT RIGHT FOOT 06/27/2017 BRAYAN SINGH MD Ot E10.42 TYPE 1 DIABETES MELLITUS WITH DIABETIC P 06/27/2017 BRAYAN SINGH MD Ot E10.621 TYPE 1 DIABETES MELLITUS WITH FOOT ULCER 06/27/2017 BRAYAN SINGH MD Ot L97.512 NON-PRS CHRONIC ULCER OTH PRT RIGHT FOOT 06/27/2017 BRAYAN SINGH MD Ot E10.42 TYPE 1 DIABETES MELLITUS WITH DIABETIC P 06/27/2017 BRAYAN SINGH MD Ot E10.621 TYPE 1 DIABETES MELLITUS WITH FOOT ULCER 06/27/2017 BRAYAN SINGH MD Ot L97.512 NON-PRS CHRONIC ULCER OTH PRT RIGHT FOOT 06/27/2017 BRAYAN SINGH MD Ot E10.42 TYPE 1 DIABETES MELLITUS WITH DIABETIC P 06/27/2017 BRAYAN SINGH MD Ot E10.621 TYPE 1 DIABETES MELLITUS WITH FOOT ULCER 06/27/2017 BRAYAN SINGH MD, Ot L97.512 NON-PRS CHRONIC ULCER OTH PRT RIGHT FOOT 06/27/2017 BRAYAN SINGH MD Ot E10.42 TYPE 1 DIABETES MELLITUS WITH DIABETIC P 06/27/2017 BRAYAN SINGH MD Ot E10.621 TYPE 1 DIABETES MELLITUS WITH FOOT ULCER 06/27/2017 BRAYAN SINGH MD, Ot L97.512 NON-PRS CHRONIC ULCER OTH PRT RIGHT FOOT 06/27/2017 BRAYAN SINGH MD, Ot E10.42 TYPE 1 DIABETES MELLITUS WITH DIABETIC P 06/27/2017 BRAYAN SINGH MD, Ot E10.621 TYPE 1 DIABETES MELLITUS WITH FOOT ULCER 06/27/2017 BRAYAN SINGH MD, Ot L97.512 NON-PRS CHRONIC ULCER OTH PRT RIGHT FOOT 06/27/2017 BRAYAN SINGH MD Ot E10.42 TYPE 1 DIABETES MELLITUS WITH DIABETIC P 06/27/2017 BRAYAN SINGH MD Ot E10.621 TYPE 1 DIABETES MELLITUS WITH FOOT ULCER 06/27/2017 BRAYAN SINGH MD, Ot L97.512 NON-PRS CHRONIC ULCER OTH PRT RIGHT FOOT 10/15/2017 FILIPPO MCDONALD MD, Ot 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 PERIPHERAL AN 10/15/2017 FILIPPO MCDONALD MD, Ot 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) 10/21/2017 BRAYAN SINGH MD Ot E10.42 TYPE 1 DIABETES MELLITUS WITH DIABETIC P 10/21/2017 BRAYAN SINGH MD Ot E10.621 TYPE 1 DIABETES MELLITUS WITH FOOT ULCER 10/21/2017 BRAYAN SINGH MD, Ot L97.512 NON-PRS CHRONIC ULCER OTH PRT RIGHT FOOT 10/21/2017 BRAYAN SINGH MD, Ot E10.42 TYPE 1 DIABETES MELLITUS WITH DIABETIC P 10/21/2017 BRAYAN SINGH MD, Ot E10.621 TYPE 1 DIABETES MELLITUS WITH FOOT ULCER 10/21/2017 BRAYAN SINGH MD, Ot L97.512 NON-PRS CHRONIC ULCER OTH PRT RIGHT FOOT 10/31/2017 FILIPPO MCDONALD MD, Ot 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 PERIPHERAL AN 10/31/2017 FILIPPO MCDONALD MD, Ot 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) Procedures Code Description [place] [address] PSYTX PT&/FAMILY 30 MINUTES 07/11/2012 81774 PSYTX PT&/FAMILY 30 MINUTES 07/17/2012 [id number] DRAINAGE OF R LOW LEG SUBCU/FASCIA, OPEN 08/22/2016 [id number] DRAINAGE OF R FOOT SUBCU/ FASCIA, PERC AP 08/22/2016 [id number] DETACHMENT AT RIGHT 3RD TOE, COMPLETE, O 08/22/2016 [id number] EXCISION OF R FOOT SUBCU/ FASCIA, OPEN AP 08/24/2016 [id number] DETACHMENT AT RIGHT 2ND TOE, COMPLETE, O 08/24/2016 [id number] DETACHMENT AT RIGHT 4TH TOE, COMPLETE, O 08/24/2016 [id number] DETACHMENT AT RIGHT 5TH TOE, COMPLETE, O [...] 22:03 Bacteria identification in wound by culture [id number] NRG FREE TEXT EXTERNAL SENSITIVITY REPORTED 08/25/16 06:45 NRG QUANTITY OF GROWTH Moderate Growth NR Bacterial susceptibility panel - 08/22/16 22:03 Gentamicin [...] test by minimum inhibitory concentration < = NR Bacterial susceptibility panel - 08/22/16 22:03 Gentamicin [...] susceptibility test by minimum inhibitory concentration - [facility] Bacterial susceptibility panel - 08/22/16 22:03 Gentamicin [...] culture - 08/23/16 11:30 Bacterial urine culture [id number] NRG COLONY COUNT <10,000 NRG Capillary blood [...] - 10/12/16 11:00 QUANTITY OF GROWTH . [facility] Bacteria identification in isolate by anaerobe culture SEE COMMEN [facility] Gram stain microscopy - 10/12/16 11:00 GRAM STAIN RESULT FEW WBC'S, NO BACTERIA OBSERVED [facility] Bacteria identification in wound by culture - 10/12/16 11:00 Bacteria identification in wound by culture [id number] [facility] FREE TEXT EXTERNAL [place]IVITY REPORTED AT 0738, 8-17 NRG QUANTITY OF GROWTH Scant Growth NRG FREE TEXT ENTRY 3 LAB FOR SENSITIVITY. NR Bacterial susceptibility panel - 10/12/16 11:00 Oxacillin [...] identification in isolate by anaerobe culture NG [facility] Gram stain microscopy - 11/23/16 11:46 GRAM STAIN RESULT NO BACTERIA OBSERVED NR Bacteria identification in wound by culture - 11/23/16 11:46 Bacteria identification in wound by culture NG [facility] Bacteria identification in isolate by anaerobe culture - 01/04/17 11:30 Bacteria identification in isolate by anaerobe culture NOANA NR Gram stain microscopy - 01/04/17 11:30 GRAM STAIN RESULT FEW GRAM POSITIVE COCCI NR Bacteria identification in wound by culture - 01/04/17 11:30 Bacteria identification in wound by culture [id number] NR FREE TEXT EXTERNAL [place] SENSITIVITY REPORTED [...] 11:35 Bacteria identification in wound by culture [id number] NR FREE TEXT EXTERNAL SENT TO REF.LAB FOR SENSITIVITY 02-04 NRG QUANTITY OF GROWTH Scant Growth NR FREE TEXT ENTRY 2 LINEZOLID RESULT REPORTED 02/05 12:05 NR Bacterial susceptibility panel - 02/01/17 11:35 Oxacillin [...] 09:36 Bacteria identification in wound by culture [id number] NRG FREE TEXT EXTERNAL SENT TO REF.LAB FOR SENSITIVIY 03-03-17 NRG QUANTITY OF GROWTH Moderate Growth NRG FREE TEXT ENTRY 2 SEE COMMENT FOR REPORT FROM REF.LAB NR Bacterial susceptibility panel - 03/01/17 09:36 Oxacillin [...] 10:08 Bacteria identification in wound by culture [id number] NRG FREE TEXT EXTERNAL SENT TO REFERENCE LAB 04/08/17 FOR NRG QUANTITY OF GROWTH Scant Growth NRG FREE TEXT ENTRY 2 SENSITIVITY TESTING. [facility] Bacterial susceptibility panel - 04/05/17 10:08 Oxacillin [...] test by minimum inhibitory concentration 2 NRG Automated blood complete blood count (hemogram) panel - 05/31/17 08:01 Blood leukocytes automated count (number/volume) 5.8 10*3/uL 4.3-11.0 Blood erythrocytes automated count (number/volume) 4.63 10*6/uL 4.35-5.85 Venous blood hemoglobin measurement (mass/volume) 13.9 g/dL 13.3-17.7 Blood hematocrit (volume fraction) 39 % 40-54 Automated erythrocyte mean corpuscular volume 84 [foz_us] 80-99 Automated erythrocyte mean corpuscular hemoglobin (mass per erythrocyte) 30 pg 25-34 Automated erythrocyte mean corpuscular hemoglobin concentration measurement ( mass/volume) 36 g/dL 32-36 Automated erythrocyte distribution width ratio 13.8 % 10.0-14.5 Automated blood platelet count (count/volume) 257 10*3/uL 130-400 Automated blood platelet mean volume measurement 9.8 [foz_us] 7.4-10.4 Comprehensive metabolic panel - 05/31/17 08:01 Serum or plasma sodium measurement (moles/volume) 137 mmol/L 135-145 Serum or plasma potassium measurement (moles/volume) 4.0 mmol/L 3.6-5.0 Serum or plasma chloride measurement (moles/volume) 106 mmol/L 98-107 Carbon dioxide 25 mmol/L 21-32 Serum or plasma anion gap determination (moles/volume) 6 mmol/L 5-14 Serum or plasma urea nitrogen measurement (mass/volume) 9 mg/dL 7-18 Serum or plasma creatinine measurement (mass/volume) 1.09 mg/dL 0.60-1.30 Serum or plasma urea nitrogen/creatinine mass ratio 8 NRG Serum or plasma creatinine measurement with calculation of estimated glomerular filtration rate > NRG Serum or plasma glucose measurement (mass/volume) 299 mg/dL 70-105 Serum or plasma calcium measurement (mass/volume) 9.1 mg/dL 8.5-10.1 Serum or plasma total bilirubin measurement (mass/volume) 0.3 mg/dL 0.1-1.0 Serum or plasma alkaline phosphatase measurement (enzymatic activity/volume) 96 U/L 40-136 Serum or plasma aspartate aminotransferase measurement (enzymatic activity/ volume) 11 U/L 5-34 Serum or plasma alanine aminotransferase measurement (enzymatic activity/volume ) 16 U/L 0-55 Serum or plasma protein measurement (mass/volume) 7.0 g/dL 6.4-8.2 Serum or plasma albumin measurement (mass/volume) 3.9 g/dL 3.2-4.5 Lipid 1996 panel - 05/31/17 08:01 Serum or plasma triglyceride measurement (mass/volume) 334 mg/dL <150 Serum or plasma cholesterol measurement (mass/volume) 262 mg/dL < 200 Serum or plasma cholesterol in HDL measurement (mass/volume) 47 mg/ dL 40-60 Cholesterol in LDL [mass/volume] in serum or plasma by direct assay 160 mg/dL 1-129 Serum or plasma cholesterol in VLDL measurement (mass/volume) 67 mg/ dL 5-40 Hemoglobin A1c - 05/31/17 08:01 Blood hemoglobin A1C measurement (mass/volume) 10.9 % 4.0 -5.6 MEAN BLOOD GLUCOSE 266 % <=126 Encounters ACCT No. Visit Date/Time Discharge Status Pt. Type Provider Facility Loc./Unit Complaint [id number] 12/26/2017 09:47:59 12/26/2017 23:59:59 CLS Outpatient Colton Hummel [id number] 10/25/2014 11:17:06 10/25/2014 11:17:06 DIS Outpatient [id number] 05/08/2017 10:00:00 05/08/2017 23:59:59 CLS Outpatient AFSHAN MCCOY MD [facility] 11/11/2014 15:52:44 ACT Document Registration [id number] 02/17/2017 12:26:09 02/17/2017 12:26:09 Outpatient [facility] [id number] 10/14/2017 13:20:00 10/14/2017 23:59:59 CLS Outpatient FILIPPO MCDONALD MD [facility] RAD E11.51 [id number] 05/31/2017 07:49:00 05/31/2017 23:59:59 CLS Outpatient RENÉE THOMAS DO [facility] LAB DIABETIC [id number] 05/28/2017 17:25:00 05/28/2017 19:17:00 DIS Emergency ALEX GARCIA MD [facility] ER R SHOULDER INJ [id number] 05/24/2017 00:20:00 05/24/2017 23:59:59 CLS Preadmit RENÉE THOMAS DO [facility] LAB DIABETIC [id number] 02/22/2017 10:53:00 05/23/2017 00:01:00 DIS Outpatient RENÉE THOMAS DO [facility] LAB DIABETIC [id number] 05/01/2017 10:41:00 05/01/2017 23:59:59 CLS Outpatient BRAYAN SINGH MD [facility] WOUNDCARE [id number] 04/26/2017 09:55:00 04/26/2017 23:59:59 CLS Outpatient BRAYAN SINGH MD [facility] [id number] 04/19/2017 09:40:00 04/19/2017 23:59:59 CLS Outpatient BRAYAN SINGH MD [facility] [id number] 04/12/2017 09:55:00 04/12/2017 23:59:59 CLS Outpatient BRAYAN SINGH MD [facility] [id number] 04/05/2017 09:37:00 04/05/2017 23:59:59 CLS Outpatient BRAYAN SINGH MD [facility] [id number] 03/29/2017 09:54:00 03/29/2017 23:59:59 CLS Outpatient BRAYAN SINGH MD [facility] [id number] 03/22/2017 10:02:00 03/22/2017 23:59:59 CLS Outpatient BRAYAN SINGH MD [facility] [id number] 03/08/2017 09:22:00 03/08/2017 23:59:59 CLS Outpatient BRAYAN SINGH MD [facility] [id number] 03/01/2017 09:16:00 03/01/2017 23:59:59 CLS Outpatient BRAYAN SINGH MD [facility] [id number] 02/26/2017 14:57:00 02/26/2017 23:59:59 CLS Preadmit BRAYAN SINGH MD [facility] [id number] 02/22/2017 10:51:00 02/22/2017 23:59:59 CLS Outpatient RENÉE THOMAS DO [facility] LAB DIABETIC [id number] 02/21/2017 13:27:00 02/21/2017 23:59:59 CLS Outpatient BRAYAN SINGH MD [facility] [id number] 02/15/2017 10:36:00 02/15/2017 23:59:59 CLS Outpatient BRAYAN SINGH MD [facility] [id number] 02/08/2017 10:43:00 02/08/2017 23:59:59 CLS Outpatient BRAYAN SINGH MD [facility] [id number] 02/01/2017 11:51:00 02/01/2017 23:59:59 CLS Outpatient MEGNHA MCDANIEL MD [facility] LAB N17.0 [id number] 02/01/2017 11:06:00 02/01/2017 23:59:59 CLS Outpatient BRAYAN SINGH MD [facility] WOUNDC[facility] [id number] 01/15/2017 13:15:00 01/15/2017 23:59:59 CLS Outpatient BRAYAN SINGH MD [facility] [id number] 01/11/2017 10:41:00 01/11/2017 23:59:59 CLS Outpatient BRAYAN SINGH MD [facility] [id number] 01/04/2017 12:18:00 01/04/2017 23:59:59 CLS Outpatient BRAYAN SINGH MD [facility] RAD L97.414, M86.474, E10.621 , E10.42 [id number] 01/04/2017 10:50:00 01/04/2017 23:59:59 CLS Outpatient BRAYAN SINGH MD [facility] [id number] 2016 10:52:00 2016 23:59:59 CLS Outpatient BRAYAN SINGH MD [facility] [id number] 12/21/2016 10:47:00 12/21/2016 23:59:59 CLS Outpatient BRAYAN SINGH MD [facility] [id number] 12/14/2016 13:53:00 12/14/2016 23:59:59 CLS Outpatient BRAYAN SINGH MD [facility] [id number] 11/30/2016 11:05:00 11/30/2016 23:59:59 CLS Outpatient BRAYAN SINGH MD [facility] [id number] 11/25/2016 02:30:00 11/25/2016 23:59:59 CLS Preadmit BRAYAN SINGH MD [facility] LAB E10.621,E10.42,L97.413, I70.234 [id number] 11/02/2016 11:34:00 11/24/2016 00:01:00 DIS Outpatient BRAYAN SINGH MD [facility] LAB E10.621,E10.42,L97.413, I70.234 [id number] 11/23/2016 11:04:00 11/23/2016 23:59:59 CLS Outpatient BRAYAN SINGH MD [facility] [id number] 11/09/2016 11:07:00 11/09/2016 23:59:59 CLS Outpatient BRAYAN SINGH MD [facility] [id number] 11/02/2016 10:54:00 11/02/2016 23:59:59 CLS Outpatient BRAYAN SINGH MD [facility] [id number] 10/19/2016 10:54:00 10/19/2016 23:59:59 CLS Outpatient BRAYAN SINGH MD [facility] [id number] 10/12/2016 11:40:00 10/12/2016 23:59:59 CLS Outpatient BRAYAN SINGH MD [facility] RAD L97.413 E10.621 [id number] 10/12/2016 09:45:00 10/12/2016 23:59:59 CLS Outpatient BRAYAN SINGH MD [facility]OUND[facility] [id number] 10/10/2016 10:41:00 10/10/2016 23:59:59 CLS Outpatient MEGHNA MCDANIEL MD [facility] LAB N17.0 [id number] 08/22/2016 19:35:00 08/25/2016 18:15:00 DIS Inpatient TRACI OSORIO DO [facility] 4TH SEPSIS [id number] 2014 15:13:00 12/29/2014 18:30:00 DIS Inpatient CONNIE CHENG, JEAN Huynh [facility] ICU BENZODIAZEPINE OD, SI [id number] 11/11/2014 15:52:00 11/11/2014 18:11:00 DIS Emergency JUDY AMES DIRECTOR [employer] [facility] ER DIFFICULTY BREATHING, VOMITING [id number] 11/10/2014 15:03:00 11/10/2014 23:59:59 CLS Outpatient ARIANNA STEPHENS MD (DDU) [facility] RT COPD [id number] 10/15/2014 11:48:00 10/15/2014 23:59:59 CLS Outpatient HAMZAH BOWENS MD (DDU) [facility] RAD DDU [id number] 09/28/2014 21:01:00 09/28/2014 22:32:00 DIS Emergency ROLANDO CHENG, RIK Urban [facility] ER BLOOD SUGARS ELEVATED , DIZZY [id number] 08/25/2014 22:32:00 08/25/2014 22:56:00 DIS Emergency JUDY AMES APRN [facility] ER TOE PAIN [id number] 10/02/2013 02:38:00 10/02/2013 02:59:00 DIS Emergency RANDEE RAY DO [facility] ER LAC ON TOE [id number] 11/09/2012 18:02:00 11/09/2012 20:48:00 DIS Emergency ZAY VILLALOBOS DO [facility] ER R FOOT INJ [id number] 10/28/2012 01:30:00 10/28/2012 18:25:00 DIS Inpatient CHELO MARTINEZ MD [facility] ICU ACUTE ALCOHOL INTOXICATION,DRUG OVERDOSE [id number] 10/25/2012 18:00:00 10/25/2012 19:25:00 DIS Emergency ZAY VILLALOBOS DO [facility] ER CHEST PAINS [id number] 08/30/2012 22:29:00 08/31/2012 00:41:00 DIS Emergency ZAY VILLALOBOS DO [facility] ER H/A [id number] 08/15/2012 03:30:00 08/15/2012 17:15:00 DIS Outpatient FLAQUITA CHENG FACC, PERRI CALLEJAS CCDS [facility] CATH CHEST PAIN [id number] 07/15/2012 17:56:00 07/15/2012 23:59:59 CLS Outpatient [id number] 08/25/2014 22:32:00 Document Registration [id number] 08/25/2014 22:32:00 Document Registration [id number] 08/25/2014 22:32:00 Document Registration [id number] 03/04/2012 22:53:00 Document Registration [id number] 05/07/2011 09:07:00 Document Registration [id number] 05/05/2011 09:06:00 Document Registration [id number] 08/31/2010 07:43:00 Document Registration [id number] 08/20/2010 19:56:00 Document Registration [id number] 12/20/2011 09:38:00 12/20/2011 23:59:59 CLS Outpatient [id number] 12/20/2011 09:38:00 12/20/2011 23:59:59 CLS Outpatient [id number] 07/17/2012 13:53:00 Document Registration [id number] 07/09/2012 07:53:00 Document Registration
[2018-03-05] MEDS ORDERED: TETANUS,DIPTH,PERTUSS P/F (BOOSTRIX) 0.5 ML VIAL IM STA (18:39)
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
[2018-03-05] MEDS ORDERED: AMOX-358 PO (19:55)
[2018-03-05 20:04] VITALS: BP 150/90
== END 2018-03-05 20:04 | disposition home or self-care (01) ==
LOC: EDUNIT# 18:13 → ER 18:14
DX: S02.2XXA Fracture of nasal bones, initial encounter for closed fracture (principal); S00.532A Contusion of oral cavity, initial encounter; S20.211A Contusion of right front wall of thorax, initial encounter; J44.9 Chronic obstructive pulmonary disease, unspecified; I25.10 Atherosclerotic heart disease of native coronary artery without angina pectoris; E78.00 Pure hypercholesterolemia, unspecified; I11.0 Hypertensive heart disease with heart failure; I50.9 Heart failure, unspecified; K21.9 Gastro-esophageal reflux disease without esophagitis; E11.51 Type 2 diabetes mellitus with diabetic peripheral angiopathy without gangrene; I73.9 Peripheral vascular disease, unspecified; E11.40 Type 2 diabetes mellitus with diabetic neuropathy, unspecified; F32.9 Major depressive disorder, single episode, unspecified; F41.9 Anxiety disorder, unspecified; R40.2142 Coma scale, eyes open, spontaneous, at arrival to emergency department; R40.2252 Coma scale, best verbal response, oriented, at arrival to emergency department; R40.2362 Coma scale, best motor response, obeys commands, at arrival to emergency department; F12.10 Cannabis abuse, uncomplicated; Z87.891 Personal history of nicotine dependence; Z90.89 Acquired absence of other organs; Z87.19 Personal history of other diseases of the digestive system; Z23 Encounter for immunization; Z86.718 Personal history of other venous thrombosis and embolism; Z86.711 Personal history of pulmonary embolism; Z91.5 Personal history of self-harm; Z88.8 Allergy status to other drugs, medicaments and biological substances; Z79.01 Long term (current) use of anticoagulants; Y04.8XXA Assault by other bodily force, initial encounter
CPT/HCPCS: 70450; 70486; 71046; 71100; 90471; 90715

== ENCOUNTER → 2018-03-31 | Outpatient (CLI) | payer MEDICAID ==
[~2018-03-31] MED LIST changes: +AMOX-358 PO; -GABA600T2 PO; +GBPN600T PO
[2018-03-31 14:59] LABS: BASOPHILS % (AUTO) 0 % (0-10); EOSINOPHILS # (AUTO) 0.2 10^3/uL (0.0-0.3); EOSINOPHILS % (AUTO) 2 % (0-10); HEMATOCRIT 40 % (40-54); HEMOGLOBIN 13.5 G/DL (13.3-17.7); LYMPHOCYTES % (AUTO) 14 % (12-44); MEAN CORPUSCULAR HEMOGLOBIN 28 PG (25-34); MEAN CORPUSCULAR HGB CONC 34 G/DL (32-36); MEAN CORPUSCULAR VOLUME 84 FL (80-99); MEAN PLATELET VOLUME 9.8 FL (7.4-10.4); MONOCYTES # (AUTO) 0.7 X 10^3 (0.0-1.0); MONOCYTES % (AUTO) 10 % (0-12); NEUTROPHILS # (AUTO) 5.3 X 10^3 (1.8-7.8); NEUTROPHILS % (AUTO) 74 % (42-75); PLATELET COUNT 212 10^3/uL (130-400); WHITE BLOOD COUNT 7.2 10^3/uL (4.3-11.0)
[2018-03-31 15:00] LABS: BILIRUBIN,URINE NEGATIVE (NEGATIVE); CLARITY,URINE CLEAR; COLOR,URINE YELLOW; GLUCOSE, URINE (UA) 4+ (NEGATIVE); KETONES,URINE NEGATIVE (NEGATIVE); LEUKOCYTE ESTERASE ,URINE NEGATIVE (NEGATIVE); NITRITE,URINE NEGATIVE (NEGATIVE); PH,URINE 5 (5-9); PROTEIN,URINE NEGATIVE (NEGATIVE); UROBILINOGEN,URINE NORMAL (NORMAL)
[2018-03-31 15:09] LABS: BACTERIA,URINE NEGATIVE /HPF; SQUAMOUS EPITHELIAL CELL,UR RARE /HPF
[2018-03-31 15:34] LABS: ALBUMIN 3.7 GM/DL (3.2-4.5); CALCIUM 8.6 MG/DL (8.5-10.1); CREATININE SERUM 1.26 MG/DL (0.60-1.30); MAGNESIUM 1.8 MG/DL (1.8-2.4); PHOSPHORUS 3.7 MG/DL (2.3-4.7); POTASSIUM 4.3 MMOL/L (3.6-5.0); URIC ACID 5.1 MG/DL (2.6-7.2)
== END ==
LOC: LAB 14:21
PROVIDERS: ATTEND Internal Medicine Nephrology
DX: I10 Essential (primary) hypertension (principal); N17.0 Acute kidney failure with tubular necrosis; E11.51 Type 2 diabetes mellitus with diabetic peripheral angiopathy without gangrene; R80.8 Other proteinuria
CPT/HCPCS: 36415; 80069; 81000; 82306; 82570; 82607; 82728; 82746; 83540; 83735; 83970; 84156; 84550; 85025

== ENCOUNTER 2018-09-17 11:54 | Inpatient (IN) | payer MEDICARE, MEDICAID ==
[~2018-09-17] VITALS: Ht 200.7 cm; Wt 188.9 kg
[2018-09-17] VITALS (13 sets, daily range): BP systolic 98–144; BP diastolic 56–91
[~2018-09-17 11:54] MED LIST changes: -RIVA15TA PO; +RIVA15TA2 PO
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
[2018-09-17] MEDS ORDERED: PIPERACILLIN/TAZOBACTAM (BULK) 4.5 GM in NS (IVPB) 100 ML IV ONE (12:15)
[2018-09-17] MEDS ORDERED: IBUPROFEN 800 MG (MOTRIN) TAB PO ONE (12:15)
[2018-09-17] MEDS ORDERED: NS IV 1000 ML 1,000 ML IV SCH (12:15)
--- NOTE | 2018-09-17 12:15 | ED Lower Extremity ---
General Stated Complaint: FOOT WOUND Source: patient Exam Limitations: no limitations History of Present Illness Date Seen by Provider: Sep 17, 2018 Time Seen by Provider: 12:13 Initial Comments To ER with a wound to the left foot. To the left fifth toe specifically, present for about a month. It's become acutely worse over the past 2-3 days with foul odor. He is on antibiotics (Levaquin for 2 days), primary care is Dr. Thompson. Onset: other Severity: moderate Pain/Injury Location: left 5th toe Method of Injury: unknown Modifying Factors: Worse With Movement Allergies and Home Medications Allergies Coded Allergies: cortisone (Verified Allergy, Unknown, HIVES, 11/11/14) meloxicam (Verified Allergy, Unknown, 05/28/17) pregabalin (Verified Allergy, Unknown, 05/28/17) shellfish derived (Verified Allergy, Unknown, 11/11/14) Uncoded Allergies: THYLAID (Allergy, Unknown, 11/11/14) Home Medications Amoxicillin/Potassium Clav 1 Each Tablet, 1 EACH PO BID Prescribed by: ZAY VILLALOBOS on 03/05/181954 Clindamycin HCl 300 Mg Capsule, 300 MG PO Q8H, (Reported) 10 DAY THERAPY FILLED 08-13-16 Cyclobenzaprine HCl 10 Mg Tablet, 10 MG PO Q8H PRN for SPASMS Prescribed by: ALEX GARCIA on 05/28/171910 Hydrocodone Bit/Acetaminophen 1 Tab Tab, 1-2 EACH PO Q6H PRN for BREAKTHROUGH PAIN Prescribed by: ALEX GARCIA on 05/28/171910 Ibuprofen 800 Mg Tablet, 800 MG PO Q8H PRN for PAIN-MILD, (Reported) Oxycodone HCl/Acetaminophen 1 Each Tablet, 1 TAB PO Q6H PRN for PAIN-MODERATE, (Reported) Rivaroxaban 15 Mg Tablet, 15 MG PO BID, (Reported) Patient Home Medication List Home Medication List Reviewed: Yes Review of Systems Constitutional: see HPI EENTM: see HPI Respiratory: no symptoms reported Cardiovascular: no symptoms reported Genitourinary: no symptoms reported Musculoskeletal: see HPI Skin: no symptoms reported Psychiatric/Neurological: No Symptoms Reported Past Uckbnyv-Exkcfh-Voirue Hx Patient Social History Alcohol Beverage of Choice: Other Drug of Choice: THC, EXTENSIVE ABUSE OF PRESCRIPTION DRUGS Type Used: Smokeless Tobacco Recent Foreign Travel: No Contact w/Someone Who Travel: No Immunizations Up To Date Tetanus Booster (TDap): Unknown Date of Pneumonia Vaccine: Jun 13, 2007 Seasonal Allergies Seasonal Allergies: Yes Past Medical History Surgeries: Yes Adenoidectomy, Amputation, Cardiac, Dialysis, Ear Surgery, Orthopedic, Tonsillectomy Respiratory: Yes Pulmonary Embolism, COPD Currently Using CPAP: No Cardiac: Yes Coronary Artery Disease, Deep Vein Thrombosis, High Cholesterol, Hypertension, Peripheral Vascular Neurological: Yes Neuropathy Reproductive Disorders: No Sexually Transmitted Disease: No HIV/AIDS: No Genitourinary: Yes Renal Failure Gastrointestinal: Yes (STATES HE HAS A DAMAGED LIVER) Gastroesophageal Reflux, Liver Disease/Jaundice, Chronic Constipation Musculoskeletal: Yes Arthritis Endocrine: Yes Diabetes, Insulin dep HEENT: Yes (S/P BMT'S AND T &A) Chronic Ear Infection, Tonsilitis Cancer: No Psychosocial: Yes (POLYSUBSTANCE ABUSE; OVERDOSED) Sleep Difficulties, Anxiety, Suicide Attempts, Depression Integumentary: Yes Blood Disorders: No Adverse Reaction/Blood Tranf: No Family Medical History No Pertinent Family Hx Physical Exam Vital Signs Vital Signs - First Documented 09/17/18 12:03 Temp 100.2 Pulse 100 Resp 20 B/P (MAP) 99/64 (76) Pulse Ox 91 O2 Delivery Room Air Capillary Refill : Height, Weight, BMI Height: 6'7.00" Weight: 250lbs. 3.0oz. 113.517010oy; 38.8 BMI Method:Stated General Appearance: WD/WN, no apparent distress Respiratory: no respiratory distress, no accessory muscle use Hips: bilateral hip non-tender, bilateral hip normal inspection, bilateral hip normal range of motion Legs: bilateral leg non-tender, bilateral leg normal inspection, bilateral leg normal range of motion Knees: bilateral knee non-tender, bilateral knee normal inspection, bilateral knee normal range of motion Ankles: bilateral ankle non-tender, bilateral ankle normal inspection, bilateral ankle normal range of motion Feet: left foot other (circumferential erythema of the left foot starting at the ankle and extending distally. The left fifth toe is necrotic, blackened appearance, moist and this extends proximally to the distal aspect of the fifth metatarsal.) Neurologic/Psychiatric: alert, normal mood/affect Skin: normal color, warm/dry Progress/Results/Core Measures Results/Orders Lab Results Laboratory Tests Test 09/17/18 12:52 Range/Units White Blood Count 17.7 H 4.3-11.0 10^3/uL Red Blood Count 3.73 L 4.35-5.85 10^6/uL Hemoglobin 10.6 L 13.3-17.7 G/DL Hematocrit 32 L 40-54 % Mean Corpuscular Volume 85 80-99 FL Mean Corpuscular Hemoglobin 28 25-34 PG Mean Corpuscular Hemoglobin Concent 34 32-36 G/DL Red Cell Distribution Width 13.5 10.0-14.5 % Platelet Count 285 130-400 10^3/uL Mean Platelet Volume 9.1 7.4-10.4 FL Neutrophils (%) (Auto) 87 H 42-75 % Lymphocytes (%) (Auto) 4 L 12-44 % Monocytes (%) (Auto) 9 0-12 % Eosinophils (%) (Auto) 0 0-10 % Basophils (%) (Auto) 0 0-10 % Neutrophils # (Auto) 15.4 H 1.8-7.8 X 10^3 Lymphocytes # (Auto) 0.7 L 1.0-4.0 X 10^3 Monocytes # (Auto) 1.6 H 0.0-1.0 X 10^3 Eosinophils # (Auto) 0.0 0.0-0.3 10^3/uL Basophils # (Auto) 0.0 0.0-0.1 10^3/uL Neutrophils % (Manual) 88 % Lymphocytes % (Manual) 2 % Monocytes % (Manual) 4 % Eosinophils % (Manual) 2 % Basophils % (Manual) 0 % Band Neutrophils 4 % Blood Morphology Comment NORMAL Sodium Level 127 L 135-145 MMOL/L Potassium Level 4.5 3.6-5.0 MMOL/L Chloride Level 91 L 98-107 MMOL/L Carbon Dioxide Level 24 21-32 MMOL/L Anion Gap 12 5-14 MMOL/L Blood Urea Nitrogen 21 H 7-18 MG/DL Creatinine 2.20 H 0.60-1.30 MG/DL Estimat Glomerular Filtration Rate 32 BUN/Creatinine Ratio 10 Glucose Level 293 H 70-105 MG/DL Lactic Acid Level 2.30 *H 0.50-2.00 MMOL/L Calcium Level 8.9 8.5-10.1 MG/DL Corrected Calcium 9.5 8.5-10.1 MG/DL Total Bilirubin 0.7 0.1-1.0 MG/DL Aspartate Amino Transf (AST/SGOT) 16 5-34 U/L Alanine Aminotransferase (ALT/SGPT) 13 0-55 U/L Alkaline Phosphatase 89 40-136 U/L Total Protein 7.3 6.4-8.2 GM/DL Albumin 3.2 3.2-4.5 GM/DL My Orders Orders - JUDY AMES APRN Wound Culture (09/17/18 12:15) Cbc With Automated Diff (09/17/18 12:15) Comprehensive Metabolic Panel (09/17/18 12:15) Ua Culture If Indicated (09/17/18 12:15) Foot, Left, 3 Views (09/17/18 12:15) Ed Iv/Invasive Line Start (09/17/18 12:15) Blood Culture (09/17/18 12:15) Lactic Acid Analyzer (09/17/18 12:15) Ibuprofen Tablet (Motrin Tablet) (09/17/18 12:15) Ns Iv 1000 Ml (Sodium Chloride 0.9%) (09/17/18 12:15) Piperacillin/Tazobactam (Bulk) (Zosyn In (09/17/18 12:15) Oxycodone/Apap 5/325mg Tablet (Percocet (09/17/18 13:00) Acetaminophen Tablet/Caplet (Tylenol T (09/17/18 13:00) Manual Differential (09/17/18 12:52) Ekg Tracing (09/17/18 13:38) Continuous Ekg Monitoring (09/17/18 13:38) Aspirin Chewable Tablet (Baby Aspirin Ch (09/17/18 14:00) Diltiazem Injection (Cardizem Injection) (09/17/18 14:00) Ns (Ivpb) (Sodium C... W/Diltiazem Iv Fo (09/17/18 14:00) Apixaban Tablet (Eliquis Tablet) (09/17/18 14:00) Medications Given in ED Current Medications Medications Dose Ordered Sig/[place]aven Route Start Time Stop Time Status Last Admin Dose Admin Acetaminophen 325 mg ONCE ONCE PO 09/17/18 13:00 09/17/18 13:01 DC 09/17/18 13:08 325 MG Oxycodone/ Acetaminophen 1 tab ONCE ONCE PO 09/17/18 13:00 09/17/18 13:01 DC 09/17/18 13:08 1 TAB Piperacillin Sod/ Tazobactam Sod 4.5 gm/Sodium Chloride 120 ml @ 240 mls/hr ONCE ONCE IV 09/17/18 12:15 09/17/18 12:44 DC 09/17/18 13:28 240 MLS/HR Vital Signs/I&O 09/17/18 12:03 Temp 100.2 Pulse 100 Resp 20 B/P (MAP) 99/64 (76) Pulse Ox 91 O2 Delivery Room Air Departure Communication (Admissions) Time/Spoke to Admitting Phy: 14:[address] Owusu, will admit. Over the past articular patient developed a tachycardic rate of about 1 4150 irregular. Patient does report a history of atrial fibrillation, he takes liquids but has stopped this on his own 3 days ago because of the wound on his foot, he thought it was making it worse. Blood pressure is stable at 112/86, 93% oxygen on room air. I'll start a Cardizem drip and we initiated treatment with his Eliquis. Zosyn is infused. I spoke with Dr. Joseph from surgery, he agrees to consult for possible toe/metatarsal amputation. Also spoke with Dr. Colon from cardiology, recommends 2-D echo, arterial ultrasound lower extremity on the left, Cardizem drip and amiodarone drip. Impression Primary Impression: Diabetic wet gangrene of the foot Additional Impressions: Severe sepsis Atrial fibrillation with rapid ventricular response Disposition: ADMITTED INPATIENT Condition: Stable Admissions Decision to Admit Reason: Admit from ER (General) Decision to Admit/Date: Sep 17, 2018 Time/Decision to Admit Time: 12:19 Departure-Patient Inst. Referrals: REBECCA LING MD (PCP/Family) Primary Care Physician JUDY AMES APRN Sep 17, 2018 12:15
--- NOTE | 2018-09-17 12:40 | NUR ---
pt cant ua yet
--- NOTE | 2018-09-17 12:57 | NUR ---
pt says he cant take motrin due to used to do dyalysuis. has no fistula.
--- NOTE | 2018-09-17 12:57 | NUR ---
labs and blood cxs and wound cx to lab by me
[2018-09-17] MEDS ORDERED: oxyCODONE/APAP 5/325MG (PERCOCET 5) TABLET PO ONE (13:00)
[2018-09-17] MEDS ORDERED: ACETAMINOPHEN 325 MG TABLET PO ONE (13:00)
[2018-09-17 13:02] LABS: BASOPHILS % (AUTO) 0 % (0-10); EOSINOPHILS % (AUTO) 0 % (0-10); HEMATOCRIT 32 % (40-54); HEMOGLOBIN 10.6 G/DL (13.3-17.7); LYMPHOCYTES # (AUTO) 0.7 X 10^3 (1.0-4.0); LYMPHOCYTES % (AUTO) 4 % (12-44); MEAN CORPUSCULAR HEMOGLOBIN 28 PG (25-34); MEAN CORPUSCULAR HGB CONC 34 G/DL (32-36); MEAN CORPUSCULAR VOLUME 85 FL (80-99); MEAN PLATELET VOLUME 9.1 FL (7.4-10.4); MONOCYTES # (AUTO) 1.6 X 10^3 (0.0-1.0); MONOCYTES % (AUTO) 9 % (0-12); NEUTROPHILS # (AUTO) 15.4 X 10^3 (1.8-7.8); NEUTROPHILS % (AUTO) 87 % (42-75); PLATELET COUNT 285 10^3/uL (130-400); RED CELL DISTRIBUTION WIDTH 13.5 % (10.0-14.5); WHITE BLOOD COUNT 17.7 10^3/uL (4.3-11.0)
--- NOTE | 2018-09-17 13:12 | NUR ---
lab been in room doing 2nd bcx.
--- OUTSIDE RECORDS SUMMARY | 2018-09-17 13:18 | XMS REPORT | Clinical Summary ---
Author Author [facility] Organization [facility] Address Unknown Phone Unavailable Care Team Providers Care Pole Climber Name Role Phone Jonathan Carvalho DO PCP Source Comments Some departments are not documenting in the electronic medical record. If you d o not see the information that you expected, contact Release of Information in [facility] Information Management department at [phone] for further assistan ce in locating additional records.[facility] Allergies Comments Active Allergy Reactions Severity Noted Date Adhesive Tape (Rosins) RASH Medium 02/16/2016 Burning sensation Cortisone SEE COMMENTS Low 02/16/2016 Causes more pain Pregabalin SEE COMMENTS Low 02/16/2016 Causes more pain Meloxicam SEE COMMENTS Low 02/16/2016 Medications No known medications Active Problems Not on file Social History Date Tobacco Use Types Packs/Day Years Used Never Smoker Drinks/Week oz/Week Comments Alcohol Use 0 Standard drinks or equivalent 0.0 Not Asked Sex Assigned at Date Recorded Not on file Industry Job Start Date Occupation Not on file Not on file Not on file Travel End Travel History Travel Start No recent travel history available. Last Filed Vital Signs Reading Time Taken Comments Vital Sign 189/115 02/16/2016 1:16 PM [employer] Blood Pressure 107 02/16/2016 1:16 PM [employer] Pulse 37.1 C (98.8 F) 02/16/2016 1:16 PM [employer] Temperature - - Respiratory Rate 95% 02/16/2016 1:16 PM [employer] Oxygen Saturation - - Inhaled Oxygen Concentration 145.2 kg (320 lb) 02/16/2016 1:16 PM [employer] Weight 193 cm (6' 4") 02/16/2016 1:16 PM [employer] Height 38.95 02/16/2016 1:16 PM [employer] Body Mass Index Plan of Treatment Health Maintenance Due Date Last Done Comments PHYSICAL (COMPREHENSIVE) 1972 EXAM HIV SCREENING 1980 DTAP/TDAP VACCINES (1 - 12/29/1983 Tdap) COLORECTAL CANCER 12/29/2015 SCREENING SHINGLES RECOMBINANT 12/29/2015 VACCINE (1 of 2) INFLUENZA VACCINE 11/25/2018 Results Not on filefrom Last 3 Months Advance Directives Patient Phlebotomist Explanation Type Date Recorded Advance 01/24/2016 4:07 PM Directive/DPOA
[2018-09-17 13:25] LABS: ALBUMIN 3.2 GM/DL (3.2-4.5); BILIRUBIN,TOTAL 0.7 MG/DL (0.1-1.0); CALCIUM 8.9 MG/DL (8.5-10.1); CREATININE SERUM 2.2 MG/DL (0.60-1.30); POTASSIUM 4.5 MMOL/L (3.6-5.0); TOTAL PROTEIN 7.3 GM/DL (6.4-8.2)
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
--- NOTE | 2018-09-17 13:31 | NUR ---
pt remains alert gcs 15. brother remains in the room. pt denies chest and abd pain. denies nausea and no v/d noted in er visit thus far. denies dyspnea and no acute sighns of dyspnea noted. bp machine is 112/86 ausc hr 140 irreg ausc resp 20 normal recheck temp 100.9 p ox r/a is 92. tele applied by me shows st pac vs a flutter. dr notified. i rewraaped left foot with kerlex wrap . wound is weeping.
[2018-09-17 13:45] LABS: BAND NEUTROPHILS 4 %; BASOPHILS % (MANUAL) 0 %; EOSINOPHILS % (MANUAL) 2 %; LYMPHOCYTES % (MANUAL) 2 %; MONOCYTES % (MANUAL) 4 %; NEUTROPHILS % (MANUAL) 88 %; RBC MORPH NORMAL
--- NOTE | 2018-09-17 13:45 | NUR ---
ekg by me and to dr by someone else
[2018-09-17] MEDS ORDERED: APIXABAN 5 MG (ELIQUIS) TABLET PO ONE (14:00)
[2018-09-17] MEDS ORDERED: DILTIAZEM IV FOR DRIP 125 MG in NS (IVPB) 100 ML IV SCH (14:00)
[2018-09-17] MEDS ORDERED: DILTIAZEM 25 MG/5 ML INJ (CARDIZEM) VIAL IVP ONE (14:00)
[2018-09-17] MEDS ORDERED: ASPIRIN 81 MG CHEW (CHILDREN'S ASA) PO ONE (14:00)
--- NOTE | 2018-09-17 14:01 | Diagnostic Imaging Report ---
EXAMINATION: Left foot. INDICATION: Swelling and redness. FINDINGS: Three views were obtained. There are no prior studies available for comparison. The head of the proximal phalanx of fifth digit has been transected at the neck. The distal fracture fragment is displaced laterally by half the width of the phalangeal shaft. There is considerable soft tissue edema of the fifth digit and there is gas interspersed throughout the tissues of the fifth digit and about the forefoot in the region of the third, fourth, and fifth metatarsals. The lateral view also suggests that there is considerable soft tissue edema over the dorsum of the foot. These finding are worrisome for a gas-forming organism within the soft tissues. Consequently, the fracture of the proximal phalanx could be pathologic in nature. No other fracture or acute bony abnormality is identified. There is a calcaneal spur. IMPRESSION: 1. There is a displaced fracture of the neck of the proximal phalanx of the fifth digit. This injury may be pathologic in nature as there does appear to be gas throughout the soft tissues of the fifth digit and of the forefoot about the third, fourth, and fifth metatarsals. 2. There is no acute abnormality identified otherwise. 3. These results were discussed with Hector Hutchins APRN. Dictated by: Dictated on workstation # [id number]
--- NOTE | 2018-09-17 14:18 | History & Physical-Hospitalist ---
History of Present Illness HPI/Chief Complaint CC: Severe sepsis due to left foot wound HPI: This is a 54yoWM clinic pt of Dr. Thompson recently changed from Dr. Aristeo Álvarez in [place] who has a PMH of DM who presents to the ER with a draining wound on the left foot found to have wet gangrene and severe odor to the foot that fills the room and is accompanied by a relative. He reports that for an unknown duration of time he has had the draining ulcer on his left foot but he approximates 1 month but worsened in the past [address] Thompson and being placed on Levaquin. He reports that he has had foot surgery by Dr. Hemphill before and initially I consulted Dr. Joseph because of the severity of the gangrene but Dr. Hemphill appears to be willing to see him and consultation and likely take him to sx tomorrow morning at 6:30 and that's what the pt appears to agree too since he is familiar with Dr. Hemphill. he will be placed on broad spectrum antibiotics of Vancomycin and Zosyn, placed on severe sepsis IV protocol, and will be placed in the ICU for close monitoring. Pt does see Nephrology Dr. Colon and he also sees Dr. Beckford on a fairly regular basis for cardiology issues. He denies use of O2 or CPAP mask. Source: patient, family, RN/MD, old records Date Seen 09/17/18 Time Seen by a Provider: 14:00 Attending Physician PCP Tamara Álvarez MD Referring Physician Date of Admission Home Medications & Allergies Home Medications Reviewed patient Home Medication Reconciliation performed by pharmacy medication reconciliations mathematical technician and/or nursing. Patients Allergies have been reviewed. Allergies Allergies Coded Allergies cortisone (Verified Allergy, Unknown, HIVES, 11/11/14) meloxicam (Verified Allergy, Unknown, 05/28/17) pregabalin (Verified Allergy, Unknown, 05/28/17) shellfish derived (Verified Allergy, Unknown, 11/11/14) Uncoded Allergies THYLAID ( Allergy, Unknown, 11/11/14) Past Aiuvueu-Mrbnwn-Zpjqad Hx Past Med/Social Hx: Reviewed Nursing Past Med/Soc Hx, Reviewed and Corrections made Patient Social History Marrital Status: single Employed/Student: unemployed Alcohol Use: Denies Use Alcohol Beverage of Choice: Other Recreational Drug Use: No Drug of Choice: THC, EXTENSIVE ABUSE OF PRESCRIPTION DRUGS Smoking Status: Never a Smoker Type Used: Smokeless Tobacco Recent Foreign Travel: No Contact w/other who traveled: No Recent Infectious Disease Expo: No Immunizations Up To Date Tetanus Booster (TDap): Unknown Date of Pneumonia Vaccine: Jun 13, 2007 Seasonal Allergies Seasonal Allergies: Yes Past Medical History Surgeries: Adenoidectomy, Amputation, Cardiac, Dialysis, Ear Surgery, Orthopedic, Tonsillectomy Respiratory: COPD, Sleep Apnea Currently Using CPAP: No Cardiac: Coronary Artery Disease, Deep Vein Thrombosis, High Cholesterol, Hypertension, Peripheral Vascular Neurological: Neuropathy Reproductive: No Sexually Transmitted Disease: No HIV/AIDS: No Genitourinary: Renal Failure Gastrointestinal: Gastroesophageal Reflux, Liver Disease/Jaundice, Chronic Co nstipation Musculoskeletal: Arthritis Endocrine: Diabetes, Insulin dep HEENT: Chronic Ear Infection, Tonsilitis Psychosocial: Sleep Difficulties, Anxiety, Suicide Attempts, Depression History of Blood Disorders: No Adverse Reaction to Blood Liriano: No Family History No Pertinent Family Hx Review of Systems Constitutional: see HPI, weakness EENTM: no symptoms reported Respiratory: no symptoms reported Cardiovascular: no symptoms reported Gastrointestinal: no symptoms reported Genitourinary: no symptoms reported Musculoskeletal: joint pain Skin: see HPI Psychiatric/Neurological: Anxiety All Other Systems Reviewed Negative Unless Noted: Yes Physical Exam Physical Exam Vital Signs Vital Signs - First Documented 09/17/18 12:03 Temp 100.2 Pulse 100 Resp 20 B/P (MAP) 99/64 (76) Pulse Ox 91 O2 Delivery Room Air Capillary Refill : Less Than 3 Seconds Height, Weight, BMI Height: 6'7.00" Weight: 380lbs. 3.0oz. [id number]; 38.8 BMI Method:Stated General Appearance: No Apparent Distress, WD/WN, Chronically ill, Obese Eyes: Right Eye Normal Inspection, Right Eye PERRL HEENT: PERRL/EOMI, Normal ENT Inspection, Pharynx Normal, Moist Mucous Membranes Neck: Full Range of Motion, Normal Inspection, Non Tender Respiratory: Chest Non Tender, Lungs Clear, Normal Breath Sounds, No Accessory Muscle Use, No Respiratory Distress Cardiovascular: Regular Rate, Rhythm, No Edema, No Gallop, No JVD, No Murmur, Normal Peripheral Pulses Gastrointestinal: Normal Bowel Sounds, No Organomegaly, No Pulsatile Mass, Non Tender, Soft Back: Normal Inspection, No CVA Tenderness, No Vertebral Tenderness Extremity: Normal Capillary Refill, Normal Inspection (except draining wound left foot), Normal Range of Motion, Non Tender, No Calf Tenderness, No Pedal Edema Neurologic/Psychiatric: Alert, Oriented x3, No Motor/Sensory Deficits, Normal Mood/Affect, organ tuner electronic II-XII Norm as Tested, Sensory Deficit (feet bilateral) Skin: Normal Color, Warm/Dry, Other (erythema and drainage malodorous left foot wound) Lymphatic: No Adenopathy Results Results/Procedures Labs Laboratory Tests 09/17/18 12:52 Patient resulted labs reviewed. Assessment/Plan Admission Diagnosis Assessment: Severe sepsis Left diabetic foot ulcer in need of incision and drainage tomorrow by podiatry Dr. Hemphill AF chronic but now with RVR Obstructive sleep apnea GERD Diabetes mellitus Hypertension History of suicide attempts Depression Leukocytosis Acute on chronic renal failure CAD Plan: Empiric IV antibiotics of vancomycin and Zosyn Pain control Aggressive IV fluids Appreciate surgery scheduled for tomorrow Monitor closely Admission Status: Inpatient Order (span 2 midnights) Reason for Inpatient Admission: Requires left foot I&D and IV abx and treatment for severe sepsis Diagnosis/Problems Diagnosis/Problems (1) Severe sepsis Status: Acute (2) Diabetic wet gangrene of the foot Status: Acute (3) Atrial fibrillation with rapid ventricular response Status: Acute (4) Gangrene of right foot Status: Acute (5) Hyperglycemia Status: Acute (6) Acute renal insufficiency Status: Acute (7) Diabetes Status: Acute Qualifiers: Diabetes mellitus type: type 2 Diabetes mellitus shelter insulin use: without shelter use Diabetes mellitus complication status: with kidney complications Diabetes mellitus complication detail: with chronic kidney disease Chronic kidney disease stage: stage 3 (moderate) Qualified Codes: E11.22 - Type 2 diabetes mellitus with diabetic chronic kidney disease; N18.3 - Chronic kidney disease, stage 3 (moderate) TRACI OOSRIO DO Sep 17, 2018 14:18
--- NOTE | 2018-09-17 14:24 | NUR ---
zosyn complted and bolus over 1/2 done
--- NOTE | 2018-09-17 14:46 | NUR ---
2nd iv site by me 20 g right f/a x 1. more labs to lab by me. 300 left in bolus . now on pump. cardizem continues 5/hr on pump. bp machine is 133/81 ausc hr 108 reg ausc resp 20 normal recheck temp 101.2 p ox r/a is 93. tele shows st 110 vs a fluttter 03/28.
--- OUTSIDE RECORDS SUMMARY | 2018-09-17 14:50 | XMS REPORT | Clinical Summary ---
Author Author [facility] Organization [facility] Address Unknown Phone Unavailable Care Team Providers Care Physical Chemistry Professor Name Role Phone Jonathan Carvalho DO PCP Source Comments Some departments are not documenting in the electronic medical record. If you d o not see the information that you expected, contact Release of Information in [facility] [employer] Information Management department at [phone] for further assistan ce in locating additional records.[facility] Allergies Comments Active Allergy Reactions Severity Noted [...] Comments Vital Sign 189/115 02/16/2016 1:16 PM STOCK SHIPPER Blood Pressure 107 02/16/2016 1:16 PM STOCK SHIPPER Pulse 37.1 C (98.8 F) 02/16/2016 1:16 PM STOCK SHIPPER Temperature - - Respiratory Rate 95% 02/16/2016 1:16 PM STOCK SHIPPER Oxygen Saturation - - Inhaled Oxygen Concentration 145.2 kg (320 lb) 02/16/2016 1:16 PM STOCK SHIPPER Weight 193 cm (6' 4") 02/16/2016 1:16 PM STOCK SHIPPER Height 38.95 02/16/2016 1:16 PM STOCK SHIPPER Body Mass Index Plan of Treatment Health Maintenance Due Date Last Done Comments PHYSICAL (COMPREHENSIVE) 1972 EXAM HIV SCREENING 1980 DTAP/TDAP VACCINES (1 - 12/29/1983 Tdap) COLORECTAL CANCER 12/29/2015 SCREENING SHINGLES RECOMBINANT 12/29/2015 VACCINE (1 of 2) INFLUENZA VACCINE 11/25/2018 Results Not on filefrom Last 3 Months Advance Directives 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
--- NOTE | 2018-09-17 14:58 | NUR ---
i tried to call report to admit nurse claudy. she said call back in 10 min.
--- NOTE | 2018-09-17 15:20 | NUR ---
Lasha esparza in [facility] - 09/17/18 at 1521 by [id number] apparantely admit nurse is not on the floor yet.
--- NOTE | 2018-09-17 15:20 | NUR ---
apparantely admit nurse is not on the floor yet.
--- NOTE | 2018-09-17 15:21 | NUR ---
apparantely admit nurse is not on floor
--- NOTE | 2018-09-17 15:23 | NUR ---
someone handed me note . lactic acid is 2.28. i will forward to
--- NOTE | 2018-09-17 15:29 | NUR ---
dr taking pt to admit room and he said he will do bedside report.
[2018-09-17] MEDS ORDERED: DILTIAZEM 125 MG/NS 100 ML IV SCH ×2 (16:00)
[2018-09-17] MEDS ORDERED: AMIODARONE 450 MG/250 ML D5W EXCEL IV SCH ×2 (16:00)
[2018-09-17] MEDS ORDERED: inSUlin ASPART (NovoLOG) 1 UNIT/0.01 ML (CHARGE PER UNIT) SC SCH (16:06)
[2018-09-17] MEDS ORDERED: PIPERACILLIN/TAZO 4.5 GM/NS 100 ML IV NR ×2 (16:15)
[2018-09-17] MEDS ORDERED: NS IV ONE (16:15)
[2018-09-17] MEDS ORDERED: VANCOMYCIN 2,500 MG/NS 500 ML IVPB IV NR ×2 (16:30)
--- NOTE | 2018-09-17 16:36 | NUR ---
PHARMACY TO DOSE VANCOMYCIN: BASED ON ADJ BW 131.97 KG, SCr 2.20, EST CrCl 73.3 LOADING DOSE: 2,500 MG MAIN DOSE: 2,500 MG Q 12 HRS TO BEGIN 09/17/18 @ 23:00 VANCOMYCIN TROUGH DUE 09/18/18 @ 22:00 IF TROUGH IS GREATER THAN 20 HOLD 09/18/18 @ 23:00 DOSE.
[2018-09-17] MEDS: AMIODARONE 450 MG/250 ML D5W EXCEL IV SCH ×2 (17:07)
--- NOTE | 2018-09-17 17:07 | Diagnostic Imaging Report ---
INDICATION: Gangrene, redness, oozing x 5 days. TECHNIQUE: Three views of the left ankle. CORRELATION STUDY: Left foot, 09/17/2018. FINDINGS: There is edema about the lower leg, ankle and hindfoot. There is again demonstration of abnormal soft tissue gas along the dorsal aspect of the foot extending approximately to the level of the navicular bone. Vascular calcification is noted. Soft tissue calcification of the distal anterior leg. The visualized underlying osseous structure of the ankle demonstrates no acute bony abnormality. No pierre bony destructive type change. Prominent plantar calcaneal spurring. IMPRESSION: Edema about the leg, ankle and hindfoot with gas along the dorsal aspect of the foot. While findings may be posttraumatic, do raise concern for underlying gas forming infection. Findings were telephoned to Marilu at Dr. Hemphill's office, 4:58 p.m. Dictated by: Dictated on workstation # [id number]
[2018-09-17] MEDS: NOREPINEPHRINE 4 MG in NS (IVPB) 250 ML IV SCH ×2 (17:17→20:04)
[2018-09-17] MEDS: NS IV 1000 ML 1,000 ML IV SCH ×2 (17:18→20:07)
--- NOTE | 2018-09-17 17:18 | NUR ---
PT NOT HYPOTENSIVE. RECEIVED VERBAL ORDER FROM JUDY AMES NP, ED NOT TO BOLUS DUE TO NON-HYPOTENSIVE.
[2018-09-17] MEDS: DILTIAZEM 120 MG (CARDIZEM CD) CAP PO SCH (17:30)
--- NOTE | 2018-09-17 18:25 | CONSULTATION REPORT ---
DATE OF SERVICE: 09/17/2018 ATTENDING PRIMARY CARE PHYSICIAN: Dr. Tamara Álvarez. ADMITTING PHYSICIAN: Marilee Owusu DO The patient is a 52-year-old male who presented to the Emergency Department with a gangrenous left fifth toe. He reports that this lesion started approximately one month ago; however, in the past 2 to 3 days this became worse and developed a foul odor. He was on Levaquin for approximately two days and seen by Dr. Thompson. The wound did worsen with what appeared to be wet gangrene of the lesion. He has had previous diabetic complications resulting in amputation of the right 2nd through 5th phalanges in the past. Upon examination, he does have a wet gangrene of the left fifth toe as well as surrounding erythema. He is scheduled to have an amputation of the toe by podiatry tomorrow morning. Upon further questioning, he does have a multitude of other different issues including morbid obesity as well as risk factors for gastroesophageal reflux disease as well as a first degree family history of colon cancer with his mother having the disease. He has not had any endoscopy done in the past. He also does report some mild issues with pain in the right upper abdominal quadrant after eating meals. For now, we will work him up as an outpatient; however, after this procedure we will have him follow up in the office for scheduling a colonoscopy, which is the most imperative secondary issue after the toe amputation. PAST MEDICAL HISTORY: Insulin-dependent diabetes, coronary artery disease, history of DVT, hypercholesterolemia, hypertension, peripheral vascular disease, peripheral neuropathy, gastroesophageal reflux disease, history of constipation, insulin-dependent diabetes, insomnia, anxiety, depression, previous suicide attempt and COPD. PAST SURGICAL HISTORY: Adenoidectomy, right 2nd through 5th toe amputation, ear surgery, orthopedic and tonsillectomy. ALLERGIES: CORTISONE, MELOXICAM, PREGABALIN AND SHELLFISH. MEDICATIONS: Augmentin b.i.d., clindamycin 300 mg q.8 hours, cyclobenzaprine 10 mg q.8 hours, hydrocodone p.r.n., oxycodone p.r.n., Rivaroxaban 15 mg b.i.d. SOCIAL HISTORY: Previous smoker. Current smokeless tobacco, THC. Previous abuse of prescription drugs. FAMILY HISTORY: Noncontributory. VITAL SIGNS: Temperature 100.2, blood pressure 99/64, pulse 100, respirations 20, pulse ox 91% on room air. REVIEW OF SYSTEMS: GENERAL: Well-nourished male currently in no acute distress. He is not experiencing any shortness of breath or difficulty breathing. No chest pain, palpitations, diaphoresis. He does have intermittent episodes of epigastric burning sensation as well as crampy pain. No nausea, vomiting. No history of constipation, no red blood per rectum, no dark tarry stools. No fever, chills, no recent inadvertent weight loss. All other review of systems negative. PHYSICAL EXAMINATION: CHEST: A few scattered rales and rhonchi bilaterally. HEART: Regular, no murmurs. EXTREMITIES: Plus 2/3 bilateral lower extremity edema with a gangrenous left fifth toe encompassing the entire phalanx. There is also surrounding redness and erythema. He does have palpable popliteal and femoral pulses bilaterally. HEENT: No scleral icterus. NECK: No cervical lymphadenopathy. ABDOMEN: Soft, nontender, nondistended. SKIN: Warm, dry. LABORATORY DATA: WBC 17.7, hemoglobin 10.6, hematocrit 32, platelets 285,000. BUN 21, creatinine 2.20. Liver function enzymes normal. ASSESSMENT AND PLAN: A 52-year-old male with a multitude of medical problems; however, the most pending issue right now is a diabetic wet gangrene of the left fifth great toe and he is scheduled for amputation by podiatry tomorrow. He will need further strict medical care including a tight glycemic control as well as weight management programs as well as a possible EGD and colonoscopy. He may also need further evaluation of his gallbladder due to intermittent episodes of discomfort as well as nausea and vomiting. After he has healed from the amputation and he is as an outpatient we will have him follow up for a colonoscopy first and foremost due to his first degree family history of colon cancer. Job ID: [id number] DocumentID: [id number] Dictated Date: 09/17/2018 17:51:33 Comic Writer Date: 09/17/2018 18:24:03 Dictated By: DENA ACOSTA MD
--- NOTE | 2018-09-17 18:38 | Consultation-Cardiology ---
HPI-Cardiology Cardiology Consultation: Date of Consultation 09/17/18 Date of Admission Attending Physician Marilee Owusu DO Admitting Physician Tamara Álvarez MD Consulting Physician Lakshmi COLON MD HPI: Time Seen by a Provider: 17:00 Chief Complaint: atrial fibrillation, right lower extremity gangrene this is a 52-year-old gentleman who has history of atrial fibrillation on oral anticoagulation therapy, possible PAD, previous history of venous thrombosis. He presents with gangrenous left fifth toe. He was on oral antibiotics but no significant improvement. He is admitted for likely amputation. the patient denies any other significant cardiac complaints. Review of Systems-Cardiology Review of Systems Constitutional: As described under HPI; No As described under HPI, No no sympto ms reported, No chills, No fever, No lightheadedness Eyes: No As described under HPI, No no symptoms reported, No blindness, No blurred vision, No contact lenses, No drainage, No decreased acuity, No foreign body sensation, No pain, No vision change Ears/Nose/Throat: No As described under HPI, No no symptoms reported, No chronic hearing loss, No ear discharge, No ear pain, No nasal drainage, No ulcerations Respiratory: No no symptoms reported; As described under HPI; No As described under HPI, No cough, No orthopnea, No shortness of breath, No SOB with excertion Cardiovascular: No no symptoms reported; As described under HPI; No As described under HPI, No chest pain, No edema, No irregular heart rate, No lightheadedness, No palpitations Gastrointestinal: No no symptoms reported, No As described under HPI, No abdomen distended, No abdominal pain, No blood streaked bowels, No constipation, No diarrhea, No nausea, No vomiting, No stool coloration changes Genitourinary: No As described under HPI, No burning, No dysuria, No discharge, No frequency, No flank pain, No hematuria, No urgency Musculoskeletal: other (Right fifth toe gangrene ) Skin: No rash, No skin related problems, No ulcerations Psychiatric/Neurological: No anxiety, No depression, No seizure, No focal weakness, No syncope Hematologic: No bleeding abnormalities CVX-Llspul-Bkjprj Hx Patient Social History Alcohol Use: Occasionally Uses Recreational Drug Use: No Drug of Choice: THC, EXTENSIVE ABUSE OF PRESCRIPTION DRUGS Smoking Status: Never a Smoker Former smoker/When Quit: Feb 25, 2014 Type Used: Smokeless Tobacco Recent Foreign Travel: No Recent Infectious Disease Expo: No Immunizations Up To Date Tetanus Booster (TDap): Unknown Date of Pneumonia Vaccine: Jun 13, 2007 Past Medical History PMH As described under Assessment. Family Medical History Family History: Patient reports no known family medical history. Allergies and Home Medications Allergies Coded Allergies: cortisone (Verified Allergy, Unknown, HIVES, 11/11/14) meloxicam (Verified Allergy, Unknown, 05/28/17) pregabalin (Verified Allergy, Unknown, 05/28/17) shellfish derived (Verified Allergy, Unknown, 11/11/14) Uncoded Allergies: THYLAID (Allergy, Unknown, 11/11/14) Home Medications Apixaban 5 Mg Tablet, 5 MG PO BID, (Reported) Atorvastatin Calcium 20 Mg Tablet, 20 MG PO HS, (Reported) Budesonide/Formoterol Fumarate 10.2 Gm Hfa.aer.ad, 2 PUFF INH BID, (Reported) Carvedilol 25 Mg Tab, 25 MG PO BID, (Reported) Furosemide 40 Mg Tablet, 40 MG PO DAILY, (Reported) Gabapentin 800 Mg Tablet, 800 MG PO TID, (Reported) Insulin Aspart 300 Units/3 Ml Solution, SC TIDAC, (Reported) Insulin Glargine,Hum.rec.anlog 300 Unit/1 Ml Insuln.pen, 140 UNITS SC HS, (Reported) Isosorbide Mononitrate 60 Mg Tab, 60 MG PO DAILY, (Reported) Levofloxacin 500 Mg Tablet, 500 MG PO DAILY, (Reported) 10 DAY SUPPLY FILLED 09-15-18 Liraglutide 0.6 Mg/0.1 Ml Pen.injctr, 1.2 MG SC HS, (Reported) Lisinopril 5 Mg Tablet, 5 MG PO DAILY, (Reported) Morphine Sulfate 30 Mg Tablet.er, 30 MG PO BID, (Reported) Multivitamin 1 Each Tablet, 1 TAB PO DAILY, (Reported) Oxycodone HCl/Acetaminophen 1 Each Tablet, 1 TAB PO Q4H PRN for PAIN-MODERATE, (Reported) Ranitidine HCl 150 Mg Tablet, 150 MG PO DAILY, (Reported) Terazosin HCl 2 Mg Capsule, 2 MG PO DAILY, (Reported) Trazodone HCl 100 Mg Tablet, 100 MG PO HS, (Reported) Patient Home Medication List Home Medication List Reviewed: Yes Physical Exam-Cardiology Physical Exam Vital Signs/I&O 09/18/18 09/18/18 09/18/18 09/18/18 03:57 04:00 04:00 05:14 Temp 99.4 Pulse 96 100 Resp 20 20 B/P (MAP) 108/58 (75) 121/72 (88) Pulse Ox 91 O2 Delivery Room Air Room Air Room Air 09/18/18 09/18/18 09/18/18 09/18/18 06:00 08:07 08:07 08:10 Temp 101.0 Pulse 97 Resp 20 16 20 B/P (MAP) 130/73 (92) Pulse Ox 92 94 O2 Delivery Room Air OxyMask OxyMask OxyMask O2 Flow Rate 10 10 10 09/18/18 09/18/18 09/18/18 09/18/18 08:15 08:20 08:30 08:30 Resp 20 20 Pulse Ox 94 96 O2 Delivery OxyMask OxyMask OxyMask OxyMask O2 Flow Rate 10 10 10 10 09/18/18 09/18/18 09/18/18 09/18/18 08:40 08:45 08:50 09:00 Resp 20 20 Pulse Ox 96 98 O2 Delivery OxyMask OxyMask Nasal Cannula Nasal Cannula O2 Flow Rate 8 8 4 4 09/18/18 09/18/18 09/18/18 09/18/18 09:00 09:05 09:05 09:39 Temp 98.7 101.0 Pulse 93 94 Resp 18 20 B/P (MAP) 152/79 (103) Pulse Ox 94 96 O2 Delivery Room Air Nasal Cannula Nasal Cannula O2 Flow Rate 4 4 09/18/18 09/18/18 12:00 12:00 Temp 98.7 Pulse 94 Resp 18 B/P (MAP) 102/66 (78) Pulse Ox 94 94 O2 Delivery Room Air Nasal Cannula O2 Flow Rate 2.00 09/18/18 00:00 Intake Total 2065 ml Output Total 150 ml Balance 1915 ml Capillary Refill : Less Than 3 Seconds Constitutional: appears stated age, AAO x 3; No apparent distress; well- developed, well-nourished HEENT: PERRL; No normal ENT inspection, No TMs normal, No pharynx normal, No scleral icterus (R), No scleral icterus (L), No pale conjunctivae (R), No pale conjunctivae (L), No photophobia, No TM abnormal (R), No TM abnormal (L), No pharyngeal erythema, No tonsillar exudate, No other, No discharge, No EOMI; hearing is well preserved; No hard of hearing; oral hygience is good; No ulceration, No xanthelasmas are seen Neck: No non-tender, No full range of motion, No supple, No normal inspection, No carotid bruit, No limited range of motion, No lymphadenopathy (R), No lymphadenopathy (L), No tender lateral, No tender midline, No thyromegaly, No other; carotid pulses are 2 + bilaterally; No with good upstrokes Respiratory: No accessory muscle use, No respiratory distress, No chest tender, No chest expansion is symmetric; chest is bilaterally symmetric; No lungs clear to percussion; lungs clear to auscultation; No crackles, No rhonchi, No rales, No stridor, No wheezing, No pleural rub, No other Cardiovascular: irregularly irregular; No extra beats, No parasternal heave is noted, No JVD, No edema, No bradycardia; tachycardia; No point of maximal impulse, No cardiac thrills are palpable; S1 and S2; No gallop/S3, No gallop/S4, No diastolic murmur, No systolic murmur, No friction rub, No click, No other Gastrointestinal: No tender, No soft, No round, No distended, No pulsatile mass, No organomegaly, No guarding, No rebound, No tenderness, No hernia, No mass, No audible bowel sounds, No abnormal bowel sounds, No abdominal bruits, No spleenomegaly, No other Rectal: deferred Extremities: No normal range of motion, No non-tender, No normal inspection, No pedal edema, No calf tenderness, No normal capillary refill, No pelvis stable, No calf tenderness, No inflammation, No pedal edema, No slow capillary refill, No swelling, No other, No abrasion, No clubbing, No cyanosis, No ecchymosis, No laceration, No no lower extremity edema bilateral, No significant edema, No tenderness, No wound Neurologic/Psychiatric: no motor/sensory deficits, alert, normal mood/affect, oriented x 3, power is 5/5 both on sides Skin: No normal color, No warm/dry, No cyanosis, No cool, No diaphoresis, No damp, No ecchymosis, No jaundice, No mottled, No pallor, No rash, No tattoo s/piercings, No ulcerations, No rash on exposed areas, No ulcerations on exposed areas, No other Data Review Labs Laboratory Tests 09/17/18 17:32: Glucometer 225H 09/18/18 00:22: Glucometer 211H 09/18/18 03:05: White Blood Count 14.3H, Red Blood Count 3.25L, Hemoglobin 9.4L, Hematocrit 28L, Mean Corpuscular Volume 85, Mean Corpuscular Hemoglobin 29, Mean Corpuscular Hemoglobin Concent 34, Red Cell Distribution Width 13.4, Platelet Count 261, Mean Platelet Volume 9.2, Neutrophils (%) (Auto) 83H, Lymphocytes (%) (Auto) 7L, Monocytes (%) (Auto) 9, Eosinophils (%) (Auto) 1, Basophils (%) (Auto) 0, Neutrophils # (Auto) 11.8H, Lymphocytes # (Auto) 1.0, Monocytes # (Auto) 1.3H, Eosinophils # (Auto) 0.1, Basophils # (Auto) 0.0, Sodium Level 124*L, Potassium Level 3.8, Chloride Level 92L, Carbon Dioxide Level 22, Anion Gap 10, Blood Urea Nitrogen 23H, Creatinine 2.10H, Estimat Glomerular Filtration Rate 33, BUN/Creatinine Ratio 11, Glucose Level 186H, Calcium Level 8.1L, Corrected Calcium 9.0, Phosphorus Level 2.7, Magnesium Level 1.5L, Total Bilirubin 0.6, Aspartate Amino Transf (AST/SGOT) 17, Alanine Aminotransferase (ALT/SGPT) 15, Alkaline Phosphatase 88, Total Protein 6.5, Albumin 2.9L 09/18/18 03:15: Lactic Acid Level 1.80 09/18/18 11:02: Glucometer 178H 09/18/18 13:50: Sodium Level 124*L, Potassium Level 4.0, Chloride Level 94L, Carbon Dioxide Level 21, Anion Gap 9, Blood Urea Nitrogen 24H, Creatinine 2.22H, Estimat Glomerular Filtration Rate 31, BUN/Creatinine Ratio 11, Glucose Level 192H, Calcium Level 7.8L Microbiology 09/17/18 Blood Culture - Preliminary, Resulted No growth 09/17/18 Gram Stain - Final, Resulted 09/17/18 Wound Culture - Preliminary, Resulted Mixed Bacterial Ayana ECG Impression ECG Initial ECG Impression: Atrial Fibrillation w/RVR A/P-Cardiology Assessment/Admission Diagnosis Right fifth toe gangrene, r/o PAD, DM, HTN, Hyperlipidemia, AF with RVR Plan Right fifth toe gangrene, r/o PAD, surgery tomorrow. arterial ultrasound recommended. DM, defer to primary team. HTN, Continue outpatient meds. Hyperlipidemia, start high dose statin. AF with RVR, amiodarone, eliquis. Echo. Thank you for your consultation. Please call me if you have any questions. Arline Colon MD, FACP, FACC, FSCAI, FHRS, CCDS Interventional Cardiology Cardiac Electrophysiology Vascular Medicine and Endovascular Interventions Clinical Quality Measures DVT/VTE Risk/Contraindication: Risk Factor Score Per Nursin RFS Level Per Nursing on Admit: 4+=Very High Lakshmi COLON MD Sep 17, 2018 18:38
[2018-09-17] MEDS: PIPERACILLIN/TAZO 4.5 GM/NS 100 ML IV SCH ×2 (20:23)
[2018-09-17] MEDS: GABAPENTIN 400 MG (NEURONTIN) CAP PO SCH (22:09)
[2018-09-17] MEDS: APIXABAN 5 MG (ELIQUIS) TABLET PO SCH (22:09)
[2018-09-17] MEDS: VANCOMYCIN 2,500 MG/NS 500 ML IVPB IV SCH ×2 (22:10)
[2018-09-17] MEDS: oxyCODONE/APAP 5/325MG (PERCOCET 5) TABLET PO PRN (22:10)
[2018-09-18] VITALS (18 sets, daily range): BP systolic 94–152; BP diastolic 57–79
[2018-09-18] MEDS: NS IV 1000 ML 1,000 ML IV SCH ×4 (00:23→19:36)
[2018-09-18] MEDS: NOREPINEPHRINE 4 MG in NS (IVPB) 250 ML IV SCH ×4 (00:23→10:06)
[2018-09-18] MEDS: inSUlin ASPART (NovoLOG) 1 UNIT/0.01 ML (CHARGE PER UNIT) SC SCH ×5 (00:28→23:41)
[2018-09-18] MEDS: AMIODARONE 450 MG/250 ML D5W EXCEL IV SCH ×2 (02:26)
[2018-09-18 03:47] LABS: BASOPHILS % (AUTO) 0 % (0-10); EOSINOPHILS # (AUTO) 0.1 10^3/uL (0.0-0.3); EOSINOPHILS % (AUTO) 1 % (0-10); HEMATOCRIT 28 % (40-54); HEMOGLOBIN 9.4 G/DL (13.3-17.7); LYMPHOCYTES % (AUTO) 7 % (12-44); MEAN CORPUSCULAR HEMOGLOBIN 29 PG (25-34); MEAN CORPUSCULAR HGB CONC 34 G/DL (32-36); MEAN CORPUSCULAR VOLUME 85 FL (80-99); MEAN PLATELET VOLUME 9.2 FL (7.4-10.4); MONOCYTES # (AUTO) 1.3 X 10^3 (0.0-1.0); MONOCYTES % (AUTO) 9 % (0-12); NEUTROPHILS # (AUTO) 11.8 X 10^3 (1.8-7.8); NEUTROPHILS % (AUTO) 83 % (42-75); PLATELET COUNT 261 10^3/uL (130-400); RED CELL DISTRIBUTION WIDTH 13.4 % (10.0-14.5); WHITE BLOOD COUNT 14.3 10^3/uL (4.3-11.0)
[2018-09-18] MEDS: PIPERACILLIN/TAZO 4.5 GM/NS 100 ML IV SCH ×6 (03:57→19:36)
[2018-09-18 04:06] LABS: ALBUMIN 2.9 GM/DL (3.2-4.5); BILIRUBIN,TOTAL 0.6 MG/DL (0.1-1.0); CALCIUM 8.1 MG/DL (8.5-10.1); CREATININE SERUM 2.1 MG/DL (0.60-1.30); MAGNESIUM 1.5 MG/DL (1.8-2.4); PHOSPHORUS 2.7 MG/DL (2.3-4.7); POTASSIUM 3.8 MMOL/L (3.6-5.0); TOTAL PROTEIN 6.5 GM/DL (6.4-8.2)
[2018-09-18] MEDS ORDERED: MAGNESIUM 1 GM/100 ML IVPB 300 ML IV ONE (05:40)
--- NOTE | 2018-09-18 05:40 | Pulmonary Consultation ---
History of Present Illness History of Present Illness Date of Consultation 09/18/18 05:39 Time Seen by Provider: 06:17 Date of Admission History of Present Illness 52yo with hx of DM presented to ED secondary to draining left foot wound over the last month . Pt was found to have severe sepsis with wet gangrene of the left foot. Pt was recently placed on Levaquin 3 days prior to admissions. PT was admitted to ICU with Abx and surgery consult. Allergies and Home Medications Allergies Coded Allergies: cortisone (Verified Allergy, Unknown, HIVES, 11/11/14) meloxicam (Verified Allergy, Unknown, 05/28/17) pregabalin (Verified Allergy, Unknown, 05/28/17) shellfish derived (Verified Allergy, Unknown, 11/11/14) Uncoded Allergies: THYLAID (Allergy, Unknown, 11/11/14) Home Medications Cyclobenzaprine HCl 10 Mg Tablet, 10 MG PO Q8H PRN for SPASMS Prescribed by: ALEX GARCIA on 05/28/171910 Hydrocodone Bit/Acetaminophen 1 Tab Tab, 1-2 EACH PO Q6H PRN for BREAKTHROUGH PAIN Prescribed by: ALEX GARCIA on 05/28/171910 Ibuprofen 800 Mg Tablet, 800 MG PO Q8H PRN for PAIN-MILD, (Reported) Oxycodone HCl/Acetaminophen 1 Each Tablet, 1 TAB PO Q6H PRN for PAIN-MODERATE, (Reported) Rivaroxaban 15 Mg Tablet, 15 MG PO BID, (Reported) Past Dgpcqca-Xgnkau-Tnfzoj Hx Past Med/Social Hx: Reviewed Nursing Past Med/Soc Hx, Reviewed and Corrections made Patient Social History Alcohol Use: Denies Use Alcohol Beverage of Choice: Other Recreational Drug Use: No Drug of Choice: THC, EXTENSIVE ABUSE OF PRESCRIPTION DRUGS Smoking Status: Never a Smoker Type Used: Smokeless Tobacco Recent Foreign Travel: No Contact w/Someone Who Travel: No Recent Infectious Disease Expo: No Physical Abuse: No Sexual Abuse: No Immunizations Up To Date Tetanus Booster (TDap): Unknown Date of Pneumonia Vaccine: Jun 13, 2007 Seasonal Allergies Seasonal Allergies: Yes Past Medical History Surgeries: Yes Adenoidectomy, Amputation, Cardiac, Dialysis, Ear Surgery, Orthopedic, Tonsillectomy Respiratory: Yes Pulmonary Embolism, COPD Currently Using CPAP: No Cardiac: Yes Coronary Artery Disease, Deep Vein Thrombosis, High Cholesterol, Hypertension, Peripheral Vascular Neurological: Yes Neuropathy Reproductive Disorders: No Sexually Transmitted Disease: No HIV/AIDS: No Genitourinary: Yes Renal Failure Gastrointestinal: Yes (STATES HE HAS A DAMAGED LIVER) Gastroesophageal Reflux, Liver Disease/Jaundice, Chronic Constipation Musculoskeletal: Yes Arthritis Endocrine: Yes Diabetes, Insulin dep HEENT: Yes (S/P BMT'S AND T &A) Chronic Ear Infection, Tonsilitis Cancer: No Psychosocial: Yes (POLYSUBSTANCE ABUSE; OVERDOSED) Sleep Difficulties, Anxiety, Suicide Attempts, Depression Integumentary: Yes Blood Disorders: No Adverse Reaction/Blood Tranf: No Family Medical History Patient reports no known family medical history. No Pertinent Family Hx Review of Systems Time Seen by Provider: 06:32 Constitutional: Fever, Chills, Sweats, Weakness, Malaise Eyes: No: Pain, Vision change, Conjunctivae inflammation, Eyelid inflammation, Other, Redness ENT: Nose congestion; No: Ear pain, Ear discharge, Nose pain, Nose discharge, Mouth pain, Mouth swelling, Throat pain, Throat swelling, Other Respiratory: Cough, Dry, Shortness of breath, SOB with excertion Neurological: Weakness Sepsis Event Evaluation Height, Weight, BMI Height: 6'7.00" Weight: 417lbs. 8.0oz. 189.440371nl; 47.0 BMI Method:Stated Exam Exam Vital Signs Date Time Temp Pulse Resp B/P (MAP) Pulse Ox O2 Delivery O2 Flow Rate FiO2 09/18/18 04:00 96 20 108/58 (75) Room Air 09/18/18 04:00 91 Room Air 09/18/18 03:57 99.4 09/18/18 03:00 100 18 111/71 (84) Room Air 09/18/18 02:00 92 12 103/76 (85) 92 Room Air 09/18/18 01:00 100.3 09/18/18 01:00 91 09/18/18 01:00 91 17 95/57 (70) 92 Room Air 09/18/18 00:00 91 Room Air 09/18/18 00:00 94 94/61 (72) 93 Room Air 09/18/18 00:00 99.8 09/17/18 23:00 96 24 118/77 (91) 92 Room Air 09/17/18 22:00 99 23 121/65 (83) 90 Room Air 09/17/18 21:00 98 10 116/61 (79) 91 Room Air 09/17/18 20:00 94 Room Air 09/17/18 20:00 100.0 09/17/18 20:00 102 13 115/71 (86) 94 Room Air 09/17/18 19:00 98 23 109/62 (78) 92 Room Air 09/17/18 19:00 98 09/17/18 18:15 98 24 94 Room Air 09/17/18 18:00 96 15 144/81 (102) 92 Room Air 09/17/18 17:54 98 Room Air 09/17/18 17:30 96 23 109/80 (90) 94 Room Air 09/17/18 17:00 99 21 107/69 (82) 94 Room Air 09/17/18 16:45 100 16 98/56 (70) 92 Room Air 09/17/18 16:30 101 17 117/67 (84) 95 Room Air 09/17/18 16:15 103 15 130/78 (95) 89 Room Air 09/17/18 16:00 96 Room Air 09/17/18 16:00 103 19 124/78 (93) 93 Room Air 09/17/18 15:57 99.0 12 98 Room Air 09/17/18 15:48 105 09/17/18 15:45 105 18 114/91 (99) 93 Room Air 09/17/18 15:29 101.2 108 20 133/81 (98) 93 Room Air 09/17/18 14:20 100.2 100 20 99/64 91 09/17/18 12:03 100.2 100 20 99/64 (76) 91 Room Air I & O 09/18/18 06:59 Intake Total 2710 ml Output Total 625 ml Balance 2085 ml Height & Weight Height: 6'7.00" Weight: 417lbs. 8.0oz. 189.723933jt; 47.0 BMI Method:Stated General Appearance: No Apparent Distress, WD/WN, Chronically ill, Obese HEENT: PERRL/EOMI, Normal ENT Inspection, Pharynx Normal, Moist Mucous Membranes Neck: Full Range of Motion, Normal Inspection, Non Tender Respiratory: Chest Non Tender, Lungs Clear, Normal Breath Sounds, No Accessory Muscle Use, No Respiratory Distress Cardiovascular: Regular Rate, Rhythm, No Edema, No Gallop, No JVD, No Murmur, Normal Peripheral Pulses Capillary Refill: Less Than 3 Seconds Extremity: Normal Capillary Refill, Normal Inspection (except draining wound left foot), Normal Range of Motion, Non Tender, No Calf Tenderness, No Pedal Edema Neurologic/Psychiatric: Alert, Oriented x3, No Motor/Sensory Deficits, Normal 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, 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
[2018-09-18] MEDS: MAGNESIUM 1 GM/100 ML IVPB 100 ML IV SCH ×3 (06:00→09:17)
[2018-09-18] MEDS ORDERED: GENTAMICIN 40 MG/ML 2 ML INJ SDV ONE (06:10)
[2018-09-18] MEDS ORDERED: VANCOMYCIN 1000 MG/VIAL ONE (06:10)
[2018-09-18] MEDS ORDERED: NS IV 1000 ML 1,000 ML IV ONE (06:15)
[2018-09-18] MEDS ORDERED: fentaNYL INJECTION 100 MCG/2 ML AMP ONE (06:17)
[2018-09-18] MEDS ORDERED: SEVOFLURANE (ULTANE) 15 ML INHAL SOLN ONE ×6 (06:17→07:57)
[2018-09-18] MEDS ORDERED: proPOfol 200 MG/20 ML (DIPRIVAN) VIAL IV ONE (06:17)
[2018-09-18] MEDS ORDERED: LIDOCAINE PF 2% 5 ML (XYLOCAINE) VIAL ONE (06:17)
[2018-09-18] MEDS ORDERED: MIDAZOLAM 2 MG/2 ML (VERSED) VIAL ONE (06:17)
[2018-09-18] MEDS ORDERED: ONDANSETRON 4 MG/2 ML (SDV) Z0FRAN ONE ×2 (06:17→08:11)
--- NOTE | 2018-09-18 06:23 | NUR ---
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
[2018-09-18] MEDS ORDERED: BUPIVACAINE 0.5% 30 ML (SENSORCAINE) VIAL ONE (06:32)
[2018-09-18] MEDS: LACTATED RINGERS 1,000 ML IV PRN ×2 (06:34→07:50)
--- NOTE | 2018-09-18 06:50 | Consultation ---
History of Present Illness History of Present Illness Patient Consulted On(rosetta/time) 09/18/18 06:44 Date Seen by Provider: Sep 18, 2018 Time Seen by Provider: 06:25 Reason for Visit: Gangrene Left Foot History of Present Illness Pt states he has a history of Diabetic foot ulcer to the LLE for approximately 1 month. He states it got significantly worse over the past 3 days. He was seen by his PCP and placed on Levaquin, but the wound has continued to severely worsen. He was admitted to the ICU yesterday and I was consulted for his care. He was brought urgently to the OR today for I&D. He has a prior history of right foot infection and has had a partial amputation of the right foot in 2017. Allergies and Home Medications Allergies Coded Allergies: cortisone (Verified Allergy, Unknown, HIVES, 11/11/14) meloxicam (Verified Allergy, Unknown, 05/28/17) pregabalin (Verified Allergy, Unknown, 05/28/17) shellfish derived (Verified Allergy, Unknown, 11/11/14) Uncoded Allergies: THYLAID (Allergy, Unknown, 11/11/14) Home Medications Cyclobenzaprine HCl 10 Mg Tablet, 10 MG PO Q8H PRN for SPASMS Prescribed by: ALEX GARCIA on 05/28/171910 Hydrocodone Bit/Acetaminophen 1 Tab Tab, 1-2 EACH PO Q6H PRN for BREAKTHROUGH PAIN Prescribed by: ALEX GARCIA on 05/28/171910 Ibuprofen 800 Mg Tablet, 800 MG PO Q8H PRN for PAIN-MILD, (Reported) Oxycodone HCl/Acetaminophen 1 Each Tablet, 1 TAB PO Q6H PRN for PAIN-MODERATE, (Reported) Rivaroxaban 15 Mg Tablet, 15 MG PO BID, (Reported) Patient Home Medication List Home Medication List Reviewed: Yes Past Lreqeku-Ngfgqv-Pohzsj Hx Past Med/Social Hx: Reviewed Nursing Past Med/Soc Hx, Reviewed and Corrections made Patient Social History Alcohol Use: Denies Use Alcohol Beverage of Choice: Other Recreational Drug Use: No Drug of Choice: THC, EXTENSIVE ABUSE OF PRESCRIPTION DRUGS Smoking Status: Never a Smoker Type Used: Smokeless Tobacco Recent Foreign Travel: No Contact w/Someone Who Travel: No Recent Infectious Disease Expo: No Physical Abuse: No Sexual Abuse: No Immunizations Up To Date Tetanus Booster (TDap): Unknown Date of Pneumonia Vaccine: Jun 13, 2007 Seasonal Allergies Seasonal Allergies: Yes Past Medical History Surgeries: Yes Adenoidectomy, Amputation, Cardiac, Dialysis, Ear Surgery, Orthopedic, Tonsillectomy Respiratory: Yes Pulmonary Embolism, COPD Currently Using CPAP: No Cardiac: Yes Coronary Artery Disease, Deep Vein Thrombosis, High Cholesterol, Hypertension, Peripheral Vascular Neurological: Yes Neuropathy Reproductive Disorders: No Sexually Transmitted Disease: No HIV/AIDS: No Genitourinary: Yes Renal Failure Gastrointestinal: Yes (STATES HE HAS A DAMAGED LIVER) Gastroesophageal Reflux, Liver Disease/Jaundice, Chronic Constipation Musculoskeletal: Yes Arthritis Endocrine: Yes Diabetes, Insulin dep HEENT: Yes (S/P BMT'S AND T &A) Chronic Ear Infection, Tonsilitis Cancer: No Psychosocial: Yes (POLYSUBSTANCE ABUSE; OVERDOSED) Sleep Difficulties, Anxiety, Suicide Attempts, Depression Integumentary: Yes Blood Disorders: No Adverse Reaction/Blood Tranf: No Family Medical History Patient reports no known family medical history. No Pertinent Family Hx Review of Systems-General Constitutional: chills, malaise, weakness Cardiovascular: no symptoms reported Physical Exam-General Problems Physical Exam Vital Signs Vital Signs - First Documented 09/17/18 12:03 Temp 100.2 Pulse 100 Resp 20 B/P (MAP) 99/64 (76) Pulse Ox 91 O2 Delivery Room Air Capillary Refill : Less Than 3 Seconds Extremities: other (LLE- wound to the lateral foot with moderate purulent drainage and gangrene to the 5th toe, +fluctuance/purulence, wound tracking to the dorsal midfoot, DP/PT pulses intact, Gross sensation dimineshed, +edema LLE) Assessment/Plan Assessment/Plan Admission Diagnosis/Plan 1. Gas Gangrene Left Foot 2. Sepsis 3. Uncontrolled Diabetes -Emergent I&D with possible partial amputation Left Foot. -cont IV abx Admission Status: Inpatient Order (span 2 midnights) Reason for Inpatient Admission: Sepsis Clinical Quality Measures DVT/VTE Risk/Contraindication: Risk Factor Score Per Nursin RFS Level Per Nursing on Admit: 4+=Very High JOCELIN RHODES DPM Sep 18, 2018 06:50
[2018-09-18] MEDS ORDERED: PHENYLEPHRINE 100 MCG/ML 10 ML (ANESTHESIA) SYR ONE ×5 (07:17→08:10)
--- NOTE | 2018-09-18 07:52 | Diagnostic Imaging Report ---
Indication: Dyspnea Comparison: 03/05/2018 Technique: Single radiograph of the chest dated 09/18/2018. Findings: The cardiac silhouette is within normal limits in size. No significant pulmonary vascular congestion. Low lung volumes without focal pulmonary opacity. No pleural effusion. No pneumothorax. No acute osseous abnormality. Impression: No acute cardiopulmonary abnormality. Low lung volumes. Dictated by: Dictated on workstation # [id number]
[2018-09-18] MEDS ORDERED: SUCCINYLCHOLINE INJ 100 MG/5 ML SYR ONE (07:57)
[2018-09-18] MEDS: APIXABAN 5 MG (ELIQUIS) TABLET PO SCH ×2 (09:17→21:05)
[2018-09-18] MEDS: DILTIAZEM 120 MG (CARDIZEM CD) CAP PO SCH (09:25)
[2018-09-18] MEDS: GABAPENTIN 400 MG (NEURONTIN) CAP PO SCH ×3 (09:25→20:31)
[2018-09-18] MEDS: oxyCODONE/APAP 5/325MG (PERCOCET 5) TABLET PO PRN ×3 (09:26→20:31)
--- NOTE | 2018-09-18 10:05 | Progress Note - Hospitalist ---
Subjective HPI/CC On Admission Date Seen by Provider: Sep 18, 2018 Time Seen by Provider: 10:15 CC: Severe sepsis due to left foot wound HPI: This is a 54yoWM clinic pt of Dr. Thompson recently changed from Dr. Aristeo Álvarez in [place] who has a PMH of DM who presents to the ER with a draining wound on the left foot found to have wet gangrene and severe odor to the foot that fills the room and is accompanied by a relative. He reports that for an unknown duration of time he has had the draining ulcer on his left foot but he approximates 1 month but worsened in the past [address] Thompson and being placed on Levaquin. He reports that he has had foot surgery by Dr. Hemphill before and initially I consulted Dr. Joseph because of the severity of the gangrene but Dr. Hemphill appears to be willing to see him and consultation and likely take him to sx tomorrow morning at 6:30 and that's what the pt appears to agree too since he is familiar with Dr. Hemphill. he will be placed on broad spectrum antibiotics of Vancomycin and Zosyn, placed on severe sepsis IV protocol, and will be placed in the ICU for close monitoring. Pt does see Nephrology Dr. Colon and he also sees Dr. Beckford on a fairly regular basis for cardiology issues. He denies use of O2 or CPAP mask. Focused Exam Lactate Level 09/17/18 12:52: Lactic Acid Level 2.30*H 09/17/18 14:40: Lactic Acid Level 2.28*H 09/18/18 03:15: Lactic Acid Level 1.80 Objective Exam Vital Signs Vital Signs Date Time Temp Pulse Resp B/P (MAP) Pulse Ox O2 Delivery O2 Flow Rate FiO2 09/18/18 20:00 100.9 92 22 109/68 (82) 93 Nasal Cannula 2.00 Capillary Refill : Less Than 3 Seconds General Appearance: No Apparent Distress, WD/WN, Chronically ill, Obese HEENT: PERRL/EOMI, Normal ENT Inspection, Pharynx Normal, Moist Mucous Mem branes Neck: Full Range of Motion, Normal Inspection, Non Tender Respiratory: Chest Non Tender, Lungs Clear, Normal Breath Sounds, No Accessory Muscle Use, No Respiratory Distress Cardiovascular: Regular Rate, Rhythm, No Edema, No Gallop, No JVD, No Murmur, Normal Peripheral Pulses Gastrointestinal: Normal Bowel Sounds, No Organomegaly, No Pulsatile Mass, Non Tender, Soft Back: Normal Inspection, No CVA Tenderness, No Vertebral Tenderness Extremity: Normal Capillary Refill, Normal Inspection (except draining wound left foot), Normal Range of Motion, Non Tender, No Calf Tenderness, No Pedal Edema Neurologic/Psychiatric: Alert, Oriented x3, No Motor/Sensory Deficits, Normal 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 Assessment/Plan Assessment and Plan Assess & Plan/Chief Complaint Assessment: Severe sepsis Left diabetic foot ulcer s/p incision and drainage by podiatry Dr. Hemphill POD # 0 AF chronic but now with RVR Obstructive sleep apnea GERD Diabetes mellitus Hypertension History of suicide attempts Depression Leukocytosis Acute on chronic renal failure CAD Plan: Empiric IV antibiotics of vancomycin and Zosyn Pain control Aggressive IV fluids Appreciate surgery Dr Hemphill Monitor closely Diagnosis/Problems Diagnosis/Problems (1) Severe sepsis Status: Acute (2) Diabetic wet gangrene of the foot Status: Acute (3) Atrial fibrillation with rapid ventricular response Status: Acute (4) Gangrene of right foot Status: Acute (5) Hyperglycemia Status: Acute (6) Acute renal insufficiency Status: Acute (7) Diabetes Status: Acute Qualifiers: Diabetes mellitus type: type 2 Diabetes mellitus alf insulin use: without terminal make up operator use Diabetes mellitus complication status: with kidney complications Diabetes mellitus complication detail: with chronic kidney disease Chronic kidney disease stage: stage 3 (moderate) Qualified Codes: E11.22 - Type 2 diabetes mellitus with diabetic chronic kidney disease; N18.3 - Chronic kidney disease, stage 3 (moderate) Clinical Quality Measures DVT/VTE Risk/Contraindication: Risk Factor Score Per Nursin RFS Level Per Nursing on Admit: 4+=Very High TRACI OSORIO DO Sep 18, 2018 10:05
[2018-09-18] MEDS ORDERED: GABA800T10 PO (11:10)
[2018-09-18] MEDS ORDERED: MORP-34 PO (11:10)
[2018-09-18] MEDS ORDERED: INSU300I3 SC (11:10)
[2018-09-18] MEDS ORDERED: LIRA0.6P3 SC (11:10)
[2018-09-18] MEDS ORDERED: OXYC-471 PO (11:10)
[2018-09-18] MEDS ORDERED: MULT1TAB69 PO (11:10)
[2018-09-18] MEDS ORDERED: BUDE10.2 INH (11:10)
[2018-09-18] MEDS ORDERED: LEVO500T80 PO (11:10)
[2018-09-18] MEDS ORDERED: INSU100I14 SC (11:10)
[2018-09-18] MEDS: VANCOMYCIN 2,500 MG/NS 500 ML IVPB IV SCH ×4 (11:36→23:20)
[2018-09-18] MEDS ORDERED: CRV25T PO (12:51)
[2018-09-18] MEDS ORDERED: TERA2CAP4 PO (12:51)
[2018-09-18] MEDS ORDERED: ISM60TCR PO (12:51)
[2018-09-18] MEDS ORDERED: APIX5TAB PO (12:51)
[2018-09-18] MEDS ORDERED: FURO40TA4 PO (12:51)
[2018-09-18] MEDS ORDERED: TRAZ-190 PO (12:51)
[2018-09-18] MEDS ORDERED: ATOR20TA66 PO (12:51)
[2018-09-18] MEDS ORDERED: LISI-556 PO (12:51)
[2018-09-18] MEDS ORDERED: RANI150T11 PO (12:51)
--- NOTE | 2018-09-18 12:55 | NUR ---
WENT OVER THE EXT MED HX WITH THE PATIENT AND HE VERIFIED HOW HE TAKES HIS MEDICATIONS. ACCORDING TO THE EXT MED HX HE IS PAST DUE FOR REFILL ON SEVERAL MEDS HOWEVER HE STATES THAT IS INCORRECT AND WHEN I CALLED [facility] THEY HAD FILLED THEM MORE RECENTLY. IN ADDITION TO WHAT IS SHOWN ON THE EXT MED HX [facility] FILLED: 09-08-18 COREG 25MG BID #60 (WAS PREVIOUSLY FILLED 6.25MG #22 07-01-18) 07-07-18 LASIX 40MG DAILY #90 07-07-18 TERAZOSIN 2MG DAILY #90 07-01-18 ELIQUIS 5MG BID #180 07-01-18 LISINOPRIL 5MG DAILY #90 (DOES NOT TAKE THE 40MG THAT HAS BEEN FILLED) 07-01-18 IMDUR 60MG DAILY #90 07-01-18 TRAZODONE 100MG DAILY #90 07-01-18 LIPITOR 20MG DAILY #90 08-05-18 RANITIDINE 150MG DAILY #90 (WAS PREVIOUSLY FILLED BID 06-07-18) HE HAS FILLED TOUJEO AND LANTUS, HE STATES SOMETIMES THEY HAVE A HARD TIME AUTHORIZING THE TOUJEO SO HE GETS LANTUS BUT HE DOES NOT USE THEM TOGETHER. MOST CURRENTLY HE HAS FILLED TOUJEO AND THAT IS WHAT IS HE USING RIGHT NOW. HE FILLED THE PRESCRIPTION STRENGTH VITAMIN D BUT STATES HE IS NO LONGER TAKING IT. HE STATES HE ALSO TAKES A [employer] DAILY OTC.
[2018-09-18 14:16] LABS: CALCIUM 7.8 MG/DL (8.5-10.1); CREATININE SERUM 2.22 MG/DL (0.60-1.30)
--- NOTE | 2018-09-18 14:55 | NUR ---
Pastoral care visit.
--- NOTE | 2018-09-18 15:37 | Cardiology Progress Note ---
Cardiology SOAP Progress Note Subjective: status post fifth toe amputation. Objective: I&O/Vital Signs 09/18/18 09/18/18 09/18/18 09/18/18 03:57 04:00 04:00 05:14 Temp 99.4 Pulse 96 100 Resp 20 20 B/P (MAP) 108/58 (75) 121/72 (88) Pulse Ox 91 O2 Delivery Room Air Room Air Room Air 09/18/18 09/18/18 09/18/18 09/18/18 06:00 08:07 08:07 08:10 Temp 101.0 Pulse 97 Resp 20 16 20 B/P (MAP) 130/73 (92) Pulse Ox 92 94 O2 Delivery Room Air OxyMask OxyMask OxyMask O2 Flow Rate 10 10 10 09/18/18 09/18/18 09/18/18 09/18/18 08:15 08:20 08:30 08:30 Resp 20 20 Pulse Ox 94 96 O2 Delivery OxyMask OxyMask OxyMask OxyMask O2 Flow Rate 10 10 10 10 09/18/18 09/18/18 09/18/18 09/18/18 08:40 08:45 08:50 09:00 Resp 20 20 Pulse Ox 96 98 O2 Delivery OxyMask OxyMask Nasal Cannula Nasal Cannula O2 Flow Rate 8 8 4 4 09/18/18 09/18/18 09/18/18 09/18/18 09:00 09:05 09:05 09:39 Temp 98.7 101.0 Pulse 93 94 Resp 18 20 B/P (MAP) 152/79 (103) Pulse Ox 94 96 O2 Delivery Room Air Nasal Cannula Nasal Cannula O2 Flow Rate 4 4 09/18/18 09/18/18 12:00 12:00 Temp 98.7 Pulse 94 Resp 18 B/P (MAP) 102/66 (78) Pulse Ox 94 94 O2 Delivery Room Air Nasal Cannula O2 Flow Rate 2.00 09/18/18 00:00 Intake Total 2065 ml Output Total 150 ml Balance 1915 ml Weight (Pounds): 417 Weight (Ounces): 8.0 Weight (Calculated Kilograms): 189.563760 Constitutional: appears stated age, AAO x 3; No apparent distress; well- developed, well-nourished Respiratory: No accessory muscle use, No respiratory distress, No chest tender, No chest expansion is symmetric; chest is bilaterally symmetric; No lungs clear to percussion; lungs clear to auscultation; No crackles, No rhonchi, No rales, No stridor, No wheezing, No pleural rub, No other Cardiovascular: irregularly irregular; No extra beats, No parasternal heave is noted, No JVD, No edema, No bradycardia; tachycardia; No point of maximal impulse, No cardiac thrills are palpable; S1 and S2; No gallop/S3, No gallop/S4, No diastolic murmur, No systolic murmur, No friction rub, No click, No other Gastrointestional: No tender, No soft, No round, No distended, No pulsatile mass, No organomegaly, No guarding, No rebound, No tenderness, No hernia, No mass, No audible bowel sounds, No abnormal bowel sounds, No abdominal bruits, No spleenomegaly, No other Extremities: No normal range of motion, No non-tender, No normal inspection, No pedal edema, No calf tenderness, No normal capillary refill, No pelvis stable, No calf tenderness, No inflammation, No pedal edema, No slow capillary refill, No swelling, No other, No abrasion, No clubbing, No cyanosis, No ecchymosis, No laceration, No no lower extremity edema bilateral, No significant edema, No tenderness, No wound Neurologic/Psychiatric: no motor/sensory deficits, alert, normal mood/affect, oriented x 3, power is 5/5 both on sides Skin: No normal color, No warm/dry, No cyanosis, No cool, No diaphoresis, No damp, No ecchymosis, No jaundice, No mottled, No pallor, No rash, No tattoos/piercings, No ulcerations, No rash on exposed areas, No ulcerations on exposed areas, No other Results/Procedures: Labs Laboratory Tests 09/17/18 17:32: Glucometer 225H 09/18/18 00:22: Glucometer 211H 09/18/18 03:05: White Blood Count 14.3H, Red Blood Count 3.25L, Hemoglobin 9.4L, Hematocrit 28L, Mean Corpuscular Volume 85, Mean Corpuscular Hemoglobin 29, Mean Corpuscular Hemoglobin Concent 34, Red Cell Distribution Width 13.4, Platelet Count 261, Mean Platelet Volume 9.2, Neutrophils (%) (Auto) 83H, Lymphocytes (%) (Auto) 7L, Monocytes (%) (Auto) 9, Eosinophils (%) (Auto) 1, Basophils (%) (Auto) 0, Neutrophils # (Auto) 11.8H, Lymphocytes # (Auto) 1.0, Monocytes # (Auto) 1.3H, Eosinophils # (Auto) 0.1, Basophils # (Auto) 0.0, Sodium Level 124*L, Potassium Level 3.8, Chloride Level 92L, Carbon Dioxide Level 22, Anion Gap 10, Blood Urea Nitrogen 23H, Creatinine 2.10H, Estimat Glomerular Filtration Rate 33, BUN/Creatinine Ratio 11, Glucose Level 186H, Calcium Level 8.1L, Corrected Calcium 9.0, Phosphorus Level 2.7, Magnesium Level 1.5L, Total Bilirubin 0.6, Aspartate Amino Transf (AST/SGOT) 17, Alanine Aminotransferase (ALT/SGPT) 15, Alkaline Phosphatase 88, Total Protein 6.5, Albumin 2.9L 09/18/18 03:15: Lactic Acid Level 1.80 09/18/18 11:02: Glucometer 178H 09/18/18 13:50: Sodium Level 124*L, Potassium Level 4.0, Chloride Level 94L, Carbon Dioxide Level 21, Anion Gap 9, Blood Urea Nitrogen 24H, Creatinine 2.22H, Estimat Glomerular Filtration Rate 31, BUN/Creatinine Ratio 11, Glucose Level 192H, Calcium Level 7.8L Microbiology 09/17/18 Blood Culture - Preliminary, Resulted No growth 09/17/18 Gram Stain - Final, Resulted 09/17/18 Wound Culture - Preliminary, Resulted Mixed Bacterial Ayana A/P: Assessment/Dx: Right fifth toe gangrene, r/o PAD, DM, HTN, Hyperlipidemia, AF with RVR Plan: Right fifth toe gangrene, r/o PAD, surgery tomorrow. arterial ultrasound recommended. DM, defer to primary team. HTN, Continue outpatient meds. Hyperlipidemia, start high dose statin. AF with RVR, amiodarone, eliquis. Echo. Thank you for your consultation. Please call me if you have any questions. Arline Colon MD, FACP, FACC, FSCAI, FHRS, CCDS Interventional Cardiology Cardiac Electrophysiology Vascular Medicine and Endovascular Interventions Focused Exam Lactate Level 09/17/18 12:52: Lactic Acid Level 2.30*H 09/17/18 14:40: Lactic Acid Level 2.28*H 09/18/18 03:15: Lactic Acid Level 1.80 Lakshmi COLON MD Sep 18, 2018 15:37
--- NOTE | 2018-09-18 16:16 | Diagnostic Imaging Report ---
PROCEDURE: US Bilateral lower extremity arterial. TECHNIQUE: Multiple real-time grayscale images are obtained through both lower extremity arterial systems with color Doppler imaging and color Doppler spectral analysis. INDICATION: Wet gangrene. Status post toe amputation. FINDINGS: The common femoral, superficial femoral and popliteal arteries are widely patent bilaterally. There are normal triphasic waveforms. There is no dissection, stenosis or occlusion. The left dorsalis pedis was not evaluated due to recent toe amputation. Other small vessels below the knee are patent. There are no abnormal fluid collections or masses. IMPRESSION: Unremarkable bilateral lower extremity duplex apart from nonvisualization of the dorsalis pedis artery due to bandage. Dictated by: Dictated on workstation # [id number]
[2018-09-18] MEDS ORDERED: TROUGH ORDER-PHARMACY XX NR (22:00)
[2018-09-19 00:52] VITALS: BP 134/81
[2018-09-19] MEDS: NS IV 1000 ML 1,000 ML IV SCH ×3 (02:45→17:00)
[2018-09-19] MEDS: PIPERACILLIN/TAZO 4.5 GM/NS 100 ML IV SCH ×6 (03:11→18:13)
[2018-09-19 04:35] VITALS: BP 159/82
[2018-09-19] MEDS: oxyCODONE/APAP 5/325MG (PERCOCET 5) TABLET PO PRN ×4 (05:07→19:33)
[2018-09-19] MEDS: inSUlin ASPART (NovoLOG) 1 UNIT/0.01 ML (CHARGE PER UNIT) SC SCH ×3 (06:00→18:13)
[2018-09-19 06:01] LABS: BASOPHILS % (AUTO) 0 % (0-10); EOSINOPHILS # (AUTO) 0.1 10^3/uL (0.0-0.3); EOSINOPHILS % (AUTO) 1 % (0-10); HEMATOCRIT 28 % (40-54); HEMOGLOBIN 9.6 G/DL (13.3-17.7); LYMPHOCYTES # (AUTO) 0.8 X 10^3 (1.0-4.0); LYMPHOCYTES % (AUTO) 6 % (12-44); MEAN CORPUSCULAR HEMOGLOBIN 29 PG (25-34); MEAN CORPUSCULAR HGB CONC 34 G/DL (32-36); MEAN CORPUSCULAR VOLUME 84 FL (80-99); MEAN PLATELET VOLUME 9.2 FL (7.4-10.4); MONOCYTES # (AUTO) 1.4 X 10^3 (0.0-1.0); MONOCYTES % (AUTO) 9 % (0-12); NEUTROPHILS # (AUTO) 12.8 X 10^3 (1.8-7.8); NEUTROPHILS % (AUTO) 85 % (42-75); PLATELET COUNT 274 10^3/uL (130-400); RED CELL DISTRIBUTION WIDTH 13.6 % (10.0-14.5); WHITE BLOOD COUNT 15.1 10^3/uL (4.3-11.0)
[2018-09-19 06:21] LABS: ALBUMIN 2.8 GM/DL (3.2-4.5); BILIRUBIN,TOTAL 0.6 MG/DL (0.1-1.0); CALCIUM 8.2 MG/DL (8.5-10.1); CREATININE SERUM 2.1 MG/DL (0.60-1.30); MAGNESIUM 2.2 MG/DL (1.8-2.4); PHOSPHORUS 2.7 MG/DL (2.3-4.7); TOTAL PROTEIN 6.6 GM/DL (6.4-8.2)
--- NOTE | 2018-09-19 07:40 | Diagnostic Imaging Report ---
Examination: Chest one view. History: Shortness of breath. Findings: Comparison is 09/18/2018. The lungs are clear. No edema. No pneumonia. No pleural effusion. No pneumothorax. Heart is normal in size. IMPRESSION: 1. Clear lungs. Dictated by: Dictated on workstation # [id number]
[2018-09-19] MEDS: DILTIAZEM 120 MG (CARDIZEM CD) CAP PO SCH (07:45)
[2018-09-19] MEDS: APIXABAN 5 MG (ELIQUIS) TABLET PO SCH (07:45)
[2018-09-19] MEDS: GABAPENTIN 400 MG (NEURONTIN) CAP PO SCH ×3 (07:45→19:27)
[2018-09-19] MEDS ORDERED: TROUGH ORDER-PHARMACY XX NR (10:00)
--- NOTE | 2018-09-19 10:06 | Pulmonary Progress Note ---
Subjective Time Seen by a Provider: 10:05 Subjective/Events-last exam NO SOB or productive cough. Sepsis Event Evaluation Height, Weight, BMI Height: 6'7.00" Weight: 416lbs. 9.0oz. 188.741187kz; 47.0 BMI Method:Stated Focused Exam Lactate Level 09/17/18 12:52: Lactic Acid Level 2.30*H 09/17/18 14:40: Lactic Acid Level 2.28*H 09/18/18 03:15: Lactic Acid Level 1.80 Exam Exam Vital Signs Date Time Temp Pulse Resp B/P (MAP) Pulse Ox O2 Delivery O2 Flow Rate FiO2 09/19/18 09:22 Room Air 09/19/18 07:50 Room Air 09/19/18 07:00 86 09/19/18 04:35 97.7 90 21 159/82 (107) 95 Nasal Cannula 2.00 09/19/18 01:00 84 09/19/18 00:52 98.0 94 18 134/81 (98) 94 Nasal Cannula 2.00 09/18/18 21:00 Nasal Cannula 2.00 09/18/18 20:00 100.9 92 22 109/68 (82) 93 Nasal Cannula 2.00 09/18/18 19:00 91 09/18/18 16:00 98.4 89 22 137/64 (88) 95 Nasal Cannula 2.00 09/18/18 13:00 84 09/18/18 12:00 94 Nasal Cannula 2.00 09/18/18 12:00 98.7 94 18 102/66 (78) 94 Room Air I & O 09/19/18 07:00 Intake Total 4560 ml Output Total 3250 ml Balance 1310 ml Height & Weight Height: 6'7.00" Weight: 416lbs. 9.0oz. 188.015592zf; 47.0 BMI Method:Stated General Appearance: No Apparent Distress, WD/WN HEENT: PERRL/EOMI, Pharynx Normal Neck: Full Range of Motion, Non Tender, Supple Respiratory: No Accessory Muscle Use, No Respiratory Distress, Decreased Breath Sounds Capillary Refill: Less Than 3 Seconds Gastrointestinal: non tender, soft Extremity: Normal Capillary Refill, No Pedal Edema Neurologic/Psychiatric: Alert, Oriented x3 Skin: Normal Color, Warm/Dry Lymphatic: No Adenopathy Results Lab Laboratory Tests 09/17/18 12:52 09/18/18 03:05 09/18/18 13:50 09/19/18 05:15 Assessment/Plan Assessment/Plan Severe sepsis- improving -Vanco/zosyn -Thomas culture Left foot ulcer/cellulitis and wet gangrene -Podiatry consulted Hyponatremia -Monitor Acute on chronic renal failure -Monitor -IVF - anemia -Monitor DM Afib rvr -Cardiology following TERESITA -noncompliant with CPAP therapy GERD Hx of suicide attempts MERCEDES RODRIGUEZ DO Sep 19, 2018 10:06
--- NOTE | 2018-09-19 10:28 | Progress Note - Hospitalist ---
Subjective HPI/CC On Admission Date Seen by Provider: Sep 19, 2018 Time Seen by Provider: 10:30 CC: Severe sepsis due to left foot wound HPI: This is a 54yoWM clinic pt of Dr. Thompson recently changed from Dr. Aristeo Álvarez in [place] who has a PMH of DM who presents to the ER with a draining wound on the left foot found to have wet gangrene and severe odor to the foot that fills the room and is accompanied by a relative. He reports that for an unknown duration of time he has had the draining ulcer on his left foot but he approximates 1 month but worsened in the past [address] Thompson and being placed on Levaquin. He reports that he has had foot surgery by Dr. Hemphill before and initially I consulted Dr. Joseph because of the severity of the gangrene but Dr. Hemphill appears to be willing to see him and consultation and likely take him to sx tomorrow morning at 6:30 and that's what the pt appears to agree too since he is familiar with Dr. Hemphill. he will be placed on broad spectrum antibiotics of Vancomycin and Zosyn, placed on severe sepsis IV protocol, and will be placed in the ICU for close monitoring. Pt does see Nephrology Dr. Colon and he also sees Dr. Beckford on a fairly regular basis for cardiology issues. He denies use of O2 or CPAP mask. Subjective/Events-last exam Sodium level is maintained at 124 Empiric antibiotics still are maintained Additional debridement tomorrow by Dr. Hemphill Checked meds and labs I did evaluate the wound when wound VAC was placed and it appears to be healing and he did have the amputation of the fifth left toe along with some of the m etatarsals Denies any pain Review of Systems General: Fatigue Focused Exam Lactate Level 09/17/18 12:52: Lactic Acid Level 2.30*H 09/17/18 14:40: Lactic Acid Level 2.28*H 09/18/18 03:15: Lactic Acid Level 1.80 Objective Exam Vital Signs Vital Signs Date Time Temp Pulse Resp B/P (MAP) Pulse Ox O2 Delivery O2 Flow Rate FiO2 09/19/18 09:22 Room Air 09/19/18 07:00 86 09/19/18 04:35 97.7 21 159/82 (107) 95 2.00 Capillary Refill : Less Than 3 Seconds General Appearance: No Apparent Distress, WD/WN HEENT: PERRL/EOMI, Pharynx Normal Neck: Full Range of Motion, Non Tender, Supple Respiratory: No Accessory Muscle Use, No Respiratory Distress, Decreased Breath Sounds Cardiovascular: Regular Rate, Rhythm, No Edema, No Gallop, No JVD, No Murmur, Normal Peripheral Pulses Gastrointestinal: Normal Bowel Sounds, No Organomegaly, No Pulsatile Mass, Non Tender, Soft Back: Normal Inspection, No CVA Tenderness, No Vertebral Tenderness Extremity: Normal Capillary Refill, No Pedal Edema Neurologic/Psychiatric: Alert, Oriented x3 Skin: Normal Color, Warm/Dry Lymphatic: No Adenopathy Results/Procedures Lab Laboratory Tests 09/18/18 13:50 09/19/18 05:15 Patient resulted labs reviewed. Assessment/Plan Assessment and Plan Assess & Plan/Chief Complaint Assessment: Severe sepsis Left diabetic foot ulcer s/p incision and drainage by podiatry Dr. Hemphill POD # 1 with repeat procedure tomorrow maintained on wound vac AF chronic but now with RVR Obstructive sleep apnea GERD Diabetes mellitus Hypertension History of suicide attempts Depression Leukocytosis Acute on chronic renal failure CAD Plan: Empiric IV antibiotics of vancomycin and Zosyn Pain control Aggressive IV fluids Appreciate surgery Dr Hemphill Monitor closely Diagnosis/Problems Diagnosis/Problems (1) Severe sepsis Status: Acute (2) Diabetic wet gangrene of the foot Status: Acute (3) Atrial fibrillation with rapid ventricular response Status: Acute (4) Gangrene of right foot Status: Acute (5) Hyperglycemia Status: Acute (6) Acute renal insufficiency Status: Acute (7) Diabetes Status: Acute Qualifiers: Diabetes mellitus type: type 2 Diabetes mellitus custodial insulin use: without intermission coordinator use Diabetes mellitus complication status: with kidney complications Diabetes mellitus complication detail: with chronic kidney disease Chronic kidney disease stage: stage 3 (moderate) Qualified Codes: E11.22 - Type 2 diabetes mellitus with diabetic chronic kidney disease; N18.3 - Chronic kidney disease, stage 3 (moderate) Clinical Quality Measures DVT/VTE Risk/Contraindication: Risk Factor Score Per Nursin RFS Level Per Nursing on Admit: 4+=Very High TRACI OSORIO DO Sep 19, 2018 10:28
[2018-09-19 12:00] VITALS: BP 136/89
--- NOTE | 2018-09-19 13:13 | Anesthesia-General Post-Op ---
General Patient Condition Mental Status/LOC: Same as Preop Cardiovascular: Satisfactory Nausea/Vomiting: Absent Respiratory: Satisfactory Pain: Controlled Complications: Absent Post Op Complications Complications None Follow Up Care/Instructions Patient Instructions None needed. Anesthesia/Patient Condition Patient Condition Patient is doing well, no complaints, stable vital signs, no apparent adverse anesthesia problems. No complications reported per nursing. JEMAL YU CRNA Sep 19, 2018 13:13
[2018-09-19] MEDS: VANCOMYCIN 2,500 MG/NS 500 ML IVPB IV SCH ×2 (13:21)
[2018-09-19 15:59] VITALS: BP 127/68
--- NOTE | 2018-09-19 19:45 | Cardiology Progress Note ---
Cardiology SOAP Progress Note Subjective: No cardiac symptoms. Objective: I&O/Vital Signs 09/19/18 09/19/18 09/19/18 09/19/18 07:50 09:22 12:00 15:59 Temp 98.3 98.2 Pulse 105 93 Resp 20 22 B/P (MAP) 136/89 (105) 127/68 (87) Pulse Ox 92 94 O2 Delivery Room Air Room Air Room Air Room Air 09/19/18 00:00 Intake Total 2760 ml Output Total 2000 ml Balance 760 ml Weight (Pounds): 416 Weight (Ounces): 9.0 Weight (Calculated Kilograms): 188.308474 Constitutional: appears stated age, AAO x 3; No apparent distress; well- developed, well-nourished Respiratory: No accessory muscle use, No respiratory distress, No chest tender, No chest expansion is symmetric; chest is bilaterally symmetric; No lungs clear to percussion; lungs clear to auscultation; No crackles, No rhonchi, No rales, No stridor, No wheezing, No pleural rub, No other Cardiovascular: irregularly irregular; No extra beats, No parasternal heave is noted, No JVD, No edema, No bradycardia; tachycardia; No point of maximal impulse, No cardiac thrills are palpable; S1 and S2; No gallop/S3, No gallop/S4, No diastolic murmur, No systolic murmur, No friction rub, No click, No other Gastrointestional: No tender, No soft, No round, No distended, No pulsatile mass, No organomegaly, No guarding, No rebound, No tenderness, No hernia, No mass, No audible bowel sounds, No abnormal bowel sounds, No abdominal bruits, No spleenomegaly, No other Extremities: No normal range of motion, No non-tender, No normal inspection, No pedal edema, No calf tenderness, No normal capillary refill, No pelvis stable, No calf tenderness, No inflammation, No pedal edema, No slow capillary refill, No swelling, No other, No abrasion, No clubbing, No cyanosis, No ecchymosis, No laceration, No no lower extremity edema bilateral, No significant edema, No tenderness, No wound Neurologic/Psychiatric: no motor/sensory deficits, alert, normal mood/affect, oriented x 3, power is 5/5 both on sides Skin: No normal color, No warm/dry, No cyanosis, No cool, No diaphoresis, No damp, No ecchymosis, No jaundice, No mottled, No pallor, No rash, No tattoos/piercings, No ulcerations, No rash on exposed areas, No ulcerations on exposed areas, No other Results/Procedures: Labs Laboratory Tests 09/18/18 22:35: Vancomycin Level Trough 30.4*H 09/18/18 23:25: Glucometer 273H 09/19/18 05:15: White Blood Count 15.1H, Red Blood Count 3.33L, Hemoglobin 9.6L, Hematocrit 28L, Mean Corpuscular Volume 84, Mean Corpuscular Hemoglobin 29, Mean Corpuscular Hemoglobin Concent 34, Red Cell Distribution Width 13.6, Platelet Count 274, Mean Platelet Volume 9.2, Neutrophils (%) (Auto) 85H, Lymphocytes (%) (Auto) 6L, Monocytes (%) (Auto) 9, Eosinophils (%) (Auto) 1, Basophils (%) (Auto) 0, Neutrophils # (Auto) 12.8H, Lymphocytes # (Auto) 0.8L, Monocytes # (Auto) 1.4H, Eosinophils # (Auto) 0.1, Basophils # (Auto) 0.0, Sodium Level 124*L, Potassium Level 4.0, Chloride Level 94L, Carbon Dioxide Level 18L, Anion Gap 12, Blood Urea Nitrogen 23H, Creatinine 2.10H, Estimat Glomerular Filtration Rate 33, BUN/Creatinine Ratio 11, Glucose Level 261H, Calcium Level 8.2L, Corrected Calcium 9.2, Phosphorus Level 2.7, Magnesium Level 2.2, Total Bilirubin 0.6, Aspartate Amino Transf (AST/SGOT) 27, Alanine Aminotransferase (ALT/SGPT) 19, Alkaline Phosphatase 141H, Total Protein 6.6, Albumin 2.8L 09/19/18 05:53: Glucometer 297H 09/19/18 10:06: Vancomycin Level Trough 20.0 09/19/18 12:09: Glucometer 272H 09/19/18 18:01: Glucometer 280H Microbiology 09/17/18 Blood Culture - Preliminary, Resulted No growth 09/17/18 MRSA Screen - Final, Complete MRSA not isolated 09/18/18 Gram Stain - Final, Resulted 09/18/18 Anaerobic Culture, Resulted Pending 09/18/18 Surgical Culture - Preliminary, Resulted Proteus vulgaris 09/18/18 Fungal Culture 1 - Preliminary, Resulted Culture In Progress A/P: Assessment/Dx: Right fifth toe gangrene, r/o PAD, DM, HTN, Hyperlipidemia, AF with RVR Plan: Right fifth toe gangrene, r/o PAD, surgery tomorrow. arterial ultrasound recommended 09/19/2018 which did not show any significant PAD. DM, defer to primary team. HTN, Continue outpatient meds. Hyperlipidemia, start high dose statin. AF with RVR, amiodarone, eliquis. Echo. Thank you for your consultation. Please call me if you have any questions. Arline Colon MD, FACP, FACC, FSCAI, FHRS, CCDS Interventional Cardiology Cardiac Electrophysiology Vascular Medicine and Endovascular Interventions Focused Exam Lactate Level 09/17/18 12:52: Lactic Acid Level 2.30*H 09/17/18 14:40: Lactic Acid Level 2.28*H 09/18/18 03:15: Lactic Acid Level 1.80 Lakshmi COLON MD Sep 19, 2018 19:45
[2018-09-19 20:24] VITALS: BP 131/91
[2018-09-20] VITALS (8 sets, daily range): BP systolic 124–190; BP diastolic 65–86
[2018-09-20] MEDS: inSUlin ASPART (NovoLOG) 1 UNIT/0.01 ML (CHARGE PER UNIT) SC SCH ×5 (00:39→23:47)
[2018-09-20] MEDS: PIPERACILLIN/TAZO 4.5 GM/NS 100 ML IV SCH ×6 (03:23→18:16)
[2018-09-20 05:09] LABS: BASOPHILS % (AUTO) 0 % (0-10); EOSINOPHILS # (AUTO) 0.2 10^3/uL (0.0-0.3); EOSINOPHILS % (AUTO) 2 % (0-10); HEMATOCRIT 28 % (40-54); HEMOGLOBIN 9.4 G/DL (13.3-17.7); LYMPHOCYTES # (AUTO) 1.2 X 10^3 (1.0-4.0); LYMPHOCYTES % (AUTO) 10 % (12-44); MEAN CORPUSCULAR HGB CONC 34 G/DL (32-36); MEAN CORPUSCULAR VOLUME 85 FL (80-99); MEAN PLATELET VOLUME 9.2 FL (7.4-10.4); MONOCYTES # (AUTO) 1.3 X 10^3 (0.0-1.0); MONOCYTES % (AUTO) 10 % (0-12); NEUTROPHILS # (AUTO) 10.1 X 10^3 (1.8-7.8); NEUTROPHILS % (AUTO) 79 % (42-75); PLATELET COUNT 342 10^3/uL (130-400); RED CELL DISTRIBUTION WIDTH 13.9 % (10.0-14.5); WHITE BLOOD COUNT 12.9 10^3/uL (4.3-11.0)
[2018-09-20 05:11] LABS: MEAN CORPUSCULAR HEMOGLOBIN 28 PG (25-34)
[2018-09-20 05:29] LABS: ALBUMIN 2.6 GM/DL (3.2-4.5); BILIRUBIN,TOTAL 0.4 MG/DL (0.1-1.0); CALCIUM 8.3 MG/DL (8.5-10.1); CREATININE SERUM 1.88 MG/DL (0.60-1.30); POTASSIUM 4.1 MMOL/L (3.6-5.0); TOTAL PROTEIN 6.4 GM/DL (6.4-8.2)
[2018-09-20] MEDS: NS IV 1000 ML 1,000 ML IV SCH ×3 (06:18→12:59)
--- NOTE | 2018-09-20 07:55 | Pulmonary Progress Note ---
Subjective Time Seen by a Provider: 07:55 Subjective/Events-last exam No complications noted. Sepsis Event Evaluation Height, Weight, BMI Height: 6'7.00" Weight: 416lbs. 9.0oz. 188.151237ai; 47.0 BMI Method:Stated Focused Exam Lactate Level 09/17/18 12:52: Lactic Acid Level 2.30*H 09/17/18 14:40: Lactic Acid Level 2.28*H 09/18/18 03:15: Lactic Acid Level 1.80 Exam Exam Vital Signs Date Time Temp Pulse Resp B/P (MAP) Pulse Ox O2 Delivery O2 Flow Rate FiO2 09/20/18 04:00 99.1 110 18 126/84 (98) 95 Room Air 09/20/18 00:00 98.2 92 18 128/81 (97) 94 Room Air 09/19/18 20:24 97.9 96 22 131/91 (104) 96 Room Air 09/19/18 20:10 Room Air 09/19/18 15:59 98.2 93 22 127/68 (87) 94 Room Air 09/19/18 12:00 98.3 105 20 136/89 (105) 92 Room Air 09/19/18 09:22 Room Air I & O 09/20/18 07:00 Intake Total 7030 ml Output Total 3075 ml Balance 3955 ml Height & Weight Height: 6'7.00" Weight: 416lbs. 9.0oz. 188.610043zc; 47.0 BMI Method:Stated General Appearance: No Apparent Distress, WD/WN HEENT: PERRL/EOMI, Pharynx Normal Neck: Full Range of Motion, Non Tender, Supple Respiratory: Chest Non Tender, Lungs Clear, No Accessory Muscle Use, No Respiratory Distress, Decreased Breath Sounds Cardiovascular: Regular Rate, Rhythm, No Edema, No Gallop Capillary Refill: Less Than 3 Seconds Gastrointestinal: normal bowel sounds, non tender, soft Extremity: Normal Capillary Refill Neurologic/Psychiatric: Alert, Oriented x3 Skin: Normal Color, Warm/Dry Results Lab Laboratory Tests 09/18/18 13:50 09/19/18 05:15 09/20/18 04:21 Assessment/Plan Assessment/Plan Severe sepsis- improving -Vanco/zosyn -Thomas culture Left foot ulcer/cellulitis and wet gangrene -Podiatry consulted Hyponatremia -Monitor Acute on chronic renal failure -Monitor anemia -Monitor DM Afib rvr -Cardiology following TERESITA -noncompliant with CPAP therapy GERD Hx of suicide attempts MERCEDES RODRIGUEZ DO Sep 20, 2018 07:55
--- NOTE | 2018-09-20 08:00 | Podiatry Progress Note ---
Standard Progress Note Progress Notes/Assess & Plan Date Seen by a Provider: Sep 19, 2018 Time Seen by a Provider: 17:21 Progress/Assessment & Plan Pt seen at bedside doing well drinking Mr Mathews and eating beef sticks and double bubble. He denies F/C/N/V. States he is ready to go home to do some fishing. His wound VAC was changed earlier today and he has picture of his wound from the change that were evaluated today. LLE- +edema, gross ROM intact to the digits, sensation diminished, picture of the wound evaluated, erythema much improved necrosis noted to the wound edges, there is moderate sanguinous drainage to the wound VAC, calf supple Nontender Final Diagnosis POD #1 I&D Left Foot Abscess -Cont IV antibiotics -NWB LLE -Plan for repeat washout of the Left foot wound. waiting to allow skin wound edges to demarcate, will likely require multiple procedures for grafting and closure. JOCELIN RHODES DPM Sep 20, 2018 08:00
[2018-09-20] MEDS: DILTIAZEM 120 MG (CARDIZEM CD) CAP PO SCH (08:25)
[2018-09-20] MEDS: GABAPENTIN 400 MG (NEURONTIN) CAP PO SCH ×3 (08:25→19:33)
[2018-09-20] MEDS: oxyCODONE/APAP 5/325MG (PERCOCET 5) TABLET PO PRN ×2 (08:37→13:39)
--- NOTE | 2018-09-20 12:56 | Progress Note - Hospitalist ---
Subjective HPI/CC On Admission Date Seen by Provider: Sep 20, 2018 Time Seen by Provider: 12:00 CC: Severe sepsis due to left foot wound HPI: This is a 54yoWM clinic pt of Dr. Thompson recently changed from Dr. Aristeo Álvarez in [place] who has a PMH of DM who presents to the ER with a draining wound on the left foot found to have wet gangrene and severe odor to the foot that fills the room and is accompanied by a relative. He reports that for an unknown duration of time he has had the draining ulcer on his left foot but he approximates 1 month but worsened in the past [address] Thompson and being placed on Levaquin. He reports that he has had foot surgery by Dr. Hemphill before and initially I consulted Dr. Joseph because of the severity of the gangrene but Dr. Hemphill appears to be willing to see him and consultation and likely take him to sx tomorrow morning at 6:30 and that's what the pt appears to agree too since he is familiar with Dr. Hemphill. he will be placed on broad spectrum antibiotics of Vancomycin and Zosyn, placed on severe sepsis IV protocol, and will be placed in the ICU for close monitoring. Pt does see Nephrology Dr. Colon and he also sees Dr. Beckford on a fairly regular basis for cardiology issues. He denies use of O2 or CPAP mask. Subjective/Events-last exam Patient doing much better No indication he will need another debridement this weekend Wound VAC is beeping since back needs to be changed to light bowels are moving Overall does not like to be in the hospital and is not real enthused about wading through the weekend with IV antibiotic infusion and monitoring with wound VAC Sodium level is up from 124-130 Blood sugars remain variable Review of Systems Musculoskeletal: foot pain Focused Exam Lactate Level 09/17/18 14:40: Lactic Acid Level 2.28*H 09/18/18 03:15: Lactic Acid Level 1.80 Objective Exam Vital Signs Vital Signs Date Time Temp Pulse Resp B/P (MAP) Pulse Ox O2 Delivery O2 Flow Rate FiO2 09/20/18 11:54 98.0 91 22 151/76 (101) 96 Room Air 09/19/18 04:35 2.00 Capillary Refill : Less Than 3 Seconds General Appearance: No Apparent Distress, WD/WN HEENT: PERRL/EOMI, Pharynx Normal Neck: Full Range of Motion, Non Tender, Supple Respiratory: Chest Non Tender, Lungs Clear, No Accessory Muscle Use, No Respiratory Distress, Decreased Breath Sounds Cardiovascular: Regular Rate, Rhythm, No Edema, No Gallop Gastrointestinal: Normal Bowel Sounds, No Organomegaly, No Pulsatile Mass, Non Tender, Soft Back: Normal Inspection, No CVA Tenderness, No Vertebral Tenderness Extremity: Normal Capillary Refill Neurologic/Psychiatric: Alert, Oriented x3 Skin: Normal Color, Warm/Dry Lymphatic: No Adenopathy Results/Procedures Lab Laboratory Tests 09/20/18 04:21 Patient resulted labs reviewed. 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 Hemphill POD # 1 on wound vac AF chronic but now with RVR Obstructive sleep apnea GERD Diabetes mellitus Hypertension History of suicide attempts Depression Leukocytosis Acute on chronic renal failure CAD Plan: Empiric IV antibiotics of vancomycin and Zosyn Pain control Appreciate surgery Dr Hemphill Monitor closely Home meds Oral anticoagulation restarted Diagnosis/Problems Diagnosis/Problems (1) Severe sepsis Status: Acute (2) Diabetic wet gangrene of the foot Status: Acute (3) Atrial fibrillation with rapid ventricular response Status: Acute (4) Gangrene of right foot Status: Acute (5) Hyperglycemia Status: Acute (6) Acute renal insufficiency Status: Acute (7) Diabetes Status: Acute Qualifiers: Diabetes mellitus type: type 2 Diabetes mellitus [facility] insulin use: without [facility] use Diabetes mellitus complication status: with kidney complications Diabetes mellitus complication detail: with chronic kidney disease Chronic kidney disease stage: stage 3 (moderate) Qualified Codes: E11.22 - Type 2 diabetes mellitus with diabetic chronic kidney disease; N18.3 - Chronic kidney disease, stage 3 (moderate) Clinical Quality Measures DVT/VTE Risk/Contraindication: Risk Factor Score Per Nursin RFS Level Per Nursing on Admit: 4+=Very High TRACI OSORIO DO Sep 20, 2018 12:56
[2018-09-20] MEDS: VANCOMYCIN 2,500 MG/NS 500 ML IVPB IV SCH ×2 (12:59)
--- NOTE | 2018-09-20 13:38 | Cardiology Progress Note ---
Cardiology SOAP Progress Note Subjective: No cardiac complaints. Objective: I&O/Vital Signs 09/20/18 09/20/18 09/20/18 09/20/18 04:00 08:00 09:00 09:22 Temp 99.1 100.3 99.1 Pulse 110 96 Resp 18 22 B/P (MAP) 126/84 (98) 124/65 (84) Pulse Ox 95 94 O2 Delivery Room Air Room Air Room Air 09/20/18 11:54 Temp 98.0 Pulse 91 Resp 22 B/P (MAP) 151/76 (101) Pulse Ox 96 O2 Delivery Room Air 09/20/18 00:00 Intake Total 5030 ml Output Total 1100 ml Balance 3930 ml Weight (Pounds): 416 Weight (Ounces): 9.0 Weight (Calculated Kilograms): 188.477810 Constitutional: appears stated age, AAO x 3; No apparent distress; well- developed, well-nourished Respiratory: No accessory muscle use, No respiratory distress, No chest tender, No chest expansion is symmetric; chest is bilaterally symmetric; No lungs clear to percussion; lungs clear to auscultation; No crackles, No rhonchi, No rales, No stridor, No wheezing, No pleural rub, No other Cardiovascular: irregularly irregular; No extra beats, No parasternal heave is noted, No JVD, No edema, No bradycardia; tachycardia; No point of maximal impulse, No cardiac thrills are palpable; S1 and S2; No gallop/S3, No gallop/S4, No diastolic murmur, No systolic murmur, No friction rub, No click, No other Gastrointestional: No tender, No soft, No round, No distended, No pulsatile mass, No organomegaly, No guarding, No rebound, No tenderness, No hernia, No mass, No audible bowel sounds, No abnormal bowel sounds, No abdominal bruits, No spleenomegaly, No other Extremities: No normal range of motion, No non-tender, No normal inspection, No pedal edema, No calf tenderness, No normal capillary refill, No pelvis stable, No calf tenderness, No inflammation, No pedal edema, No slow capillary refill, No swelling, No other, No abrasion, No clubbing, No cyanosis, No ecchymosis, No laceration, No no lower extremity edema bilateral, No significant edema, No tenderness, No wound Neurologic/Psychiatric: no motor/sensory deficits, alert, normal mood/affect, oriented x 3, power is 5/5 both on sides Skin: No normal color, No warm/dry, No cyanosis, No cool, No diaphoresis, No damp, No ecchymosis, No jaundice, No mottled, No pallor, No rash, No tattoos/piercings, No ulcerations, No rash on exposed areas, No ulcerations on exposed areas, No other Results/Procedures: Labs Laboratory Tests 09/19/18 18:01: Glucometer 280H 09/20/18 00:33: Glucometer 199H 09/20/18 04:21: White Blood Count 12.9H, Red Blood Count 3.30L, Hemoglobin 9.4L, Hematocrit 28L, Mean Corpuscular Volume 85, Mean Corpuscular Hemoglobin 28, Mean Corpuscular Hemoglobin Concent 34, Red Cell Distribution Width 13.9, Platelet Count 342, Mean Platelet Volume 9.2, Neutrophils (%) (Auto) 79H, Lymphocytes (%) (Auto) 10L , Monocytes (%) (Auto) 10, Eosinophils (%) (Auto) 2, Basophils (%) (Auto) 0, Neutrophils # (Auto) 10.1H, Lymphocytes # (Auto) 1.2, Monocytes # (Auto) 1.3H, Eosinophils # (Auto) 0.2, Basophils # (Auto) 0.0, Sodium Level 130L, Potassium Level 4.1, Chloride Level 101, Carbon Dioxide Level 20L, Anion Gap 9, Blood Urea Nitrogen 20H, Creatinine 1.88H, Estimat Glomerular Filtration Rate 38, BUN/Creatinine Ratio 11, Glucose Level 183H, Calcium Level 8.3L, Corrected Calcium 9.4, Total Bilirubin 0.4, Aspartate Amino Transf (AST/SGOT) 23, Alanine Aminotransferase (ALT/SGPT) 21, Alkaline Phosphatase 144H, Total Protein 6.4, Albumin 2.6L 09/20/18 06:05: Glucometer 173H 09/20/18 11:32: Glucometer 283H Microbiology 09/17/18 Blood Culture - Preliminary, Resulted No growth 09/17/18 MRSA Screen - Final, Complete MRSA not isolated 09/18/18 Gram Stain - Final, Resulted 09/18/18 Anaerobic Culture, Resulted Pending 09/18/18 Surgical Culture - Preliminary, Resulted Proteus vulgaris 09/18/18 Fungal Culture 1 - Preliminary, Resulted Culture In Progress A/P: Assessment/Dx: Right fifth toe gangrene, r/o PAD, DM, HTN, Hyperlipidemia, AF with RVR Plan: Right fifth toe gangrene, r/o PAD, surgery tomorrow. arterial ultrasound recommended 09/19/2018 which did not show any significant PAD. DM, defer to primary team. HTN, Continue outpatient meds. Hyperlipidemia, start high dose statin. AF with controlled ventricular rate, amiodarone, eliquis. Echo. Thank you for your consultation. Please call me if you have any questions. Arline Colon MD, FACP, FACC, FSCAI, FHRS, CCDS Interventional Cardiology Cardiac Electrophysiology Vascular Medicine and Endovascular Interventions Focused Exam Lactate Level 09/17/18 14:40: Lactic Acid Level 2.28*H 09/18/18 03:15: Lactic Acid Level 1.80 Lakshmi COLON MD Sep 20, 2018 1:38 pm
[2018-09-20] MEDS: morphine ER 30 MG (MS CONTIN) TAB PO SCH (19:32)
[2018-09-20] MEDS: traZODone 100 MG (DESYREL) TAB PO SCH (19:33)
[2018-09-20] MEDS: CARVEDILOL 12.5 MG (COREG) TABLET PO SCH (19:33)
[2018-09-20] MEDS ORDERED: APIXABAN 5 MG (ELIQUIS) TABLET PO SCH (21:00)
[2018-09-20] MEDS ORDERED: NON-FORMULARY MEDICATION 1 EA EA (Liraglutide (Victoza 3-Pak) 1.2 MG) SC SCH (21:00)
[2018-09-21] MEDS: PIPERACILLIN/TAZO 4.5 GM/NS 100 ML IV SCH ×6 (03:18→18:33)
[2018-09-21] MEDS: inSUlin ASPART (NovoLOG) 1 UNIT/0.01 ML (CHARGE PER UNIT) SC SCH ×3 (05:08→18:32)
[2018-09-21 05:32] LABS: BASOPHILS % (AUTO) 0 % (0-10); EOSINOPHILS # (AUTO) 0.2 10^3/uL (0.0-0.3); EOSINOPHILS % (AUTO) 2 % (0-10); HEMATOCRIT 27 % (40-54); HEMOGLOBIN 8.6 G/DL (13.3-17.7); LYMPHOCYTES # (AUTO) 1.3 X 10^3 (1.0-4.0); LYMPHOCYTES % (AUTO) 13 % (12-44); MEAN CORPUSCULAR HEMOGLOBIN 28 PG (25-34); MEAN CORPUSCULAR HGB CONC 33 G/DL (32-36); MEAN CORPUSCULAR VOLUME 87 FL (80-99); MEAN PLATELET VOLUME 8.7 FL (7.4-10.4); MONOCYTES # (AUTO) 1.2 X 10^3 (0.0-1.0); MONOCYTES % (AUTO) 13 % (0-12); NEUTROPHILS % (AUTO) 72 % (42-75); PLATELET COUNT 419 10^3/uL (130-400); RED CELL DISTRIBUTION WIDTH 14.3 % (10.0-14.5); WHITE BLOOD COUNT 9.8 10^3/uL (4.3-11.0)
[2018-09-21 05:57] LABS: ALBUMIN 2.6 GM/DL (3.2-4.5); BILIRUBIN,TOTAL 0.3 MG/DL (0.1-1.0); CALCIUM 8.7 MG/DL (8.5-10.1); CREATININE SERUM 1.7 MG/DL (0.60-1.30); POTASSIUM 4.2 MMOL/L (3.6-5.0); TOTAL PROTEIN 6.5 GM/DL (6.4-8.2)
[2018-09-21 08:00] VITALS: BP 129/68
--- NOTE | 2018-09-21 09:17 | Pulmonary Progress Note ---
Subjective Time Seen by a Provider: 09:15 Subjective/Events-last exam Pt complains of persistent productive cough. Sepsis Event Evaluation Height, Weight, BMI Height: 6'7.00" Weight: 416lbs. 9.0oz. 188.308462bo; 47.0 BMI Method:Stated Exam Exam Vital Signs Date Time Temp Pulse Resp B/P (MAP) Pulse Ox O2 Delivery O2 Flow Rate FiO2 09/20/18 23:25 98.8 90 20 128/76 (93) 91 Room Air 09/20/18 20:18 Room Air 09/20/18 19:47 178/86 (116) 09/20/18 19:46 98.8 97 18 190/85 (120) 96 Room Air 09/20/18 16:05 97.8 92 20 136/74 (94) 95 Room Air 09/20/18 11:54 98.0 91 22 151/76 (101) 96 Room Air 09/20/18 09:22 99.1 I & O 09/21/18 06:59 Intake Total 5230 ml Output Total 6020 ml Balance -790 ml Height & Weight Height: 6'7.00" Weight: 416lbs. 9.0oz. 188.045085ji; 47.0 BMI Method:Stated General Appearance: No Apparent Distress, WD/WN, Anxious, Chronically ill, Obese HEENT: PERRL/EOMI, Pharynx Normal Neck: Full Range of Motion, Non Tender, Supple Respiratory: Chest Non Tender, No Accessory Muscle Use, No Respiratory Distress, Decreased Breath Sounds Cardiovascular: Regular Rate, Rhythm, No Edema, No Gallop Capillary Refill: Less Than 3 Seconds Gastrointestinal: normal bowel sounds, non tender, soft Extremity: Normal Capillary Refill, No Pedal Edema Neurologic/Psychiatric: Alert, Oriented x3 Skin: Normal Color, Warm/Dry Lymphatic: No Adenopathy Results Lab Laboratory Tests 09/20/18 04:21 09/21/18 04:55 Assessment/Plan Assessment/Plan sepsis- improving -Vanco/zosyn -Thomas culture Left foot ulcer/cellulitis and wet gangrene -Podiatry consulted Coughing -Add duoneb -CHeck PA/Lat CXR Hyponatremia -Monitor Acute on chronic renal failure -Monitor anemia -Monitor DM Afib rvr -Cardiology following TERESITA -noncompliant with CPAP therapy GERD Hx of suicide attempts MERCEDES RODRIGUEZ DO Sep 21, 2018 09:17
[2018-09-21] MEDS: oxyCODONE/APAP 5/325MG (PERCOCET 5) TABLET PO PRN (09:30)
[2018-09-21] MEDS: MULTIVIT W/MINERALS TAB (THERAGRAN M) PO SCH (10:47)
[2018-09-21] MEDS: FAMOTIDINE 20 MG (PEPCID) TABLET PO SCH (10:47)
[2018-09-21] MEDS: CARVEDILOL 12.5 MG (COREG) TABLET PO SCH ×2 (10:47→21:15)
[2018-09-21] MEDS: DILTIAZEM 120 MG (CARDIZEM CD) CAP PO SCH (10:47)
[2018-09-21] MEDS: FUROSEMIDE 40 MG (LASIX) TAB PO SCH (10:48)
[2018-09-21] MEDS: lisINopril 5 MG (PRINIVIL) TABLET PO SCH (10:48)
[2018-09-21] MEDS: GABAPENTIN 400 MG (NEURONTIN) CAP PO SCH ×3 (10:48→21:15)
[2018-09-21] MEDS: morphine ER 30 MG (MS CONTIN) TAB PO SCH ×2 (10:48→21:16)
[2018-09-21] MEDS: TERAZOSIN 2 MG (HYTRIN) CAP PO SCH (10:48)
[2018-09-21] MEDS: ISOSORBIDE MONONITRATE 60 MG (IMDUR) TAB PO SCH (10:48)
--- NOTE | 2018-09-21 10:56 | Diagnostic Imaging Report ---
EXAMINATION: PA and lateral chest compared with prior study from 09/19/2018 INDICATION: Shortness of breath. FINDINGS: Lungs demonstrate no evidence of focal infiltrate or consolidation. There appear to be some chronic interstitial changes present within the lungs. There is no significant effusion. There is no pneumothorax. Heart size and mediastinal contours appear stable. Pulmonary vascularity appears within normal limits. IMPRESSION: 1. Findings suggesting some mild prominence of the interstitial markings. Correlate for any known smoking history. No acute superimposed cardiopulmonary process evident. Dictated by: Dictated on workstation # [id number]
--- NOTE | 2018-09-21 11:24 | Progress Note - Hospitalist ---
Subjective HPI/CC On Admission Date Seen by Provider: Sep 21, 2018 Time Seen by Provider: 10:30 CC: Severe sepsis due to left foot wound HPI: This is a 54yoWM clinic pt of Dr. Thompson recently changed from Dr. Aristeo Álvarez in [place] who has a PMH of DM who presents to the ER with a draining wound on the left foot found to have wet gangrene and severe odor to the foot that fills the room and is accompanied by a relative. He reports that for an unknown duration of time he has had the draining ulcer on his left foot but he approximates 1 month but worsened in the past [address] Thompson and being placed on Levaquin. He reports that he has had foot surgery by Dr. Hemphill before and initially I consulted Dr. Joseph because of the severity of the gangrene but Dr. Hemphill appears to be willing to see him and consultation and likely take him to sx tomorrow morning at 6:30 and that's what the pt appears to agree too since he is familiar with Dr. Hemphill. he will be placed on broad spectrum antibiotics of Vancomycin and Zosyn, placed on severe sepsis IV protocol, and will be placed in the ICU for close monitoring. Pt does see Nephrology Dr. Colon and he also sees Dr. Beckford on a fairly regular basis for cardiology issues. He denies use of O2 or CPAP mask. Subjective/Events-last exam Spoke to Dr Hemphill and he will perform another debridement Saturday Patient very irritated and thinks the care here has been awful I spoke with the nurse and the standard of care has been maintained for this patient Kept his phone on speaker phone and she told me that she was going to notify her friends on the hospital board Tried to reassure the patient and updated him on the lab results but does not seem to satisfy Check meds and labs Bowels are moving Labs are improved Review of Systems General: Fatigue Musculoskeletal: foot pain Objective Exam Vital Signs Vital Signs Date Time Temp Pulse Resp B/P (MAP) Pulse Ox O2 Delivery O2 Flow Rate FiO2 09/21/18 11:30 93 Room Air 09/21/18 08:00 100.3 86 20 129/68 (88) 09/19/18 04:35 2.00 Capillary Refill : Less Than 3 Seconds General Appearance: No Apparent Distress, WD/WN, Anxious, Chronically ill, Obese HEENT: PERRL/EOMI, Pharynx Normal Neck: Full Range of Motion, Non Tender, Supple Respiratory: Chest Non Tender, No Accessory Muscle Use, No Respiratory Distress, Decreased Breath Sounds Cardiovascular: Regular Rate, Rhythm, No Edema, No Gallop Gastrointestinal: Normal Bowel Sounds, No Organomegaly, No Pulsatile Mass, Non Tender, Soft Back: Normal Inspection, No CVA Tenderness, No Vertebral Tenderness Extremity: Normal Capillary Refill, No Pedal Edema Neurologic/Psychiatric: Alert, Oriented x3 Skin: Normal Color, Warm/Dry Lymphatic: No Adenopathy Results/Procedures Lab Laboratory Tests 09/21/18 04:55 Patient resulted labs reviewed. 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 Hemphill POD # 2 on wound vac AF chronic but now with RVR Obstructive sleep apnea GERD Diabetes mellitus Hypertension History of suicide attempts Depression Leukocytosis-resolved Acute on chronic renal failure CAD Hyponatremia resolved Plan: Empiric IV antibiotics of vancomycin and Zosyn Pain control Appreciate surgery Dr Hemphill Monitor closely Home meds Oral anticoagulation restarted Diagnosis/Problems Diagnosis/Problems (1) Severe sepsis Status: Acute (2) Diabetic wet gangrene of the foot Status: Acute (3) Atrial fibrillation with rapid ventricular response Status: Acute (4) Gangrene of right foot Status: Acute (5) Hyperglycemia Status: Acute (6) Acute renal insufficiency Status: Acute (7) Diabetes Status: Acute Qualifiers: Diabetes mellitus type: type 2 Diabetes mellitus half-way insulin use: without [employer] use Diabetes mellitus complication status: with kidney complications Diabetes mellitus complication detail: with chronic kidney disease Chronic kidney disease stage: stage 3 (moderate) Qualified Codes: E11.22 - Type 2 diabetes mellitus with diabetic chronic kidney disease; N18.3 - Chronic kidney disease, stage 3 (moderate) Clinical Quality Measures DVT/VTE Risk/Contraindication: Risk Factor Score Per Nursin RFS Level Per Nursing on Admit: 4+=Very High TRACI OSORIO DO Sep 21, 2018 11:24
[2018-09-21] MEDS: RT-ALBUTEROL/IPRATROPIUM 3 ML (DUONEB) VIAL INH SCH ×4 (11:30→22:00)
[2018-09-21] MEDS: RT-ADVAIR HFA 115/21 MCG PER PUFF IH SCH ×2 (11:38→22:03)
--- NOTE | 2018-09-21 11:57 | Cardiology Progress Note ---
Cardiology SOAP Progress Note Subjective: No shortness of breath. Objective: I&O/Vital Signs 09/21/18 09/21/18 08:00 11:30 Temp 100.3 Pulse 86 Resp 20 B/P (MAP) 129/68 (88) Pulse Ox 92 93 O2 Delivery Room Air Room Air 09/21/18 00:00 Intake Total 4030 ml Output Total 3920 ml Balance 110 ml Weight (Pounds): 416 Weight (Ounces): 9.0 Weight (Calculated Kilograms): 188.132037 Constitutional: appears stated age, AAO x 3; No apparent distress; well-develo ped, well-nourished Respiratory: No accessory muscle use, No respiratory distress, No chest tender, No chest expansion is symmetric; chest is bilaterally symmetric; No lungs clear to percussion; lungs clear to auscultation; No crackles, No rhonchi, No rales, No stridor, No wheezing, No pleural rub, No other Cardiovascular: irregularly irregular; No extra beats, No parasternal heave is noted, No JVD, No edema, No bradycardia; tachycardia; No point of maximal impuls e, No cardiac thrills are palpable; S1 and S2; No gallop/S3, No gallop/S4, No diastolic murmur, No systolic murmur, No friction rub, No click, No other Gastrointestional: No tender, No soft, No round, No distended, No pulsatile mass, No organomegaly, No guarding, No rebound, No tenderness, No hernia, No mass, No audible bowel sounds, No abnormal bowel sounds, No abdominal bruits, No spleenomegaly, No other Extremities: No normal range of motion, No non-tender, No normal inspection, No pedal edema, No calf tenderness, No normal capillary refill, No pelvis stable, No calf tenderness, No inflammation, No pedal edema, No slow capillary refill, No swelling, No other, No abrasion, No clubbing, No cyanosis, No ecchymosis, No laceration, No no lower extremity edema bilateral, No significant edema, No tenderness, No wound Neurologic/Psychiatric: no motor/sensory deficits, alert, normal mood/affect, oriented x 3, power is 5/5 both on sides Skin: No normal color, No warm/dry, No cyanosis, No cool, No diaphoresis, No damp, No ecchymosis, No jaundice, No mottled, No pallor, No rash, No tattoos/piercings, No ulcerations, No rash on exposed areas, No ulcerations on exposed areas, No other Results/Procedures: Labs Laboratory Tests 09/20/18 15:37: Glucometer 259H 09/20/18 18:12: Glucometer 289H 09/20/18 20:53: Glucometer 236H 09/20/18 23:30: Glucometer 199H 09/21/18 04:55: White Blood Count 9.8, Red Blood Count 3.06L, Hemoglobin 8.6L, Hematocrit 27L, Mean Corpuscular Volume 87, Mean Corpuscular Hemoglobin 28, Mean Corpuscular Hemoglobin Concent 33, Red Cell Distribution Width 14.3, Platelet Count 419H, Mean Platelet Volume 8.7, Neutrophils (%) (Auto) 72, Lymphocytes (%) (Auto) 13, Monocytes (%) (Auto) 13H, Eosinophils (%) (Auto) 2, Basophils (%) (Auto) 0, Neutrophils # (Auto) 7.0, Lymphocytes # (Auto) 1.3, Monocytes # (Auto) 1.2H, Eosinophils # (Auto) 0.2, Basophils # (Auto) 0.0, Sodium Level 139, Potassium Level 4.2, Chloride Level 107, Carbon Dioxide Level 23, Anion Gap 9, Blood Urea Nitrogen 15, Creatinine 1.70H, Estimat Glomerular Filtration Rate 43, BUN/Creatinine Ratio 9, Glucose Level 103, Calcium Level 8.7, Corrected Calcium 9.8, Total Bilirubin 0.3, Aspartate Amino Transf (AST/SGOT) 22, Alanine Aminotransferase (ALT/SGPT) 21, Alkaline Phosphatase 128, Total Protein 6.5, Albumin 2.6L 09/21/18 05:00: Glucometer 106 Microbiology 09/17/18 Blood Culture - Preliminary, Resulted No growth 09/17/18 MRSA Screen - Final, Complete MRSA not isolated 09/18/18 Gram Stain - Final, Resulted 09/18/18 Anaerobic Culture, Resulted Pending 09/18/18 Surgical Culture - Final, Resulted Proteus vulgaris 09/18/18 Fungal Culture 1 - Preliminary, Resulted Culture In Progress A/P: Assessment/Dx: Right fifth toe gangrene, r/o PAD, DM, HTN, Hyperlipidemia, AF with RVR Plan: Right fifth toe gangrene, r/o PAD, surgery tomorrow. arterial ultrasound recommended 09/19/2018 which did not show any significant PAD. DM, defer to primary team. HTN, Continue outpatient meds. Hyperlipidemia, start high dose statin. AF with controlled ventricular rate, amiodarone, eliquis. Echo. Thank you for your consultation. Please call me if you have any questions. Arline Colon MD, FACP, FACC, FSCAI, FHRS, CCDS Interventional Cardiology Cardiac Electrophysiology Vascular Medicine and Endovascular Interventions Lakshmi COLON MD Sep 21, 2018 11:57 am
[2018-09-21] MEDS ORDERED: TROUGH ORDER-PHARMACY XX NR (12:00)
[2018-09-21] MEDS: VANCOMYCIN 2,500 MG/NS 500 ML IVPB IV SCH ×2 (15:15)
[2018-09-21 16:46] VITALS: BP 149/69
--- NOTE | 2018-09-21 17:41 | Podiatry Progress Note ---
Standard Progress Note Progress Notes/Assess & Plan Date Seen by a Provider: Sep 21, 2018 Time Seen by a Provider: 17:37 Progress/Assessment & Plan Pt seen at bedside doing well drinking Mr Bisi and eating pork rinds today. He denies F/C/N/V. He has no complaints. His wound VAC in intact. LLE- +edema, gross ROM intact to the digits, sensation diminished, no erythema to the wound edges, mild maceration secondary to the wound VAC, mild sanguinous drainage Final Diagnosis POD #3 I&D Left Foot abscess. -Plan for OR on Saturday for repeat washout, amniotic tissue grafting and VAC application. He will be for possible discharge once graft applied. -NPO LLE -Cont IV abx, narrow down according to cultures with JOCELIN Antonio DPM Sep 21, 2018 17:41
--- NOTE | 2018-09-21 18:00 | NUR ---
REPORT RECEIVED FROM PERRY RODRIGUEZ.
[2018-09-21] MEDS: traZODone 100 MG (DESYREL) TAB PO SCH (21:16)
[2018-09-22 00:40] VITALS: BP 146/83
[2018-09-22] MEDS: inSUlin ASPART (NovoLOG) 1 UNIT/0.01 ML (CHARGE PER UNIT) SC SCH ×4 (00:53→18:23)
[2018-09-22] MEDS: PIPERACILLIN/TAZO 4.5 GM/NS 100 ML IV SCH ×6 (03:11→18:23)
[2018-09-22 05:30] LABS: BASOPHILS % (AUTO) 0 % (0-10); EOSINOPHILS # (AUTO) 0.2 10^3/uL (0.0-0.3); EOSINOPHILS % (AUTO) 2 % (0-10); HEMATOCRIT 27 % (40-54); HEMOGLOBIN 8.7 G/DL (13.3-17.7); LYMPHOCYTES # (AUTO) 1.3 X 10^3 (1.0-4.0); LYMPHOCYTES % (AUTO) 15 % (12-44); MEAN CORPUSCULAR HEMOGLOBIN 28 PG (25-34); MEAN CORPUSCULAR HGB CONC 32 G/DL (32-36); MEAN CORPUSCULAR VOLUME 88 FL (80-99); MEAN PLATELET VOLUME 8.7 FL (7.4-10.4); MONOCYTES # (AUTO) 1.1 X 10^3 (0.0-1.0); MONOCYTES % (AUTO) 12 % (0-12); NEUTROPHILS # (AUTO) 6.3 X 10^3 (1.8-7.8); NEUTROPHILS % (AUTO) 71 % (42-75); PLATELET COUNT 409 10^3/uL (130-400); RED CELL DISTRIBUTION WIDTH 14.3 % (10.0-14.5)
[2018-09-22 06:00] LABS: ALBUMIN 2.5 GM/DL (3.2-4.5); BILIRUBIN,TOTAL 0.2 MG/DL (0.1-1.0); CALCIUM 8.4 MG/DL (8.5-10.1); CREATININE SERUM 1.75 MG/DL (0.60-1.30); POTASSIUM 4.2 MMOL/L (3.6-5.0); TOTAL PROTEIN 6.4 GM/DL (6.4-8.2)
[2018-09-22 07:29] VITALS: BP 131/78
[2018-09-22] MEDS: RT-ALBUTEROL/IPRATROPIUM 3 ML (DUONEB) VIAL INH SCH ×3 (07:32→15:13)
[2018-09-22] MEDS: RT-ADVAIR HFA 115/21 MCG PER PUFF IH SCH (07:39)
[2018-09-22] MEDS: ISOSORBIDE MONONITRATE 60 MG (IMDUR) TAB PO SCH (09:33)
[2018-09-22] MEDS: TERAZOSIN 2 MG (HYTRIN) CAP PO SCH (09:33)
[2018-09-22] MEDS: GABAPENTIN 400 MG (NEURONTIN) CAP PO SCH ×3 (09:33→21:59)
[2018-09-22] MEDS: MULTIVIT W/MINERALS TAB (THERAGRAN M) PO SCH (09:33)
[2018-09-22] MEDS: morphine ER 30 MG (MS CONTIN) TAB PO SCH ×2 (09:33→21:59)
[2018-09-22] MEDS: DILTIAZEM 120 MG (CARDIZEM CD) CAP PO SCH (09:33)
[2018-09-22] MEDS: CARVEDILOL 12.5 MG (COREG) TABLET PO SCH ×2 (09:33→21:59)
[2018-09-22] MEDS: FUROSEMIDE 40 MG (LASIX) TAB PO SCH (09:33)
[2018-09-22] MEDS: lisINopril 5 MG (PRINIVIL) TABLET PO SCH (09:34)
[2018-09-22] MEDS: oxyCODONE/APAP 5/325MG (PERCOCET 5) TABLET PO PRN ×2 (09:34→15:03)
[2018-09-22] MEDS: FAMOTIDINE 20 MG (PEPCID) TABLET PO SCH (09:34)
[2018-09-22] MEDS: LACTOBACILLUS ACIDOPHILUS (PROBIOTIC) CAPSULE PO SCH ×2 (12:30→18:23)
--- NOTE | 2018-09-22 13:33 | NUR ---
Spoke with pt briefly about Home wound VAC. I reviewed instruction with pt in reference to home wound VAC including where supplies would come from, who to call in VAC alarming, when and how to change canister and how to contact physician caring for wound. Pt verbalized understanding and that he had no question. Handout was also given to pt.
--- NOTE | 2018-09-22 13:40 | Progress Note - Hospitalist ---
Subjective HPI/CC On Admission Date Seen by Provider: Sep 22, 2018 Time Seen by Provider: 13:36 CC: Severe sepsis due to left foot wound HPI: This is a 54yoWM clinic pt of Dr. Thompson recently changed from Dr. Aristeo Álvarez in [place] who has a PMH of DM who presents to the ER with a draining wound on the left foot found to have wet gangrene and severe odor to the foot that fills the room and is accompanied by a relative. He reports that for an unknown duration of time he has had the draining ulcer on his left foot but he approximates 1 month but worsened in the past [address] Thompson and being placed on Levaquin. He reports that he has had foot surgery by Dr. Hemphill before and initially I consulted Dr. Joseph because of the severity of the gangrene but Dr. Hemphill appears to be willing to see him and consultation and likely take him to sx tomorrow morning at 6:30 and that's what the pt appears to agree too since he is familiar with Dr. Hemphill. he will be placed on broad spectrum antibiotics of Vancomycin and Zosyn, placed on severe sepsis IV protocol, and will be placed in the ICU for close monitoring. Pt does see Nephrology Dr. Colon and he also sees Dr. Beckford on a fairly regular basis for cardiology issues. He denies use of O2 or CPAP mask. Subjective/Events-last exam Pt reports doing ok. Requesting bariatric bedside commode. Objective Exam Vital Signs Vital Signs Date Time Temp Pulse Resp B/P (MAP) Pulse Ox O2 Delivery O2 Flow Rate FiO2 09/22/18 07:39 95 Nasal Cannula 2.00 09/22/18 07:29 98.8 88 20 131/78 (95) Capillary Refill : Less Than 3 SecondsLess Than 3 Seconds General Appearance: No Apparent Distress, Chronically ill, Obese Respiratory: Lungs Clear, No Accessory Muscle Use, No Respiratory Distress, Decreased Breath Sounds Cardiovascular: Regular Rate, Rhythm, No Edema, No Gallop Gastrointestinal: Normal Bowel Sounds, Non Tender, Soft Extremity: Other (left lower extremity) Neurologic/Psychiatric: Alert, Oriented x3 Results/Procedures Lab Laboratory Tests 09/22/18 04:50 Patient resulted labs reviewed. 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 Hemphill POD # 3 on wound vac AF chronic but now with RVR Obstructive sleep apnea GERD Diabetes mellitus Hypertension Depression Acute on chronic renal failure CAD Plan: Discussed with Dr Hemphill- NWKatelynn on LLE Plan for OR tomorrow DC Vanc as cultures negative for MRSA Will need Wound Vac at discharge Bariatric commode ordered Clinical Quality Measures DVT/VTE Risk/Contraindication: Risk Factor Score Per Nursin RFS Level Per Nursing on Admit: 4+=Very High SUE PURCELL MD Sep 22, 2018 13:40
--- NOTE | 2018-09-22 14:42 | Physical Therapy Progress Note ---
Therapy Progress Note Patient adamantly declined FWW use due to falls from use prior per patient report. Patient has been observed up independently in room weight bearing through left foot per Dr. Bhatt report. Patient declined PT and stated, "I just want them to clean up this wound so I can go home." Patient also requests a knee scooter for home use. SW notified of need and will require bariatric knee scooter upon dismissal. PT will attempt to assess patient tomorrow, 09/23/18. Dr. Bhatt notified of patient declining FWW use to maintain NWB left foot. 1 ref LUIZ TELLO PT Sep 22, 2018 14:42
[2018-09-22 15:42] VITALS: BP 142/83
--- NOTE | 2018-09-22 17:11 | Pulmonary Progress Note ---
Subjective Time Seen by a Provider: 09:55 Subjective/Events-last exam No complications noted. Sepsis Event Evaluation Height, Weight, BMI Height: 6'7.00" Weight: 416lbs. 9.0oz. 188.390068cs; 47.0 BMI Method:Stated Exam Exam Vital Signs Date Time Temp Pulse Resp B/P (MAP) Pulse Ox O2 Delivery O2 Flow Rate FiO2 09/22/18 15:42 98.0 80 20 142/83 (102) 95 Room Air 09/22/18 15:13 89 Room Air 09/22/18 07:39 95 Nasal Cannula 2.00 09/22/18 07:32 95 Nasal Cannula 2.00 09/22/18 07:29 98.8 88 20 131/78 (95) 95 Room Air 09/22/18 00:40 99.9 91 18 146/83 (104) 93 Room Air 09/21/18 22:00 92 Room Air 09/21/18 21:00 92 Room Air 2.00 I & O 09/22/18 07:00 Intake Total 3615 ml Output Total 4875 ml Balance -1260 ml Height & Weight Height: 6'7.00" Weight: 416lbs. 9.0oz. 188.447278zw; 47.0 BMI Method:Stated General Appearance: No Apparent Distress, Anxious HEENT: PERRL/EOMI, Pharynx Normal Neck: Full Range of Motion, Non Tender, Supple Respiratory: Chest Non Tender, No Accessory Muscle Use, No Respiratory Distress, Decreased Breath Sounds Cardiovascular: Regular Rate, Rhythm, No Edema Capillary Refill: Less Than 3 Seconds Gastrointestinal: normal bowel sounds, non tender, soft Extremity: Normal Capillary Refill Skin: Normal Color, Warm/Dry Lymphatic: No Adenopathy Results Lab Laboratory Tests 09/21/18 04:55 09/22/18 04:50 Assessment/Plan Assessment/Plan sepsis- improving -Vanco/zosyn -Thomas culture Left foot ulcer/cellulitis and wet gangrene -Podiatry consulted Coughing -Add duoneb -CHeck PA/Lat CXR Hyponatremia -Monitor Acute on chronic renal failure -Monitor anemia -Monitor DM Afib rvr -Cardiology following TERESITA -noncompliant with CPAP therapy GERD Hx of suicide attempts MERCEDES RODRIGUEZ DO Sep 22, 2018 17:11
[2018-09-22] MEDS ORDERED: LACTATED RINGERS 1,000 ML IV PRN (19:28)
--- NOTE | 2018-09-22 21:19 | Cardiology Progress Note ---
Cardiology SOAP Progress Note Subjective: No cardiac symptoms. Objective: I&O/Vital Signs 09/22/18 09/22/18 15:13 15:42 Temp 98.0 Pulse 80 Resp 20 B/P (MAP) 142/83 (102) Pulse Ox 89 95 O2 Delivery Room Air Room Air 09/22/18 00:00 Intake Total 2715 ml Output Total 2025 ml Balance 690 ml Weight (Pounds): 416 Weight (Ounces): 9.0 Weight (Calculated Kilograms): 188.286634 Constitutional: appears stated age, AAO x 3; No apparent distress; well-developed, well-nourished Respiratory: No accessory muscle use, No respiratory distress, No chest tender, No chest expansion is symmetric; chest is bilaterally symmetric; No lungs clear to percussion; lungs clear to auscultation; No crackles, No rhonchi, No rales, No stridor, No wheezing, No pleural rub, No other Cardiovascular: irregularly irregular; No extra beats, No parasternal heave is noted, No JVD, No edema, No bradycardia; tachycardia; No point of maximal impulse, No cardiac thrills are palpable; S1 and S2; No gallop/S3, No gallop/S4, No diastolic murmur, No systolic murmur, No friction rub, No click, No other Gastrointestional: No tender, No soft, No round, No distended, No pulsatile mass, No organomegaly, No guarding, No rebound, No tenderness, No hernia, No mass, No audible bowel sounds, No abnormal bowel sounds, No abdominal bruits, No spleenomegaly, No other Extremities: No normal range of motion, No non-tender, No normal inspection, No pedal edema, No calf tenderness, No normal capillary refill, No pelvis stable, No calf tenderness, No inflammation, No pedal edema, No slow capillary refill, No swelling, No other, No abrasion, No clubbing, No cyanosis, No ecchymosis, No laceration, No no lower extremity edema bilateral, No significant edema, No tenderness, No wound Neurologic/Psychiatric: no motor/sensory deficits, alert, normal mood/affect, oriented x 3, power is 5/5 both on sides Skin: No normal color, No warm/dry, No cyanosis, No cool, No diaphoresis, No damp, No ecchymosis, No jaundice, No mottled, No pallor, No rash, No tattoos/piercings, No ulcerations, No rash on exposed areas, No ulcerations on exposed areas, No other Results/Procedures: Labs Laboratory Tests 09/22/18 00:19: Glucometer 320H 09/22/18 04:50: White Blood Count 9.0, Red Blood Count 3.08L, Hemoglobin 8.7L, Hematocrit 27L, Mean Corpuscular Volume 88, Mean Corpuscular Hemoglobin 28, Mean Corpuscular Hemoglobin Concent 32, Red Cell Distribution Width 14.3, Platelet Count 409H, Mean Platelet Volume 8.7, Neutrophils (%) (Auto) 71, Lymphocytes (%) (Auto) 15, Monocytes (%) (Auto) 12, Eosinophils (%) (Auto) 2, Basophils (%) (Auto) 0, Neutrophils # (Auto) 6.3, Lymphocytes # (Auto) 1.3, Monocytes # (Auto) 1.1H, Eosinophils # (Auto) 0.2, Basophils # (Auto) 0.0, Sodium Level 136, Potassium Level 4.2, Chloride Level 105, Carbon Dioxide Level 23, Anion Gap 8, Blood Urea Nitrogen 13, Creatinine 1.75H, Estimat Glomerular Filtration Rate 41, BUN/Creatinine Ratio 7, Glucose Level 209H, Calcium Level 8.4L, Corrected Calcium 9.6, Total Bilirubin 0.2, Aspartate Amino Transf (AST/SGOT) 19, Alanine Aminotransferase (ALT/SGPT) 22, Alkaline Phosphatase 124, Total Protein 6.4, Albumin 2.5L 09/22/18 05:21: Glucometer 190H 09/22/18 11:47: Glucometer 272H 09/22/18 17:49: Glucometer 186H 09/22/18 21:08: Glucometer 234H Microbiology 09/17/18 Blood Culture - Final, Complete No growth 09/17/18 MRSA Screen - Final, Complete MRSA not isolated 09/18/18 Gram Stain - Final, Resulted 09/18/18 Anaerobic Culture - Preliminary, Resulted Prevotella intermedia 09/18/18 Surgical Culture - Final, Resulted Proteus vulgaris 09/18/18 Fungal Culture 1 - Preliminary, Resulted See Report A/P: Assessment/Dx: Right fifth toe gangrene, r/o PAD, DM, HTN, Hyperlipidemia, AF with RVR Plan: Right fifth toe gangrene, r/o PAD, post surgery. arterial ultrasound recommended 09/19/2018 which did not show any significant PAD. DM, defer to primary team. HTN, Continue outpatient meds. Hyperlipidemia, start high dose statin. AF with controlled ventricular rate, amiodarone, eliquis. Echocardiogram 09/19/2018 shows LVEF. Normal Diastolic function. Thank you for your consultation. Please call me if you have any questions. Arline Colon MD, FACP, FACC, FSCAI, FHRS, CCDS Interventional Cardiology Cardiac Electrophysiology Vascular Medicine and Endovascular Interventions Lakshmi COLON MD Sep 22, 2018 21:19
[2018-09-22] MEDS: traZODone 100 MG (DESYREL) TAB PO SCH (21:59)
[2018-09-23] VITALS (10 sets, daily range): BP systolic 108–142; BP diastolic 60–88
[2018-09-23] MEDS: RT-ADVAIR HFA 115/21 MCG PER PUFF IH SCH ×2 (00:55→07:21)
[2018-09-23] MEDS: RT-ALBUTEROL/IPRATROPIUM 3 ML (DUONEB) VIAL INH SCH ×6 (00:55→15:10)
[2018-09-23] MEDS: inSUlin ASPART (NovoLOG) 1 UNIT/0.01 ML (CHARGE PER UNIT) SC SCH ×2 (01:07→05:53)
[2018-09-23] MEDS: PIPERACILLIN/TAZO 4.5 GM/NS 100 ML IV SCH ×4 (03:01→11:36)
[2018-09-23 04:38] LABS: BASOPHILS % (AUTO) 0 % (0-10); EOSINOPHILS # (AUTO) 0.2 10^3/uL (0.0-0.3); EOSINOPHILS % (AUTO) 2 % (0-10); HEMATOCRIT 27 % (40-54); HEMOGLOBIN 8.5 G/DL (13.3-17.7); LYMPHOCYTES # (AUTO) 1.3 X 10^3 (1.0-4.0); LYMPHOCYTES % (AUTO) 15 % (12-44); MEAN CORPUSCULAR HEMOGLOBIN 28 PG (25-34); MEAN CORPUSCULAR HGB CONC 32 G/DL (32-36); MEAN CORPUSCULAR VOLUME 88 FL (80-99); MEAN PLATELET VOLUME 8.4 FL (7.4-10.4); MONOCYTES # (AUTO) 0.9 X 10^3 (0.0-1.0); MONOCYTES % (AUTO) 10 % (0-12); NEUTROPHILS # (AUTO) 6.5 X 10^3 (1.8-7.8); NEUTROPHILS % (AUTO) 73 % (42-75); PLATELET COUNT 474 10^3/uL (130-400); RED CELL DISTRIBUTION WIDTH 14.8 % (10.0-14.5); WHITE BLOOD COUNT 8.9 10^3/uL (4.3-11.0)
[2018-09-23 04:57] LABS: ALBUMIN 2.5 GM/DL (3.2-4.5); BILIRUBIN,TOTAL 0.2 MG/DL (0.1-1.0); CALCIUM 8.4 MG/DL (8.5-10.1); CREATININE SERUM 1.68 MG/DL (0.60-1.30); POTASSIUM 4.1 MMOL/L (3.6-5.0); TOTAL PROTEIN 6.5 GM/DL (6.4-8.2)
[2018-09-23] MEDS: LACTOBACILLUS ACIDOPHILUS (PROBIOTIC) CAPSULE PO SCH ×3 (05:53→14:46)
[2018-09-23] MEDS: CARVEDILOL 12.5 MG (COREG) TABLET PO SCH (08:40)
[2018-09-23] MEDS: oxyCODONE/APAP 5/325MG (PERCOCET 5) TABLET PO PRN ×2 (08:44→14:47)
--- NOTE | 2018-09-23 10:05 | NUR ---
Delivered home wound VAC to pt room. Pt signed POD for [employer]. Went over instruction on who and when to call for assistance. Reviewed different alarms associated with wound VAC. Reviewed process for when NPWT is discontinued. Handout reviewed with pt and family. Pt and family verbalized no further questions.
[2018-09-23] MEDS ORDERED: SUCCINYLCHOLINE INJ 100 MG/5 ML SYR ONE (10:36)
[2018-09-23] MEDS ORDERED: fentaNYL INJECTION 100 MCG/2 ML AMP ONE (10:36)
[2018-09-23] MEDS ORDERED: ONDANSETRON 4 MG/2 ML (SDV) Z0FRAN ONE (10:36)
[2018-09-23] MEDS ORDERED: LIDOCAINE PF 2% 5 ML (XYLOCAINE) VIAL ONE (10:36)
[2018-09-23] MEDS ORDERED: proPOfol 200 MG/20 ML (DIPRIVAN) VIAL IV ONE (10:36)
[2018-09-23] MEDS ORDERED: MIDAZOLAM 2 MG/2 ML (VERSED) VIAL ONE (10:36)
--- NOTE | 2018-09-23 10:51 | NUR ---
patient states he is supposed to have O2 at home but does not have any; both times RT has entered patients room he had been on RA and satting 87-88% until RT places 1 L NC and sat goes up to 92%
--- NOTE | 2018-09-23 11:06 | D/C HH Face to Face Order ---
D/C Face to Face Orders Reconcile Patient Problems Problems Reviewed?: Yes Instructions for Patient Via [facility], Patient Instructions/FollowUp: Please continue to take your medications as written. Please follow up with your PCP in the next week to follow up this hospital stay and with Dr Hemphill in two weeks. Physician to follow Patient: Dr Tamara Álvarez Discharge Diet for Home: Cardiac Diet Patient Data-Allergies,Ht & Wt Patient Allergies: Coded Allergies: cortisone (Verified Allergy, Unknown, HIVES, 11/11/14) meloxicam (Verified Allergy, Unknown, 05/28/17) pregabalin (Verified Allergy, Unknown, 05/28/17) shellfish derived (Verified Allergy, Unknown, 11/11/14) Uncoded Allergies: THYLAID (Allergy, Unknown, 11/11/14) Height (Feet): 6 Height (Inches): 7.00 Weight (Pounds): 416 Weight (Ounces): 9.0 Home Health Need/Face to Face Date of Face to Face: Sep 23, 2018 Clinical Findings: Generalized weakness and fatigue I have seen Pt [id number]: Yes Discharged To: Home Diagnosis/Conditions: IDDMII, diabetic foot wound, HTN Patient is Homebound due to: Non-weight bearing Homebound Status Due to the above stated illness, injury or surgical procedure (medical condition or diagnosis) and associated clinical findings, the patient is homebound because of his/her inability to leave home except with aid of a supportive device and/or person AND leaving the home requires a considerable and taxing effort or is medically contraindicated. Pt req the following assistanc: [facility] Nursing Orders Home Health Services Order: Nursing Services, Physical Therapy-Evaluate & Treat, Wound Care-Eval/Treat Home Health Infusion Therapy Line Start Date: Sep 17, 2018 Therapy Orders Therapy Orders: Physical Therapy, PT to assess for OT Therapy Specific Orders: Eval assistive deivces, Teach enviro modifications/safety Certify Stmt I certify that this patient is under my care and that I, a nurse practitioner or a physician; a certified surgical tech/first assistant working with me, had a face to face encounter that - meets the physician face to face encounter requirements with this patient as dated. SUE PURCELL MD Sep 23, 2018 11:05 am
[2018-09-23] MEDS ORDERED: DILT120C94 PO (11:10)
[2018-09-23] MEDS ORDERED: LACT1CAP7 PO (11:10)
[2018-09-23] MEDS ORDERED: CEPH-507 PO (11:10)
[2018-09-23] MEDS ORDERED: SEVOFLURANE (ULTANE) 15 ML INHAL SOLN ONE ×3 (11:12→12:45)
[2018-09-23] MEDS: TERAZOSIN 2 MG (HYTRIN) CAP PO SCH (11:18)
[2018-09-23] MEDS: DILTIAZEM 120 MG (CARDIZEM CD) CAP PO SCH (11:18)
[2018-09-23] MEDS: ISOSORBIDE MONONITRATE 60 MG (IMDUR) TAB PO SCH ×2 (11:19→14:46)
[2018-09-23] MEDS: FUROSEMIDE 40 MG (LASIX) TAB PO SCH (11:19)
[2018-09-23] MEDS: GABAPENTIN 400 MG (NEURONTIN) CAP PO SCH ×2 (11:19→14:46)
--- NOTE | 2018-09-23 11:20 | Physical Therapy Progress Note ---
Therapy Progress Note Patient continues to be up on left foot and is not complying with NWB left LE. Patient declined PT intervention and has been informed by SW on knee scooter and rental upon dismissal. PT consulted with Dr. Bhatt on POC and stated to dismiss patient from PT services due to noncompliance. 1 ref ([id number]) LUIZ TELLO PT Sep 23, 2018 11:20
--- NOTE | 2018-09-23 11:30 | NUR ---
TO OR PER BED.
[2018-09-23] MEDS ORDERED: morphine INJ 10 MG/ML 1ML (SYR OR VIAL) IVP ONE (13:15)
[2018-09-23] MEDS ORDERED: MEPERIDINE (DEMEROL) INJ 50 MG/ML IVP ONE (13:15)
[2018-09-23] MEDS ORDERED: ONDANSETRON 4 MG/2 ML (SDV) Z0FRAN IVP PRN (13:15)
[2018-09-23] MEDS ORDERED: PROMETHAZINE INJ 25 MG/ML (PHENERGAN) AMP IVP ONE (13:15)
--- NOTE | 2018-09-23 14:00 | NUR ---
RETURNED TO ROOM FROM [facility] PER BED. ALERT AND COOPERATIVE. SKIN W/D. RESP. REGULAR. FAMILY MEMBERS AT BEDSIDE. DRESSING TO RIGHT FOOT IN PLACE WITH WOUND VAC AND HOME WOUND VAC ON. RATES PAIN 11/04. RIGHT FOOT SWOLLEN. TAKING FLUIDS WELL.
--- NOTE | 2018-09-23 14:28 | Pulmonary Progress Note ---
Subjective Time Seen by a Provider: 09:57 Subjective/Events-last exam PT feels slightly improved. Sepsis Event Evaluation Height, Weight, BMI Height: 6'7.00" Weight: 416lbs. 9.0oz. 188.886322qi; 47.0 BMI Method:Stated Exam Exam Vital Signs Date Time Temp Pulse Resp B/P (MAP) Pulse Ox O2 Delivery O2 Flow Rate FiO2 09/23/18 13:42 OxyMask 3 09/23/18 13:40 18 94 OxyMask 3 09/23/18 13:36 OxyMask 6 09/23/18 13:30 18 95 OxyMask 6 09/23/18 13:27 OxyMask 6 09/23/18 13:20 18 94 OxyMask 6 09/23/18 13:15 OxyMask 6 09/23/18 13:10 18 95 OxyMask 6 09/23/18 13:02 OxyMask 6 09/23/18 13:02 98.4 19 96 OxyMask 6 09/23/18 10:42 87 Room Air 09/23/18 08:00 98.4 76 22 142/79 (100) 95 Room Air 09/23/18 07:26 93 Nasal Cannula 1.00 09/23/18 07:21 92 Nasal Cannula 1.00 09/23/18 02:39 91 Nasal Cannula 1.00 09/23/18 00:00 98.7 87 20 138/65 (89) 93 Room Air 09/22/18 21:00 93 Room Air 2.00 09/22/18 15:42 98.0 80 20 142/83 (102) 95 Room Air 09/22/18 15:13 89 Room Air I & O 09/23/18 07:00 Intake Total 1860 ml Output Total 3325 ml Balance -1465 ml Height & Weight Height: 6'7.00" Weight: 416lbs. 9.0oz. 188.238655tb; 47.0 BMI Method:Stated General Appearance: Anxious, Chronically ill HEENT: PERRL/EOMI, Normal ENT Inspection, Pharynx Normal Neck: Full Range of Motion, Non Tender, Supple Respiratory: Chest Non Tender, No Accessory Muscle Use, No Respiratory Distress, Decreased Breath Sounds Cardiovascular: Regular Rate, Rhythm, No Edema Capillary Refill: Less Than 3 Seconds Gastrointestinal: normal bowel sounds, non tender, soft Extremity: Normal Capillary Refill, No Pedal Edema Neurologic/Psychiatric: Alert, Oriented x3 Skin: Normal Color, Warm/Dry Lymphatic: No Adenopathy Results Lab Laboratory Tests 09/22/18 04:50 09/23/18 03:55 Assessment/Plan Assessment/Plan sepsis- improving -Vanco/zosyn -Thomas culture Left foot ulcer/cellulitis and wet gangrene -Podiatry consulted Coughing -Add duoneb -CHeck PA/Lat CXR Hyponatremia -Monitor Acute on chronic renal failure -Monitor anemia -Monitor DM Afib rvr -Cardiology following TERESITA -noncompliant with CPAP therapy GERD Hx of suicide attempts MERCEDES RODRIGUEZ DO Sep 23, 2018 14:28
[2018-09-23] MEDS: lisINopril 5 MG (PRINIVIL) TABLET PO SCH (14:46)
[2018-09-23] MEDS: morphine ER 30 MG (MS CONTIN) TAB PO SCH (14:46)
--- NOTE | 2018-09-23 15:30 | NUR ---
DR. RHODES NOTIFIED OF PT AND FAMILY WANTING TO TALK TO HIM. FAMILY AND PT. TALKED WITH DR. RHODES ( AND QUESTIONS ANSWERED ) PER TELEPHONE. DR. RHODES STATED HE WOULD SEND A PAIN RX TO [facility] FOR THE PT.
--- NOTE | 2018-09-23 15:38 | NUR ---
CM/SS discharge planning. Patient will have HHC with [facility]. His first preference would be for [facility], they were unable to accept due to RNs on vacation. [facility] will see the patient on 09/24. The patient is supposed to have 1L oxygen apparently though he does not have oxygen at home. Sent the Order and information for oxygen to DME. They will deliver portable oxygen to his hospital room.
--- NOTE | 2018-09-23 16:15 | NUR ---
DEANDRE MINAYA demonstrates understanding of discharge instructions and accurately returns instructions upon questioning. Copy of Post-Discharge Instructions given to PT. DEANDRE MINAYA is able to manage continuing needs after discharge WITH HOME HEALTH CARE. Patients belongings returned to PT. Patient discharged from [facility] on 09/23/18 at 1615. DEANDRE MINAYA left floor via W/C, accompanied by STAFF AND FAMILY PER AUTO.
--- NOTE | 2018-09-24 08:42 | Anesthesia-General Post-Op ---
General Patient Condition Mental Status/LOC: Same as Preop Cardiovascular: Satisfactory Nausea/Vomiting: Absent Respiratory: Satisfactory Pain: Controlled Complications: Absent Post Op Complications Complications None Follow Up Care/Instructions Patient Instructions None needed. Anesthesia/Patient Condition Patient Condition Patient is doing well, no complaints, stable vital signs, no apparent adverse anesthesia problems. No complications reported per nursing. CHICO HARRIS CRNA Sep 24, 2018 08:42
--- NOTE | 2018-09-25 08:48 | NUR ---
CM/SS [facility] called and stated that they were not able to take the patient's insurance and that if was unable to see him then [facility] was also in network they believed. Sent [facility] information to [facility]. [facility] will review his information, payor source and their schedule to ensure they can accept the patient.
--- NOTE | 2018-10-23 01:44 | OPERATIVE REPORT ---
DATE OF SERVICE: 09/23/2018 SURGEON: Federico Rhodes DPM LOAD OUT WORKER: None. PREOPERATIVE DIAGNOSIS: Large wound, left foot. POSTOPERATIVE DIAGNOSIS: Large wound, left foot. PROCEDURE PERFORMED: 1. Washout of left foot wound. 2. Application of amniotic tissue grafting to the left foot. 3. Wound VAC application, left foot. ANESTHESIA: General anesthesia. HEMOSTASIS: Locally controlled. ESTIMATED BLOOD LOSS: Minimal. MATERIALS USED: 1. Amniotic tissue graft. 2. [employer]CI wound VAC. INTRAOPERATIVE INJECTABLES: None. COMPLICATIONS: None. INDICATIONS FOR THE PROCEDURE: The patient is a 52-year-old male who has a history of a prior abscess to his left foot that was I and D'ed approximately five days prior. He also had a partial fifth ray amputation at that time and had antibiotic beads placed to the wound. He is now requiring a repeat washout of the left foot wound. He has been made aware of the risks and benefits of the procedure as well as any alternatives to undergoing and signed consent prior to being taken back to the OR. DESCRIPTION OF PROCEDURE: Under mild sedation, the patient was brought into the OR and placed on the operating table in a supine position. Following administration of general anesthesia, the left lower extremity was scrubbed, prepped and draped in an aseptic manner. Left lower extremity was identified as the surgical site. Next, the wound was flushed with copious amounts of sterile saline under pulse lavage. There were antibiotic beads that were noticed to the wound. These were washed out and removed. At this time, there was no further abscess formation that was noted, there was no purulence noted to the wound. The erythema was resolved to the wound edges. Any necrotic tissue was then further resected and the wound had good healthy bleeding as well as the deep fascia and tendinous tissues were significantly exposed to the dorsal aspect of the wound. on completion of the washout and further debridement of the wound and the wound measured 10 cm x 6 cm x 2 cm. Next amniotic tissue grafting was used. Two 3 x 6 cm grafts were applied into the wound bed. They were fenestrated on the back table and then laid into the wound bed. They were fixated with a 3-0 Monocryl into the wound edges and the level of the graft site down well into the wound bed and then an Adaptic was applied over the graft followed by a bolster dressing with a KCI wound VAC using the black sponge dressing and the KCI adhesive. The wound VAC was then placed on to the foot and set to 75 mm continuous suction on the wound VAC. There was a good seal of the wound VAC. The foot was then dressed with a dry sterile dressing consisting of 4 x 4's, cast padding and an Santana wrap. The patient tolerated the procedure and anesthesia well. He was transferred from OR to recovery with vital signs stable and neurovascular status intact of the left foot. Job ID: [id number] DocumentID: [id number] Dictated Date: 10/22/2018 16:01:55 [employer] Professional Date: 10/23/2018 01:43:38 Dictated By: FEDERICO RHODES DPM
--- NOTE | 2018-10-23 01:53 | OPERATIVE REPORT ---
DATE OF SERVICE: 09/18/2018 SURGEON: Federico Rhodes DPM. REPAIRER AUTO CLOCKS: None. PREOPERATIVE DIAGNOSES: 1. Abscess, left foot. 2. Osteomyelitis, left fifth ray. POSTOPERATIVE DIAGNOSES: 1. Abscess, left foot. 2. Osteomyelitis, left fifth ray. PROCEDURE PERFORMED: 1. Radical incision and drainage of left foot abscess. 2. Partial amputation of left fifth ray. 3. Wound VAC application, left foot. ANESTHESIA: General anesthesia. HEMOSTASIS: Locally controlled. ESTIMATED BLOOD LOSS: 50 mL. MATERIALS USED: KCI wound VAC. INTRAOPERATIVE INJECTABLES: None. COMPLICATIONS: None. INDICATIONS FOR THE PROCEDURE: The patient is a 52-year-old male who has a large abscess that developed to the dorsal aspect of his left foot. This started with a wound to the plantar aspect of his left fifth metatarsal head. He has since had constitutional symptoms, infection and significant cellulitis to the left foot. He has been made aware of the risks and benefits of the treatment as well as alternatives to undergoing and signed consent prior to being taken back to the OR. DESCRIPTION OF PROCEDURE: Under mild sedation, the patient was brought into the OR and placed on the operating table in supine position. Following administration of general anesthesia, the left lower extremity was scrubbed, prepped and draped in aseptic manner. Proper timeout was performed. Left lower extremity was identified as the surgical site. Next, the wound was identified to the plantar aspect of the left fifth metatarsal and a hemostat was used to probe into the wound. The hemostat went immediately to the bone of the fifth metatarsal head and then tracked dorsally over that into an area of abscess to the dorsal aspect of the foot. There was approximately 15 mL of purulent drainage that was expressed from the plantar wound and next an approximately 4 cm incision was made over the dorsal lateral aspect of the foot. This tracked down to the level of the deep fascia and there was a large purulent abscess that was noted with extensive necrotic tissue and a very severe malodor. The necrotic tissue was then debrided from the foot. The skin was devascularized and there was blistering to the dorsal lateral aspect of the foot with necrotic skin over the area of the abscess. Once all the necrotic tissue was removed, it was removed down to the level of the deep fascia and tendinous structures. Any nonviable tissue was removed using a rongeur. The wound tracked medially over to approximately the area of the second metatarsal and then tracking including under that in the setting to the area of the mid foot. Once all necrotic tissues and passed from the surgical field, the wound was flushed with copious amounts of sterile saline under pulse lavage. It was noted to be the distal aspect of the fifth metatarsal. The bone appeared to be necrotic and was brownish discoloration. The bone was very soft and osteomyelitic. There is also severe revascularization of the fifth toe and the fifth toe was then amputated at the level of the metatarsophalangeal joint and passed from the surgical table. Next, the fifth metatarsal was then resected using a bone cutting forceps at the proximal one-third of the metatarsal. This was sent for pathological specimen as dirty bone and then approximately 1 cm portion just proximal to the osteotomy was also sent for a clean margin of bone to evaluate for the spread of osteomyelitis into the base of the fifth metatarsal. The wound did not track to the fourth metatarsal nor to the lesser metatarsals. There was extensive necrotic tissue of the soft tissues and spread of the abscess through the dorsal subcutaneous tissues of the foot. Once the wound was fully debrided of necrotic tissue, it was then measured. The wound to the dorsal foot measured 10 cm x 6 cm x 2 cm in depth. There was good healthy bleeding tissue noted in all remaining tissues. A wound VAC was then applied over the wound using the I wound VAC sponge and adhesive tape. Once wound VAC was applied, it was set to 125 mm of continuous vacuum suction and the foot was then dressed with a dry sterile dressing consisting of 4 x 4's, cast padding, and an Santana wrap. The patient was transferred from the OR to recovery with vital signs stable and neurovascular status intact to the remaining four toes of the foot. He will be continued on IV antibiotics and will likely require repeat incision and drainage. Cultures of the abscess fluid were also taken and sent for microbiological specimen. The patient will likely require further repeat washouts and possible grafting for wound closure. Job ID: [id number] DocumentID: [id number] Dictated Date: 10/22/2018 15:54:47 Analytical Clerk Date: 10/23/2018 01:52:16 Dictated By: FEDERICO RHODES DPM
--- NOTE | 2018-10-23 10:16 | OPERATIVE REPORT ---
DATE OF SERVICE: 09/18/2018 ADDENDUM This is an addendum to the previous surgical note from 09/18/2018. After full debridement of the wound and debridement cultures and after the resection that prior to placement of the KCI wound VAC, calcium sulfate antibiotic beads were created on the back table. They were mixed with 80 mcg of tobramycin and 1 mg of vancomycin were mixed on the back table into small pellet like balls. They were then implanted into the foot in the area of the surgical wound and with the wound tracked medially, they were packed into the wound prior to placement of a wound VAC and used as a bone void filler. Job ID: [id number] DocumentID: [id number] Dictated Date: 10/22/2018 15:57:26 Band Sewer Date: 10/23/2018 01:23:34 Dictated By: JOCELIN RHODES DPM
--- NOTE | 2018-11-04 10:44 | Physician Query Clarification ---
PQ-Debridement Admission/Discharge Admission Date: Sep 17, 2018 at 14:46 Discharge Date: Sep 23, 2018 at 16:15 PHYSICIAN RESPONSE Operative report/procedure note reflects the following description: [The necrotic tissue was then debrided from the foot. The skin was devascularized and there was blistering to the dorsal lateral aspect of the foot with necrotic skin over the area of the abscess. Once all the necrotic tissue was removed, it was removed down to the level of the deep fascia and tendinous structures. Any nonviable tissue was removed using a rongeur. ] QUESTION: Please clarify the depth of the debridement. Please clarify if the debridement was excisional or non-excisional. Please document a response in the Progress Notes or Discharge Summary. 1. Level: Skin Subcutaneous tissue Fascia Muscle Bone 2. Type of debridement: Excisional Non-excisional 3. Other, with explanation of the clinical findings 4. Clinically unable to determine PQ Debridement : Level: Muscle Type: Excisional Explanation clinically finding Abscess of the foot Please remember a lack of response to the above will prompt a phone page by CDI/Coding staff. In responding to this query, please exercise your independent professional judgment. The purpose of this communication is to more accurately reflect the complexity of your patients condition. The fact that a question is asked does not imply that any particular answer is desired or expected. Thank you for your timely response to this clarification. Requestors name: Cici THIS PHYSICIAN QUERY FORM IS A PERMANENT PART OF THE MEDICAL RECORD CICI MASTERSON Nov 04, 2018 10:44 JOCELIN RHODES DPM Nov 19, 2018 17:05
== END 2018-09-23 16:15 | disposition home health service (06) | DRG 854 ==
LOC: EDUNIT# 11:54 → ER 11:55 → ICU 14:46 → 4TH 09-18 08:05
PROVIDERS: ADMIT Internal Medicine; ATTEND Internal Medicine
PROC: 0KBW0ZZ Excision of Left Foot Muscle, Open Approach (ICD-10-PCS; 2018-09-18)
PROC: 0Y6Y0Z0 Detachment at Left 5th Toe, Complete, Open Approach (ICD-10-PCS; principal; 2018-09-18 06:34)
DX: A41.9 Sepsis, unspecified organism (principal); R65.20 Severe sepsis without septic shock; E11.52 Type 2 diabetes mellitus with diabetic peripheral angiopathy with gangrene; M86.9 Osteomyelitis, unspecified; E11.69 Type 2 diabetes mellitus with other specified complication; E11.621 Type 2 diabetes mellitus with foot ulcer; L97.529 Non-pressure chronic ulcer of other part of left foot with unspecified severity; N17.9 Acute kidney failure, unspecified; E87.1 Hypo-osmolality and hyponatremia; R17 Unspecified jaundice; I48.2 Chronic atrial fibrillation; I12.9 Hypertensive chronic kidney disease with stage 1 through stage 4 chronic kidney disease, or unspecified chronic kidney disease; E11.22 Type 2 diabetes mellitus with diabetic chronic kidney disease; N18.3 Chronic kidney disease, stage 3 (moderate); E11.65 Type 2 diabetes mellitus with hyperglycemia; F17.220 Nicotine dependence, chewing tobacco, uncomplicated; G47.33 Obstructive sleep apnea (adult) (pediatric); J30.2 Other seasonal allergic rhinitis; J44.9 Chronic obstructive pulmonary disease, unspecified; I25.10 Atherosclerotic heart disease of native coronary artery without angina pectoris; E78.00 Pure hypercholesterolemia, unspecified; E11.42 Type 2 diabetes mellitus with diabetic polyneuropathy; K21.9 Gastro-esophageal reflux disease without esophagitis; K59.09 Other constipation; E66.01 Morbid (severe) obesity due to excess calories; F41.9 Anxiety disorder, unspecified; F32.9 Major depressive disorder, single episode, unspecified; G47.00 Insomnia, unspecified; Z79.4 Long term (current) use of insulin
CPT/HCPCS: 36415; 71045; 71046; 73610; 73630; 80048; 80053; 80202; 82962; 83605; 83735; 84100; 85007; 85025; 85027; 87040; 87070; 87075; 87076; 87077; 87081; 87101; 87185; 87186; 87205; 88304; 88305; 88311; 93005; 93306; 93925; 94640; 94664; 94760; 96374; 96375

== ENCOUNTER → 2018-10-24 | Outpatient (CLI) | payer MEDICARE, MEDICAID ==
[~2018-10-24] MED LIST changes: +APIX5TAB PO; +ATOR20TA66 PO; +BUDE10.2 INH; +CEPH-507 PO; +CRV25T PO; +DILT120C94 PO; +GABA800T10 PO; +INSU100I14 SC; +INSU300I3 SC; +ISM60TCR PO; +LACT1CAP7 PO; +LEVO500T80 PO; +LIRA0.6P3 SC; +LISI-556 PO; +MORP-34 PO; +MULT1TAB69 PO; +TERA2CAP4 PO; +TRAZ-190 PO
== END ==
LOC: WOUNDCARE 08:03
PROVIDERS: ATTEND Surgery
DX: L97.424 Non-pressure chronic ulcer of left heel and midfoot with necrosis of bone (principal); E10.621 Type 1 diabetes mellitus with foot ulcer; E10.42 Type 1 diabetes mellitus with diabetic polyneuropathy; N18.3 Chronic kidney disease, stage 3 (moderate); E10.65 Type 1 diabetes mellitus with hyperglycemia; E66.01 Morbid (severe) obesity due to excess calories; I70.244 Atherosclerosis of native arteries of left leg with ulceration of heel and midfoot; E10.52 Type 1 diabetes mellitus with diabetic peripheral angiopathy with gangrene; E10.22 Type 1 diabetes mellitus with diabetic chronic kidney disease
CPT/HCPCS: 11044; 11047

== ENCOUNTER → 2018-10-28 | Outpatient (CLI) | payer MEDICARE, MEDICAID | LOC: WOUNDCARE 14:26 | PROVIDERS: ATTEND Surgery | DX: L97.424 Non-pressure chronic ulcer of left heel and midfoot with necrosis of bone (principal); E10.621 Type 1 diabetes mellitus with foot ulcer; E10.42 Type 1 diabetes mellitus with diabetic polyneuropathy; E10.52 Type 1 diabetes mellitus with diabetic peripheral angiopathy with gangrene; I96 Gangrene, not elsewhere classified; E10.22 Type 1 diabetes mellitus with diabetic chronic kidney disease; N18.3 Chronic kidney disease, stage 3 (moderate); E10.65 Type 1 diabetes mellitus with hyperglycemia; E66.01 Morbid (severe) obesity due to excess calories; I70.244 Atherosclerosis of native arteries of left leg with ulceration of heel and midfoot | CPT/HCPCS: 11044; 11047; 87070; 87077; 87205 ==

== ENCOUNTER → 2018-11-04 | Outpatient (CLI) | payer MEDICARE, MEDICAID | LOC: WOUNDCARE 14:16 | PROVIDERS: ATTEND Surgery | DX: E10.621 Type 1 diabetes mellitus with foot ulcer (principal); E10.42 Type 1 diabetes mellitus with diabetic polyneuropathy; E10.52 Type 1 diabetes mellitus with diabetic peripheral angiopathy with gangrene; E10.22 Type 1 diabetes mellitus with diabetic chronic kidney disease; E10.65 Type 1 diabetes mellitus with hyperglycemia; I70.262 Atherosclerosis of native arteries of extremities with gangrene, left leg; L97.424 Non-pressure chronic ulcer of left heel and midfoot with necrosis of bone; E66.01 Morbid (severe) obesity due to excess calories; N18.3 Chronic kidney disease, stage 3 (moderate) | CPT/HCPCS: 11044; 11047 ==

== ENCOUNTER → 2018-11-11 | Outpatient (CLI) | payer MEDICARE, MEDICAID ==
[2018-11-11 16:09] LABS: ALBUMIN 3.7 GM/DL (3.2-4.5); BILIRUBIN,TOTAL 0.2 MG/DL (0.1-1.0); CALCIUM 9.1 MG/DL (8.5-10.1); CREATININE SERUM 1.42 MG/DL (0.60-1.30); POTASSIUM 4.3 MMOL/L (3.6-5.0); TOTAL PROTEIN 7.8 GM/DL (6.4-8.2)
== END ==
LOC: LAB 15:15
PROVIDERS: ATTEND Pediatrics
DX: E10.621 Type 1 diabetes mellitus with foot ulcer (principal); E10.42 Type 1 diabetes mellitus with diabetic polyneuropathy; E10.22 Type 1 diabetes mellitus with diabetic chronic kidney disease; E10.65 Type 1 diabetes mellitus with hyperglycemia; I70.262 Atherosclerosis of native arteries of extremities with gangrene, left leg; L97.426 Non-pressure chronic ulcer of left heel and midfoot with bone involvement without evidence of necrosis; N18.3 Chronic kidney disease, stage 3 (moderate); E66.01 Morbid (severe) obesity due to excess calories
CPT/HCPCS: 36415; 80053; 83036

== ENCOUNTER → 2018-11-11 | Outpatient (CLI) | payer MEDICARE, MEDICAID | LOC: WOUNDCARE 14:04 | PROVIDERS: ATTEND Surgery | DX: E11.621 Type 2 diabetes mellitus with foot ulcer (principal); E11.42 Type 2 diabetes mellitus with diabetic polyneuropathy; E11.52 Type 2 diabetes mellitus with diabetic peripheral angiopathy with gangrene; E11.22 Type 2 diabetes mellitus with diabetic chronic kidney disease; L97.426 Non-pressure chronic ulcer of left heel and midfoot with bone involvement without evidence of necrosis; I96 Gangrene, not elsewhere classified; N18.3 Chronic kidney disease, stage 3 (moderate); E66.01 Morbid (severe) obesity due to excess calories | CPT/HCPCS: 11043; 11046 ==

== ENCOUNTER → 2018-11-25 | Outpatient (CLI) | payer MEDICARE, MEDICAID | LOC: WOUNDCARE 14:06 | PROVIDERS: ATTEND Surgery | DX: L97.426 Non-pressure chronic ulcer of left heel and midfoot with bone involvement without evidence of necrosis (principal); E11.621 Type 2 diabetes mellitus with foot ulcer; E11.42 Type 2 diabetes mellitus with diabetic polyneuropathy; E11.52 Type 2 diabetes mellitus with diabetic peripheral angiopathy with gangrene; E11.22 Type 2 diabetes mellitus with diabetic chronic kidney disease; N18.3 Chronic kidney disease, stage 3 (moderate); E66.01 Morbid (severe) obesity due to excess calories; L92.8 Other granulomatous disorders of the skin and subcutaneous tissue | CPT/HCPCS: 11042; 11045 ==

== ENCOUNTER → 2018-12-09 | Outpatient (CLI) | payer MEDICARE, MEDICAID | LOC: WOUNDCARE 14:26 | PROVIDERS: ATTEND Surgery | DX: E11.621 Type 2 diabetes mellitus with foot ulcer (principal); E11.22 Type 2 diabetes mellitus with diabetic chronic kidney disease; E11.52 Type 2 diabetes mellitus with diabetic peripheral angiopathy with gangrene; E11.42 Type 2 diabetes mellitus with diabetic polyneuropathy; N18.3 Chronic kidney disease, stage 3 (moderate); I96 Gangrene, not elsewhere classified; E66.01 Morbid (severe) obesity due to excess calories; L92.8 Other granulomatous disorders of the skin and subcutaneous tissue; L97.422 Non-pressure chronic ulcer of left heel and midfoot with fat layer exposed | CPT/HCPCS: 11042; 11045 ==

== ENCOUNTER → 2018-12-09 | Outpatient (CLI) | payer MEDICARE, MEDICAID | LOC: LAB 14:11 | PROVIDERS: ATTEND Surgery | DX: E10.621 Type 1 diabetes mellitus with foot ulcer (principal); E10.42 Type 1 diabetes mellitus with diabetic polyneuropathy; E10.52 Type 1 diabetes mellitus with diabetic peripheral angiopathy with gangrene; L97.422 Non-pressure chronic ulcer of left heel and midfoot with fat layer exposed; I96 Gangrene, not elsewhere classified; N18.3 Chronic kidney disease, stage 3 (moderate); E66.01 Morbid (severe) obesity due to excess calories; L92.8 Other granulomatous disorders of the skin and subcutaneous tissue | CPT/HCPCS: 36415; 84134 ==

== ENCOUNTER → 2018-12-16 | Outpatient (CLI) | payer MEDICARE, MEDICAID | LOC: WOUNDCARE 14:14 | PROVIDERS: ATTEND Surgery | DX: L97.422 Non-pressure chronic ulcer of left heel and midfoot with fat layer exposed (principal); E10.621 Type 1 diabetes mellitus with foot ulcer; E10.42 Type 1 diabetes mellitus with diabetic polyneuropathy; E10.52 Type 1 diabetes mellitus with diabetic peripheral angiopathy with gangrene; E10.22 Type 1 diabetes mellitus with diabetic chronic kidney disease; N18.3 Chronic kidney disease, stage 3 (moderate); E66.09 Other obesity due to excess calories; L92.8 Other granulomatous disorders of the skin and subcutaneous tissue | CPT/HCPCS: 11042; 11045 ==

== ENCOUNTER → 2018-12-23 | Outpatient (CLI) | payer MEDICARE, MEDICAID | LOC: WOUNDCARE 14:14 | PROVIDERS: ATTEND Surgery | DX: E11.621 Type 2 diabetes mellitus with foot ulcer (principal); E11.52 Type 2 diabetes mellitus with diabetic peripheral angiopathy with gangrene; E11.42 Type 2 diabetes mellitus with diabetic polyneuropathy; E11.22 Type 2 diabetes mellitus with diabetic chronic kidney disease; L97.422 Non-pressure chronic ulcer of left heel and midfoot with fat layer exposed; I96 Gangrene, not elsewhere classified; N18.3 Chronic kidney disease, stage 3 (moderate); E66.01 Morbid (severe) obesity due to excess calories; L92.8 Other granulomatous disorders of the skin and subcutaneous tissue | CPT/HCPCS: 11042; 11045 ==

== ENCOUNTER → 2018-12-30 | Outpatient (CLI) | payer MEDICARE, MEDICAID | LOC: WOUNDCARE 14:01 | PROVIDERS: ATTEND Surgery | DX: E10.621 Type 1 diabetes mellitus with foot ulcer (principal); L97.422 Non-pressure chronic ulcer of left heel and midfoot with fat layer exposed; E10.42 Type 1 diabetes mellitus with diabetic polyneuropathy; E10.22 Type 1 diabetes mellitus with diabetic chronic kidney disease; N18.3 Chronic kidney disease, stage 3 (moderate); L92.8 Other granulomatous disorders of the skin and subcutaneous tissue; E66.01 Morbid (severe) obesity due to excess calories | CPT/HCPCS: 11042; 11045 ==

== ENCOUNTER → 2019-01-13 | Outpatient (CLI) | payer MEDICARE, MEDICAID | LOC: WOUNDCARE 14:09 | PROVIDERS: ATTEND Surgery | DX: E11.621 Type 2 diabetes mellitus with foot ulcer (principal); E11.42 Type 2 diabetes mellitus with diabetic polyneuropathy; L97.422 Non-pressure chronic ulcer of left heel and midfoot with fat layer exposed; E66.01 Morbid (severe) obesity due to excess calories; L92.8 Other granulomatous disorders of the skin and subcutaneous tissue; E11.22 Type 2 diabetes mellitus with diabetic chronic kidney disease; N18.3 Chronic kidney disease, stage 3 (moderate); E11.52 Type 2 diabetes mellitus with diabetic peripheral angiopathy with gangrene | CPT/HCPCS: 11042 ==

== ENCOUNTER → 2019-01-27 | Outpatient (CLI) | payer MEDICARE, MEDICAID | LOC: WOUNDCARE 14:05 | PROVIDERS: ATTEND Surgery | DX: L97.422 Non-pressure chronic ulcer of left heel and midfoot with fat layer exposed (principal); E11.621 Type 2 diabetes mellitus with foot ulcer; E11.42 Type 2 diabetes mellitus with diabetic polyneuropathy; E11.52 Type 2 diabetes mellitus with diabetic peripheral angiopathy with gangrene; E11.22 Type 2 diabetes mellitus with diabetic chronic kidney disease; N18.3 Chronic kidney disease, stage 3 (moderate); E66.01 Morbid (severe) obesity due to excess calories; L92.8 Other granulomatous disorders of the skin and subcutaneous tissue | CPT/HCPCS: 11042 ==

== ENCOUNTER → 2019-02-03 | Outpatient (CLI) | payer MEDICARE, MEDICAID | LOC: WOUNDCARE 13:57 | PROVIDERS: ATTEND Surgery | DX: E11.621 Type 2 diabetes mellitus with foot ulcer (principal); E11.42 Type 2 diabetes mellitus with diabetic polyneuropathy; L97.422 Non-pressure chronic ulcer of left heel and midfoot with fat layer exposed; E11.22 Type 2 diabetes mellitus with diabetic chronic kidney disease; N18.3 Chronic kidney disease, stage 3 (moderate); E66.01 Morbid (severe) obesity due to excess calories; L92.8 Other granulomatous disorders of the skin and subcutaneous tissue; E11.52 Type 2 diabetes mellitus with diabetic peripheral angiopathy with gangrene | CPT/HCPCS: 11042 ==

== ENCOUNTER → 2019-02-16 | Outpatient (CLI) | payer MEDICARE, MEDICAID | LOC: WOUNDCARE 14:42 | PROVIDERS: ATTEND Surgery | DX: E11.621 Type 2 diabetes mellitus with foot ulcer (principal); E11.42 Type 2 diabetes mellitus with diabetic polyneuropathy; E11.22 Type 2 diabetes mellitus with diabetic chronic kidney disease; E11.52 Type 2 diabetes mellitus with diabetic peripheral angiopathy with gangrene; L97.422 Non-pressure chronic ulcer of left heel and midfoot with fat layer exposed; E66.01 Morbid (severe) obesity due to excess calories; L92.8 Other granulomatous disorders of the skin and subcutaneous tissue; N18.3 Chronic kidney disease, stage 3 (moderate); I96 Gangrene, not elsewhere classified | CPT/HCPCS: 11042 ==

== ENCOUNTER → 2019-02-24 | Outpatient (CLI) | payer MEDICARE, MEDICAID | LOC: WOUNDCARE 13:50 | PROVIDERS: ATTEND Surgery | DX: E11.621 Type 2 diabetes mellitus with foot ulcer (principal); E11.42 Type 2 diabetes mellitus with diabetic polyneuropathy; E11.52 Type 2 diabetes mellitus with diabetic peripheral angiopathy with gangrene; E11.22 Type 2 diabetes mellitus with diabetic chronic kidney disease; L97.422 Non-pressure chronic ulcer of left heel and midfoot with fat layer exposed; I96 Gangrene, not elsewhere classified; N18.3 Chronic kidney disease, stage 3 (moderate); E66.01 Morbid (severe) obesity due to excess calories; L92.8 Other granulomatous disorders of the skin and subcutaneous tissue | CPT/HCPCS: 11042 ==

== ENCOUNTER → 2019-03-10 | Outpatient (CLI) | payer MEDICARE, MEDICAID ==
[~2019-03-10] MED LIST changes: +DILT120C88 PO; -DILT120C94 PO; -MORP-34 PO; +MORP-69 PO; -MORP100T37 PO; +MORP100T47 PO
== END ==
LOC: WOUNDCARE 14:04
PROVIDERS: ATTEND Orthopaedic Surgery Hand Surgery
DX: E11.621 Type 2 diabetes mellitus with foot ulcer (principal); E11.42 Type 2 diabetes mellitus with diabetic polyneuropathy; L97.422 Non-pressure chronic ulcer of left heel and midfoot with fat layer exposed; E66.01 Morbid (severe) obesity due to excess calories; E11.22 Type 2 diabetes mellitus with diabetic chronic kidney disease; N18.3 Chronic kidney disease, stage 3 (moderate); L92.8 Other granulomatous disorders of the skin and subcutaneous tissue; E11.52 Type 2 diabetes mellitus with diabetic peripheral angiopathy with gangrene
CPT/HCPCS: 11042

== ENCOUNTER → 2019-03-26 | Outpatient (CLI) | payer MEDICARE, MEDICAID | LOC: WOUNDCARE 13:43 | PROVIDERS: ATTEND Orthopaedic Surgery Hand Surgery | DX: E10.621 Type 1 diabetes mellitus with foot ulcer (principal); E10.42 Type 1 diabetes mellitus with diabetic polyneuropathy; L97.422 Non-pressure chronic ulcer of left heel and midfoot with fat layer exposed; E66.01 Morbid (severe) obesity due to excess calories; E10.22 Type 1 diabetes mellitus with diabetic chronic kidney disease; N18.3 Chronic kidney disease, stage 3 (moderate); L92.8 Other granulomatous disorders of the skin and subcutaneous tissue | CPT/HCPCS: 99213 ==

== ENCOUNTER → 2020-05-03 | Outpatient (CLI) | payer MEDICARE, MEDICAID ==
[~2020-05-03] MED LIST changes: -CLIN300C11 PO; +CLIN300C12 PO; -ISM60TCR PO; +ISOS60TA63 PO; +LEVO750T39 PO; -LISI-556 PO; +LISI-729 PO; -LISI10TA2 PO; +LISI10TA25 PO; +MULT-567 PO; -MULT1TAB69 PO; -OXYC-471 PO; +OXYC-527 PO; +OXYC1TAB11 PO; -OXYC30TA80 PO; -TRAZ-190 PO; +TRAZ-227 PO; -WARF10TA44 PO
== END ==
LOC: WOUNDCARE 09:17
PROVIDERS: ATTEND Surgery
DX: E11.621 Type 2 diabetes mellitus with foot ulcer (principal); E11.42 Type 2 diabetes mellitus with diabetic polyneuropathy; L97.422 Non-pressure chronic ulcer of left heel and midfoot with fat layer exposed; I70.244 Atherosclerosis of native arteries of left leg with ulceration of heel and midfoot; E66.01 Morbid (severe) obesity due to excess calories
CPT/HCPCS: 11042; 36415; 83036

== ENCOUNTER 2020-05-21 19:33 | Observation (INO) | payer MEDICARE, MEDICAID ==
[~2020-05-21] VITALS: Ht 193 cm; Wt 213.2 kg
[2020-05-21] MEDS ORDERED: ASPIRIN 81 MG CHEW (CHILDREN'S ASA) PO ONE (20:00)
[2020-05-21] MEDS ORDERED: NITROGLYCERIN 0.4 MG SL TABS BTL 25'S SL PRN ×2 (20:00→23:15)
[2020-05-21] MEDS ORDERED: cefTRIAXone FOR IV USE 1,000 MG in WATER (STERILE) FOR INJECTION 10 ML IV ONE (20:00)
[2020-05-21] MEDS ORDERED: LACTATED RINGERS 1,000 ML IV ONE ×2 (20:00→22:00)
[2020-05-21] MEDS ORDERED: AZITHROMYCIN INJECTION 500 MG in NS (IVPB) 250 ML IV ONE (20:00)
--- NOTE | 2020-05-21 20:00 | ED Chest Pain ---
General Chief Complaint: Chest Pain Stated Complaint: CHEST PAIN;HIGH HR Source: patient Exam Limitations: no limitations History of Present Illness Date Seen by Provider: May 21, 2020 Time Seen by Provider: 19:40 Initial Comments Patient presents ER by private conveyance chief complaint about 1 hour prior to arrival he was sitting on his chair and he started getting some pressure in his chest and feeling a little bit short of air. He has a history of COPD as well as history of heart attacks but no stents. He is known to Dr. Chu and Dr. Hernandez. He says it is not really any worse when he walks around. He is not having any pain just mild pressure and tightness across his chest. He felt kind of chills this morning when he got out of bed. He has had a cough but he says he always has a cough due to his COPD. He does not smoke cigarettes for the past 15 years. He has hypertension, hyperlipidemia and insulin-dependent diabetes. His blood sugar was 170 at the time it started. He is having some sweating. He denies any sick contacts. Nursing reports his temperature was 99.0 on arrival. He is on Eliquis for history of DVT. Diabetes, hypertension, hyperlipidemia , history of atrial fibrillation and on amiodarone and Eliquis and echocardiogram from 2019 showing normal left ventricular ejection fraction and diastolic function. Allergies and Home Medications Allergies Coded Allergies: cortisone (Verified Allergy, Unknown, HIVES, 11/11/14) meloxicam (Verified Allergy, Unknown, 05/28/17) pregabalin (Verified Allergy, Unknown, 05/28/17) shellfish derived (Verified Allergy, Unknown, 11/11/14) Uncoded Allergies: THYLAID (Allergy, Unknown, 11/11/14) Home Medications Apixaban 5 Mg Tablet, 5 MG PO BID, (Reported) Atorvastatin Calcium 20 Mg Tablet, 20 MG PO HS, (Reported) Budesonide/Formoterol Fumarate 10.2 Gm Hfa.aer.ad, 2 PUFF INH BID, (Reported) Carvedilol 25 Mg Tab, 25 MG PO BID, (Reported) Diltiazem HCl 120 Mg Cap.er.24h, 120 MG PO DAILY Prescribed by: SUE PURCELL on 09/23/18 1110 Furosemide 40 Mg Tablet, 40 MG PO DAILY, (Reported) Gabapentin 800 Mg Tablet, 800 MG PO TID, (Reported) Insulin Aspart 300 Units/3 Ml Solution, SC TIDAC, (Reported) Insulin Glargine,Hum.rec.anlog 300 Unit/1 Ml Insuln.pen, 140 UNITS SC HS, (Reported) Isosorbide Mononitrate 60 Mg Tab, 60 MG PO DAILY, (Reported) Lactobacillus Acidophilus/Pect 1 Each Capsule, 1 EACH PO TIDWM Prescribed by: SUE PURCELL on 09/23/18 1110 Levofloxacin 750 Mg Tablet, 750 MG PO Q48H Prescribed by: ROSITA THOMPSON on 04/27/20 1416 Liraglutide 0.6 Mg/0.1 Ml Pen.injctr, 1.2 MG SC HS, (Reported) Lisinopril 5 Mg Tablet, 5 MG PO DAILY, (Reported) Morphine Sulfate 30 Mg Tablet.er, 30 MG PO BID, (Reported) Multivitamin 1 Each Tablet, 1 TAB PO DAILY, (Reported) Oxycodone HCl/Acetaminophen 1 Each Tablet, 1 TAB PO Q4H PRN for PAIN-MODERATE, (Reported) Ranitidine HCl 150 Mg Tablet, 150 MG PO DAILY, (Reported) Terazosin HCl 2 Mg Capsule, 2 MG PO DAILY, (Reported) Trazodone HCl 100 Mg Tablet, 100 MG PO HS, (Reported) Patient Home Medication List Home Medication List Reviewed: Yes Review of Systems Review of Systems Constitutional: chills, diaphoresis; No fever; malaise EENTM: No Blurred Vision, No Double Vision Respiratory: Cough, Shortness of Air Cardiovascular: Chest Pain; Denies Edema, Denies Irregular Heart Rate, Denies Lightheadedness, Denies Palpitations, Denies Syncope Gastrointestinal: Denies Abdomen Distended, Denies Abdominal Pain Genitourinary: Denies Burning, Denies Discharge Musculoskeletal: No back pain, No joint pain Skin: No pruritus, No rash Psychiatric/Neurological: Denies Anxiety, Denies Depressed All Other Systems Reviewed Negative Unless Noted: Yes Past Rinydlk-Ywsxmj-Ojvvet Hx Patient Social History Alcohol Use: Denies Use Alcohol Beverage of Choice: Other Drug of Choice: THC, EXTENSIVE ABUSE OF PRESCRIPTION DRUGS Smoking Status: Former Smoker Type Used: Smokeless Tobacco Former Smoker, Quit: Jun 14, 1986 2nd Hand Smoke Exposure: No Recent Hopitalizations: No Immunizations Up To Date Tetanus Booster (TDap): Unknown Date of Pneumonia Vaccine: Jun 13, 2007 Seasonal Allergies Seasonal Allergies: Yes Past Medical History Surgeries: Yes Adenoidectomy, Amputation, Cardiac, Dialysis, Ear Surgery, Orthopedic, Tonsillectomy Respiratory: Yes Pulmonary Embolism, COPD Currently Using CPAP: No Cardiac: Yes Coronary Artery Disease, Deep Vein Thrombosis, High Cholesterol, Hypertension, Peripheral Vascular Neurological: Yes Neuropathy Reproductive Disorders: No Sexually Transmitted Disease: No HIV/AIDS: No Genitourinary: Yes Renal Failure Gastrointestinal: Yes (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 No Pertinent Family Hx Physical Exam Vital Signs Capillary Refill : Height, Weight, BMI Height: 6'7.00" Weight: 416lbs. 9.0oz. 188.783615gl; 40.90 BMI Method:Stated General Appearance: Moderate Distress, Obese HEENT: PERRL/EOMI, Pharynx Normal, Moist Mucous Membranes Neck: Full Range of Motion, Normal Inspection Respiratory: No Accessory Muscle Use, Crackles (Left base), Respiratory Distress (Respiratory rate 30 breaths/min); No Wheezing Cardiovascular: Regular Rate, Rhythm, No Edema, Normal Peripheral Pulses Gastrointestinal: Normal Bowel Sounds, Non Tender, Soft Extremity: Normal Capillary Refill, Normal Inspection, No Pedal Edema Neurologic/Psychiatric: Alert, Oriented x3 Skin: Normal Color, Warm/Dry Focused Exam Sepsis Stage: Sepsis Possible Source: Genitouriary Lactate Level 05/21/20 19:53: Lactic Acid Level 1.88 Time of Focused Exam: 21:55 Respiratory: No Accessory Muscle Use, No Respiratory Distress (Respiratory rate 20 with 2 L oxygen and sats in the upper 90s), Crackles Cardiovascular: Regular Rate, Rhythm, Normal Peripheral Pulses Capillary Refill: Less Than 3 Seconds Peripheral Pulses: 2+ Radial Pulses (R), 2+ Radial Pulses (L) Skin: normal color, warm/dry Lactic Acid Level Laboratory Tests Test 05/21/20 19:53 Lactic Acid Level 1.88 MMOL/L (0.50-2.00) Within 3hrs of presentation: Admin fluids, Admin 30ml/kg IBW due to BMI>30, Admin ABX, Blood cultures prior to ABX's, Focus exam, Lactate level Progress/Results/Core Measures Results/Orders Lab Results Laboratory Tests Test 05/21/20 19:48 05/21/20 19:53 05/21/20 20:11 05/21/20 20:15 Range/Units White Blood Count 17.9 H 4.3-11.0 10^3/uL Red Blood Count 4.31 4.30-5.52 10^6/uL Hemoglobin 11.7 L 13.3-17.7 g/dL Hematocrit 36 L 40-54 % Mean Corpuscular Volume 84 80-99 fL Mean Corpuscular Hemoglobin 27 25-34 pg Mean Corpuscular Hemoglobin Concent 32 32-36 g/dL Red Cell Distribution Width 15.1 H 10.0-14.5 % Platelet Count 233 130-400 10^3/uL Mean Platelet Volume 9.6 9.0-12.2 fL Immature Granulocyte % (Auto) 1 % Neutrophils (%) (Auto) 90 H 42-75 % Lymphocytes (%) (Auto) 3 L 12-44 % Monocytes (%) (Auto) 6 0-12 % Eosinophils (%) (Auto) 0 0-10 % Basophils (%) (Auto) 0 0-10 % Neutrophils # (Auto) 16.2 H 1.8-7.8 10^3/uL Lymphocytes # (Auto) 0.5 L 1.0-4.0 10^3/uL Monocytes # (Auto) 1.1 H 0.0-1.0 10^3/uL Eosinophils # (Auto) 0.0 0.0-0.3 10^3/uL Basophils # (Auto) 0.0 0.0-0.1 10^3/uL Immature Granulocyte # (Auto) 0.1 0.0-0.1 10^3/uL Neutrophils % (Manual) 90 % Lymphocytes % (Manual) 1 % Monocytes % (Manual) 9 % Blood Morphology Comment NORMAL Prothrombin Time 16.5 H 12.2-14.7 SEC INR Comment 1.3 0.8-1.4 Activated Partial Thromboplast Time 37 H 24-35 SEC D-Dimer 0.55 H 0.00-0.49 UG/ML Sodium Level 135 135-145 MMOL/L Potassium Level 4.4 3.6-5.0 MMOL/L Chloride Level 104 98-107 MMOL/L Carbon Dioxide Level 19 L 21-32 MMOL/L Anion Gap 12 5-14 MMOL/L Blood Urea Nitrogen 13 7-18 MG/DL Creatinine 1.68 H 0.60-1.30 MG/DL Estimat Glomerular Filtration Rate 43 BUN/Creatinine Ratio 8 Glucose Level 200 H 70-105 MG/DL Calcium Level 8.1 L 8.5-10.1 MG/DL Corrected Calcium 8.5 8.5-10.1 MG/DL Magnesium Level 1.8 1.6-2.4 MG/DL Total Bilirubin 0.6 0.1-1.0 MG/DL Aspartate Amino Transf (AST/SGOT) 20 5-34 U/L Alanine Aminotransferase (ALT/SGPT) 18 0-55 U/L Alkaline Phosphatase 89 40-136 U/L Myoglobin 309.4 H 10.0-92.0 NG/ML Troponin I < 0.028 <0.028 NG/ML C-Reactive Protein High Sensitivity 3.71 H 0.00-0.50 MG/DL B-Type Natriuretic Peptide 69.3 <100.0 PG/ML Total Protein 7.3 6.4-8.2 GM/DL Albumin 3.5 3.2-4.5 GM/DL Procalcitonin 2.57 H <0.10 NG/ML Lactic Acid Level 1.88 0.50-2.00 MMOL/L Urine Color YELLOW Urine Clarity SL CLOUDY Urine pH 6.0 5-9 Urine Specific Forest >=1.030 1.016-1.022 Urine Protein 3+ H NEGATIVE Urine Glucose (UA) NEGATIVE NEGATIVE Urine Ketones TRACE H NEGATIVE Urine Nitrite NEGATIVE NEGATIVE Urine Bilirubin 1+ H NEGATIVE Urine Urobilinogen 0.2 < = 1.0 MG/DL Urine Leukocyte Esterase NEGATIVE NEGATIVE Urine RBC (Auto) 3+ H NEGATIVE Urine RBC 10-25 H /HPF Urine WBC 5-10 H /HPF Urine Squamous Epithelial Cells NONE /HPF Urine Crystals NONE /LPF Urine Bacteria FEW H /HPF Urine Casts NONE /LPF Urine Mucus NEGATIVE /LPF Urine Culture Indicated CULTURE PENDING Blood Gas Puncture Site RIGHT RADIAL Blood Gas Patient Temperature 37.2 Arterial Blood pH 7.43 7.37-7.43 Arterial Blood Partial Pressure CO2 35 35-45 MMHG Arterial Blood Partial Pressure O2 86 79-93 MMHG Arterial Blood HCO3 23 23-27 MMOL/L Arterial Blood Total CO2 23.7 21.0-31.0 MMOL/L Arterial Blood Oxygen Saturation 97 94-100 % Arterial Blood Base Excess -1.1 -2.5-2.5 MMOL/L Manpreet Test POSITIVE Blood Gas Ventilator Setting NO Blood Gas Inspired Oxygen 2 Test 05/21/20 21:00 Range/Units Coronavirus 2019 (SIXTO) Negative Negative My Orders Orders - ALEX GARCIA Continuous Ekg Monitoring (05/21/20 19:44) Ekg Tracing (05/21/20:44) Cbc With Automated Diff (05/21/20 19:52) Comprehensive Metabolic Panel (05/21/20 19:52) Blood Culture (05/21/20 19:52) Sputum Culture (05/21/20 19:52) Urinalysis (05/21/20:52) Urine Culture (05/21/20 19:52) Protime With Inr (05/21/20 19:52) Partial Thromboplastin Time (05/21/20 19:52) Chest 1 View, Ap/Pa Only (05/21/20 19:52) Ed Iv/Invasive Line Start (05/21/20 19:52) Vital Signs Adult Sepsis Patie Q15M (05/21/20 19:52) O2 (05/21/20 19:52) Remove Rings In Anticipation O (05/21/20 19:52) Lactic Acid Analyzer (05/21/20 19:52) Influenza A And B Antigens (05/21/20 19:52) Lactated Ringers (Lr 1000 Ml Iv Solution (05/21/20 20:00) Ceftriaxone For Iv Use (Rocephin For I (05/21/20 20:00) Azithromycin Injection (Zithromax Inject (05/21/20 20:00) Lipid Panel (05/22/20 06:00) Ed Iv/Invasive Line Start (05/21/20 19:52) BNP (05/21/20 19:52) Fibrin Degradation Products (05/21/20 19:52) Nitroglycerin 0.4 Mg Btl 25's (Nitrostat (05/21/20 20:00) Aspirin Chewable Tablet (Baby Aspirin Ch (05/21/20 20:00) Hs C Reactive Protein (05/21/20 19:52) Procalcitonin (Pct) (05/21/20 19:52) Covid 19 Inhouse Test (05/21/20 19:52) Arterial Blood Gas (05/21/20 19:52) Manual Differential (05/21/20 19:48) Magnesium (05/21/20 19:48) Myoglobin Serum (05/21/20 19:48) Troponin I (05/21/20 20:54) Nitroglycerin Ointment (Nitrobid Ointme (05/21/20 21:15) Lactated Ringers (Lr 1000 Ml Iv Solution (05/21/20 22:00) Medications Given in ED Current Medications Medications Dose Ordered Sig/Haven Route Start Time Stop Time Status Last Admin Dose Admin Aspirin 324 mg ONCE ONCE PO 05/21/20 20:00 05/21/20 20:01 DC 05/21/20 20:25 324 MG Azithromycin 500 mg/Sodium Chloride 255 ml @ 250 mls/hr ONCE ONCE IV 05/21/20 20:00 05/21/20 21:01 DC 05/21/20 20:25 250 MLS/HR Ceftriaxone Sodium 1000 mg/ Sterile Water 10 ml @ 200 mls/hr ONCE ONCE IV 05/21/20 20:00 05/21/20 20:02 DC 05/21/20 20:25 200 MLS/HR Lactated Ringer's 1,000 ml @ 0 mls/hr Q0M ONCE IV 05/21/20 20:00 05/21/20 20:01 DC 05/21/20 20:25 0 MLS/HR Nitroglycerin 0.4 mg UD PRN SL 05/21/20 20:00 05/21/20 20:25 0.4 MG Nitroglycerin 1 inch ONCE ONCE TOP 05/21/20 21:15 05/21/20 21:16 DC 05/21/20 21:27 1 INCH Progress Progress Note #1: Time: 19:58 Progress Note Chest pain could be due to his coronary disease history insulin gave him aspirin and because his blood pressure significantly elevated 180 systolic were going to give him a dose of nitroglycerin and see if that helps his chest tightness and shortness of air. We will get a BNP. Pneumonia viral or bacterial is also just is likely since he has crackles, cough and elevated temperature. We will get Covid and influenza swabs. Were going to attenuate his IV fluids to 1 L at first as a viral pneumonia is not ruled out. Will work-up both possibilities. We have already discussed with the patient he will need to stay overnight for further work-up of his heart. His oxygen saturations were 94 to 95% and he is breathing rather fast we put him on 2 L and will get an ABG. Septic work-up Progress Note #2: Time: 20:24 Progress Note ABG shows low end of normal PaO2 despite 2 L of oxygen by nasal cannula. No evidence of CO2 retention. With his elevated white count and ammonia is highly suspicious. Progress Note #3: Time: 21:12 Progress Note Patient is subsequently chest pain and pressure for years and says he feels good not to go home however nursing reports that she did not give him nitroglycerin yet because he was chest pain-free. His blood pressures up from 170s to 210 systolic subcomponents of Nitropaste on his chest. Troponin is still pending. Covid and influenza are still pending. Chest x-ray looks good. Oxygen saturations are staying in the mid upper 90s on 2 L by nasal cannula. Urinalysis is consistent with UTI however asymptomatic. Progress Note #4: Time: 21:54 Progress Note This tachycardia, tachypnea and UTI we will treat him with Rocephin for his sepsis. Initial ECG Impression Date: May 21, 2020 Initial ECG Impression Time: 19:40 Initial ECG Rate: 118 Initial ECG Rhythm: S.Tach Initial ECG Intervals: Normal Initial ECG Impression: Normal Comment Sinus tachycardia without clinically relevant ST elevation or depression Diagnostic Imaging Diagonstic Imaging: Xray Plain Films/CT/US/NM/MRI: chest Comments NAME: DEANDRE MINAYA [facility] REC#: [id number] PT STATUS: REG ER : 1965 PHYSICIAN: ALEX GARCIA MD ADMIT DATE: 05/21/20/ER Draft Date of Exam:05/21/20 CHEST 1 VIEW, AP/PA ONLY EXAMINATION: Chest 1 view. HISTORY: Chest pain, sepsis. COMPARISON: Chest radiograph 04/26/2020. FINDINGS: Heart size is normal. There is prominent pulmonary vasculature which can be seen with pulmonary vascular congestion. Stable low lung volumes without consolidation, pleural effusion or pneumothorax. The osseous structures are intact. IMPRESSION: No acute radiographic abnormality in the chest. Dictated on workstation # [id number] Dict: 05/21/202040 Trans: 05/21/202046 [id number] Interpreted by: ADDY SINGH DO Electronically signed by: Reviewed: Reviewed by Me Departure Communication (Admissions) Time/Spoke to Admitting Phy: 22:00 Discussed the case with Dr. Echols and she agrees to admit the patient to the floor for Rocephin and consultation with cardiology Time/Spoke to Consulting Phy: 21:35 Discussed the case with Dr. edwards because of the chest pain tachycardia" nitroglycerin paste on his chest for pressure and he was pain-free at the time. He agrees to consult. Impression Primary Impression: Chest pain Qualified Codes: R07.9 - Chest pain, unspecified Additional Impressions: UTI (urinary tract infection) Qualified Codes: N30.00 - Acute cystitis without hematuria Sepsis Disposition: ADMITTED INPATIENT Condition: Stable Admissions Decision to Admit Reason: Admit from ER (General) Decision to Admit/Date: May 21, 2020 Time/Decision to Admit Time: 21:00 Departure-Patient Inst. Referrals: RAVI HERNANDEZ MD (PCP/Family) Primary Care Physician ALEX GARCIA May 21, 2020 20:00
[2020-05-21 20:03] LABS: BASOPHILS % (AUTO) 0 % (0-10); EOSINOPHILS % (AUTO) 0 % (0-10); HEMATOCRIT 36 % (40-54); HEMOGLOBIN 11.7 g/dL (13.3-17.7); LYMPHOCYTES # (AUTO) 0.5 10^3/uL (1.0-4.0); LYMPHOCYTES % (AUTO) 3 % (12-44); MEAN CORPUSCULAR HEMOGLOBIN 27 pg (25-34); MEAN CORPUSCULAR HGB CONC 32 g/dL (32-36); MEAN CORPUSCULAR VOLUME 84 fL (80-99); MEAN PLATELET VOLUME 9.6 fL (9.0-12.2); MONOCYTES # (AUTO) 1.1 10^3/uL (0.0-1.0); MONOCYTES % (AUTO) 6 % (0-12); NEUTROPHILS # (AUTO) 16.2 10^3/uL (1.8-7.8); NEUTROPHILS % (AUTO) 90 % (42-75); PLATELET COUNT 233 10^3/uL (130-400); WHITE BLOOD COUNT 17.9 10^3/uL (4.3-11.0)
[2020-05-21 20:16] LABS: FIBRIN DEGRADATION PRODUCTS 0.55 UG/ML (0.00-0.49); INR 1.3 (0.8-1.4); PROTHROMBIN TIME PATIENT 16.5 SEC (12.2-14.7)
[2020-05-21 20:20] LABS: BILIRUBIN,URINE 1+ (NEGATIVE); CLARITY,URINE SL CLOUDY; COLOR,URINE YELLOW; GLUCOSE, URINE (UA) NEGATIVE (NEGATIVE); KETONES,URINE TRACE (NEGATIVE); LEUKOCYTE ESTERASE ,URINE NEGATIVE (NEGATIVE); NITRITE,URINE NEGATIVE (NEGATIVE); PROTEIN,URINE 3+ (NEGATIVE)
[2020-05-21 20:21] LABS: ABG BASE EXCESS -1.1 MMOL/L (-2.5-2.5); ABG OXYGEN SATURATION 97 % (94-100); ABG PCO2 35 MMHG (35-45); ABG PH 7.43 (7.37-7.43); ABG PO2 86 MMHG (79-93); ABG TCO2 23.7 MMOL/L (21.0-31.0); ALLENS TEST POSITIVE; INSPIRED O2 2; VENTILATOR NO
[2020-05-21 20:22] LABS: ALBUMIN 3.5 GM/DL (3.2-4.5); BILIRUBIN,TOTAL 0.6 MG/DL (0.1-1.0); CALCIUM 8.1 MG/DL (8.5-10.1); CREATININE SERUM 1.68 MG/DL (0.60-1.30); MAGNESIUM 1.8 MG/DL (1.6-2.4); POTASSIUM 4.4 MMOL/L (3.6-5.0); TOTAL PROTEIN 7.3 GM/DL (6.4-8.2)
[2020-05-21 20:22] LABS: PATIENT TEMP 37.2
[2020-05-21 20:23] LABS: LYMPHOCYTES % (MANUAL) 1 %; MONOCYTES % (MANUAL) 9 %; NEUTROPHILS % (MANUAL) 90 %; RBC MORPH NORMAL
[2020-05-21 20:27] LABS: BACTERIA,URINE FEW /HPF
--- NOTE | 2020-05-21 20:47 | Diagnostic Imaging Report ---
EXAMINATION: Chest 1 view. HISTORY: Chest pain, sepsis. COMPARISON: Chest radiograph 04/26/2020. FINDINGS: Heart size is normal. There is prominent pulmonary vasculature which can be seen with pulmonary vascular congestion. Stable low lung volumes without consolidation, pleural effusion or pneumothorax. The osseous structures are intact. IMPRESSION: No acute radiographic abnormality in the chest. Dictated by: Dictated on workstation # [id number]
[2020-05-21] MEDS ORDERED: NITROGLYCERIN 2% OINT 1 GM UNIT DOSE PACKET TOP ONE (21:15)
[2020-05-21] MEDS ORDERED: oxyCODONE/APAP 5/325MG (PERCOCET 5) TABLET PO ONE (22:15)
[2020-05-21 22:40] VITALS: BP 164/89
[2020-05-21 22:55] VITALS: BP 171/88
[2020-05-21 23:10] VITALS: BP 158/76
[2020-05-21] MEDS ORDERED: morphine INJ 4 MG/ML 1 ML (VIAL/SYRINGE) IV PRN (23:15)
[2020-05-21] MEDS ORDERED: ACETAMINOPHEN 325 MG TABLET PO PRN (23:15)
[2020-05-21] MEDS ORDERED: LACTATED RINGERS 1,000 ML IV SCH (23:15)
[2020-05-21] MEDS ORDERED: ONDANSETRON 4 MG/2 ML (SDV) Z0FRAN IVP PRN (23:15)
[2020-05-21 23:25] VITALS: BP 167/82
[2020-05-21 23:36] VITALS: BP 164/89
[2020-05-21] MEDS ORDERED: NITROGLYCERIN 2% OINT 1 GM UNIT DOSE PACKET TOP PRN (23:45)
[2020-05-22 00:29] VITALS: BP 172/77
[2020-05-22 02:30] VITALS: BP_SYST 165; BP_SYST 168; BP_DIAS 83; BP_DIAS 88
[2020-05-22 03:30] VITALS: BP 178/92
[2020-05-22 03:45] VITALS: BP 165/83
[2020-05-22] MEDS ORDERED: inSUlin ASPART (NovoLOG) 1 UNIT/0.01 ML (CHARGE PER UNIT) SC SCH ×2 (06:00→07:00)
--- NOTE | 2020-05-22 08:57 | Short Stay Summary-Hospitalist ---
History of Present Illness HPI/Chief Complaint PATIENT LEFT AMA PRIOR TO BEING SEEN, THIS IS FOR DOCUMENTATION PURPOSES ONLY Date Seen 05/22/20 Time Seen by a Provider: 08:56 (PATIENT LEFT AMA PRIOR TO BEING SEEN, THIS IS FOR DOCUMENTATION PURPOSES ONLY) Attending Physician Sue Bhatt MD PCP Isra Thompson MD Referring Physician Date of Admission May 21, 2020 at 22:16 Home Medications & Allergies Home Medications Reviewed patient Home Medication Reconciliation performed by pharmacy medication reconciliations lens coating technician and/or nursing. Patients Allergies have been reviewed. Allergies Allergies Coded Allergies cortisone (Verified Allergy, Unknown, HIVES, 11/11/14) meloxicam (Verified Allergy, Unknown, 05/28/17) pregabalin (Verified Allergy, Unknown, 05/28/17) shellfish derived (Verified Allergy, Unknown, 11/11/14) Uncoded Allergies THYLAID ( Allergy, Unknown, 11/11/14) Past Uajtxka-Llwrqt-Knhapp Hx Past Med/Social Hx: Reviewed Nursing Past Med/Soc Hx (PATIENT LEFT AMA PRIOR TO BEING SEEN, THIS IS FOR DOCUMENTATION PURPOSES ONLY) Patient Social History Alcohol Use: Denies Use Alcohol Beverage of Choice: Other Recreational Drug Use: Yes (ETOH 20 YRS AG0) Drug of Choice: THC, EXTENSIVE ABUSE OF PRESCRIPTION DRUGS Smoking Status: Former Smoker Former Smoker, Quit: Jun 14, 1986 Type Used: Smokeless Tobacco 2nd Hand Smoke Exposure: No Recent Foreign Travel: No Contact w/other who traveled: No Recent Hopitalizations: No Recent Infectious Disease Expo: No Immunizations Up To Date Tetanus Booster (TDap): Unknown Date of Pneumonia Vaccine: Jun 13, 2007 Date of Influenza Vaccine: Apr 25, 2020 Seasonal Allergies Seasonal Allergies: Yes Past Medical History Surgeries: Adenoidectomy, Amputation, Cardiac, Dialysis, Ear Surgery, Orthopedic, Tonsillectomy Respiratory: COPD, Sleep Apnea Currently Using CPAP: No Cardiac: Coronary Artery Disease, Deep Vein Thrombosis, High Cholesterol, Hypertension, Peripheral Vascular Neurological: Neuropathy Reproductive: No Sexually Transmitted Disease: No HIV/AIDS: No Genitourinary: Renal Failure Gastrointestinal: Gastroesophageal Reflux, Liver Disease/Jaundice, Chronic Constipation Musculoskeletal: Arthritis Endocrine: Diabetes, Insulin dep HEENT: Chronic Ear Infection, Tonsilitis Loss of Vision: Denies Hearing Impairment: Denies Psychosocial: Sleep Difficulties, Anxiety, Suicide Attempts, Depression Skin/Integumentary: Recent Skin Changes History of Blood Disorders: No Adverse Reaction to Blood Liriano: No Family History Patient reports no known family medical history. No Pertinent Family Hx Review of Systems Constitutional: see HPI (PATIENT LEFT AMA PRIOR TO BEING SEEN, THIS IS FOR DOCUMENTATION PURPOSES ONLY) Physical Exam Physical Exam Vital Signs Vital Signs - First Documented 05/21/20 05/21/20 19:45 23:36 Temp 37.2 Pulse 120 Resp 18 B/P (MAP) 189/103 (131) Pulse Ox 95 O2 Delivery Nasal Cannula O2 Flow Rate 2.0 FiO2 2 Capillary Refill : Less Than 3 Seconds Height, Weight, BMI Height: 6'7.00" Weight: 416lbs. 9.0oz. [id number]; 57.23 BMI Method:Stated General Appearance: Other (PATIENT LEFT AMA PRIOR TO BEING SEEN, THIS IS FOR DOCUMENTATION PURPOSES ONLY) Results Results/Procedures Labs Laboratory Tests 05/21/20 19:48 Patient resulted labs reviewed. Short Stay Diagnosis Discharge Diagnosis-Short Stay Admission Diagnosis PATIENT LEFT AMA PRIOR TO BEING SEEN, THIS IS FOR DOCUMENTATION PURPOSES ONLY Final Discharge Diagnosis PATIENT LEFT AMA PRIOR TO BEING SEEN, THIS IS FOR DOCUMENTATION PURPOSES ONLY Conclusion Plan PATIENT LEFT AMA PRIOR TO BEING SEEN, THIS IS FOR DOCUMENTATION PURPOSES ONLY Clinical Quality Measures AMI/AHF: ASA po Prior to arrival: SUE Ramirez MD May 22, 2020 08:57
[2020-05-22] MEDS ORDERED: morphine ER 30 MG (MS CONTIN) TAB PO SCH (09:00)
[2020-05-22] MEDS ORDERED: APIXABAN 5 MG (ELIQUIS) TABLET PO SCH (09:00)
[2020-05-22] MEDS ORDERED: ASPIRIN E.C. 81 MG (ECOTRIN) TAB PO SCH (09:00)
[2020-05-22] MEDS ORDERED: dilTIAZem120 MG (CARDIZEM CD) CAP PO SCH (09:00)
[2020-05-22] MEDS ORDERED: FAMOTIDINE 20 MG (PEPCID) TABLET PO SCH (09:00)
[2020-05-22] MEDS ORDERED: cefTRIAXone 1,000 MG/SWFI 10 ML IV PUSH IV SCH ×2 (20:00)
== END 2020-05-22 05:30 | disposition left against medical advice (07) ==
LOC: EDUNIT# 19:33 → ER 19:35 → UNDOADMIN 22:16 → 4TH 22:16 → UNDODISIN 05-22 07:00
PROVIDERS: ADMIT Family Medicine; ATTEND Family Medicine
DX: R07.9 Chest pain, unspecified (principal); N30.00 Acute cystitis without hematuria; A41.9 Sepsis, unspecified organism; I25.10 Atherosclerotic heart disease of native coronary artery without angina pectoris; I26.99 Other pulmonary embolism without acute cor pulmonale; E11.40 Type 2 diabetes mellitus with diabetic neuropathy, unspecified; J44.9 Chronic obstructive pulmonary disease, unspecified; G62.9 Polyneuropathy, unspecified; E78.5 Hyperlipidemia, unspecified; I10 Essential (primary) hypertension; K21.9 Gastro-esophageal reflux disease without esophagitis; K59.09 Other constipation; F41.9 Anxiety disorder, unspecified; F32.9 Major depressive disorder, single episode, unspecified; T14.91XA Suicide attempt, initial encounter; Z91.013 Allergy to seafood; Z88.8 Allergy status to other drugs, medicaments and biological substances; Z79.4 Long term (current) use of insulin; Z79.890 Hormone replacement therapy; Z79.82 Long term (current) use of aspirin; Z79.899 Other long term (current) drug therapy; Z87.891 Personal history of nicotine dependence; Z90.89 Acquired absence of other organs
CPT/HCPCS: 71045; 80053; 81000; 82805; 83605; 83735; 83874; 83880; 84145; 84484 ×2; 85007; 85027; 85379; 85610; 85730; 86141; 87040; 87088; 87804; 93005; 96361; 96365; 96366; 96375; 99285; G0378; U0002; 36415; 87635

== ENCOUNTER → 2020-05-23 | Outpatient (CLI) | payer MEDICARE, MEDICAID ==
--- NOTE | 2020-05-23 17:59 | Diagnostic Imaging Report ---
EXAMINATION: US Lower Extremity Venous Duplex Left. TECHNIQUE: Multiple real-time grayscale images were obtained over the left lower extremity in various projections. Additional spectral analysis and color Doppler duplex images were also obtained. HISTORY: Left leg swelling and pain COMPARISON: None available. FINDINGS: Left: The common femoral, superficial femoral, popliteal, peroneal, posterior tibial, and greater saphenous veins demonstrate normal flow, augmentation, compressibility. There is a 7.7 x 2.7 x 3.4 cm cyst within the left popliteal fossa. IMPRESSION: 1. No DVT of the left lower extremity. 2. A left popliteal fossa cyst. Dictated by: Dictated on workstation # [id number]
== END ==
LOC: RAD 17:02
PROVIDERS: ATTEND Surgery
DX: M71.22 Synovial cyst of popliteal space [Baker], left knee (principal); E11.621 Type 2 diabetes mellitus with foot ulcer; E11.42 Type 2 diabetes mellitus with diabetic polyneuropathy; L97.422 Non-pressure chronic ulcer of left heel and midfoot with fat layer exposed; I70.244 Atherosclerosis of native arteries of left leg with ulceration of heel and midfoot; E66.01 Morbid (severe) obesity due to excess calories; M79.605 Pain in left leg; L03.116 Cellulitis of left lower limb

== ENCOUNTER → 2020-05-23 | Outpatient (CLI) | payer MEDICARE, MEDICAID | LOC: WOUNDCARE 15:59 | PROVIDERS: ATTEND Surgery | DX: E11.621 Type 2 diabetes mellitus with foot ulcer (principal); E11.42 Type 2 diabetes mellitus with diabetic polyneuropathy; L97.422 Non-pressure chronic ulcer of left heel and midfoot with fat layer exposed; I70.244 Atherosclerosis of native arteries of left leg with ulceration of heel and midfoot; E66.01 Morbid (severe) obesity due to excess calories; E11.52 Type 2 diabetes mellitus with diabetic peripheral angiopathy with gangrene | CPT/HCPCS: 11042; 11045; A6197; G0463 ==

== ENCOUNTER → 2020-06-02 | Outpatient (CLI) | payer MEDICARE, MEDICAID | LOC: WOUNDCARE 12:35 | PROVIDERS: ATTEND Surgery | DX: I96 Gangrene, not elsewhere classified (principal); L97.422 Non-pressure chronic ulcer of left heel and midfoot with fat layer exposed; E11.621 Type 2 diabetes mellitus with foot ulcer; E11.42 Type 2 diabetes mellitus with diabetic polyneuropathy; I70.244 Atherosclerosis of native arteries of left leg with ulceration of heel and midfoot; E66.01 Morbid (severe) obesity due to excess calories; Z68.43 Body mass index [BMI] 50.0-59.9, adult | CPT/HCPCS: 11042; G0463 ==

== ENCOUNTER → 2020-06-09 | Outpatient (CLI) | payer MEDICARE, MEDICAID | LOC: WOUNDCARE 14:37 | PROVIDERS: ATTEND Orthopaedic Surgery Hand Surgery | DX: E11.52 Type 2 diabetes mellitus with diabetic peripheral angiopathy with gangrene (principal); E11.621 Type 2 diabetes mellitus with foot ulcer; E11.42 Type 2 diabetes mellitus with diabetic polyneuropathy; I70.262 Atherosclerosis of native arteries of extremities with gangrene, left leg; L97.422 Non-pressure chronic ulcer of left heel and midfoot with fat layer exposed; E66.01 Morbid (severe) obesity due to excess calories; Z68.43 Body mass index [BMI] 50.0-59.9, adult | CPT/HCPCS: 11042; G0463 ==

== ENCOUNTER → 2020-06-16 | Outpatient (CLI) | payer MEDICARE, MEDICAID | LOC: WOUNDCARE 14:02 | PROVIDERS: ATTEND Surgery | DX: E11.621 Type 2 diabetes mellitus with foot ulcer (principal); E11.42 Type 2 diabetes mellitus with diabetic polyneuropathy; L97.422 Non-pressure chronic ulcer of left heel and midfoot with fat layer exposed; I70.244 Atherosclerosis of native arteries of left leg with ulceration of heel and midfoot; E66.01 Morbid (severe) obesity due to excess calories; E11.52 Type 2 diabetes mellitus with diabetic peripheral angiopathy with gangrene | CPT/HCPCS: 11042; G0463 ==

== ENCOUNTER → 2020-07-15 | Outpatient (CLI) | payer MEDICARE, MEDICAID | LOC: WOUNDCARE 13:00 | PROVIDERS: ATTEND Surgery | DX: E11.621 Type 2 diabetes mellitus with foot ulcer (principal); E11.42 Type 2 diabetes mellitus with diabetic polyneuropathy; L97.422 Non-pressure chronic ulcer of left heel and midfoot with fat layer exposed; I70.244 Atherosclerosis of native arteries of left leg with ulceration of heel and midfoot; E66.01 Morbid (severe) obesity due to excess calories; E11.52 Type 2 diabetes mellitus with diabetic peripheral angiopathy with gangrene | CPT/HCPCS: 11042; 11045; A6197; G0463 ==

== ENCOUNTER → 2020-08-03 | Outpatient (CLI) | payer MEDICARE, MEDICAID | LOC: WOUNDCARE 14:30 | PROVIDERS: ATTEND Surgery | DX: E11.621 Type 2 diabetes mellitus with foot ulcer (principal); E11.42 Type 2 diabetes mellitus with diabetic polyneuropathy; L97.421 Non-pressure chronic ulcer of left heel and midfoot limited to breakdown of skin; I70.244 Atherosclerosis of native arteries of left leg with ulceration of heel and midfoot; E66.01 Morbid (severe) obesity due to excess calories; E11.52 Type 2 diabetes mellitus with diabetic peripheral angiopathy with gangrene | CPT/HCPCS: 97597; 97598; G0463 ==

== ENCOUNTER → 2020-08-03 | Outpatient (CLI) | payer MEDICARE, MEDICAID ==
[2020-08-03 16:24] LABS: BASOPHILS % (AUTO) 0 % (0-10); EOSINOPHILS # (AUTO) 0.1 10^3/uL (0.0-0.3); EOSINOPHILS % (AUTO) 2 % (0-10); HEMATOCRIT 33 % (40-54); HEMOGLOBIN 10.5 g/dL (13.3-17.7); LYMPHOCYTES # (AUTO) 1.3 10^3/uL (1.0-4.0); LYMPHOCYTES % (AUTO) 18 % (12-44); MEAN CORPUSCULAR HEMOGLOBIN 28 pg (25-34); MEAN CORPUSCULAR HGB CONC 32 g/dL (32-36); MEAN CORPUSCULAR VOLUME 87 fL (80-99); MEAN PLATELET VOLUME 9.2 fL (9.0-12.2); MONOCYTES # (AUTO) 0.5 10^3/uL (0.0-1.0); MONOCYTES % (AUTO) 8 % (0-12); NEUTROPHILS # (AUTO) 5.2 10^3/uL (1.8-7.8); NEUTROPHILS % (AUTO) 72 % (42-75); PLATELET COUNT 248 10^3/uL (130-400); WHITE BLOOD COUNT 7.2 10^3/uL (4.3-11.0)
[2020-08-03 16:45] LABS: ALBUMIN 3.3 GM/DL (3.2-4.5); POTASSIUM 4.4 MMOL/L (3.6-5.0)
[2020-08-03 16:46] LABS: CALCIUM 8.6 MG/DL (8.5-10.1)
[2020-08-03 16:48] LABS: TOTAL PROTEIN 7.3 GM/DL (6.4-8.2)
[2020-08-03 16:49] LABS: BILIRUBIN,TOTAL 0.3 MG/DL (0.1-1.0)
[2020-08-03 16:51] LABS: CREATININE SERUM 1.58 MG/DL (0.60-1.30)
== END ==
LOC: LAB 15:44
PROVIDERS: ATTEND Surgery
DX: E11.621 Type 2 diabetes mellitus with foot ulcer (principal); E11.42 Type 2 diabetes mellitus with diabetic polyneuropathy; L97.421 Non-pressure chronic ulcer of left heel and midfoot limited to breakdown of skin; I70.244 Atherosclerosis of native arteries of left leg with ulceration of heel and midfoot; E66.01 Morbid (severe) obesity due to excess calories
CPT/HCPCS: 36415; 80053; 83036; 85025

== ENCOUNTER → 2020-08-11 | Outpatient (CLI) | payer MEDICARE, MEDICAID | LOC: WOUNDCARE 12:59 | PROVIDERS: ATTEND Surgery | DX: E11.621 Type 2 diabetes mellitus with foot ulcer (principal); E11.42 Type 2 diabetes mellitus with diabetic polyneuropathy; L97.421 Non-pressure chronic ulcer of left heel and midfoot limited to breakdown of skin; I70.244 Atherosclerosis of native arteries of left leg with ulceration of heel and midfoot; E66.01 Morbid (severe) obesity due to excess calories; E11.52 Type 2 diabetes mellitus with diabetic peripheral angiopathy with gangrene | CPT/HCPCS: 11042; G0463 ==

== ENCOUNTER → 2020-08-18 | Outpatient (CLI) | payer MEDICARE, MEDICAID | LOC: WOUNDCARE 12:43 | PROVIDERS: ATTEND Surgery | DX: E11.621 Type 2 diabetes mellitus with foot ulcer (principal); E11.42 Type 2 diabetes mellitus with diabetic polyneuropathy; L97.401 Non-pressure chronic ulcer of unspecified heel and midfoot limited to breakdown of skin; I70.244 Atherosclerosis of native arteries of left leg with ulceration of heel and midfoot; E66.01 Morbid (severe) obesity due to excess calories; E11.52 Type 2 diabetes mellitus with diabetic peripheral angiopathy with gangrene | CPT/HCPCS: 99213 ==

== ENCOUNTER → 2020-08-29 | Outpatient (CLI) | payer MEDICARE, MEDICAID ==
[2020-08-29 16:38] LABS: BASOPHILS % (AUTO) 0 % (0-10); EOSINOPHILS % (AUTO) 0 % (0-10); HEMATOCRIT 32 % (40-54); HEMOGLOBIN 10.2 g/dL (13.3-17.7); LYMPHOCYTES # (AUTO) 1.3 10^3/uL (1.0-4.0); LYMPHOCYTES % (AUTO) 13 % (12-44); MEAN CORPUSCULAR HEMOGLOBIN 27 pg (25-34); MEAN CORPUSCULAR HGB CONC 32 g/dL (32-36); MEAN CORPUSCULAR VOLUME 86 fL (80-99); MEAN PLATELET VOLUME 8.6 fL (9.0-12.2); MONOCYTES # (AUTO) 0.5 10^3/uL (0.0-1.0); MONOCYTES % (AUTO) 6 % (0-12); NEUTROPHILS # (AUTO) 7.5 10^3/uL (1.8-7.8); NEUTROPHILS % (AUTO) 80 % (42-75); PLATELET COUNT 334 10^3/uL (130-400); WHITE BLOOD COUNT 9.3 10^3/uL (4.3-11.0)
[2020-08-29 16:47] LABS: CLARITY,URINE CLEAR; COLOR,URINE YELLOW; GLUCOSE, URINE (UA) NEGATIVE (NEGATIVE); KETONES,URINE NEGATIVE (NEGATIVE); LEUKOCYTE ESTERASE ,URINE NEGATIVE (NEGATIVE); NITRITE,URINE NEGATIVE (NEGATIVE); PH,URINE 5.5 (5-9); PROTEIN,URINE 3+ (NEGATIVE)
[2020-08-29 16:50] LABS: POTASSIUM 4.4 MMOL/L (3.6-5.0)
[2020-08-29 16:51] LABS: CALCIUM 8.3 MG/DL (8.5-10.1)
[2020-08-29 16:55] LABS: CREATININE SERUM 1.93 MG/DL (0.60-1.30); PHOSPHORUS 3.3 MG/DL (2.3-4.7)
[2020-08-29 17:13] LABS: BACTERIA,URINE NEGATIVE /HPF; BILIRUBIN,URINE 1+ (NEGATIVE); SQUAMOUS EPITHELIAL CELL,UR 0-2 /HPF; WBC,URINE 0-2 /HPF
== END ==
LOC: LAB 16:22
PROVIDERS: ATTEND Internal Medicine Nephrology
DX: N18.30 Chronic kidney disease, stage 3 unspecified (principal)
CPT/HCPCS: 36415; 80069; 81000; 82570; 84156; 85025

== ENCOUNTER → 2020-09-01 | Outpatient (CLI) | payer MEDICARE, MEDICAID | LOC: WOUNDCARE 12:40 | PROVIDERS: ATTEND Surgery | DX: E11.621 Type 2 diabetes mellitus with foot ulcer (principal); I96 Gangrene, not elsewhere classified; E66.01 Morbid (severe) obesity due to excess calories; L97.421 Non-pressure chronic ulcer of left heel and midfoot limited to breakdown of skin; L97.522 Non-pressure chronic ulcer of other part of left foot with fat layer exposed; E11.42 Type 2 diabetes mellitus with diabetic polyneuropathy; I70.244 Atherosclerosis of native arteries of left leg with ulceration of heel and midfoot; Z68.43 Body mass index [BMI] 50.0-59.9, adult | CPT/HCPCS: 11042; 97597; G0463 ==

== ENCOUNTER → 2020-10-11 | Outpatient (CLI) | payer MEDICARE, MEDICAID | LOC: WOUNDCARE 10:53 | PROVIDERS: ATTEND Surgery | DX: E11.621 Type 2 diabetes mellitus with foot ulcer (principal); L97.422 Non-pressure chronic ulcer of left heel and midfoot with fat layer exposed; L97.522 Non-pressure chronic ulcer of other part of left foot with fat layer exposed; E11.42 Type 2 diabetes mellitus with diabetic polyneuropathy; I70.244 Atherosclerosis of native arteries of left leg with ulceration of heel and midfoot; E66.01 Morbid (severe) obesity due to excess calories; E11.52 Type 2 diabetes mellitus with diabetic peripheral angiopathy with gangrene | CPT/HCPCS: 99213 ==

== ENCOUNTER → 2020-10-17 | Outpatient (CLI) | payer MEDICARE, MEDICAID | LOC: WOUNDCARE 15:25 | PROVIDERS: ATTEND Surgery | DX: E11.621 Type 2 diabetes mellitus with foot ulcer (principal); I96 Gangrene, not elsewhere classified; L97.522 Non-pressure chronic ulcer of other part of left foot with fat layer exposed; L97.422 Non-pressure chronic ulcer of left heel and midfoot with fat layer exposed; E11.42 Type 2 diabetes mellitus with diabetic polyneuropathy; I70.244 Atherosclerosis of native arteries of left leg with ulceration of heel and midfoot; E66.01 Morbid (severe) obesity due to excess calories; Z68.43 Body mass index [BMI] 50.0-59.9, adult | CPT/HCPCS: 11042; 11043; 11046; A6197; G0463 ==

== ENCOUNTER → 2020-11-10 | Outpatient (CLI) | payer MEDICARE, MEDICAID | LOC: WOUNDCARE 14:54 | PROVIDERS: ATTEND Surgery | DX: E11.621 Type 2 diabetes mellitus with foot ulcer (principal); L97.422 Non-pressure chronic ulcer of left heel and midfoot with fat layer exposed; L97.522 Non-pressure chronic ulcer of other part of left foot with fat layer exposed; E11.42 Type 2 diabetes mellitus with diabetic polyneuropathy; I70.244 Atherosclerosis of native arteries of left leg with ulceration of heel and midfoot; E66.01 Morbid (severe) obesity due to excess calories; E11.52 Type 2 diabetes mellitus with diabetic peripheral angiopathy with gangrene | CPT/HCPCS: 99213 ==

== ENCOUNTER → 2020-11-16 | Outpatient (CLI) | payer MEDICARE, MEDICAID ==
--- NOTE | 2020-11-16 13:29 | Diagnostic Imaging Report ---
HISTORY: Type II diabetes. Left heel ulcer. Atherosclerosis of the legs. COMPARISON: None. Technique: Segmental pressures and Doppler study with ankle brachial indices and toe brachial indices was performed at rest. Systolic blood pressure in the right brachial artery is 196 mm of Hg Systolic blood pressure in the left brachial artery is 171 mm of Hg Systolic blood pressure in the right distal superficial femoral artery is 189 mm of Hg The ankle brachial index (KIMBERLEE) on the right side is 0.96 at rest. Systolic blood pressure in the left posterior tibial artery is 118 mm of Hg The ankle brachial index (KIMBERLEE) on the left side is 0.60 at rest. Systolic blood pressure in the right great toe is 225 mm of Hg The toe brachial index (TBI) on the right side is 1.15 at rest. Systolic blood pressure in the left great toe is 176 mm of Hg The toe brachial index (TBI) on the left side is 0.90 at rest. Right posterior tibial and bilateral dorsalis pedis arteries could not be acquired. Disease Severity and Ankle-Brachial Index (KIMBERLEE) ([facility] Vascular Laboratory Criteria) [place] [facility] Proc. September 2007;83(3):944-950 [email or web address] Disease severity Normal: At rest >0.9 After exercise >0.9 Mild: At rest 0.8-0.9 After exercise 0.5-0.9 Moderate: At rest 0.5-0.79 After exercise 0.15-0.49 Severe: At rest <0.5 After exercise <0.15 Disease Severity and Toe Brachial Index (TBI) 0.64 +/- .20 limbs normal 0.52 =/- .20 claudication in limbs 0.23 =/- .19 limbs with ulcers or ischemic rest pain IMPRESSION: 1.Ankle-brachial index of 0.60 in the left posterior tibial artery, consistent with moderate atherosclerotic disease. 2. Normal blood flow to the bilateral toes. Dictated by: Dictated on workstation # [id number]
== END ==
LOC: RAD 12:00
PROVIDERS: ATTEND Surgery
DX: E11.621 Type 2 diabetes mellitus with foot ulcer (principal); E11.42 Type 2 diabetes mellitus with diabetic polyneuropathy; L97.421 Non-pressure chronic ulcer of left heel and midfoot limited to breakdown of skin; I70.244 Atherosclerosis of native arteries of left leg with ulceration of heel and midfoot; E66.01 Morbid (severe) obesity due to excess calories
CPT/HCPCS: 93923

== ENCOUNTER → 2020-11-16 | Outpatient (CLI) | payer MEDICARE, MEDICAID ==
[2020-11-16 15:02] LABS: BASOPHILS % (AUTO) 0 % (0-10); EOSINOPHILS # (AUTO) 0.1 10^3/uL (0.0-0.3); EOSINOPHILS % (AUTO) 1 % (0-10); HEMATOCRIT 27 % (40-54); HEMOGLOBIN 8.3 g/dL (13.3-17.7); LYMPHOCYTES % (AUTO) 12 % (12-44); MEAN CORPUSCULAR HEMOGLOBIN 26 pg (25-34); MEAN CORPUSCULAR HGB CONC 30 g/dL (32-36); MEAN CORPUSCULAR VOLUME 85 fL (80-99); MEAN PLATELET VOLUME 8.5 fL (9.0-12.2); MONOCYTES # (AUTO) 0.7 X 10^3 (0.0-1.0); MONOCYTES % (AUTO) 9 % (0-12); NEUTROPHILS # (AUTO) 6.5 X 10^3 (1.8-7.8); NEUTROPHILS % (AUTO) 78 % (42-75); PLATELET COUNT 376 10^3/uL (130-400); WHITE BLOOD COUNT 8.4 10^3/uL (4.3-11.0)
[2020-11-16 15:22] LABS: ERYTHROCYTE SEDIMENTATION RATE 11 MM/HR (0-30)
[2020-11-16 15:23] LABS: ALBUMIN 2.8 GM/DL (3.2-4.5); BILIRUBIN,TOTAL 0.3 MG/DL (0.1-1.0); CALCIUM 8.8 MG/DL (8.5-10.1); CREATININE SERUM 1.4 MG/DL (0.60-1.30); POTASSIUM 4.5 MMOL/L (3.6-5.0)
--- NOTE | 2020-11-16 16:28 | Diagnostic Imaging Report ---
INDICATION: Foot wound. History of diabetes. COMPARISON: 04/26/2020 FINDINGS: 3 radiographic views of the left foot were obtained. The patient is status post previous amputation of the 5th toe and partial amputation of the 5th metatarsal. There is moderate generalized soft tissue swelling with evidence of soft tissue ulceration over the calcaneus. No underlying lytic or blastic osseous lesion is seen. There is no evidence of acute fracture or dislocation. Joint spaces are otherwise intact. No unexpected radiopaque foreign bodies are seen. IMPRESSION: 1. Diffuse soft tissue swelling with ulcerative appearing lesion overlying the calcaneus. 2. No radiographic evidence of underlying acute osseous abnormality. Please note, osteomyelitis cannot be excluded based on radiographs alone. If there is concern for osteomyelitis, MRI is recommended. Dictated by: Dictated on workstation # [id number]
== END ==
LOC: RAD 14:29
PROVIDERS: ATTEND Surgery
DX: L97.423 Non-pressure chronic ulcer of left heel and midfoot with necrosis of muscle (principal)
CPT/HCPCS: 36415; 73630; 80053; 83036; 85025; 85652; 86141

== ENCOUNTER → 2020-11-16 | Outpatient (CLI) | payer MEDICARE, MEDICAID | LOC: WOUNDCARE 13:09 | PROVIDERS: ATTEND Surgery | DX: E11.621 Type 2 diabetes mellitus with foot ulcer (principal); E11.42 Type 2 diabetes mellitus with diabetic polyneuropathy; E11.65 Type 2 diabetes mellitus with hyperglycemia; L03.116 Cellulitis of left lower limb; L97.423 Non-pressure chronic ulcer of left heel and midfoot with necrosis of muscle; E66.01 Morbid (severe) obesity due to excess calories; Z68.43 Body mass index [BMI] 50.0-59.9, adult | CPT/HCPCS: 11043; 11046; G0463 ==

== ENCOUNTER → 2020-11-23 | Outpatient (CLI) | payer MEDICARE, MEDICAID | LOC: WOUNDCARE 14:52 | PROVIDERS: ATTEND Surgery | DX: E11.621 Type 2 diabetes mellitus with foot ulcer (principal); E11.65 Type 2 diabetes mellitus with hyperglycemia; E11.42 Type 2 diabetes mellitus with diabetic polyneuropathy; L03.116 Cellulitis of left lower limb; L97.423 Non-pressure chronic ulcer of left heel and midfoot with necrosis of muscle; E66.01 Morbid (severe) obesity due to excess calories; E11.52 Type 2 diabetes mellitus with diabetic peripheral angiopathy with gangrene | CPT/HCPCS: 99213 ==

== ENCOUNTER → 2020-11-23 | Outpatient (CLI) | payer MEDICARE, MEDICAID | LOC: LAB 15:39 | PROVIDERS: ATTEND Surgery | DX: E11.621 Type 2 diabetes mellitus with foot ulcer (principal) | CPT/HCPCS: 36415; 84134 ==

== ENCOUNTER → 2020-11-30 | Outpatient (CLI) | payer MEDICARE, MEDICAID | LOC: WOUNDCARE 15:14 | PROVIDERS: ATTEND Surgery | DX: E11.621 Type 2 diabetes mellitus with foot ulcer (principal); E11.65 Type 2 diabetes mellitus with hyperglycemia; E11.42 Type 2 diabetes mellitus with diabetic polyneuropathy; L03.116 Cellulitis of left lower limb; L97.423 Non-pressure chronic ulcer of left heel and midfoot with necrosis of muscle; E66.01 Morbid (severe) obesity due to excess calories; E11.52 Type 2 diabetes mellitus with diabetic peripheral angiopathy with gangrene | CPT/HCPCS: 11043; G0463 ==

== ENCOUNTER → 2020-11-30 | Outpatient (CLI) | payer MEDICARE, MEDICAID ==
[2020-11-30 16:57] LABS: POTASSIUM 4.2 MMOL/L (3.6-5.0)
[2020-11-30 16:59] LABS: CALCIUM 8.9 MG/DL (8.5-10.1)
[2020-11-30 17:03] LABS: CREATININE SERUM 1.43 MG/DL (0.60-1.30)
== END ==
LOC: LAB 16:19
PROVIDERS: ATTEND Surgery
DX: E11.621 Type 2 diabetes mellitus with foot ulcer (principal); E11.65 Type 2 diabetes mellitus with hyperglycemia; E11.42 Type 2 diabetes mellitus with diabetic polyneuropathy; L03.116 Cellulitis of left lower limb; L97.423 Non-pressure chronic ulcer of left heel and midfoot with necrosis of muscle; E66.01 Morbid (severe) obesity due to excess calories
CPT/HCPCS: 36415; 80048

== ENCOUNTER → 2020-12-14 | Outpatient (CLI) | payer MEDICARE, MEDICAID | LOC: WOUNDCARE 14:36 | PROVIDERS: ATTEND Family Medicine | DX: E11.621 Type 2 diabetes mellitus with foot ulcer (principal); E11.65 Type 2 diabetes mellitus with hyperglycemia; E11.42 Type 2 diabetes mellitus with diabetic polyneuropathy; L03.116 Cellulitis of left lower limb; L97.423 Non-pressure chronic ulcer of left heel and midfoot with necrosis of muscle; E66.01 Morbid (severe) obesity due to excess calories; E44.0 Moderate protein-calorie malnutrition; E11.52 Type 2 diabetes mellitus with diabetic peripheral angiopathy with gangrene; Z91.19 Patient's noncompliance with other medical treatment and regimen | CPT/HCPCS: 11043; 11046; G0463 ==

== ENCOUNTER 2021-01-18 13:35 | Emergency (ER) | payer MEDICARE, MEDICAID ==
[~2021-01-18] VITALS: Ht 193 cm; Wt 213.2 kg
[~2021-01-18 13:35] MED LIST changes: +CLIN-144 PO; -CLIN300C12 PO; +CYCL10TA25 PO; -LEVO500T80 PO; +LEVO500T81 PO; -LISI-729 PO; +LISI5TAB20 PO
[2021-01-18] MEDS ORDERED: ONDANSETRON 4 MG/2 ML (SDV) Z0FRAN IVP ONE (13:45)
[2021-01-18 13:52] LABS: BASOPHILS # (AUTO) 0.1 10^3/uL (0.0-0.1); BASOPHILS % (AUTO) 0 % (0-10); EOSINOPHILS % (AUTO) 0 % (0-10); HEMATOCRIT 23 % (40-54); HEMOGLOBIN 7.7 g/dL (13.3-17.7); LYMPHOCYTES # (AUTO) 0.7 10^3/uL (1.0-4.0); LYMPHOCYTES % (AUTO) 3 % (12-44); MEAN CORPUSCULAR HEMOGLOBIN 25 pg (25-34); MEAN CORPUSCULAR HGB CONC 33 g/dL (32-36); MEAN CORPUSCULAR VOLUME 77 fL (80-99); MEAN PLATELET VOLUME 9.4 fL (9.0-12.2); MONOCYTES # (AUTO) 1.1 10^3/uL (0.0-1.0); MONOCYTES % (AUTO) 4 % (0-12); NEUTROPHILS % (AUTO) 90 % (42-75); PLATELET COUNT 360 10^3/uL (130-400); WHITE BLOOD COUNT 25.6 10^3/uL (4.3-11.0)
--- NOTE | 2021-01-18 13:53 | ED Lower Extremity ---
General Chief Complaint: Lower Extremity Stated Complaint: FALL Source: patient Exam Limitations: no limitations (SHANE BARAHONA COLLEGE ADMISSIONS COUNSELOR) History of Present Illness Date Seen by Provider: Jan 18, 2021 Time Seen by Provider: 13:42 Initial Comments This is a 55-year-old male who presented to the ER via [facility] after falling at home. States that he was moving things around his house when he accidentally fell over. Denies hitting head, denies LOC. States he has pain in his low back and his left foot. States that he had been seen at the wound care clinic at [facility] for the past 6 months for this ulceration however he was recently discharged last week as he refused to have angiography of his left lower extremity completed. Has been taking care of wound at home with his ex- . EMS states that patient's house was filthy, trash everywhere. His dressing is falling off and is very dirty. States he refused to have angiography because he has a history of stage III kidney disease and did not want to receive any contrast dye. Over the past few days reports he has been having increasing shakes, weakness, generalized not feeling well. (SHANE BARAHONA COLLEGE ADMISSIONS COUNSELOR) Allergies and Home Medications Allergies Coded Allergies: cortisone (Verified Allergy, Unknown, HIVES, 11/11/14) meloxicam (Verified Allergy, Unknown, 05/28/17) pregabalin (Verified Allergy, Unknown, 05/28/17) shellfish derived (Verified Allergy, Unknown, 11/11/14) Uncoded Allergies: THYLAID (Allergy, Unknown, 11/11/14) Patient Home Medication List Home Medication List Reviewed: Yes (SHANE BARAHONA COLLEGE ADMISSIONS COUNSELOR) Apixaban (Eliquis) 5 Mg Tablet, 5 MG PO BID, (Reported) Entered as Reported by: EMIR HARDIN on 09/18/18 1251 Atorvastatin Calcium (Atorvastatin Calcium) 20 Mg Tablet, 20 MG PO HS, (Reported) Entered as Reported by: EMIR HARDIN on 09/18/18 1251 Budesonide/Formoterol Fumarate (Symbicort 160-4.5 Mcg Inhaler) 10.2 Gm Hfa.aer.ad, 2 PUFF INH BID, (Reported) Entered as Reported by: EMIR HARDIN on 09/18/18 1110 Carvedilol (Coreg) 25 Mg Tab, 25 MG PO BID, (Reported) Entered as Reported by: EMIR HARDIN on 09/18/18 125 Diltiazem HCl (Diltiazem 24Hr Cd) 120 Mg Cap.er.24h, 120 MG PO DAILY Prescribed by: SUE PURCELL on 09/23/18 111 Furosemide (Furosemide) 40 Mg Tablet, 40 MG PO DAILY, (Reported) Entered as Reported by: EMIR HARDIN on 09/18/18 125 Gabapentin (Gabapentin) 800 Mg Tablet, 800 MG PO TID, (Reported) Entered as Reported by: EMIR HARDIN on 09/18/18 111 Insulin Aspart (Novolog Flexpen) 300 Units/3 Ml Solution, SC TIDAC, (Reported) Entered as Reported by: EMIR HARDIN on 09/18/18 111 Insulin Glargine,Hum.rec.anlog (Toujeo Max Solostar) 300 Unit/1 Ml Insuln.pen, 140 UNITS SC HS, (Reported) Entered as Reported by: EMIR HARDIN on 09/18/18 111 Isosorbide Mononitrate (Isosorbide Mononitrate ER) 60 Mg Tab, 60 MG PO DAILY, (Reported) Entered as Reported by: EMIR HARDIN on 09/18/18 125 Lactobacillus Acidophilus/Pect (Acidophilus-Pectin Capsule) 1 Each Capsule, 1 EACH PO TIDWM Prescribed by: SUE PURCELL on 09/23/18 111 Levofloxacin (Levofloxacin) 750 Mg Tablet, 750 MG PO Q48H Prescribed by: ROSITA THOMPSON on 04/27/20 1416 Liraglutide (Victoza 3-Bjorn) 0.6 Mg/0.1 Ml Pen.injctr, 1.2 MG SC HS, (Reported) Entered as Reported by: EMIR HARDIN on 09/18/18 111 Lisinopril (Lisinopril) 5 Mg Tablet, 5 MG PO DAILY, (Reported) Entered as Reported by: EMIR HARDIN on 09/18/18 125 Morphine Sulfate (Morphine Sulfate ER) 30 Mg Tablet.er, 30 MG PO BID, (Reported) Entered as Reported by: EMIR HARDIN on 09/18/18 111 Multivitamin (Multivitamins) 1 Each Tablet, 1 TAB PO DAILY, (Reported) Entered as Reported by: EMIR HARDIN on 09/18/18 1110 Oxycodone HCl/Acetaminophen (Oxycodone-Acetaminophen 5-325) 1 Each Tablet, 1 TAB PO Q4H PRN for PAIN-MODERATE, (Reported) Entered as Reported by: EMIR HARDIN on 09/18/18 1110 Ranitidine HCl (Ranitidine HCl) 150 Mg Tablet, 150 MG PO DAILY, (Reported) Entered as Reported by: EMIR HARDIN on 09/18/18 1251 Terazosin HCl (Terazosin HCl) 2 Mg Capsule, 2 MG PO DAILY, (Reported) Entered as Reported by: EMIR HARDIN on 09/18/18 1251 Trazodone HCl (Trazodone HCl) 100 Mg Tablet, 100 MG PO HS, (Reported) Entered as Reported by: EMIR HARDIN on 09/18/18 1251 Review of Systems Constitutional: chills, weakness EENTM: no symptoms reported Respiratory: no symptoms reported Cardiovascular: no symptoms reported Gastrointestinal: no symptoms reported Genitourinary: no symptoms reported Musculoskeletal: see HPI Skin: see HPI Psychiatric/Neurological: No Symptoms Reported (SHANE BARAHONA APRN) Past Fplnwbs-Vuuuhu-Kzdfjl Hx Immunizations Up To Date Tetanus Booster (TDap): Unknown (SHANE BARAHONA APRN) Seasonal Allergies Seasonal Allergies: Yes (SHANE BARAHONA APRN) Past Medical History Surgeries: Yes Adenoidectomy, Amputation, Cardiac, Dialysis, Ear Surgery, Orthopedic, Tonsillectomy Respiratory: Yes Pulmonary Embolism, COPD Currently Using CPAP: No Cardiac: Yes Coronary Artery Disease, Deep Vein Thrombosis, High Cholesterol, Hypertension, Peripheral Vascular Neurological: Yes Neuropathy Reproductive Disorders: No Sexually Transmitted Disease: No HIV/AIDS: No Genitourinary: Yes Renal Failure Gastrointestinal: Yes (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 No Pertinent Family Hx (SHANE BARAHONA APRN) Physical Exam Vital Signs Vital Signs - First Documented 01/18/21 13:35 Temp 37.2 Pulse 86 Resp 18 B/P (MAP) 115/87 (96) Pulse Ox 97 O2 Delivery Nasal Cannula O2 Flow Rate 2.00 (ZAY VILLALOBOS DO) Vital Signs Capillary Refill : (SHANE BARAHONA APRN) Height, Weight, BMI Height: 6'7.00" Weight: 416lbs. 9.0oz. 188.748716cf; 57.23 BMI Method:Stated General Appearance: WD/WN, no apparent distress HEENT: PERRL/EOMI, normal ENT inspection, pharynx normal Neck: full range of motion, normal inspection Cardiovascular: regular rate, rhythm, no murmur, other (generalized edema ) Respiratory: lungs clear, normal breath sounds, no respiratory distress, no accessory muscle use Gastrointestinal: normal bowel sounds, non tender, soft; No no organomegaly (unable to assess ) Hips: bilateral hip non-tender, bilateral hip normal inspection Legs: bilateral leg non-tender, bilateral leg normal inspection Feet: left foot other (base of left foot has wet gangrene, foul odor, sloughing skin, missing 5th toe. has partial amputation on right foot, still has 1st toe on right foot)) Neurologic/Tendon: responds to pain Neurologic/Psychiatric: no motor/sensory deficits, alert, normal mood/affect, oriented x 3 Skin: pallor, other (bilateral lower ext lymphedema, worse on right ) (SHANE BARAHONA APRN) Progress/Results/Core Measures Results/Orders Lab Results Laboratory Tests Test 01/18/21 13:45 01/18/21 13:48 01/18/21 15:50 01/18/21 16:08 Range/Units White Blood Count 25.6 H 4.3-11.0 10^3/uL Red Blood Count 3.05 L 4.30-5.52 10^6/uL Hemoglobin 7.7 L 13.3-17.7 g/dL Hematocrit 23 L 40-54 % Mean Corpuscular Volume 77 L 80-99 fL Mean Corpuscular Hemoglobin 25 25-34 pg Mean Corpuscular Hemoglobin Concent 33 32-36 g/dL Red Cell Distribution Width 16.8 H 10.0-14.5 % Platelet Count 360 130-400 10^3/uL Mean Platelet Volume 9.4 9.0-12.2 fL Immature Granulocyte % (Auto) 3 % Neutrophils (%) (Auto) 90 H 42-75 % Lymphocytes (%) (Auto) 3 L 12-44 % Monocytes (%) (Auto) 4 0-12 % Eosinophils (%) (Auto) 0 0-10 % Basophils (%) (Auto) 0 0-10 % Neutrophils # (Auto) 23.0 H 1.8-7.8 10^3/uL Lymphocytes # (Auto) 0.7 L 1.0-4.0 10^3/uL Monocytes # (Auto) 1.1 H 0.0-1.0 10^3/uL Eosinophils # (Auto) 0.0 0.0-0.3 10^3/uL Basophils # (Auto) 0.1 0.0-0.1 10^3/uL Immature Granulocyte # (Auto) 0.7 H 0.0-0.1 10^3/uL Neutrophils % (Manual) 95 % Lymphocytes % (Manual) 4 % Monocytes % (Manual) 1 % Eosinophils % (Manual) 0 % Basophils % (Manual) 0 % Band Neutrophils 0 % Polychromasia SLIGHT Anisocytosis SLIGHT Microcytosis SLIGHT Prothrombin Time 28.2 H 12.2-14.7 SEC INR Comment 2.6 H 0.8-1.4 Activated Partial Thromboplast Time 55 H 24-35 SEC Sodium Level 117 *L 135-145 MMOL/L Potassium Level 4.8 3.6-5.0 MMOL/L Chloride Level 87 L 98-107 MMOL/L Carbon Dioxide Level 17 L 21-32 MMOL/L Anion Gap 13 5-14 MMOL/L Blood Urea Nitrogen 68 H 7-18 MG/DL Creatinine 4.64 H 0.60-1.30 MG/DL Estimat Glomerular Filtration Rate 13 BUN/Creatinine Ratio 15 Glucose Level 211 H 70-105 MG/DL Lactic Acid Level 2.48 *H 1.39 0.50-2.00 MMOL/L Calcium Level 8.0 L 8.5-10.1 MG/DL Corrected Calcium 9.3 8.5-10.1 MG/DL Total Bilirubin 1.2 H 0.1-1.0 MG/DL Aspartate Amino Transf (AST/SGOT) 52 H 5-34 U/L Alanine Aminotransferase (ALT/SGPT) 32 0-55 U/L Alkaline Phosphatase 211 H 40-136 U/L C-Reactive Protein High Sensitivity 26.58 H 0.00-0.50 MG/DL Total Protein 7.2 6.4-8.2 GM/DL Albumin 2.4 L 3.2-4.5 GM/DL Procalcitonin 6.11 H <0.10 NG/ML Glucometer 225 H 70-110 MG/DL SARS-CoV-2 RNA (RT-PCR) Not Detected Not Detecte Test 01/18/21 16:45 01/18/21 22:08 01/19/21 02:00 01/19/21 02:45 Range/Units Urine Color YELLOW Urine Clarity CLEAR Urine pH 5.5 5-9 Urine Specific Gilbert 1.025 H 1.016-1.022 Urine Protein 2+ H NEGATIVE Urine Glucose (UA) NEGATIVE NEGATIVE Urine Ketones NEGATIVE NEGATIVE Urine Nitrite NEGATIVE NEGATIVE Urine Bilirubin 1+ H NEGATIVE Urine Urobilinogen 1.0 < = 1.0 MG/DL Urine Leukocyte Esterase TRACE H NEGATIVE Urine RBC (Auto) 3+ H NEGATIVE Urine RBC 5-10 H /HPF Urine WBC RARE /HPF Urine Squamous Epithelial Cells NONE /HPF Urine Crystals NONE /LPF Urine Amorphous Sediment FEW SARAH URATES H /LPF Urine Bacteria NEGATIVE /HPF Urine Casts NONE /LPF Urine Mucus NEGATIVE /LPF Urine Culture Indicated NO Sodium Level 119 *L 121 *L 135-145 MMOL/L Potassium Level 5.0 4.8 3.6-5.0 MMOL/L Chloride Level 90 L 91 L 98-107 MMOL/L Carbon Dioxide Level 18 L 19 L 21-32 MMOL/L Anion Gap 11 11 5-14 MMOL/L Blood Urea Nitrogen 70 H 72 H 7-18 MG/DL Creatinine 4.60 H 4.81 H 0.60-1.30 MG/DL Estimat Glomerular Filtration Rate 13 13 BUN/Creatinine Ratio 15 Glucose Level 207 H 188 H 70-105 MG/DL Calcium Level 7.5 L 7.5 L 8.5-10.1 MG/DL White Blood Count 24.1 H 4.3-11.0 10^3/uL Red Blood Count 2.56 L 4.30-5.52 10^6/uL Hemoglobin 6.5 *L 13.3-17.7 g/dL Hematocrit 20 *L 40-54 % Mean Corpuscular Volume 79 L 80-99 fL Mean Corpuscular Hemoglobin 25 25-34 pg Mean Corpuscular Hemoglobin Concent 32 32-36 g/dL Red Cell Distribution Width 17.0 H 10.0-14.5 % Platelet Count 320 130-400 10^3/uL Mean Platelet Volume 9.1 9.0-12.2 fL Immature Granulocyte % (Auto) 2 % Neutrophils (%) (Auto) 89 H 42-75 % Lymphocytes (%) (Auto) 4 L 12-44 % Monocytes (%) (Auto) 5 0-12 % Eosinophils (%) (Auto) 0 0-10 % Basophils (%) (Auto) 0 0-10 % Neutrophils # (Auto) 21.3 H 1.8-7.8 10^3/uL Lymphocytes # (Auto) 1.0 1.0-4.0 10^3/uL Monocytes # (Auto) 1.2 H 0.0-1.0 10^3/uL Eosinophils # (Auto) 0.0 0.0-0.3 10^3/uL Basophils # (Auto) 0.1 0.0-0.1 10^3/uL Immature Granulocyte # (Auto) 0.5 H 0.0-0.1 10^3/uL Corrected Calcium 9.0 8.5-10.1 MG/DL Total Bilirubin 0.8 0.1-1.0 MG/DL Aspartate Amino Transf (AST/SGOT) 41 H 5-34 U/L Alanine Aminotransferase (ALT/SGPT) 27 0-55 U/L Alkaline Phosphatase 167 H 40-136 U/L Total Protein 6.5 6.4-8.2 GM/DL Albumin 2.1 L 3.2-4.5 GM/DL Procalcitonin 7.77 H <0.10 NG/ML Lactic Acid Level 0.87 0.50-2.00 MMOL/L Test 01/19/21 05:00 Range/Units (WILFREDO,ZAY K DO) Micro Results Microbiology (CHAD VILLALOBOSA K DO) My Orders Orders - ZAY VILLALOBOS K DO Piperacillin Sodium/Tazobactam (Zosyn Vi (01/18/21 23:15) Cbc With Automated Diff (01/19/21 01:17) Comprehensive Metabolic Panel (01/19/21 01:17) Lactic Acid Analyzer (01/19/21 01:17) Procalcitonin (Pct) (01/19/21 01:17) Red Cells Leukocytes Reduced (01/19/21 02:25) Type And Screen (01/19/21 02:25) Ed Iv/Invasive Line Start (01/19/21 02:33) Ns Iv 1000 Ml (Sodium Chloride 0.9%) (01/19/21 02:45) Cbc No Diff (01/19/21 05:34) (ZAY VILLALOBOS DO) Medications Given in ED Current Medications Medications Dose Ordered Sig/Haven Route Start Time Stop Time Status Last Admin Dose Admin Piperacillin Sod/ Tazobactam Sod 4.5 gm/Sodium Chloride 100 ml @ 200 mls/hr ONCE ONCE IV 01/18/21 23:15 01/18/21 23:44 DC 01/18/21 23:55 200 MLS/HR (ZAY VILLALOBOS DO) Vital Signs/I&O 01/18/21 01/19/21 01/19/21 13:35 03:42 03:57 Temp 37.2 35.9 36.1 Pulse 86 70 67 Resp 18 16 15 B/P (MAP) 115/87 (96) 121/79 120/55 Pulse Ox 97 96 98 O2 Delivery Nasal Cannula Nasal Cannula Nasal Cannula O2 Flow Rate 2.00 2.00 2.00 01/19/21 00:00 Intake Total 2640 ml Balance 2640 ml (CHAD VILLALOBOSA Isabel ORNELAS) Progress Progress Note : Progress Note Upon arrival patient noted to have gangrenous ulceration of his left foot and he is a known diabetic. Initiated sepsis work-up. Consulted Dr. Brown general surgeon at 1348. Dr. Brown presented to the emergency department to consult, after reviewing patient's labs recommended transfer to dialysis capable facility as patient has history of stage III chronic kidney disease however his creatinine is 3 times his baseline. Discussed plan with patient and he is agreeable with plan. Called [facility] hospital [facility] currently at [facility]. Called [facility] to assist with bed placement. [facility] returned call with [facility]. Dr. Sanchez accepted patie nt transfer at 1635. Notified [facility] of transfer. Will dispatch when bed assignment completed. Dr. Sanchez requested patient receive Vancomycin 1gm IV in addition to his previously received Zosyn 4.5GM. Patient has received total of NS 2 liters and Zosyn. Repeat lactic <2. Patient assisted with transferring to pressure reduction bariatric bed. [facility] transfer called and requested Girth measurement for MRI. Information obtained by RN and results called to [facility]. Patient resting comfortably after Morphine 4mg IVP. VSS. Breathing easy. Patient updated regarding POC. Discussed likelihood of amputation due to extent of necrosis. Patient very accepting of news and verbalized understanding of plan. [facility] updated regarding transfer. Unable to transfer patient until tomorrow am. RN called [facility], [facility], [facility], [facility], and [facility] for possible transfer. All declined transfer. 2149: [facility] transfer called and updated that [facility] has Bariatric bed available. [facility] available to transfer to [facility] within a few hours. 2204: Discussed case with Dr. Curran. Would like [facility] repeated to re-evaluate sodium before accepting transfer, to call results to [facility] transfer line. 2300: Results of BMP called to [facility] transfer line. Updated that no beds are available any longer. Will keep patient on list for possible transfer to [facility] if bed opens. Patient is still accepted to [facility]. Will plan for transfer in AM around 0800 as this is when EMS transportation will be available. 2340: Dr. Villalobos updated on patient labs/status. Orders placed for 2nd dose of Zosyn. Care turned over to Dr. Villalobos. (SHANE BARAHONA APRN) Progress Note : Progress Note 2340--ASSUMED CARE OF PATIENT AT END OF SHIFT. PT RESTING QUIETLY/SLEEPING, VITALS STABLE. PT IS EXTREMELY MALODOROUS. WILL REPEAT LAB, AND GIVE NEXT DOSE OF ZOSYN. MULTIPLE LOCAL EMS SERVICES [facility] HAVE BEEN CONTACTED, AND NONE ARE AVAILABLE UNTIL MORNING. FOCUS EXAM AT 2345: SOURCE: SKIN/SOFT TISSUE HEART--RRR, NO MURMUR LUNGS--CLEAR TO AUSCULTATION HAS BEEN GIVEN IV FLUIDS, ANTIBIOTICS, LACTIC ACID LEVEL DRAWN AND FOCUS EXAM DONE. 0235--REPEAT LAB RESULTS NOTED, WITH HGB OF 6.5--WILL TRANSFUSE 2 UNITS OF PRBC'S. PT WITH NORMAL VITALS AND HAS NO COMPLAINTS AT THIS TIME. MAINTENANCE FLUIDS /SALINE RUNNING AT THIS TIME. 0545--PT WITH NORMAL VITALS, HAS RECEIVED FIRST UNIT OF BLOOD WITHOUT ANY ADVERSE EFFECTS. SECOND UNIT TO BE GIVEN. PT SLEEPING SOUNDLY AT THIS TIME. NO DYSPNEA NO HYPOXIA NO HYPOTENSION NO TACHYCARDIA NO FEVER 0600--CARE TURNED OVER TO DR. HUBBARD AT SHIFT CHANGE. (ZAY VILLALOBOS DO) Initial ECG Impression Date: Jan 18, 2021 Initial ECG Impression Time: 13:47 Initial ECG Rate: 86 Initial ECG Rhythm: Normal Sinus Initial ECG Intervals: Normal Initial ECG Impression: Normal (SHANE BARAHONA APRN) Diagnostic Imaging Diagonstic Imaging: Xray Plain Films/CT/US/NM/MRI: chest Comments [facility] [place] [place] NAME: MINAYADEANDRE R [facility] REC#: [id number] PT STATUS: REG ER : 1965 PHYSICIAN: SHANE BRAAHONA APRN ADMIT DATE: 01/18/21/ER Signed Date of Exam:01/18/21 CHEST 1 VIEW, AP/PA ONLY INDICATION: sepsis COMPARISON: 05/21/2020 FINDINGS: 2 frontal radiograph views the chest were obtained and demonstrate normal heart size and pulmonary vascularity. The lungs are well aerated and clear. No large pleural effusion or pneumothorax is seen. The visualized osseous structures show no acute abnormalities. IMPRESSION: 1. No acute cardiopulmonary process. Dictated by: Dictated on workstation # [id number] Dict: 01/18/21 1405 Trans: 01/18/211956 [facility] [id number] Interpreted by: LUIS ENRIQUE CELIS MD Electronically signed by: LUIS ENRIQUE CELIS MD 01/18/211956 Reviewed: Reviewed by La Diagonstic Imaging: Xray Comments [facility] [place] [place] NAME: DEANDRE MINAYA MED REC#: [id number] PT STATUS: REG ER : 1965 PHYSICIAN: SHANE BARAHONA APRN ADMIT DATE: 01/18/21/ER Signed Date of Exam:01/18/21 LEFT LOW EXT ARTERIAL [id number] INDICATION: Gangrene of the left foot. COMPARISON: None. TECHNIQUE: Doppler, grayscale, and color-flow imaging of the left lower extremity arterial system was performed. FINDINGS: There is diffuse echogenic atherosclerotic disease throughout the left lower extremity arterial system. There is predominant monophasic flow throughout. Based on NASCET criteria, there is no focal significant stenosis from the common femoral through to the popliteal artery. There is preservation of flow within the anterior tibial and dorsalis pedis arteries. Patent posterior tibial artery cannot be adequately identified. IMPRESSION: 1. Moderate diffuse echogenic atherosclerotic disease of the left lower extremity arterial system, but no evidence of focal significant stenosis from the left common femoral through to the popliteal artery. 2. Patent left posterior tibial artery cannot be identified and may be occluded. Chronicity is indeterminate. Dictated by: Dictated on workstation # [id number] Dict: 01/18/21 1541 Trans: 01/18/211958 [id number] Interpreted by: LUIS ENRIQUE CELIS MD Electronically signed by: LUIS ENRIQUE CELIS MD 01/18/211958 Reviewed: Reviewed by Me Comments [facility] [place], [place] NAME: DEANDRE MINAYA [facility] REC#: [id number] PT STATUS: REG ER : 1965 PHYSICIAN: SHANE BARAHONA APRN ADMIT DATE: 01/18/21/ER Signed Date of Exam:01/18/21 FOOT, LEFT, 3 VIEWS INDICATION: Foot ulcerations and necrosis. EXAMINATION: Left foot, 3 views, on 01/18/2021. COMPARISON: 11/16/2020. FINDINGS: There is diffuse subcutaneous air, predominantly along the plantar aspect of the mid and hindfoot but extending towards the forefoot as well. Soft tissue prominence is seen diffusely about the foot. An underlying abscess is not excluded. There is focal irregularity along the plantar surface of the posterior calcaneus and along the posterior border of the calcaneus, suspicious for osteomyelitis. Post amputation changes are noted along the mid to proximal 5th metatarsal. There is deformity of the proximal 4th phalanx and the 4th metatarsal, consistent with old fractures. There is diffuse degenerative disease throughout the midfoot. IMPRESSION: 1. Diffuse soft tissue abnormalities including subcutaneous air suggesting a gas-forming organism. 2. Suspicion of osteomyelitis along the posterior and plantar aspects of the calcaneus. This could be further characterized with MRI with and without contrast. 3. Other findings as above. Dictated by: Dictated on workstation # [id number] Dict: 01/18/21 1456 Trans: 01/18/21 1538 [id number] Interpreted by: SUSAN BONDS MD Electronically signed by: SUSAN BONDS MD 01/18/212 (SHANE BARAHONA APRN) Departure Communication (Admissions) 040--CALLED [facility] TRANSFER LINE, FOR UPDATE. PT HAS BEEN ACCEPTED BY PHYSICIAN AT [facility], BUT THERE ARE STILL NO BARIATRIC BEDS AVAILABLE THERE, WITH NO ANTICIPATED OPENINGS TODAY, THEREFORE WE ARE STILL UNABLE TO TRANSFER PATIENT THERE, EVEN IF TRANSPORTATION BECOMES AVAILABLE. ] UPDATED THEM ON CONDITION, REPEAT LAB AND TRANSFUSION, WELL TREATMENT DONE UP TO THIS POINT. PT'S SODIUM IS NOW > 120, AND [facility] NOW HAS A BARIATRIC BED AVAILABLE, THEY WILL CONTACT HOSPITALIST AT [facility] AND CALL ME BACK. 0442--[facility] CALLED BACK. SPOKE WITH DR. MORGAN, HOSPITALIST, HE ADVISES THAT PT NEEDS ICU BED, AND THEY DO NOT HAVE ANY ICU BEDS AVAILABLE. [facility] STILL DO NOT HAVE ANY BARIATRIC BEDS, AND DO NOT ANTICIPATE THAT THEY WILL HAVE ANY TODAY. 0447--CALLED [facility]. THEY WILL CALL BACK. 045--CALLED [facility], THEY ARE ON DIVERSION/NO BEDS AVAILABLE 045--CALLED [facility], THEY WILL CALL BACK. 0523--[facility] CALLED BACK, SPOKE WITH DR. WEBER, [facility] [employer] AND BORDER OFFICER, ACCEPTS PT FOR ADMIT. ADVISES TO SWITCH TO [facility] FOR ANTIBIOTIC COVERAGE. DOES NOT ADVISE ADDITIONAL FLUIDS OTHER THAN CURRENT MAINTENANCE SALINE. THEY WILL CALL BACK WITH BED ASSIGNMENT. 0535--SPOKE WITH [facility], THEY DO NOT HAVE THE CAPACITY TO ACCOMODATE PT. 0540--RN IS CONTACTING [facility] DISPATCH. THEY WILL HAVE TRANSFER CREW AVAILABLE AFTER SHIFT CHANGE AT 0800. 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 Referrals: RAVI HERNANDEZ MD (PCP/Family) Primary Care Physician SHANE BARAHONA APRN Jan 18, 2021 13:53 ZAY VILLALOBOS DO Jan 19, 2021 02:03
[2021-01-18] MEDS ORDERED: NS IV 1000 ML 1,000 ML IV ONE ×2 (14:00→15:00)
[2021-01-18 14:03] LABS: ALBUMIN 2.4 GM/DL (3.2-4.5); POTASSIUM 4.8 MMOL/L (3.6-5.0)
[2021-01-18 14:04] LABS: INR 2.6 (0.8-1.4); PROTHROMBIN TIME PATIENT 28.2 SEC (12.2-14.7)
[2021-01-18 14:06] LABS: TOTAL PROTEIN 7.2 GM/DL (6.4-8.2)
[2021-01-18 14:07] LABS: BILIRUBIN,TOTAL 1.2 MG/DL (0.1-1.0)
--- NOTE | 2021-01-18 14:07 | Diagnostic Imaging Report ---
INDICATION: sepsis COMPARISON: 05/21/2020 FINDINGS: 2 frontal radiograph views the chest were obtained and demonstrate normal heart size and pulmonary vascularity. The lungs are well aerated and clear. No large pleural effusion or pneumothorax is seen. The visualized osseous structures show no acute abnormalities. IMPRESSION: 1. No acute cardiopulmonary process. Dictated by: Dictated on workstation # [id number]
[2021-01-18 14:10] LABS: CREATININE SERUM 4.64 MG/DL (0.60-1.30)
[2021-01-18 14:25] LABS: ANISOCYTOSIS SLIGHT; BAND NEUTROPHILS 0 %; BASOPHILS % (MANUAL) 0 %; EOSINOPHILS % (MANUAL) 0 %; LYMPHOCYTES % (MANUAL) 4 %; MICROCYTOSIS SLIGHT; MONOCYTES % (MANUAL) 1 %; NEUTROPHILS % (MANUAL) 95 %; POLYCHROMASIA SLIGHT
--- NOTE | 2021-01-18 15:00 | Diagnostic Imaging Report ---
INDICATION: Foot ulcerations and necrosis. EXAMINATION: Left foot, 3 views, on 01/18/2021. COMPARISON: 11/16/2020. FINDINGS: There is diffuse subcutaneous air, predominantly along the plantar aspect of the mid and hindfoot but extending towards the forefoot as well. Soft tissue prominence is seen diffusely about the foot. An underlying abscess is not excluded. There is focal irregularity along the plantar surface of the posterior calcaneus and along the posterior border of the calcaneus, suspicious for osteomyelitis. Post amputation changes are noted along the mid to proximal 5th metatarsal. There is deformity of the proximal 4th phalanx and the 4th metatarsal, consistent with old fractures. There is diffuse degenerative disease throughout the midfoot. IMPRESSION: 1. Diffuse soft tissue abnormalities including subcutaneous air suggesting a gas-forming organism. 2. Suspicion of osteomyelitis along the posterior and plantar aspects of the calcaneus. This could be further characterized with MRI with and without contrast. 3. Other findings as above. Dictated by: Dictated on workstation # [id number]
[2021-01-18] MEDS ORDERED: PIPERACILLIN/TAZOBACTAM (BULK) 4.5 GM in NS (IVPB) 100 ML IV NR (15:30)
--- NOTE | 2021-01-18 15:46 | Diagnostic Imaging Report ---
INDICATION: Gangrene of the left foot. COMPARISON: None. TECHNIQUE: Doppler, grayscale, and color-flow imaging of the left lower extremity arterial system was performed. FINDINGS: There is diffuse echogenic atherosclerotic disease throughout the left lower extremity arterial system. There is predominant monophasic flow throughout. Based on NASCET criteria, there is no focal significant stenosis from the common femoral through to the popliteal artery. There is preservation of flow within the anterior tibial and dorsalis pedis arteries. Patent posterior tibial artery cannot be adequately identified. IMPRESSION: 1. Moderate diffuse echogenic atherosclerotic disease of the left lower extremity arterial system, but no evidence of focal significant stenosis from the left common femoral through to the popliteal artery. 2. Patent left posterior tibial artery cannot be identified and may be occluded. Chronicity is indeterminate. Dictated by: Dictated on workstation # [id number]
--- NOTE | 2021-01-18 16:12 | Consultation - Surgery ---
History of Present Illness History of Present Illness Patient Consulted On(rosetta/time) 01/18/21 15:59 Time Seen by Provider: 14:14 History of Present Illness Surgery asked to consult regarding Left foot, gangrene. Pt is a 55 yo male who presents after a fall at home. He denied hitting his head, main complaint was back pain and left foot pain. Pt states he was being seen in the wound clinic, but they told him he need angiography of leg and he told them he couldn't because he has bad kidneys. He states then they fired him. He was trying to "take care of it myself" for the past week. Sister is in the room, she is not sure how long his foot has been like this; thinks someone told her it had "been smelling" for a while. She also states "he is not acting right; can't hold his phone, is sleepy and has the shakes". None of these are normal for him. Pt rates the pain as 7 out of 10. His leg is swollen and he thinks it has been that way for 6 months. Allergies and Home Medications Allergies Coded Allergies: cortisone (Verified Allergy, Unknown, HIVES, 11/11/14) meloxicam (Verified Allergy, Unknown, 05/28/17) pregabalin (Verified Allergy, Unknown, 05/28/17) shellfish derived (Verified Allergy, Unknown, 11/11/14) Uncoded Allergies: THYLAID (Allergy, Unknown, 11/11/14) Patient Home Medication List Home Medication List Reviewed: Yes Apixaban (Eliquis) 5 Mg Tablet, 5 MG PO BID, (Reported) Entered as Reported by: EMIR HARDIN on 09/18/18 1251 Atorvastatin Calcium (Atorvastatin Calcium) 20 Mg Tablet, 20 MG PO HS, (Reported) Entered as Reported by: EMIR HARDIN on 09/18/18 1251 Budesonide/Formoterol Fumarate (Symbicort 160-4.5 Mcg Inhaler) 10.2 Gm Hfa.aer.ad, 2 PUFF INH BID, (Reported) Entered as Reported by: EMIR HARDIN on 09/18/18 1110 Carvedilol (Coreg) 25 Mg Tab, 25 MG PO BID, (Reported) Entered as Reported by: EMIR HARDIN on 09/18/18 1251 Diltiazem HCl (Diltiazem 24Hr Cd) 120 Mg Cap.er.24h, 120 MG PO DAILY Prescribed by: SUE PURCELL on 09/23/18 111 Furosemide (Furosemide) 40 Mg Tablet, 40 MG PO DAILY, (Reported) Entered as Reported by: EMIR HARDIN on 09/18/18 125 Gabapentin (Gabapentin) 800 Mg Tablet, 800 MG PO TID, (Reported) Entered as Reported by: EMIR HARDIN on 09/18/18 111 Insulin Aspart (Novolog Flexpen) 300 Units/3 Ml Solution, SC TIDAC, (Reported) Entered as Reported by: EMIR HARDIN on 09/18/18 111 Insulin Glargine,Hum.rec.anlog (Toujeo Max Solostar) 300 Unit/1 Ml Insuln.pen, 140 UNITS SC HS, (Reported) Entered as Reported by: EMIR HARDIN on 09/18/18 111 Isosorbide Mononitrate (Isosorbide Mononitrate ER) 60 Mg Tab, 60 MG PO DAILY, (Reported) Entered as Reported by: EMIR HARDIN on 09/18/18 125 Lactobacillus Acidophilus/Pect (Acidophilus-Pectin Capsule) 1 Each Capsule, 1 EACH PO TIDWM Prescribed by: SUE PURCELL on 09/23/18 111 Levofloxacin (Levofloxacin) 750 Mg Tablet, 750 MG PO Q48H Prescribed by: ROSITA THOMPSON on 04/27/20 1416 Liraglutide (Victoza 3-Bjorn) 0.6 Mg/0.1 Ml Pen.injctr, 1.2 MG SC HS, (Reported) Entered as Reported by: EMIR HARDIN on 09/18/18 111 Lisinopril (Lisinopril) 5 Mg Tablet, 5 MG PO DAILY, (Reported) Entered as Reported by: EMIR HARDIN on 09/18/18 125 Morphine Sulfate (Morphine Sulfate ER) 30 Mg Tablet.er, 30 MG PO BID, (Reported) Entered as Reported by: EMIR HARDIN on 09/18/18 111 Multivitamin (Multivitamins) 1 Each Tablet, 1 TAB PO DAILY, (Reported) Entered as Reported by: EMIR HARDIN on 09/18/18 1110 Oxycodone HCl/Acetaminophen (Oxycodone-Acetaminophen 5-325) 1 Each Tablet, 1 TAB PO Q4H PRN for PAIN-MODERATE, (Reported) Entered as Reported by: EMIR HARDIN on 09/18/18 1110 Ranitidine HCl (Ranitidine HCl) 150 Mg Tablet, 150 MG PO DAILY, (Reported) Entered as Reported by: EMIR HARDIN on 09/18/18 1251 Terazosin HCl (Terazosin HCl) 2 Mg Capsule, 2 MG PO DAILY, (Reported) Entered as Reported by: EMIR HARDIN on 09/18/18 1251 Trazodone HCl (Trazodone HCl) 100 Mg Tablet, 100 MG PO HS, (Reported) Entered as Reported by: EMIR HARDIN on 09/18/18 125 Past Grltbof-Aalzjk-Snbsjh Hx Patient Social History Drug of Choice: THC, EXTENSIVE ABUSE OF PRESCRIPTION DRUGS Smoking Status: Unknown if Ever Smoked Former Smoker, Quit: Jun 14, 1986 Type Used: Smokeless Tobacco 2nd Hand Smoke Exposure: No Recent Hopitalizations: No Immunizations Up To Date Tetanus Booster (TDap): Unknown Date of Pneumonia Vaccine: Jun 13, 2007 Date of Influenza Vaccine: Apr 25, 2020 Seasonal Allergies Seasonal Allergies: Yes Surgeries History of Surgeries: Yes Surgeries: Adenoidectomy, Amputation, Cardiac, Dialysis, Ear Surgery, Orthopedic, Tonsillectomy Respiratory History of Respiratory Disorde: Yes Respiratory Disorders: Pulmonary Embolism, COPD Cardiovascular History of Cardiac Disorders: Yes Cardiac Disorders: Coronary Artery Disease, Deep Vein Thrombosis, High Cho lesterol, Hypertension, Peripheral Vascular Neurological History of Neurological Disord: Yes Neurological Disorders: Neuropathy Reproductive System Hx Reproductive Disorders: No Sexually Transmitted Disease: No HIV/AIDS: No Genitourinary History of Genitourinary Disor: Yes Genitourinary Disorders: Renal Failure Gastrointestinal History of Gastrointestinal Di: Yes (STATES HE HAS A DAMAGED LIVER) Gastrointestinal Disorders: Gastroesophageal Reflux, Liver Disease/Jaundice, Chronic Constipation Musculoskeletal History of Musculoskeletal Dis: Yes Musculoskeletal Disorders: Arthritis Endocrine History of Endocrine Disorders: Yes Endocrine Disorders: Diabetes, Insulin dep HEENT History of HEENT Disorders: Yes (S/P BMT'S AND T &A) HEENT Disorders: Chronic Ear Infection, Tonsilitis Loss of Vision: Denies Hearing Impairment: Denies Cancer History of Cancer: No Psychosocial History of Psychiatric Problem: Yes (POLYSUBSTANCE ABUSE; OVERDOSED) Behavioral Health Disorders: Sleep Difficulties, Anxiety, Suicide Attempts, Depression Integumentary History of Skin or Integumenta: Yes Skin/Integumentary Disorders: Recent Skin Changes Blood Transfusions History of Blood Disorders: No Adverse Reaction to a Blood Tr: No Family Medical History Significant Family History: Diabetes (denied in his family) Family Medial History: Patient reports no known family medical history. Review of Systems-General Constitutional: dizziness, malaise EENTM: No mouth swelling, No epistaxis Respiratory: No cough, No dyspnea on exertion Cardiovascular: No chest pain, No edema Gastrointestinal: No abdominal pain, No nausea, No vomiting Genitourinary: No dysuria, No frequency, No hematuria Musculoskeletal: back pain, joint pain, muscle stiffness, muscle twitching, muscle weakness Skin: change in color, change in hair/nails Psychiatric/Neurological: Denies Anxiety, Denies Depressed; Tremors, Weakness Physical Exam-General Problems Physical Exam Vital Signs Vital Signs - First Documented 01/18/21 13:35 Temp 37.2 Pulse 86 Resp 18 B/P (MAP) 115/87 (96) Pulse Ox 97 O2 Delivery Nasal Cannula O2 Flow Rate 2.00 Capillary Refill : Less Than 3 Seconds General Appearance: moderate distress, obese (morbidly) Eyes: Bilateral Eye PERRL, Bilateral Eye EOMI HEENT: pharynx normal; No scleral icterus (R), No scleral icterus (L) Neck: non-tender, supple Respiratory: lungs clear, normal breath sounds, no respiratory distress, no accessory muscle use Cardiovascular: regular rate, rhythm, no murmur Gastrointestinal: non tender, soft, no organomegaly Back: no CVA tenderness, no vertebral tenderness Extremities: no calf tenderness, pedal edema, other (base of left foot has wet gangrene, foul odor, sloughing skin, missing 5th toe. has partial amputation on right foot, still has 1st toe on right foot) Neurologic/Psychiatric: other (slightly disoriented, but answering questions a ppropriately) Skin: normal color, warm/dry Lymphatic: no adenopathy (neck, axilla), inguinal node tender (L) Data Review Labs Laboratory Tests 01/18/21 13:45: White Blood Count 25.6H, Red Blood Count 3.05L, Hemoglobin 7.7L, Hematocrit 23L, Mean Corpuscular Volume 77L, Mean Corpuscular Hemoglobin 25, Mean Corpuscular Hemoglobin Concent 33, Red Cell Distribution Width 16.8H, Platelet Count 360, Mean Platelet Volume 9.4, Immature Granulocyte % (Auto) 3, Neutrophils (%) (Auto) 90H, Lymphocytes (%) (Auto) 3L, Monocytes (%) (Auto) 4, Eosinophils (%) (Auto) 0, Basophils (%) (Auto) 0, Neutrophils # (Auto) 23.0H, Lymphocytes # ( Auto) 0.7L, Monocytes # (Auto) 1.1H, Eosinophils # (Auto) 0.0, Basophils # (Auto) 0.1, Immature Granulocyte # (Auto) 0.7H, Neutrophils % (Manual) 95, Lymphocytes % (Manual) 4, Monocytes % (Manual) 1, Eosinophils % (Manual) 0, Basophils % (Manual) 0, Band Neutrophils 0, Polychromasia SLIGHT, Anisocytosis SLIGHT, Microcytosis SLIGHT, Prothrombin Time 28.2H, INR Comment 2.6H, Activated Partial Thromboplast Time 55H, Sodium Level 117*L, Potassium Level 4.8, Chloride Level 87L, Carbon Dioxide Level 17L, Anion Gap 13, Blood Urea Nitrogen 68H, Creatinine 4.64H, Estimat Glomerular Filtration Rate 13, BUN/Creatinine Ratio 15, Glucose Level 211H, Lactic Acid Level 2.48*H, Calcium Level 8.0L, Corrected Calcium 9.3, Total Bilirubin 1.2H, Aspartate Amino Transf (AST/SGOT) 52H, Alanine Aminotransferase (ALT/SGPT) 32, Alkaline Phosphatase 211H, C-Reactive Protein High Sensitivity 26.58H, Total Protein 7.2, Albumin 2.4L, Procalcitonin 6.11H 01/18/21 13:48: Glucometer 225H 01/18/21 15:50: Radiology Date of Exam:01/18/21 FOOT, LEFT, 3 VIEWS INDICATION: Foot ulcerations and necrosis. EXAMINATION: Left foot, 3 views, on 01/18/2021. COMPARISON: 11/16/2020. FINDINGS: There is diffuse subcutaneous air, predominantly along the plantar aspect of the mid and hindfoot but extending towards the forefoot as well. Soft tissue prominence is seen diffusely about the foot. An underlying abscess is not excluded. There is focal irregularity along the plantar surface of the posterior calcaneus and along the posterior border of the calcaneus, suspicious for osteomyelitis. Post amputation changes are noted along the mid to proximal 5th metatarsal. There is deformity of the proximal 4th phalanx and the 4th metatarsal, consistent with old fractures. There is diffuse degenerative disease throughout the midfoot. IMPRESSION: 1. Diffuse soft tissue abnormalities including subcutaneous air suggesting a gas-forming organism. 2. Suspicion of osteomyelitis along the posterior and plantar aspects of the calcaneus. This could be further characterized with MRI with and without contrast. 3. Other findings as above. 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 However, his renal failure is a problem and we do not have dialysis services or nephrology here. He needs to be transferred to a higher level of care. MICHELLE POSADA DO Jan 18, 2021 16:12
[2021-01-18] MEDS ORDERED: VANCOMYCIN INJECTION 1,000 MG in NS (IVPB) 250 ML IV ONE (16:30)
[2021-01-18] MEDS ORDERED: VANCOMYCIN 2000 MG/NS 500 ML IVPB IV NR ×2 (16:45)
[2021-01-18] MEDS ORDERED: morphine INJ 10 MG/ML 1ML (SYR OR VIAL) ONE (16:53)
[2021-01-18 16:55] LABS: CLARITY,URINE CLEAR; COLOR,URINE YELLOW; GLUCOSE, URINE (UA) NEGATIVE (NEGATIVE); KETONES,URINE NEGATIVE (NEGATIVE); LEUKOCYTE ESTERASE ,URINE TRACE (NEGATIVE); NITRITE,URINE NEGATIVE (NEGATIVE); PH,URINE 5.5 (5-9); PROTEIN,URINE 2+ (NEGATIVE)
[2021-01-18] MEDS ORDERED: morphine PF (DURAMORPH) 10 MG/10 ML AMP IV ONE (17:00)
[2021-01-18 17:07] LABS: AMORPHOUS SEDIMENT,UR FEW AMOR URATES /LPF; BACTERIA,URINE NEGATIVE /HPF; BILIRUBIN,URINE 1+ (NEGATIVE); WBC,URINE RARE /HPF
[2021-01-18] MEDS ORDERED: NS IV 1000 ML 1,000 ML IV SCH (21:45)
[2021-01-18 22:22] LABS: CALCIUM 7.5 MG/DL (8.5-10.1)
[2021-01-18 22:26] LABS: CREATININE SERUM 4.6 MG/DL (0.60-1.30)
[2021-01-18] MEDS ORDERED: PIPERACILLIN SODIUM/TAZOBACTAM 4.5 GM in NS (IVPB) 100 ML IV ONE (23:15)
[2021-01-19 02:16] LABS: BASOPHILS # (AUTO) 0.1 10^3/uL (0.0-0.1); BASOPHILS % (AUTO) 0 % (0-10); EOSINOPHILS % (AUTO) 0 % (0-10); LYMPHOCYTES % (AUTO) 4 % (12-44); MEAN CORPUSCULAR HEMOGLOBIN 25 pg (25-34); MEAN CORPUSCULAR HGB CONC 32 g/dL (32-36); MEAN CORPUSCULAR VOLUME 79 fL (80-99); MEAN PLATELET VOLUME 9.1 fL (9.0-12.2); MONOCYTES # (AUTO) 1.2 10^3/uL (0.0-1.0); MONOCYTES % (AUTO) 5 % (0-12); NEUTROPHILS # (AUTO) 21.3 10^3/uL (1.8-7.8); NEUTROPHILS % (AUTO) 89 % (42-75); PLATELET COUNT 320 10^3/uL (130-400); WHITE BLOOD COUNT 24.1 10^3/uL (4.3-11.0)
[2021-01-19 02:20] LABS: HEMATOCRIT 20 % (40-54); HEMOGLOBIN 6.5 g/dL (13.3-17.7)
[2021-01-19 02:35] LABS: ALBUMIN 2.1 GM/DL (3.2-4.5); CHLORIDE 91 MMOL/L (98-107); POTASSIUM 4.8 MMOL/L (3.6-5.0)
[2021-01-19 02:36] LABS: CALCIUM 7.5 MG/DL (8.5-10.1)
[2021-01-19 02:37] LABS: GLUCOSE 188 MG/DL (70-105)
[2021-01-19 02:38] LABS: TOTAL PROTEIN 6.5 GM/DL (6.4-8.2)
[2021-01-19 02:39] LABS: CARBON DIOXIDE 19 MMOL/L (21-32)
[2021-01-19 02:40] LABS: BILIRUBIN,TOTAL 0.8 MG/DL (0.1-1.0)
[2021-01-19 02:41] LABS: ALKALINE PHOSPHATASE 167 U/L (40-136); CREATININE SERUM 4.81 MG/DL (0.60-1.30); GFR ESTIMATED 13
[2021-01-19 02:43] LABS: SODIUM 121 MMOL/L (135-145)
[2021-01-19 02:44] LABS: ALANINE AMINOTRANSFERASE 27 U/L (0-55)
[2021-01-19] MEDS ORDERED: NS IV 1000 ML 1,000 ML IV SCH (02:45)
[2021-01-19 03:42] VITALS: BP 121/79
[2021-01-19 03:57] VITALS: BP 120/55
[2021-01-19 05:37] LABS: MEAN CORPUSCULAR HEMOGLOBIN 26 pg (25-34); MEAN CORPUSCULAR HGB CONC 32 g/dL (32-36); MEAN CORPUSCULAR VOLUME 79 fL (80-99); MEAN PLATELET VOLUME 9.6 fL (9.0-12.2); PLATELET COUNT 302 10^3/uL (130-400); WHITE BLOOD COUNT 23.8 10^3/uL (4.3-11.0)
[2021-01-19 05:39] LABS: HEMOGLOBIN 6.5 g/dL (13.3-17.7)
[2021-01-19 05:40] LABS: HEMATOCRIT 20 % (40-54)
[2021-01-19 06:00] VITALS: BP 116/67
[2021-01-19 06:15] VITALS: BP 120/69
[2021-01-19] MEDS ORDERED: MEROPENEM 1,000 MG in NS (IVPB) 100 ML IV ONE (07:00)
[2021-01-19] MEDS ORDERED: morphine INJ 10 MG/ML 1ML (SYR OR VIAL) ONE (09:20)
[2021-01-19 09:34] VITALS: BP 121/95
== END 2021-01-19 09:33 | disposition short-term general hospital (02) ==
LOC: EDUNIT# 13:35 → ER 13:37
DX: E11.621 Type 2 diabetes mellitus with foot ulcer (principal); A41.9 Sepsis, unspecified organism; N17.9 Acute kidney failure, unspecified; E11.22 Type 2 diabetes mellitus with diabetic chronic kidney disease; I12.9 Hypertensive chronic kidney disease with stage 1 through stage 4 chronic kidney disease, or unspecified chronic kidney disease; N18.9 Chronic kidney disease, unspecified; D64.9 Anemia, unspecified; E66.01 Morbid (severe) obesity due to excess calories; J44.9 Chronic obstructive pulmonary disease, unspecified; E78.00 Pure hypercholesterolemia, unspecified; I25.10 Atherosclerotic heart disease of native coronary artery without angina pectoris; K21.9 Gastro-esophageal reflux disease without esophagitis; F41.9 Anxiety disorder, unspecified; F32.9 Major depressive disorder, single episode, unspecified; Z68.43 Body mass index [BMI] 50.0-59.9, adult; Z86.711 Personal history of pulmonary embolism; Z86.718 Personal history of other venous thrombosis and embolism; Z20.822 Contact with and (suspected) exposure to COVID-19; Z79.01 Long term (current) use of anticoagulants; Z79.4 Long term (current) use of insulin; Z79.899 Other long term (current) drug therapy
CPT/HCPCS: 51702; 71045; 73630; 80048; 80053 ×2; 81000; 82947; 83605 ×2; 84145 ×2; 85007; 85025; 85027 ×2; 85610; 85730; 86141; 86850; 86900; 86901; 86920; 87040; 87070; 87077; 87088; 87205; 87636; 93005; 93926; 99291; P9016; 36415

== ENCOUNTER 2022-08-22 05:52 | Outpatient (CLI) | payer MEDICARE, MEDICAID ==
[~2022-08-22] VITALS: Ht 193 cm; Wt 181.8 kg
[~2022-08-22 05:52] MED LIST changes: +ALBU8.5H6 IH; -INSU100I29; +INSU100I30; +LEVO-55 PO; -LEVO500T81 PO; +LEVO750T PO; -LEVO750T39 PO; -RT-ALBUINH IH
[2022-08-22] MEDS ORDERED: RANITIDINE PO (14:19)
[2022-08-22] MEDS ORDERED: OXYC-525 PO (14:19)
== END 2022-08-22 14:30 | disposition home or self-care (01) ==
LOC: PREOP 05:52
PROVIDERS: ATTEND Specialist
DX: Z01.818 Encounter for other preprocedural examination (principal)

== ENCOUNTER 2022-08-31 10:03 | Day surgery (SDC) | payer MEDICARE, MEDICAID ==
[~2022-08-31] VITALS: Ht 193 cm; Wt 181.8 kg
[~2022-08-31 10:03] MED LIST changes: +OXYC-525 PO; +RANITIDINE PO
[2022-08-31] MEDS ORDERED: MIDAZOLAM 2 MG/2 ML (VERSED) VIAL ONE (10:08)
[2022-08-31] MEDS ORDERED: TIMOLOL 0.5% (CATARACTS) 0.3 ML BTL OU PRN (10:15)
[2022-08-31] MEDS ORDERED: MOXIFLOXACIN OPHTH SOLN 5 MG/ML 0.3 ML SYRINGE OP ONE (10:15)
[2022-08-31] MEDS: TETRACAINE 0.5% OPHTH SOLN 4 ML BTL (SINGLE DOSE ONLY) OU PRN ×3 (10:15→10:32)
[2022-08-31] MEDS ORDERED: POVIDONE (BETADINE) OPHTH SOLN 5% 30 ML OP ONE (10:15)
[2022-08-31] MEDS: TROPICAMIDE 1% OPH SOLN (MYDRIACYL) 15 ML BTL OP SCH ×3 (10:23→10:33)
[2022-08-31] MEDS: PHENYLEPHRINE 10% OPHTH (NEO-SYN) 5 ML BTL OU SCH ×3 (10:23→10:33)
[2022-08-31 10:28] VITALS: BP 189/94
--- NOTE | 2022-08-31 11:06 | Ophthalmologist Pre-Op Note ---
Pre-Operative Progress Note H&P Reviewed The H&P was reviewed, patient examined and no changes noted. Date H&P Reviewed: Aug 31, 2022 Time H&P Reviewed: 11:05 Pre-Op Dx Cataract, Right Eye HENRIETTA CHILEL MD Aug 31, 2022 11:06
--- NOTE | 2022-08-31 11:25 | Ophthalmology Operative Report ---
Cataract removal/placement IOL PREOPERATIVE DIAGNOSIS: Cataract Right Eye POSTOPERATIVE DIAGNOSIS: Cataract Right Eye PROCEDURE: Cataract removal and placement of posterior chamber implant, right eye SURGEON: Evelio Chilel ANESTHESIA: Topical with sedation COMPLICATIONS: None ESTIMATED BLOOD LOSS: Minimal DESCRIPTION OF PROCEDURE: After proper informed consent was obtained, the patient, a 56 male, was taken to the Operating Room and the right eye was anesthetized with tetracaine. The right eye was then prepped and draped in the usual manner. A wire lid speculum was placed. A paracentesis was made at the left hand position. Preservative free lidocaine was injected into the anterior chamber followed by viscoelastic. A clear corneal incision was made in the temporal position. A capsulorrhexis was preformed and the central nuclear and cortical material were removed. The posterior capsule was polished and Omer 19.5 AU00T0 IOL was placed into the capsular bag. The residual viscoelastic was aspirated and balanced saline solution was injected into the anterior chamber. Moxifloxacin was injected into the anterior chamber. The wound was checked and found to be water tight. The patient tolerated the procedure well without complications. EVELIO CHILEL MD Aug 31, 2022 11:25
[2022-08-31 11:36] VITALS: BP 148/89
[2022-08-31] MEDS ORDERED: acetaZOLAMIDE ER 500 MG CAP (DIAMOX SEQUELS) PO ONE (13:00)
--- NOTE | 2022-08-31 15:02 | Anesthesia-General Post-Op ---
MAC Patient Condition Mental Status/LOC: Same as Preop Cardiovascular: Satisfactory Nausea/Vomiting: Absent Respiratory: Satisfactory Pain: Controlled Complications: Absent Post Op Complications Complications None Follow Up Care/Instructions Patient Instructions None needed. Anesthesiology Discharge Order Discharge Order Patient was doing well after the procedure with no complaints, stable vital signs, no apparent adverse anesthesia problems. No complications reported per nursing. OG DIAMOND DO Aug 31, 2022 15:02
== END 2022-08-31 11:38 | disposition home or self-care (01) ==
LOC: SDC 10:03
PROVIDERS: ATTEND Specialist
DX: E11.36 Type 2 diabetes mellitus with diabetic cataract (principal); H25.9 Unspecified age-related cataract; E66.01 Morbid (severe) obesity due to excess calories; Z68.42 Body mass index [BMI] 45.0-49.9, adult; Z79.4 Long term (current) use of insulin

== ENCOUNTER 2022-09-12 05:35 | Outpatient (CLI) | payer MEDICARE, MEDICAID ==
[~2022-09-12] VITALS: Ht 193 cm; Wt 181.8 kg
== END 2022-09-12 10:42 ==
LOC: PREOP 05:35
PROVIDERS: ATTEND Specialist
DX: Z01.818 Encounter for other preprocedural examination (principal)

== ENCOUNTER 2022-09-28 10:08 | Day surgery (SDC) | payer MEDICARE, MEDICAID ==
[~2022-09-28] VITALS: Ht 193 cm; Wt 181.8 kg
[2022-09-28] MEDS ORDERED: POVIDONE (BETADINE) OPHTH SOLN 5% 30 ML OP ONE (11:15)
[2022-09-28] MEDS ORDERED: MOXIFLOXACIN OPHTH SOLN 5 MG/ML 0.3 ML SYRINGE OP ONE (11:15)
[2022-09-28] MEDS ORDERED: LIDOCAINE PF 1% 2 ML VIAL IR PRN (11:15)
[2022-09-28] MEDS ORDERED: TIMOLOL 0.5% (CATARACTS) 0.3 ML BTL OU PRN (11:15)
[2022-09-28] MEDS: TETRACAINE 0.5% OPHTH SOLN 4 ML BTL (SINGLE DOSE ONLY) OU PRN ×4 (11:25→11:41)
[2022-09-28] MEDS: TROPICAMIDE 1% OPH SOLN (MYDRIACYL) 15 ML BTL OP SCH ×3 (11:29→11:41)
[2022-09-28] MEDS: PHENYLEPHRINE 10% OPHTH (NEO-SYN) 5 ML BTL OU SCH ×3 (11:29→11:41)
[2022-09-28 11:31] VITALS: BP 192/93
--- NOTE | 2022-09-28 12:12 | Ophthalmologist Pre-Op Note ---
Pre-Operative Progress Note H&P Reviewed The H&P was reviewed, patient examined and no changes noted. Date H&P Reviewed: Sep 28, 2022 Time H&P Reviewed: 12:12 Pre-Op Dx Cataract, Left Eye HENRIETTA CHILEL MD Sep 28, 2022 12:12
[2022-09-28] MEDS ORDERED: MIDAZOLAM 2 MG/2 ML (VERSED) VIAL ONE (12:17)
--- NOTE | 2022-09-28 12:34 | Ophthalmology Operative Report ---
Cataract removal/placement IOL PREOPERATIVE DIAGNOSIS: Cataract Left Eye POSTOPERATIVE DIAGNOSIS: Cataract Left Eye PROCEDURE: Cataract removal and placement of posterior chamber implant, left eye SURGEON: Evelio Chilel ANESTHESIA: Topical with sedation COMPLICATIONS: None ESTIMATED BLOOD LOSS: Minimal DESCRIPTION OF PROCEDURE: After proper informed consent was obtained, the patient, a 56 male, was taken to the Operating Room and the left eye was anesthetized with tetracaine. The left eye was then prepped and draped in the usual manner. A wire lid speculum was placed. A paracentesis was made at the left hand position. Preservative free lidocaine was injected into the anterior chamber followed by viscoelastic. A clear corneal incision was made in the temporal position. A capsulorrhexis was preformed and the central nuclear and cortical material were removed. The posterior capsule was polished and an Omer 20.0 AU00T0 was placed into the capsular bag. The residual viscoelastic was aspirated and balanced saline solution was injected into the anterior chamber. Moxifloxacin was injected into the anterior chamber. The wound was checked and found to be water tight. The patient tolerated the procedure well without complications. EVELIO CHILEL MD Sep 28, 2022 12:34
[2022-09-28 13:09] VITALS: BP 196/93
--- NOTE | 2022-09-28 14:02 | Anesthesia-General Post-Op ---
MAC Patient Condition Mental Status/LOC: Same as Preop Cardiovascular: Satisfactory Nausea/Vomiting: Absent Respiratory: Satisfactory Pain: Controlled Complications: Absent Post Op Complications Complications None Follow Up Care/Instructions Patient Instructions None needed. Anesthesiology Discharge Order Discharge Order Patient is doing well, no complaints, stable vital signs, no apparent adverse anesthesia problems. No complications reported per nursing. HEATHER WALTER CRNA Sep 28, 2022 14:02
== END 2022-09-28 13:11 | disposition home or self-care (01) ==
LOC: SDC 10:08
PROVIDERS: ATTEND Specialist
DX: E11.36 Type 2 diabetes mellitus with diabetic cataract (principal); H25.9 Unspecified age-related cataract; E66.01 Morbid (severe) obesity due to excess calories; Z79.4 Long term (current) use of insulin; Z68.42 Body mass index [BMI] 45.0-49.9, adult
CPT/HCPCS: 82947